=== PATIENT | female | born 1950 | race Caucasian/White ===

== ENCOUNTER 2016-12-12 09:44 | Day surgery (SDC) | payer MEDICARE ==
[~2016-12-12 09:44] MED LIST: LACTATED RINGERS 1,000 ML IV SCH; LIDOCAINE 1% 20 ML VIAL (10MG/ML) FOR IV START INTRADERMA PRN
[2016-12-12 10:59] VITALS: RESP 16; TEMP 97.5
[2016-12-12] MEDS ORDERED: PROPOFOL 10 MG/ML 20 ML VIAL IV ONE (11:22)
[2016-12-12] MEDS ORDERED: LIDOCAINE 1% INJ 10MG/ML (20 ML MDV) ONE (11:22)
[2016-12-12 12:12] VITALS: BP 131/78; PULSE 53
--- NOTE | 2016-12-12 13:04 | P.PCN ---
Date of Procedure: 12/12/16 Procedure(s) Performed: BRIEF HISTORY: Patient is a 66-year-old, pleasant, white female, scheduled for an upper endoscopy as a part of evaluation of epigastric pain for the last 2 months duration. Her symptoms are worse after eating and she has pain almost on a daily basis. She also complains of early satiety. She has been on omeprazole 20 mg daily with no help in her symptoms. She is hence scheduled for an upper endoscopy to evaluate further. PROCEDURE PERFORMED: Esophagogastroduodenoscopy with biopsy. PREOPERATIVE DIAGNOSIS: Postprandial epigastric pain of 2 months duration and early satiety. IV sedation per anesthesia. PROCEDURE: After informed consent was obtained, the patient was brought into the endoscopy unit. IV conscious sedation was administered by Anesthesia under continuous monitoring. Initially the Olympus GIF-140 video endoscope was inserted into the mouth. Esophagus intubated without any difficulty. It was gradually advanced into the stomach and duodenum and carefully examined. The bulb and the second part of the duodenum appeared normal. The scope at this time was withdrawn to the stomach, adequately insufflated with air, and upon careful examination, mucosa of the antrum, had gastritis and biopsies were done from this area. The body, cardia appeared normal. On retroflexion there was a paraesophageal hiatal hernia noted with large amount of retained food in the hiatal hernia sac. The scope was advanced into the hiatal hernia sac and the mucosa appeared normal. The scope was then withdrawn into the esophagus. The GE junction was located at 36 cm from the incisors. The esophagus appeared normal. There were no erosions or ulcerations seen and the patient tolerated the procedure well. IMPRESSION: 1. Paraesophageal hiatal hernia with large amount of retained solid food noted as mentioned above. 2. Mild antral gastritis. RECOMMENDATIONS: The findings of this examination were discussed with the patient as well as a family. She was advised to follow with the biopsy results. In the meantime I increased the Prilosec to 20 mg twice daily and advised for her to be on small frequent meals. She will be seen in office in 4 weeks. If she continues to remain symptomatic she may be a candidate for repair of the hiatal hernia.
--- NOTE | 2016-12-17 10:48 | CDI ---
Pt Name: January Ulrich CONFIDENTIAL MR#: [id number] Adm Date: 12/12/2016 9:44:00 AM Printed:12/17/2016 Physician Documentation Request Page 1 of 1 ICD-10-CM Ready Physicians Documentation Request Patient: January Ulrich EPI: [id number] Account: [id number] Payer: MEDICARE HMO Facility: [facility] Location: - Admit Date: 12/12/2016 9:44:00 AM Query Send By: Zaria Morse Phone #: Ext. Communication Date: 12/17/2016 10:43:00 AM Clarification Outpatient By submitting this query, we are merely seeking further clarification of documentation to accurately reflect all conditions that you are monitoring, evaluating, treating or that extend the hospitalization or utilize additional resources of care. Please utilize your independent clinical judgment when addressing the question(s) below. Dear Doctor Alejandra Gong, The patients Clinical Indicators include: see below Documentation Clarification OP In order to properly code and bill, we need clarification regarding the sedation used during this procedure because the current documentation shows a conflict. Your Procedure note states "IV conscious sedation", yet the Anesthesia Record indicates GA/Unconscious Sedation. Please issue an addendum to your operative report stating whether Conscious sedation was really used, or if it was GA/Unconscious sedation. Thank you. PLEASE DOCUMENT ANY ADDITIONAL DIAGNOSES AND/OR SPECIFICITY IN THE PROGRESS NOTES AND/OR DISCHARGE SUMMARY. Agreed & documented Unable to determine/unknown Disagree with the above request Need to discuss MTDD
--- NOTE | 2016-12-21 12:09 | PCN ---
ADDENDUM TO PROCEDURE NOTE: General anesthesia was utilized instead of IV conscious sedation.
== END 2016-12-12 12:50 | disposition home or self-care (01) ==
LOC: ORWHC2ENDO 09:44
PROVIDERS: ATTEND Internal Medicine Gastroenterology
DX: K29.50 Unspecified chronic gastritis without bleeding (principal); K44.9 Diaphragmatic hernia without obstruction or gangrene; I25.10 Atherosclerotic heart disease of native coronary artery without angina pectoris; Z95.5 Presence of coronary angioplasty implant and graft; I10 Essential (primary) hypertension; E78.5 Hyperlipidemia, unspecified; E07.9 Disorder of thyroid, unspecified; F32.9 Major depressive disorder, single episode, unspecified; K21.9 Gastro-esophageal reflux disease without esophagitis; Z79.82 Long term (current) use of aspirin; Z79.899 Other long term (current) drug therapy
CPT/HCPCS: 88305; 88342; 43239; J2001; J2704

== ENCOUNTER → 2017-04-23 | Outpatient (CLI) | payer MEDICARE ==
[2017-04-23 17:13] LABS: Blood Urea Nitrogen 20 mg/dL (7-17); Non-African American GFR(MDRD) >60 (>60 ml/min/1.73 sqM)
--- NOTE | 2017-04-24 06:59 | CT ---
EXAMINATION TYPE: CT chest w con DATE OF EXAM: 04/23/2017 COMPARISON: NONE HISTORY: Chest pain for 5-[address] DLP: 559.5 mGycm Automated exposure control for dose reduction was used. CONTRAST: CT scan of the chest is performed with IV Contrast, patient injected with 100 mL of Omnipaque 300. FINDINGS: Lungs are clear. There is no significant axillary, internal mammary, mediastinal or hilar adenopathy. There is no pleural or pericardial fluid. The heart is mildly enlarged. The aorta is normal in calibe r. There is a moderate-sized hiatal hernia. The gallbladder is been removed. Visualized portions of the upper abdomen are otherwise normal. No bony destructive lesion is seen. IMPRESSION: 1. No acute intrathoracic abnormality. 2. Hiatal hernia.
== END | disposition home or self-care (01) ==
LOC: RADCTMAIN 16:39
PROVIDERS: ATTEND Surgery
DX: R07.89 Other chest pain (principal)
CPT/HCPCS: 82565; 84520; 71260; 36415; Q9967

== ENCOUNTER 2017-06-14 06:30 | Observation (INO) | payer MEDICARE ==
[2017-06-07 16:18] VITALS: BMI 44.6
[~2017-06-14 06:30] MED LIST changes: -LACTATED RINGERS 1,000 ML IV SCH; -LIDOCAINE 1% 20 ML VIAL (10MG/ML) FOR IV START INTRADERMA PRN; +ceFAZolin 2 GM in SODIUM CHLORIDE 0.9% 100 ML IVPB ONE
[2017-06-14] MEDS ORDERED: LACTATED RINGERS 1,000 ML IV ONE ×2 (07:10→09:06)
[2017-06-14] MEDS ORDERED: LIDOCAINE 1% 20 ML VIAL (10MG/ML) FOR IV START INTRADERMA ONE (07:18)
[2017-06-14] MEDS ORDERED: MIDAZOLAM 2 MG/2 ML VIAL IV ONE (07:19)
[2017-06-14] MEDS ORDERED: DEXAMETHASONE SOD PHOSPHATE 4 MG/ML 1 ML VIAL IV ONE (07:19)
[2017-06-14] MEDS ORDERED: ONDANSETRON 4 MG/2 ML VIAL IVP ONE ×2 (07:19→10:36)
[2017-06-14] MEDS ORDERED: HEPARIN SODIUM,PORCINE 5,000 UNIT/ML 1 ML VIAL SQ ONE (07:45)
--- NOTE | 2017-06-14 07:49 | P.GSHP ---
History of Present Illness H&P Date: 06/14/17 Chief Complaint: Hiatal hernia Patient seen in the office with complaints of chest pain. Increased with eating. Better with liquids. Some nausea but no vomiting. Denies dysphagia. She does have some reflux symptoms although that is mild she states. CAT scan shows a large hiatal hernia. The esophagus appears to be of appropriate length. Pain is mostly in the right chest. Upper endoscopy was done in November of this year. At the time of hernia the patient was found to have some solid food within the stomach. No esophagitis was seen. Past Medical History Past Medical History: Coronary Artery Disease (CAD), GERD/Reflux, Hyperlipidemia , Hypertension, Musculoskeletal Disorder, Osteoarthritis (OA), Thyroid Disorder Additional Past Medical History / Comment(s): DDD, hx anemia. History of Any Multi-Drug Resistant Organisms: None Reported Past Surgical History: Back Surgery, Cholecystectomy, Heart Catheterization With Stent, Hysterectomy, Joint Replacement, Orthopedic Surgery Additional Past Surgical History / Comment(s): Bilateral total knees. Past Anesthesia/Blood Transfusion Reactions: No Reported Reaction Date of Last Stent Placement:: 2006 Past Psychological History: No Psychological Hx Reported Smoking Status: Former smoker Past Alcohol Use History: None Reported Additional Past Alcohol Use History / Comment(s): Quit in 2006. Past Drug Use History: None Reported - Past Family History Brother(s) Family Medical History: Cancer Mother Brother(s) Family Medical History: Cancer Father Family Medical History: Cancer Medications and Allergies Home Medications Medication Instructions Recorded Confirmed Type Aspirin 81 mg PO DAILY 05/03/15 06/07/17 History Atenolol [Tenormin] 25 mg PO QAM 05/03/15 06/07/17 History Citalopram Hydrobromide [CeleXA] 40 mg PO QAM 05/03/15 06/07/17 History Enalapril Maleate [Vasotec] 5 mg PO QAM 05/03/15 06/07/17 History HYDROcodone/APAP 10-325MG [[place] 1 each PO Q6H PRN 05/03/15 06/07/17 History 10] Isosorbide Mononitrate [Isosorbide 30 mg PO QAM 05/03/15 06/07/17 History Mononitrate ER] Levothyroxine Sodium [Synthroid] 125 mcg PO QAM 05/03/15 06/07/17 History Nitroglycerin Sl Tabs [Nitrostat] 0 mg SUBLINGUAL DIRECTED PRN 05/03/1506/14 History Omeprazole 40 mg PO BID 05/03/15 06/07/17 History Pramipexole [Mirapex] 1 mg PO HS 05/03/15 06/07/17 History Atorvastatin Calcium [Lipitor] 40 mg PO HS 06/07/17 06/07/17 History Ergocalciferol (Vitamin D2) 125 mg PO PAL 06/07/17 06/07/17 History [Vitamin D2] Gabapentin [Neurontin] 300 mg PO TID 06/07/17 06/07/17 History Glucosamine Sulfate 1,500 mg PO DAILY 06/07/17 06/14/17 History Multivitamins, Thera [Multivitamin 1 tab PO DAILY 06/07/17 06/07/17 History (formulary)] Tolterodine Tartrate [Detrol LA] 4 mg PO HS 06/07/17 06/07/17 History Allergies Allergy/AdvReac Type Severity Reaction Status Date / Time No Known Allergies Allergy Verified 06/14/17 06:57 Surgical - Exam Vital Signs Temp Pulse Resp BP Pulse Ox 97.7 F 67 16 143/72 92 L 06/14/17 06:57 06/14/17 06:57 06/14/17 06:57 06/14/17 06:57 06/14/17 06:57 Physical exam: General: Well-developed, well-nourished HEENT: Normocephalic, sclerae nonicteric Abdomen: Nontender, nondistended Extremities: No edema Neuro: Alert and oriented Assessment and Plan (1) Hiatal hernia Narrative/Plan: Large symptomatic hiatal hernia. The patient's chest pain is thought to be related to intermittent obstruction. Patient's reflux symptoms are fairly mild. We have discussed the options in detail with the patient. We'll plan laparoscopic repair today with possible [place] Bio-a mesh. The risks of bleeding , infection, perforation, splenic injury, recurrence, reflux, dysphagia, gastroparesis, bloating, conversion to an open procedure were discussed. She understands and wishes to proceed. Status: Acute
[2017-06-14] MEDS ORDERED: NEOSTIGMINE 1 MG/ML 10 ML VIAL ONE (07:54)
[2017-06-14] MEDS ORDERED: ROCURONIUM BROMIDE 10 MG/ML 10 ML VIAL IV ONE (07:54)
[2017-06-14] MEDS ORDERED: ePHEDrine SULFATE/0.9% NACL/PF 50 MG/5 ML SYRINGE IV ONE (07:54)
[2017-06-14] MEDS ORDERED: GLYCOPYRROLATE 0.2 MG/ML 2 ML VIAL ONE (07:54)
[2017-06-14] MEDS ORDERED: LIDOCAINE 1% INJ 10MG/ML (20 ML MDV) ONE (07:54)
[2017-06-14] MEDS ORDERED: PROPOFOL 10 MG/ML 20 ML VIAL IV ONE (07:54)
[2017-06-14] MEDS ORDERED: SUCCINYLCHOLINE CHLORIDE VIAL 200 MG/10 ML VIAL IV ONE (07:54)
[2017-06-14] MEDS ORDERED: fentaNYL (PF) 50 MCG/ML 2 ML AMP ONE (07:54)
[2017-06-14] MEDS ORDERED: BUPIVACAINE (PF) 0.25% 30 ML VIAL SQ ONE ×2 (08:27)
[2017-06-14] MEDS ORDERED: HYDROmorphone 1 MG/ML 1 ML SYRINGE IVP ONE ×4 (10:30→10:56)
[2017-06-14] MEDS ORDERED: ONDANSETRON 4 MG/2 ML VIAL IVP PRN (10:36)
--- NOTE | 2017-06-14 10:43 | P.OP ---
Date of Procedure: 06/14/17 Procedure(s) Performed: PROCEDURE(S) PERFORMED: PREOPERATIVE DIAGNOSIS: Hiatal hernia POSTOPERATIVE DIAGNOSIS: Same PROCEDURE: Laparoscopic repair hiatal hernia with mesh SURGEON: Juan EBL: Minimal ANESTHESIA: General COMPLICATIONS: None OPERATIVE PROCEDURE: Patient was placed in the operating table in the supine position. She was placed under general anesthesia at that time. The abdomen was prepped and draped in sterile fashion after the patient was placed in lithotomy. A 5 mm optical trocar was used to enter the abdominal cavity in the left upper quadrant. Insufflation took place to 15 mm mercury. An additional right subxiphoid 5 mm trocar was then placed under direct relation and then removed. 2 additional 5 mm trochars were placed in the right upper quadrant and left upper quadrant under direct relation and a 10 mm trocar in the left upper quadrant inferior to the initial 5 mm spot. The left lower liver was retracted anteriorly using the Ashley medium liver retractor. There were some adhesions from the prior open cholecystectomy there were divided using the LigaSure device. The diaphragm was inspected. The patient had a large hiatal hernia. The top one third or so of the stomach and perigastric fat was above the diaphragm. Circumferentially the phrenoesophageal ligament was incised identifying the actual defect. The proximal greater curvature of the stomach was mobilized by dividing the short gastric vasculature. The posterior short gastrics were likewise divided. Mobilization of the distal esophagus took place proximally 10 cm above the diaphragmatic hiatus. We had excellent mobility at this point in the GE junction was resting just beyond the hiatus. The 58-[place] bougie dilator was advanced into the stomach. This helped me identify how tight to make the hiatus. 3 separate 2-0 Ethibond sutures were used to reapproximate the renee posteriorly. These were tied down using the tie knot device. The dilator was then readvanced and the hiatus appeared appropriately tightened at that point. The [place] bio-a mesh was then used covering the crural closure. The mesh was 7 x 10 cm with the keyhole already precut. The mesh was secured posteriorly to the crural closure so that it would not impede upon the posterior wall of the esophagus. I also sutured the fascia to the crura on both the right and left side of the diaphragmatic hiatus. During the procedure 3 separate portions of perigastric fat made up the hernia sac was excised and removed. The insufflation was evacuated. The skin at all 5 incisions were closed using 4-0 Monocryl sutures. Steri-Strips and sterile dressings were then applied. DISPOSITION: Stable to recovery room
--- NOTE | 2017-06-14 12:33 | P.HPIM ---
History of Present Illness H&P Date: 06/14/17 Chief Complaint: Status post laparoscopic repair of hiatal hernia with mesh This is a 66-year-old female with a known past medical history of coronary artery disease with cardiac stent, hyperlipidemia, hypertension, hypothyroidism and past history of smoking. Patient has a known hiatal hernia and underwent a laparoscopic repair of hiatal hernia with mesh with Dr. Martinez today. She tolerated surgery well. She is currently complaining of some abdominal pain and just received a dose of IV Dilaudid. She denies any chest pain or shortness of breath. Denies any nausea or vomiting. Denies any bowel movement problems prior to surgery. Denies any burning with urination prior to surgery. Patient will had symptomatic hiatal hernia with complaints of chest pain that increased with eating. And a previous CAT scan that showed a large hiatal hernia. We have been consulted for medical management. On physical exam patient does have some wheezing but no history of COPD or emphysema. She does have a previous smoking history. Review of Systems Please refer to HPI otherwise unremarkable Past Medical History Past Medical History: Coronary Artery Disease (CAD), GERD/Reflux, Hyperlipidemia , Hypertension, Musculoskeletal Disorder, Osteoarthritis (OA), Thyroid Disorder Additional Past Medical History / Comment(s): DDD, hx anemia. History of Any Multi-Drug Resistant Organisms: None Reported Past Surgical History: Back Surgery, Cholecystectomy, Heart Catheterization With Stent, Hysterectomy, Joint Replacement, Orthopedic Surgery Additional Past Surgical History / Comment(s): Bilateral total knees. Past Anesthesia/Blood Transfusion Reactions: No Reported Reaction Date of Last Stent Placement:: 2006 Past Psychological History: No Psychological Hx Reported Smoking Status: Former smoker Past Alcohol Use History: None Reported Additional Past Alcohol Use History / Comment(s): Quit in 2006. Past Drug Use History: None Reported - Past Family History Brother(s) Family Medical History: Cancer Mother Brother(s) Family Medical History: Cancer Father Family Medical History: Cancer Medications and Allergies Home Medications Medication Instructions Recorded Confirmed Type Aspirin 81 mg PO DAILY 05/03/15 06/07/17 History Atenolol [Tenormin] 25 mg PO QAM 05/03/15 06/07/17 History Citalopram Hydrobromide [CeleXA] 40 mg PO QAM 05/03/15 06/07/17 History Enalapril Maleate [Vasotec] 5 mg PO QAM 05/03/15 06/07/17 History HYDROcodone/APAP 10-325MG [[place] 1 each PO Q6H PRN 05/03/15 06/07/17 History 10] Isosorbide Mononitrate [Isosorbide 30 mg PO QAM 05/03/15 06/07/17 History Mononitrate ER] Levothyroxine Sodium [Synthroid] 125 mcg PO QAM 05/03/15 06/07/17 History Nitroglycerin Sl Tabs [Nitrostat] 0 mg SUBLINGUAL DIRECTED PRN 05/03/1506/14 History Omeprazole 40 mg PO BID 05/03/15 06/07/17 History Pramipexole [Mirapex] 1 mg PO HS 05/03/15 06/07/17 History Atorvastatin Calcium [Lipitor] 40 mg PO HS 06/07/17 06/07/17 History Ergocalciferol (Vitamin D2) 125 mg PO PAL 06/07/17 06/07/17 History [Vitamin D2] Gabapentin [Neurontin] 300 mg PO TID 06/07/17 06/07/17 History Glucosamine Sulfate 1,500 mg PO DAILY 06/07/17 06/14/17 History Multivitamins, Thera [Multivitamin 1 tab PO DAILY 06/07/17 06/07/17 History (formulary)] Tolterodine Tartrate [Detrol LA] 4 mg PO HS 06/07/17 06/07/17 History Hydrocodone/Acetaminophen [[place] 1 - 2 each PO Q4HR PRN #30 tab 06/14/17 Rx 5-325] Allergies Allergy/AdvReac Type Severity Reaction Status Date / Time No Known Allergies Allergy Verified 06/14/17 06:57 Physical Exam Vitals: Vital Signs Temp Pulse Pulse Resp BP Pulse Ox 06/14/17 11:15 62 16 130/68 95 06/14/17 11:00 62 16 132/59 96 06/14/17 10:45 63 16 140/65 99 06/14/17 10:30 64 16 133/61 06/14/17 10:23 98.4 F 68 16 122/62 92 L 06/14/17 07:23 56 L 98 06/14/17 06:57 97.7 F 67 16 143/72 92 L Intake and Output 06/13/17 06/14/17 06/14/17 22:59 06:59 14:59 Intake Total 1800 Output Total 15 Balance 1785 Intake: IV 1800 Output: Estimated Blood Loss 15 Other: Weight 117.934 kg Patient Weight 06/15/17 06:59 Weight 117.934 kg Head normocephalic Neck supple Lungs fine expiratory wheeze noted anterior and posterior chest Heart regular rate and rhythm S1-S2, no rub or gallop Abdomen is soft no bowel sounds dressing clean and dry Extremities no edema Neuro alert and orientated to 3 Thrombosis Risk Factor Assmnt - Choose All That Apply Any of the Below Risk Factors Present?: Yes Each Factor Represents 1 point: Obesity (BMI >25), Swollen legs (current), Varicose veins Other Risk Factors: Yes Each Risk Factor Represents 2 Points: Laparoscopic surgery, Major surgery Other congenital or acquired thrombophilia - If yes, enter type in comment: No Thrombosis Risk Factor Assessment Total Risk Factor Score: 7 Thrombosis Risk Factor Assessment Level: High Risk Assessment and Plan Plan: 1. Large hiatal hernia status post laparoscopic repair of hiatal hernia with mesh. Postop day #0. Surgery is place her on a Jessy clear liquid diet. She is scheduled for an esophagram later today. Continue with current pain medication 2. Mild wheezing noted throughout chest: Patient does have a history of smoking , possibly some mild underlying COPD. Will treat patient with nebulizer treatments 4 times a day 3. Essential hypertension: Blood pressure stable. Resume home blood pressure medications 4. Hypothyroidism: Resume patient's Synthroid 5. History of overactive bladder we'll resume patient's oxybutynin GI prophylaxis Pepcid and DVT prophylaxis subcu heparin Thank you for this consultation. We will continue to follow along with you. Time with Patient: Greater than 30 (Greater than 50% of the total time spent in counseling and coordination of care.I performed an examination of the patient and discussed their management with the physician Monument Installer. I have reviewed the Physician Monument Installer's notes and agree with the documented findings and plan of care)
[2017-06-14] MEDS: HYDROmorphone 1 MG/ML 1 ML SYRINGE IVP PRN ×2 (14:14→18:52)
--- NOTE | 2017-06-14 14:19 | FL ---
EXAMINATION TYPE: FL esophagus cervic/pharynx DATE OF EXAM: 06/14/2017 HISTORY: Status post Jessy fundoplication. COMPARISON: NONE TECHNIQUE: A single contrast esophagram is performed utilizing thin barium. FINDINGS: The distal esophagus shows normal motility and emptying into the stomach. Delayed propulsion at the gastroesophageal junction is seen, mild in degree with contrast seen extending through the gastroesop hageal junction after a short period of time. No evidence of hiatal hernia or stricture noted. No sig nificant gastroesophageal reflux was seen during real time performance of this study. IMPRESSION: Mild delayed propulsion of the gastroesophageal junction, likely related to postoperativ e edema with no stricture or extravasation.
[2017-06-14] MEDS: D5-0.45% NACL WITH KCL 20MEQ/L 1,000 ML IV SCH (15:11)
[2017-06-14] MEDS: HEPARIN SODIUM,PORCINE 5,000 UNIT/ML 1 ML VIAL SQ SCH (15:12)
[2017-06-14] MEDS: GABAPENTIN 300 MG CAP PO SCH ×2 (15:13→22:12)
[2017-06-14] MEDS: IPRATROPIUM-ALBUTEROL 3 ML NEB INHALATION SCH ×2 (15:59→20:39)
[2017-06-14] MEDS ORDERED: HYDROcodone/APAP 5-325MG 1 EACH TAB PO PRN (16:08)
[2017-06-14] MEDS ORDERED: ATORVASTATIN 40 MG TAB PO SCH (21:00)
[2017-06-14] MEDS ORDERED: PRAMIPEXOLE 1 MG TAB PO SCH (21:00)
[2017-06-14] MEDS ORDERED: OXYBUTYNIN XL 5 MG TAB.ER.24 PO SCH (21:00)
[2017-06-14] MEDS ORDERED: FAMOTIDINE 20 MG/2 ML VIAL IV SCH (21:00)
[2017-06-15] MEDS: HEPARIN SODIUM,PORCINE 5,000 UNIT/ML 1 ML VIAL SQ SCH ×2 (00:24→07:58)
[2017-06-15] MEDS: D5-0.45% NACL WITH KCL 20MEQ/L 1,000 ML IV SCH (00:24)
[2017-06-15] MEDS: HYDROmorphone 1 MG/ML 1 ML SYRINGE IVP PRN ×2 (00:29→05:58)
[2017-06-15] MEDS ORDERED: LEVOTHYROXINE 125 MCG TAB PO SCH (06:30)
[2017-06-15 07:12] VITALS: BP 122/70
[2017-06-15 07:15] LABS: Basophils % (A) 0 %; CH 30.2; CHCM 32.2; Eosinophils % (A) 0 %; HCT 36.1 % (34.0-46.0); HDW 2.68; HGB 11.3 gm/dL (11.4-16.0); Luc # (Auto) 0.19; Luc % (Auto) 2; Lymphocytes # (A) 1.3 k/uL (1.0-4.8); Lymphocytes % (A) 15 %; MCH 29.5 pg (25.0-35.0); MCHC 31.4 g/dL (31.0-37.0); MCV 94.1 fL (80.0-100.0); Mean Platelet Volume 7.1; Monocytes # (A) 0.6 k/uL (0-1.0); Monocytes % (A) 6 %; Neutrophils # (A) 6.9 k/uL (1.3-7.7); Neutrophils % (A) 77 %; RBC 3.84 m/uL (3.80-5.40); RDW 14.4 % (11.5-15.5); WBC (Perox) 9.47
[2017-06-15] MEDS: IPRATROPIUM-ALBUTEROL 3 ML NEB INHALATION SCH ×2 (07:18→11:22)
[2017-06-15 07:21] VITALS: PULSE 63
[2017-06-15 07:31] LABS: Anion Gap 4 mmol/L; Blood Urea Nitrogen 20 mg/dL (7-17); Carbon Dioxide 28 mmol/L (22-30); Chloride 101 mmol/L (98-107); Glucose 109 mg/dL (74-99); Non-African American GFR(MDRD) >60 (>60 ml/min/1.73 sqM); Potassium 4.3 mmol/L (3.5-5.1); Sodium 133 mmol/L (137-145)
[2017-06-15] MEDS: GABAPENTIN 300 MG CAP PO SCH (07:58)
[2017-06-15] MEDS ORDERED: ISOSORBIDE MONONITRATE ER 30 MG TAB.ER.24H PO SCH (09:00)
[2017-06-15] MEDS ORDERED: ATENOLOL 25 MG TAB PO SCH (09:00)
[2017-06-15] MEDS ORDERED: LISINOPRIL 10 MG TAB PO SCH (09:00)
[2017-06-15] MEDS ORDERED: CITALOPRAM HYDROBROMIDE 20 MG TAB PO SCH (09:00)
[2017-06-15 11:25] VITALS: RESP 14
[2017-06-15] MEDS ORDERED: MULTIVITAMINS, THERA 1 EACH TAB PO SCH (12:00)
--- NOTE | 2017-06-15 12:13 | P.PN ---
Subjective patient is doing well today. She is looking forward to go home later on. Objective - Vital Signs Vital signs: Vital Signs Temp 97.6 F 06/15/17 07:11 Pulse 63 06/15/17 11:36 Resp 14 06/15/17 11:36 BP 122/70 06/15/17 07:11 Pulse Ox 95 06/15/17 07:18 Intake & Output 06/14/17 06/15/17 06/15/17 18:59 06:59 18:59 Intake Total 1800 600 Output Total 90 660 350 Balance 1710 -60 -350 Weight 117.934 kg Intake: IV 1800 Intake, IV Titration 600 Amount D5-0.45% NaCl with KCl 600 20Meq/l 1,000 ml @ 75 mls /hr IV .[id number] CHARLIE Rx#: [id number] Output: Urine 75 660 350 Estimated Blood Loss 15 Other: Voiding Method Toilet # Voids 2 - Exam General: The patient is awake and alert, in no distress Eye: there is normal conjunctiva bilaterally. Neck: The neck is supple, there is no JVD. Cardiovascular: Normal S1-S2, no S3-S4, no murmurs. Respiratory: Lungs clear to auscultation bilaterally Gastrointestinal: Abdomen is soft, nontender Musculoskeletal: There is no pedal edema. Neurological:. Speech is normal. Skin: Skin is warm and dry - Labs CBC & Chem 7: 06/15/17 06:44 06/15/17 06:44 Labs: Abnormal Lab Results - Last 24 Hours (Table) 06/15/17 06/15/17 Range/Units 06:44 06:44 Hgb 11.3 L (11.4-16.0) gm/dL Sodium 133 L (137-145) mmol/L BUN 20 H (7-17) mg/dL Glucose 109 H (74-99) mg/dL Assessment and Plan Plan: 1. Large hiatal hernia status post laparoscopic repair of hiatal hernia with mesh. Postop day #1. patient tolerated the surgery well. 2. Essential hypertension: Blood pressure stable. Resume home blood pressure medications 4. Hypothyroidism: Resume patient's Synthroid 5. History of overactive bladder we'll resume patient's oxybutynin medically cleared for discharge. Thank you for the consultation.
[2017-06-15 14:49] VITALS: TEMP 97.4
--- NOTE | 2017-06-15 15:59 | P.DS ---
Providers Date of admission: 06/15/17 03:44 Expected date of discharge: 06/15/17 Attending physician: Kevin Martinez Consults: 06/14/17 10:36 Consult Physician Routine Consulting Provider: Melba Gillis Consult Reason/Comments: Medical management Do you want consulting provider notified?: Yes Primary care physician: Melba Gillis - Discharge Diagnosis(es) (1) Hiatal hernia Status: Acute Hospital Course: The patient presented for repair of a hiatal hernia. She was monitored overnight. She was having minimal pain. Tolerating a liquid diet. No dysphasia. Normal upper GI. Pertinent Studies: Upper GI Procedures: Laparoscopic repair of hiatal hernia Patient Condition at Discharge: Good Plan - Discharge Summary New Discharge Prescriptions: New Hydrocodone/Acetaminophen [[place] 5-325] 1 - 2 each PO Q4HR PRN #30 tab PRN Reason: pain Levothyroxine Sodium [Synthroid] 125 mcg PO DAILY@0630 #30 tab Continue Omeprazole 40 mg PO BID Nitroglycerin Sl Tabs [Nitrostat] 0.4 mg SUBLINGUAL DIRECTED PRN PRN Reason: Chest Pain HYDROcodone/APAP 10-325MG [[place] 10-325] 1 tab PO Q6H PRN PRN Reason: Pain Enalapril Maleate [Vasotec] 5 mg PO QAM Pramipexole [Mirapex] 1 mg PO HS Citalopram Hydrobromide [CeleXA] 40 mg PO QAM Atenolol [Tenormin] 25 mg PO QAM Aspirin 81 mg PO DAILY Isosorbide Mononitrate [Isosorbide Mononitrate ER] 30 mg PO QAM Tolterodine Tartrate [Detrol LA] 4 mg PO HS Glucosamine Sulfate 1,500 mg PO DAILY Multivitamins, Thera [Multivitamin (formulary)] 1 tab PO DAILY Ergocalciferol (Vitamin D2) [Vitamin D2] 50,000 unit PO PAL Atorvastatin Calcium [Lipitor] 40 mg PO HS Gabapentin [Neurontin] 300 mg PO TID Levothyroxine Sodium [Synthroid] 125 mcg PO DAILY Discharge Medication List Aspirin 81 mg PO DAILY 05/03/15 [History] Atenolol [Tenormin] 25 mg PO QAM 05/03/15 [History] Citalopram Hydrobromide [CeleXA] 40 mg PO QAM 05/03/15 [History] Enalapril Maleate [Vasotec] 5 mg PO QAM 05/03/15 [History] HYDROcodone/APAP 10-325MG [[place] 10-325] 1 tab PO Q6H PRN 05/03/15 [History] Isosorbide Mononitrate [Isosorbide Mononitrate ER] 30 mg PO QAM 05/03/15 [ History] Nitroglycerin Sl Tabs [Nitrostat] 0.4 mg SUBLINGUAL DIRECTED PRN 05/03/15 [ History] Omeprazole 40 mg PO BID 05/03/15 [History] Pramipexole [Mirapex] 1 mg PO HS 05/03/15 [History] Atorvastatin Calcium [Lipitor] 40 mg PO HS 06/07/17 [History] Ergocalciferol (Vitamin D2) [Vitamin D2] 50,000 unit PO PAL 06/07/17 [History] Gabapentin [Neurontin] 300 mg PO TID 06/07/17 [History] Glucosamine Sulfate 1,500 mg PO DAILY 06/07/17 [History] Multivitamins, Thera [Multivitamin (formulary)] 1 tab PO DAILY 06/07/17 [History ] Tolterodine Tartrate [Detrol LA] 4 mg PO HS 06/07/17 [History] Hydrocodone/Acetaminophen [[place] 5-325] 1 - 2 each PO Q4HR PRN #30 tab 06/14/17 [Rx] Levothyroxine Sodium [Synthroid] 125 mcg PO DAILY 06/15/17 [History] Levothyroxine Sodium [Synthroid] 125 mcg PO DAILY@0630 #30 tab 06/15/17 [Rx] Follow up Appointment(s)/Referral(s): Kevin Martinez MD [Medical Doctor] - 2 Weeks (Office closed, please call to schedule follow up appointment) Melba Gillis MD [Primary Care Provider] - 1 Week (Office closed, please call and schedule a follow up) Patient Instructions/Handouts: Adult Laparoscopic Jessy Fundoplication (DC) Activity/Diet/Wound Care/Special Instructions: No baths. No pools, no hot tubs No heavy lifting until follow up with Dr Martinez Discharge Disposition: HOME SELF-CARE
[2017-06-16] MEDS ORDERED: ERGOCALCIFEROL 50,000 UNIT CAP PO SCH (09:00)
== END 2017-06-15 15:06 | disposition home or self-care (01) ==
LOC: OR 06:30 → EDSTATUS 07:45 → 3SUR 10:22 → OR 06-15 03:44
PROVIDERS: ADMIT Surgery; ATTEND Surgery
DX: K44.0 Diaphragmatic hernia with obstruction, without gangrene (principal); R06.2 Wheezing; N32.81 Overactive bladder; I10 Essential (primary) hypertension; E03.9 Hypothyroidism, unspecified; I25.10 Atherosclerotic heart disease of native coronary artery without angina pectoris; M19.90 Unspecified osteoarthritis, unspecified site; Z68.41 Body mass index [BMI] 40.0-44.9, adult; E66.9 Obesity, unspecified; Z95.5 Presence of coronary angioplasty implant and graft; Z87.891 Personal history of nicotine dependence; Z79.82 Long term (current) use of aspirin; Z79.899 Other long term (current) drug therapy; F32.9 Major depressive disorder, single episode, unspecified; K21.9 Gastro-esophageal reflux disease without esophagitis; E78.5 Hyperlipidemia, unspecified
CPT/HCPCS: 43282; 94640 ×4; 94760; 80048; 85025; 88302; 74210; G0378; C1781; J2250; J0330; J1644 ×2; J1100; J2710; Q9967; J0690; J2405; J2001; J3010; J1170 ×2; J2704

== ENCOUNTER 2017-09-18 08:15 | Day surgery (SDC) | payer MEDICARE ==
[2017-09-16 11:24] VITALS: BMI 40.5
[~2017-09-18 08:15] MED LIST changes: +LACTATED RINGERS 1,000 ML IV SCH; +LIDOCAINE 1% 20 ML VIAL (10MG/ML) FOR IV START INTRADERMA PRN; -ceFAZolin 2 GM in SODIUM CHLORIDE 0.9% 100 ML IVPB ONE
--- NOTE | 2017-09-18 08:19 | P.GSHP ---
History of Present Illness H&P Date: 09/18/17 Chief Complaint: Anemia Patient is known to our service. She underwent laparoscopic repair of a large hiatal hernia in May. She is here today for colonoscopy with a diagnosis of anemia. Last attempts at colonoscopy 2014 and at that time the patient had a poor prep. The scope was advanced up to around the region of the splenic flexure. No recent rectal bleeding. Past Medical History Past Medical History: Coronary Artery Disease (CAD), GERD/Reflux, Hyperlipidemia , Hypertension, Musculoskeletal Disorder, Osteoarthritis (OA), Thyroid Disorder Additional Past Medical History / Comment(s): DDD, hx anemia. JOSE LEG SWELLING, HX OF BLOOD IN URINE History of Any Multi-Drug Resistant Organisms: None Reported Past Surgical History: Back Surgery, Cholecystectomy, Heart Catheterization With Stent, Hysterectomy, Joint Replacement, Orthopedic Surgery Additional Past Surgical History / Comment(s): Bilateral total knees. ALLEN FUNDLAPLASTY, LEFT TOTAL SHOULDER. 2 STENTS IN HEART Past Anesthesia/Blood Transfusion Reactions: No Reported Reaction Date of Last Stent Placement:: 2006 Past Psychological History: Depression Smoking Status: Current every day smoker Past Alcohol Use History: Occasional Additional Past Alcohol Use History / Comment(s): Quit in 2006, SMOKED 1 TO 1 AND 1/2 PPD, STARTED A TEENAGER Past Drug Use History: None Reported - Past Family History Brother(s) Family Medical History: Cancer Mother Brother(s) Family Medical History: Cancer Father Family Medical History: Cancer Medications and Allergies Home Medications Medication Instructions Recorded Confirmed Type Aspirin 81 mg PO DAILY 05/03/15 09/16/17 History Atenolol [Tenormin] 25 mg PO QAM 05/03/15 09/16/17 History Citalopram Hydrobromide [CeleXA] 40 mg PO QAM 05/03/15 09/16/17 History Enalapril Maleate [Vasotec] 5 mg PO QAM 05/03/15 09/16/17 History HYDROcodone/APAP 10-325MG [[place] 1 tab PO Q6H PRN 05/03/15 09/16/17 History 10-325] Isosorbide Mononitrate [Isosorbide 30 mg PO QAM 05/03/15 09/16/17 History Mononitrate ER] Nitroglycerin Sl Tabs [Nitrostat] 0.4 mg SUBLINGUAL DIRECTED PRN 05/03/15 History Omeprazole 40 mg PO BID 05/03/15 09/16/17 History Pramipexole [Mirapex] 1 mg PO HS 05/03/15 09/16/17 History Atorvastatin Calcium [Lipitor] 40 mg PO HS 06/07/17 09/16/17 History Ergocalciferol (Vitamin D2) 50,000 unit PO PAL 06/07/17 09/16/17 History [Vitamin D2] Glucosamine Sulfate 1,500 mg PO DAILY 06/07/17 09/16/17 History Tolterodine Tartrate [Detrol LA] 4 mg PO HS 06/07/17 09/16/17 History Levothyroxine Sodium [Synthroid] 125 mcg PO DAILY@0630 #30 tab 06/15/17 Rx Furosemide [Lasix] 40 mg PO BID 09/16/17 09/16/17 History Allergies Allergy/AdvReac Type Severity Reaction Status Date / Time No Known Allergies Allergy Verified 09/16/17 11:17 Surgical - Exam Physical exam: General: Well-developed, well-nourished HEENT: Normocephalic, sclerae nonicteric Abdomen: Nontender, nondistended Extremities: No edema Neuro: Alert and oriented Assessment and Plan (1) Anemia Narrative/Plan: Will proceed with colonoscopy at this time. Risks of bleeding and perforation discussed. Status: Acute Code(s): D64.9 - ANEMIA, UNSPECIFIED SNOMED Code(s): 146303717
[2017-09-18 08:40] VITALS: RESP 16; TEMP 98.3
[2017-09-18] MEDS ORDERED: LIDOCAINE 1% INJ 10MG/ML (20 ML MDV) ONE (09:21)
[2017-09-18] MEDS ORDERED: PROPOFOL 10 MG/ML 20 ML VIAL IV ONE (09:21)
--- NOTE | 2017-09-18 09:51 | P.PCN ---
Date of Procedure: 09/18/17 Procedure(s) Performed: PREOPERATIVE DIAGNOSIS: Anemia POSTOPERATIVE DIAGNOSIS: Small ascending colon polyp, diverticulosis PROCEDURE: Colonoscopy with snare polypectomy ANESTHESIA: MAC SURGEON: Kevin Martinez M.D. SPECIMENS: Ascending colon polyp ENDOSCOPIC PROCEDURE: The patient was placed on the endoscopy table in the left decubitus position. The Olympus colonoscope was inserted into the anus and passed under direct visualization to the base of the cecum. The appendiceal orifice was visualized. From that point the scope was slowly withdrawn inspecting all surfaces carefully. There were no neoplastic inflammatory or polypoid lesions throughout the cecum. In the ascending colon a small polyp was removed using the snare with cautery technique. The remainder of the ascending transverse descending sigmoid and rectum appeared normal. There was mild diverticulosis scattered throughout the colon. Digital rectal examination was normal. The patient was taken to the recovery room in stable condition per anesthesia guidelines. RECOMMENDATIONS: Await biopsy results. Continue anemia workup.
[2017-09-18 10:42] VITALS: BP 120/62; PULSE 60
== END 2017-09-18 11:15 | disposition home or self-care (01) ==
LOC: ORWHC2ENDO 08:15
PROVIDERS: ATTEND Surgery
DX: D12.2 Benign neoplasm of ascending colon (principal); K57.30 Diverticulosis of large intestine without perforation or abscess without bleeding; D64.9 Anemia, unspecified; I25.10 Atherosclerotic heart disease of native coronary artery without angina pectoris; K21.9 Gastro-esophageal reflux disease without esophagitis; E78.5 Hyperlipidemia, unspecified; I10 Essential (primary) hypertension; M19.90 Unspecified osteoarthritis, unspecified site; E07.9 Disorder of thyroid, unspecified; F32.9 Major depressive disorder, single episode, unspecified; Z79.82 Long term (current) use of aspirin; Z79.899 Other long term (current) drug therapy; Z87.891 Personal history of nicotine dependence; Z95.5 Presence of coronary angioplasty implant and graft; Z90.710 Acquired absence of both cervix and uterus
CPT/HCPCS: 45385; 88305; J2001; J2704

== ENCOUNTER → 2017-10-08 | Outpatient (CLI) | payer MEDICARE ==
--- NOTE | 2017-10-08 18:18 | US ---
EXAMINATION TYPE: US venous doppler duplex LE DATE OF EXAM: 10/08/2017 5:53 PM COMPARISON: NONE CLINICAL HISTORY: Pain L lower limb M79.662/Pain R lower limb M79.661. SIDE PERFORMED: Bilateral TECHNIQUE: The lower extremity deep venous system is examined utilizing real time linear array sonog adolfo with graded compression, doppler sonography and color-flow sonography. VESSELS IMAGED: External Iliac Vein (EIV) Common Femoral Vein Deep Femoral Vein Greater Saphenous Vein * Femoral Vein Popliteal Vein Small Saphenous Vein * Proximal Calf Veins (* superficial vessels) FINDINGS: Grayscale, color doppler, spectral doppler imaging performed of the deep veins of the lowe r extremities. There is normal flow, compressibility, vascular waveforms. IMPRESSION: 1. RIGHT LOWER EXTREMITY: NEGATIVE FOR DVT 2. LEFT LOWER EXTREMITY: NEGATIVE FOR DVT
== END ==
LOC: RADXRMAIN 16:50
PROVIDERS: ATTEND Internal Medicine
DX: M79.661 Pain in right lower leg (principal); R22.41 Localized swelling, mass and lump, right lower limb
CPT/HCPCS: 93970

== ENCOUNTER → 2017-10-14 | Outpatient (CLI) | payer MEDICARE ==
--- NOTE | 2017-10-16 06:55 | MM ---
Reason for exam: screening (asymptomatic). Last mammogram was performed 1 year and 6 months ago. History: Patient is postmenopausal. Family history of breast cancer in paternal cousin at age 50 and breast cancer in paternal aunt at age 60. Physical Findings: A clinical breast exam by your physician is recommended on an annual basis and results should be correlated with mammographic findings. MG 3D Screening Mammo W/Cad Bilateral CC and MLO view(s) were taken. Prior study comparison: March 29, 2016, bilateral MG screening mammo w CAD. March 04, 2015, right breast MG diagnostic mammo RT w CAD. September 02, 2014, right breast MG work up mamm w CAD RT. There are scattered fibroglandular densities. No suspicious abnormality. No significant changes when compared with prior studies. ASSESSMENT: Negative, BI-RAD 1 RECOMMENDATION: Routine screening mammogram of both breasts in 1 year.
== END | disposition home or self-care (01) ==
LOC: RADMAMWWP 16:55
PROVIDERS: ATTEND Internal Medicine
DX: Z12.31 Encounter for screening mammogram for malignant neoplasm of breast (principal)
CPT/HCPCS: 77063; 77067

== ENCOUNTER → 2017-12-20 | Outpatient (CLI) | payer MEDICARE ==
[2017-12-20 10:23] LABS: HCT 35.5 % (34.0-46.0); HGB 11.3 gm/dL (11.4-16.0); Hypochromasia Slight; MCHC 31.8 g/dL (31.0-37.0); MCV 90.9 fL (80.0-100.0); Mean Platelet Volume 6.7; Platelet Count 261 k/uL (150-450); RDW 15.8 % (11.5-15.5); WBC 5.6 k/uL (3.8-10.6)
[2017-12-20 11:36] LABS: Anion Gap 12 mmol/L; Blood Urea Nitrogen 14 mg/dL (7-17); Calcium 9.5 mg/dL (8.4-10.2); Carbon Dioxide 30 mmol/L (22-30); Chloride 102 mmol/L (98-107); Cholesterol 126 mg/dL (<200); Glucose 99 mg/dL (74-99); HDL Cholesterol 55 mg/dL (40-60); LDL Cholesterol,Calculated 46 mg/dL (0-99); Sodium 144 mmol/L (137-145); Triglycerides 123 mg/dL (<150)
== END | disposition home or self-care (01) ==
LOC: LABWHC1 09:40
PROVIDERS: ATTEND Internal Medicine Clinical Cardiac Electrophysiology
DX: I25.10 Atherosclerotic heart disease of native coronary artery without angina pectoris (principal); I27.21 Secondary pulmonary arterial hypertension
CPT/HCPCS: 36415; 80048; 80061; 84443; 85027

== ENCOUNTER 2017-12-24 12:55 | Day surgery (SDC) | payer MEDICARE ==
[~2017-12-24 12:55] MED LIST changes: +ALPRAZolam 0.25 MG TAB PO PRN; +ASPIRIN 325 MG TAB PO ONE; -LACTATED RINGERS 1,000 ML IV SCH; -LIDOCAINE 1% 20 ML VIAL (10MG/ML) FOR IV START INTRADERMA PRN; +SODIUM CHLORIDE 0.9% 1,000 ML in EMPTY BAG 1 BAG IV ONE
[2017-12-24] MEDS ORDERED: MIDAZOLAM 2 MG/2 ML VIAL ONE (15:46)
[2017-12-24] MEDS: MIDAZOLAM 2 MG/2 ML VIAL IV ONE ×3 (15:50→17:13)
[2017-12-24] MEDS ORDERED: LIDOCAINE 2% INJ 20 MG/ML SQ ONE (16:02)
[2017-12-24] MEDS ORDERED: fentaNYL (PF) 50 MCG/ML 2 ML AMP ONE (16:02)
[2017-12-24] MEDS: fentaNYL (PF) 50 MCG/ML 2 ML AMP IV ONE ×2 (16:03→16:29)
[2017-12-24] MEDS ORDERED: MIDAZOLAM 2 MG/2 ML VIAL IV ONE (16:03)
[2017-12-24 16:46] LABS: O2 Sat Blood Gas 60.8 %
[2017-12-24 16:48] LABS: O2 Sat Blood Gas 66.2 %
[2017-12-24 16:50] LABS: O2 Sat Blood Gas 67.7 %
[2017-12-24 16:53] LABS: O2 Sat Blood Gas 94.3 %
[2017-12-24 16:55] LABS: O2 Sat Blood Gas 63.7 %
[2017-12-24 16:57] LABS: O2 Sat Blood Gas 74.8 %
[2017-12-24 17:16] LABS: O2 Sat Blood Gas 75.8 %
[2017-12-24 17:18] LABS: O2 Sat Blood Gas 74.5 %
[2017-12-24 17:19] LABS: O2 Sat Blood Gas 63.7 %
[2017-12-24 17:58] VITALS: RESP 16
[2017-12-24 18:58] VITALS: BMI 46.3
[2017-12-24 21:29] VITALS: BP 114/55; PULSE 73; TEMP 97.7
--- NOTE | 2017-12-26 16:24 | P.PCN ---
Preoperative Diagnosis: Right heart cath Indication, evaluation for right-sided pressures, possible pulmonary hypertension Patient has no valvular heart disease left-sided disease No history of pulmonary embolism Procedure Under local anesthesia and sedation and 8-Sami venous sheath was placed in the right femoral vein and via this a [place]-Gina catheter was placed in the right heart Pulmonary capillary wedge pressure mean 21 mmHg, oxygen saturation 94.3% PA pressures 63/27/42, oxygen saturation equals 63.7% RV pressures 65/6/15, oxygen saturation equals 67.7% RA Pressures 16/9/14 mm mercury, oxygen saturation equals 66.2% SVC oxygen saturation 63.7% IVC oxygen saturation 74.5, 74.8% Impression Moderate-Severe pulmonary hypertension with peak pressures 63 mmHg and mean pressures 42 mmHg Mild diastolic gradient between the end-diastolic and pulmonary capillary wedge pressures of about 7-8 mmHg Minimal step up in oxygenation in the IVC level of slightly over 10%
--- NOTE | 2017-12-26 16:25 | P.PCN ---
Preoperative Diagnosis: Patient underwent EP procedure under conscious sedation/moderate sedation, monitoring of the level of consciousness and physiologic parameters including but not limited to vital signs and oxygenation. Patient tolerated the procedure well without any acute complications. Start time: 1602 Stop time: 1620
== END 2017-12-24 22:00 | disposition home or self-care (01) ==
LOC: CATHEP 12:55 → 3OBS 16:26 → CATHEP 22:00
PROVIDERS: ATTEND Internal Medicine Clinical Cardiac Electrophysiology
DX: I27.21 Secondary pulmonary arterial hypertension (principal); I25.10 Atherosclerotic heart disease of native coronary artery without angina pectoris; I10 Essential (primary) hypertension; Z87.891 Personal history of nicotine dependence; Z95.5 Presence of coronary angioplasty implant and graft; Z82.49 Family history of ischemic heart disease and other diseases of the circulatory system; E78.5 Hyperlipidemia, unspecified; Z79.82 Long term (current) use of aspirin; Z79.899 Other long term (current) drug therapy
CPT/HCPCS: 93451; 85018; 82810; C1894; C1769 ×2; J2001; J2250; J3010

== ENCOUNTER → 2018-01-16 | Outpatient (CLI) | payer MEDICARE ==
[2018-01-16 17:23] LABS: Calcium 9.9 mg/dL (8.4-10.2); Magnesium 2.1 mg/dL (1.6-2.3)
== END | disposition home or self-care (01) ==
LOC: LABWHC1 16:25
PROVIDERS: ATTEND Nurse Practitioner Adult Health
DX: I10 Essential (primary) hypertension (principal)
CPT/HCPCS: 36415; 80048; 83735

== ENCOUNTER → 2018-01-27 | Outpatient (CLI) | payer MEDICARE ==
[2018-01-27 19:08] LABS: Rheumatoid Factor <4 IU/mL (0-15)
[2018-01-27 21:47] LABS: Scleroderma SC-70 Ab <0.2 AI
== END | disposition home or self-care (01) ==
LOC: LABWHC1 11:34
PROVIDERS: ATTEND Internal Medicine Critical Care Medicine
DX: I27.20 Pulmonary hypertension, unspecified (principal)
CPT/HCPCS: 36415; 85652; 86038; 86235; 86431

== ENCOUNTER 2018-02-02 19:14 | Inpatient (IN) | payer MEDICARE ==
[2018-02-02] MEDS ORDERED: IPRATROPIUM-ALBUTEROL 3 ML NEB INHALATION STA (19:27)
[2018-02-02] MEDS ORDERED: SODIUM CHLORIDE 0.9% 1,000 ML IV STA (19:27)
[2018-02-02 20:03] LABS: Basophils % (A) 0 %; Eosinophils # (A) 0.2 k/uL (0-0.7); Eosinophils % (A) 2 %; HCT 36.1 % (34.0-46.0); HGB 11.8 gm/dL (11.4-16.0); Lymphocytes # (A) 1.6 k/uL (1.0-4.8); Lymphocytes % (A) 17 %; MCH 29.5 pg (25.0-35.0); MCHC 32.5 g/dL (31.0-37.0); MCV 90.7 fL (80.0-100.0); Mean Platelet Volume 6.7; Monocytes # (A) 0.6 k/uL (0-1.0); Monocytes % (A) 7 %; Neutrophils # (A) 6.7 k/uL (1.3-7.7); Neutrophils % (A) 72 %; Platelet Count 247 k/uL (150-450); RBC 3.98 m/uL (3.80-5.40); RDW 14.7 % (11.5-15.5); WBC 9.2 k/uL (3.8-10.6)
--- NOTE | 2018-02-02 20:09 | XR ---
EXAMINATION TYPE: XR chest 2V DATE OF EXAM: 02/02/2018 COMPARISON: 12/07/2014 INDICATION: Difficulty breathing TECHNIQUE: Frontal and lateral views of the chest are obtained. FINDINGS: The heart size is normal. The pulmonary vasculature is somewhat prominent. No suspicious focal consolidations are evident. No significant peribronchial thickening is present.. IMPRESSION: 1. Correlate for mild volume overload.
[2018-02-02 20:17] LABS: Albumin 3.8 g/dL (3.5-5.0); Calcium 9.2 mg/dL (8.4-10.2); Magnesium 2.2 mg/dL (1.6-2.3); Total Bilirubin 0.3 mg/dL (0.2-1.3); Total Protein 6.4 g/dL (6.3-8.2)
--- NOTE | 2018-02-02 20:17 | ED ---
General Adult HPI - General Chief complaint: Shortness of Breath Stated complaint: Diff Breathing, Cough Time Seen by Provider: 02/02/18 19:27 Source: patient, RN notes reviewed, old records reviewed Mode of arrival: ambulatory Limitations: no limitations - History of Present Illness Initial comments: This is a 67-year-old female to the ER for evaluation. She presents today for evaluation regards to shortness of breath, significant shortness of breath especially with activity. No chest pain. Patient has recent history of surgical history including orthopedic shoulder surgery. Hernia repair. No recent travel history no sick contacts she does admit to increased cough and congestion. Increased swelling of her lower extremities - Related Data Home Medications Medication Instructions Recorded Confirmed Aspirin 81 mg PO DAILY 05/03/15 12/24/17 Atenolol [Tenormin] 25 mg PO QAM 05/03/15 12/24/17 Citalopram Hydrobromide [CeleXA] 40 mg PO QAM 05/03/15 12/24/17 Enalapril Maleate [Vasotec] 5 mg PO QAM 05/03/15 12/24/17 HYDROcodone/APAP 10-325MG [[place] 1 tab PO Q6H PRN 05/03/15 12/24/17 10-325] Isosorbide Mononitrate [Isosorbide 30 mg PO QAM 05/03/15 12/24/17 Mononitrate ER] Nitroglycerin Sl Tabs [Nitrostat] 0.4 mg SUBLINGUAL DIRECTED PRN 05/03/15 Omeprazole 40 mg PO BID 05/03/15 12/24/17 Pramipexole [Mirapex] 1 mg PO HS 05/03/15 12/24/17 Atorvastatin Calcium [Lipitor] 40 mg PO HS 06/07/17 12/24/17 Ergocalciferol (Vitamin D2) 50,000 unit PO PAL 06/07/17 12/24/17 [Vitamin D2] Glucosamine Sulfate 1,500 mg PO DAILY 06/07/17 12/24/17 Tolterodine Tartrate [Detrol LA] 4 mg PO HS 06/07/17 12/24/17 Furosemide [Lasix] 40 mg PO BID 09/16/17 12/24/17 Cefadroxil [Duricef] 500 mg PO Q12HR 12/19/17 12/19/17 Levothyroxine Sodium [Synthroid] 150 mcg PO DAILY@0630 12/19/17 12/24/17 Allergies Allergy/AdvReac Type Severity Reaction Status Date / Time No Known Allergies Allergy Verified 02/02/18 19:26 Review of Systems ROS Statement: Those systems with pertinent positive or pertinent negative responses have been documented in the HPI. ROS Other: All systems not noted in ROS Statement are negative. Past Medical History Past Medical History: Coronary Artery Disease (CAD), GERD/Reflux, Hyperlipidemia , Hypertension, Musculoskeletal Disorder, Osteoarthritis (OA), Thyroid Disorder Additional Past Medical History / Comment(s): see Dr Macedo's H&P,DDD, hx anemia. JOSE LEG SWELLING-lymphedema, HX OF BLOOD IN URINE History of Any Multi-Drug Resistant Organisms: None Reported Past Surgical History: Back Surgery, Cholecystectomy, Heart Catheterization With Stent, Hysterectomy, Joint Replacement, Orthopedic Surgery Additional Past Surgical History / Comment(s): Bilateral total knees. ALLEN FUNDLAPLASTY, LEFT TOTAL SHOULDER. 2 STENTS IN HEART Past Anesthesia/Blood Transfusion Reactions: No Reported Reaction Date of Last Stent Placement:: 2006 Past Psychological History: Depression Smoking Status: Former smoker Past Alcohol Use History: Occasional Past Drug Use History: None Reported - Past Family History Brother(s) Family Medical History: Cancer Mother Brother(s) Family Medical History: Cancer Father Family Medical History: Cancer General Exam Limitations: no limitations General appearance: alert, in no apparent distress, obese Head exam: Present: atraumatic, normocephalic, normal inspection Eye exam: Present: normal appearance, PERRL, EOMI. Absent: scleral icterus, conjunctival injection, periorbital swelling ENT exam: Present: normal exam, mucous membranes moist Neck exam: Present: normal inspection. Absent: tenderness, meningismus, lymphadenopathy Respiratory exam: Present: normal lung sounds bilaterally, wheezes. Absent: respiratory distress, rales, rhonchi, stridor Cardiovascular Exam: Present: regular rate, normal rhythm, normal heart sounds. Absent: systolic murmur, diastolic murmur, rubs, gallop, clicks GI/Abdominal exam: Present: soft, normal bowel sounds. Absent: distended, tenderness, guarding, rebound, rigid Extremities exam: Present: normal inspection, full ROM, normal capillary refill. Absent: tenderness, pedal edema, joint swelling, calf tenderness Back exam: Present: normal inspection Neurological exam: Present: alert, oriented X3, CN II-XII intact Psychiatric exam: Present: normal affect, normal mood Skin exam: Present: warm, dry, intact, normal color. Absent: rash Course Vital Signs 02/02/18 02/02/18 02/02/18 19:23 20:04 20:09 Temperature 98.6 F Pulse Rate 82 71 76 Respiratory 16 Rate Blood Pressure 100/53 O2 Sat by Pulse 100 Oximetry EKG Findings - EKG Comments: EKG Findings:: EKG shows normal sinus rhythm rate of 92, ID 154, QRS 84, QTC 398 Medical Decision Making - Lab Data Result diagrams: 02/02/18 19:45 02/02/18 19:45 Lab Results 02/02/18 02/02/18 02/02/18 Range/Units 19:45 19:45 19:45 WBC 9.2 (3.8-10.6) k/uL RBC 3.98 (3.80-5.40) m/uL Hgb 11.8 (11.4-16.0) gm/dL Hct 36.1 (34.0-46.0) % MCV 90.7 (80.0-100.0) fL MCH 29.5 (25.0-35.0) pg MCHC 32.5 (31.0-37.0) g/dL RDW 14.7 (11.5-15.5) % Plt Count 247 (150-450) k/uL Neutrophils % 72 % Lymphocytes % 17 % Monocytes % 7 % Eosinophils % 2 % Basophils % 0 % Neutrophils # 6.7 (1.3-7.7) k/uL Lymphocytes # 1.6 (1.0-4.8) k/uL Monocytes # 0.6 (0-1.0) k/uL Eosinophils # 0.2 (0-0.7) k/uL Basophils # 0.0 (0-0.2) k/uL PT 9.3 (9.0-12.0) sec INR 0.9 (<1.2) APTT 23.3 (22.0-30.0) sec Sodium 136 L (137-145) mmol/L Potassium 7.3 H* (3.5-5.1) mmol/L Chloride 106 (98-107) mmol/L Carbon Dioxide 17 L (22-30) mmol/L Anion Gap 13 mmol/L BUN 66 H (7-17) mg/dL Creatinine 2.40 H (0.52-1.04) mg/dL Est GFR (CKD-EPI)AfAm 24 (>60 ml/min/1.73 sqM) Est GFR (CKD-EPI)NonAf 20 (>60 ml/min/1.73 sqM) Glucose 84 (74-99) mg/dL Calcium 9.2 (8.4-10.2) mg/dL Magnesium 2.2 (1.6-2.3) mg/dL Total Bilirubin 0.3 (0.2-1.3) mg/dL AST 16 (14-36) U/L ALT 14 (9-52) U/L Alkaline Phosphatase 105 (38-126) U/L Total Protein 6.4 (6.3-8.2) g/dL Albumin 3.8 (3.5-5.0) g/dL Disposition Clinical Impression: Congestive heart failure, Acute pulmonary edema, ARF (acute renal failure) Disposition: ADMITTED IP TO THIS [facility] Condition: Serious Referrals: Melba Gillis MD [Primary Care Provider] - 1-2 days
[2018-02-02 20:18] LABS: INR 0.9 (<1.2); Partial Thromboplastin Time 23.3 sec (22.0-30.0); Prothrombin Time 9.3 sec (9.0-12.0)
[2018-02-02 20:24] LABS: Potassium 7.3 mmol/L (3.5-5.1)
[2018-02-02 20:32] LABS: Creatine Kinase 48 U/L (30-135)
[2018-02-02] MEDS ORDERED: CALCIUM CHLORIDE 100 MG/ML 10 ML SYRINGE IVP STA (20:33)
[2018-02-02] MEDS ORDERED: INSULIN REGULAR 100 UNIT/ML VIAL IV ONE (20:33)
[2018-02-02] MEDS ORDERED: SODIUM BICARB 8.4% 50 ML SYR (1 MEQ/ML) IV ONE (20:33)
[2018-02-02] MEDS ORDERED: DEXTROSE 50%-WATER 50 ML SYRINGE IVP STA (20:33)
[2018-02-02] MEDS ORDERED: SODIUM POLYSTYRENE SULFONATE 15 GM/60 ML BOTTLE PO STA (20:33)
[2018-02-02 20:44] LABS: Creatine Kinase MB 1.2 ng/mL (0.0-2.4); Troponin I <0.012 ng/mL (0.000-0.034)
[2018-02-02 23:47] VITALS: BMI 46.5
[2018-02-03] MEDS ORDERED: SODIUM POLYSTYRENE SULFONATE 15 GM/60 ML BOTTLE PO STA ×2 (00:42→17:06)
[2018-02-03] MEDS ORDERED: DEXTROSE 50%-WATER 50 ML SYRINGE IVP STA ×2 (00:43→02:54)
[2018-02-03] MEDS ORDERED: INSULIN REGULAR 100 UNIT/ML VIAL IV ONE ×2 (00:43→02:54)
[2018-02-03] MEDS ORDERED: SODIUM BICARB 8.4% 50 ML SYR (1 MEQ/ML) IV STA (00:44)
[2018-02-03] MEDS ORDERED: SODIUM CHLORIDE 0.9% 1,000 ML IV SCH (00:45)
[2018-02-03] MEDS ORDERED: ACETAMINOPHEN TAB 325 MG TAB PO PRN (00:55)
[2018-02-03] MEDS ORDERED: NALOXONE 0.4 MG/ML 1 ML VIAL IV PRN (00:55)
[2018-02-03] MEDS ORDERED: ONDANSETRON 4 MG/2 ML VIAL IVP PRN (00:55)
--- NOTE | 2018-02-03 01:13 | P.HPIM ---
History of Present Illness H&P Date: 02/03/18 Chief Complaint: Shortness of breath This is 67-year-old female with multiple medical problems including coronary artery disease hypertension who was admitted to the hospital for increased shortness of breath that has been going for these the last several months associated with swelling in the lower extremities that also has been going for around a year or so it has been getting worse patient has been on Lasix and came to the hospital for the increase or shortness of breath was found to have acute renal failure and hyperkalemia and was admitted to the hospital patient states also that she does have chronic cough and she did have a cardiac cath several months ago didn't show any significant lesions that needs stenting Denies any chest pain denies any vomiting no fever patient has been treated with by mouth antibiotics as outpatient for possible bronchitis Review of systems and systems has been reviewed all negative and positive findings as per HPI The family is concerned about this chronic shortness of breath Review of systems and systems has been reviewed all negative and positive findings as per HPI Patient also has been complaining of numbness and generalized weakness numbness mainly in the upper extremities and states that she doesn't sometimes doesn't feel her lower extremities Past Medical History: Coronary Artery Disease (CAD), GERD/Reflux, Hyperlipidemia , Hypertension, Musculoskeletal Disorder, Osteoarthritis (OA), Thyroid Disorder Additional Past Medical History / Comment(s): see Dr Macedo's H&P,DDD, hx anemia. JOSE LEG SWELLING-lymphedema, HX OF BLOOD IN URINE History of Any Multi-Drug Resistant Organisms: None Reported Past Surgical History: Back Surgery, Cholecystectomy, Heart Catheterization With Stent, Hysterectomy, Joint Replacement, Orthopedic Surgery Additional Past Surgical History / Comment(s): Bilateral total knees. ALLEN FUNDLAPLASTY, LEFT TOTAL SHOULDER. 2 STENTS IN HEART Past Anesthesia/Blood Transfusion Reactions: No Reported Reaction Date of Last Stent Placement:: 2006 Past Psychological History: Depression Smoking Status: Former smoker Past Alcohol Use History: Occasional Past Drug Use History: None Reported - Past Family History Brother(s) Family Medical History: Cancer Mother Brother(s) Family Medical History: Cancer Father Family Medical History: Cancer Constitutional: No acute distress, conversant, pleasant Eyes: Anicteric sclerae, moist conjunctiva, no lid-lag PERRLA ENMT: No obvious neck swelling Neck: Supple, FROM, no masses, or JVD No carotid bruits No thyromegaly Lungs: Clear to auscultation Cardiovascular: Heart regular in rate and rhythm, No murmurs, gallops, or rubs No peripheral edema Abdominal: Soft r, no guarding, rebound or rigidity Abdomen moving with respiration Skin: Normal temperature, tone, texture, turgor No induration No subcutaneous nodules No rash, lesions No ulcers Extremities: No digital cyanosis No clubbing Pedal pulses intact and symmetrical Radial pulses intact and symmetrical Normal gait and station No calf tenderness Psychiatric:Alert and oriented to person, place and time Appropriate affect Intact judgement Neuro: No obvious focal neuro deficits Most recent lab results Calcium 9.2 mg/dL (8.4-10.2) 02/02/18 19:45 Magnesium 2.2 mg/dL (1.6-2.3) 02/02/18 19:45 Laboratory Results - last 24 hr 02/02/18 02/02/18 02/02/18 19:45 19:45 19:45 WBC 9.2 RBC 3.98 Hgb 11.8 Hct 36.1 MCV 90.7 MCH 29.5 MCHC 32.5 RDW 14.7 Plt Count 247 Neutrophils % 72 Lymphocytes % 17 Monocytes % 7 Eosinophils % 2 Basophils % 0 Neutrophils # 6.7 Lymphocytes # 1.6 Monocytes # 0.6 Eosinophils # 0.2 Basophils # 0.0 PT INR APTT D-Dimer Sodium 136 L Potassium 7.3 H* Chloride 106 Carbon Dioxide 17 L Anion Gap 13 BUN 66 H Creatinine 2.40 H Est GFR (CKD-EPI)AfAm 24 Est GFR (CKD-EPI)NonAf 20 Glucose 84 Calcium 9.2 Magnesium 2.2 Total Bilirubin 0.3 AST 16 ALT 14 Alkaline Phosphatase 105 Total Creatine Kinase 48 CK-MB (CK-2) 1.2 CK-MB (CK-2) Rel Index 2.5 Troponin I <0.012 NT-Pro-B Natriuret Pep Total Protein 6.4 Albumin 3.8 02/02/18 02/02/18 02/02/18 19:45 19:45 19:45 WBC RBC Hgb Hct MCV MCH MCHC RDW Plt Count Neutrophils % Lymphocytes % Monocytes % Eosinophils % Basophils % Neutrophils # Lymphocytes # Monocytes # Eosinophils # Basophils # PT 9.3 INR 0.9 APTT 23.3 D-Dimer 0.70 H Sodium Potassium Chloride Carbon Dioxide Anion Gap BUN Creatinine Est GFR (CKD-EPI)AfAm Est GFR (CKD-EPI)NonAf Glucose Calcium Magnesium Total Bilirubin AST ALT Alkaline Phosphatase Total Creatine Kinase CK-MB (CK-2) CK-MB (CK-2) Rel Index Troponin I NT-Pro-B Natriuret Pep 150 Total Protein Albumin 02/02/18 21:54 WBC RBC Hgb Hct MCV MCH MCHC RDW Plt Count Neutrophils % Lymphocytes % Monocytes % Eosinophils % Basophils % Neutrophils # Lymphocytes # Monocytes # Eosinophils # Basophils # PT INR APTT D-Dimer Sodium Potassium 6.4 H* Chloride Carbon Dioxide Anion Gap BUN Creatinine Est GFR (CKD-EPI)AfAm Est GFR (CKD-EPI)NonAf Glucose Calcium Magnesium Total Bilirubin AST ALT Alkaline Phosphatase Total Creatine Kinase CK-MB (CK-2) CK-MB (CK-2) Rel Index Troponin I NT-Pro-B Natriuret Pep Total Protein Albumin Vital Signs - 24 hr 02/02/18 02/02/18 02/02/18 19:23 20:04 20:09 Temperature 98.6 F Pulse Rate 82 71 76 Pulse Rate [ Pulse Oximetery ] Respiratory 16 Rate Blood Pressure 100/53 Blood Pressure [Left Arm] O2 Sat by Pulse 100 Oximetry 02/02/18 02/02/18 02/02/18 20:45 20:56 21:58 Temperature 98.0 F Pulse Rate 69 79 80 Pulse Rate [ Pulse Oximetery ] Respiratory 24 24 24 Rate Blood Pressure 95/47 91/42 97/54 Blood Pressure [Left Arm] O2 Sat by Pulse 95 100 98 Oximetry 02/02/18 02/02/18 22:45 23:27 Temperature 97.3 F L 97.4 F L Pulse Rate 84 Pulse Rate [ 75 Pulse Oximetery ] Respiratory 22 18 Rate Blood Pressure 108/49 Blood Pressure 96/44 [Left Arm] O2 Sat by Pulse 97 98 Oximetry Severe hyperkalemia Likely due to dehydration and acute renal failure the patient has been on lisinopril and Lasix Patient received insulin and dextrose Kayexalate and bicarbonate And also calcium gluconate the potassium significantly improved still high around 6.4 so we will repeat the current treatment and we will repeat the potassium We will also repeat the EKG will continue patient on telemetry Chronic lower extremity edema suspected diastolic congestive heart failure currently will not hold Lasix due to the acute renal failure and will consult cardiology we'll check cardiac enzymes Chronic shortness of breath exact etiology not clear could be combination of chronic diastolic congestive heart failure and possible COPD pulmonology will be consulted will check also computed tomography scan of the lungs Hypertension DVT and GI prophylaxis we will use SCDs we will not start the patient on Lovenox or heparin until MRI of the brain is done Numbness in the upper extremities will check MRI of the brain Admit the patient to regular medical floor Past Medical History Past Medical History: Coronary Artery Disease (CAD), GERD/Reflux, Hyperlipidemia , Hypertension, Musculoskeletal Disorder, Osteoarthritis (OA), Thyroid Disorder Additional Past Medical History / Comment(s): see Dr Macedo's H&P,DDD, hx anemia. JOSE LEG SWELLING-lymphedema, HX OF BLOOD IN URINE History of Any Multi-Drug Resistant Organisms: None Reported Past Surgical History: Back Surgery, Cholecystectomy, Heart Catheterization With Stent, Hysterectomy, Joint Replacement, Orthopedic Surgery Additional Past Surgical History / Comment(s): Bilateral total knees. ALLEN FUNDLAPLASTY, LEFT TOTAL SHOULDER. 2 STENTS IN HEART Past Anesthesia/Blood Transfusion Reactions: No Reported Reaction Date of Last Stent Placement:: 2006 Past Psychological History: Depression Smoking Status: Former smoker Past Alcohol Use History: Occasional Additional Past Alcohol Use History / Comment(s): Quit in , SMOKED 1 TO 1 AND 1/2 PPD, STARTED A TEENAGER Past Drug Use History: None Reported - Past Family History Brother(s) Family Medical History: Cancer Mother Brother(s) Family Medical History: Cancer Father Family Medical History: Cancer Medications and Allergies Home Medications Medication Instructions Recorded Confirmed Type Aspirin 81 mg PO DAILY 05/03/15 02/02/18 History Atenolol [Tenormin] 25 mg PO QAM 05/03/15 02/02/18 History Citalopram Hydrobromide [CeleXA] 40 mg PO QAM 05/03/15 02/02/18 History Enalapril Maleate [Vasotec] 5 mg PO QAM 05/03/15 02/02/18 History HYDROcodone/APAP 10-325MG [[place] 1 tab PO Q6H PRN 05/03/15 02/02/18 History 10-325] Isosorbide Mononitrate [Isosorbide 30 mg PO QAM 05/03/15 02/02/18 History Mononitrate ER] Nitroglycerin Sl Tabs [Nitrostat] 0.4 mg SUBLINGUAL DIRECTED PRN 05/03/1503/17 History Omeprazole 40 mg PO BID 05/03/15 02/02/18 History Pramipexole [Mirapex] 1 mg PO HS 05/03/15 02/02/18 History Atorvastatin Calcium [Lipitor] 40 mg PO HS 06/07/17 02/02/18 History Ergocalciferol (Vitamin D2) 50,000 unit PO PAL 06/07/17 02/02/18 History [Vitamin D2] Glucosamine Sulfate 1,500 mg PO DAILY 06/07/17 02/02/18 History Tolterodine Tartrate [Detrol LA] 4 mg PO HS 06/07/17 02/02/18 History Furosemide [Lasix] 40 mg PO BID 09/16/17 02/02/18 History Cefadroxil [Duricef] 500 mg PO Q12HR 12/19/17 02/02/18 History Levothyroxine Sodium [Synthroid] 150 mcg PO DAILY@0630 12/19/17 02/02/18 History Allergies Allergy/AdvReac Type Severity Reaction Status Date / Time No Known Allergies Allergy Verified 02/02/18 19:26 Physical Exam Vitals: Vital Signs Temp Pulse Pulse Resp BP BP Pulse Ox 02/02/18 23:27 97.4 F L 75 18 96/44 98 02/02/18 22:45 97.3 F L 84 22 108/49 97 02/02/18 21:58 80 24 97/54 98 02/02/18 20:56 98.0 F 79 24 91/42 100 02/02/18 20:45 69 24 95/47 95 02/02/18 20:09 76 02/02/18 20:04 71 02/02/18 19:23 98.6 F 82 16 100/53 100 Intake and Output 02/02/18 02/02/18 02/03/18 14:59 22:59 06:59 Other: Weight 123.377 kg 123.1 kg Results CBC & Chem 7: 02/02/18 19:45 02/02/18 21:54 Labs: Abnormal Lab Results - Last 24 Hours (Table) 05/06/18 05/06/18 05/06/18 Range/Units 19:45 19:45 21:54 D-Dimer 0.70 H (<0.60) mg/L FEU Sodium 136 L (137-145) mmol/L Potassium 7.3 H* 6.4 H* (3.5-5.1) mmol/L Carbon Dioxide 17 L (22-30) mmol/L BUN 66 H (7-17) mg/dL Creatinine 2.40 H (0.52-1.04) mg/dL Thrombosis Risk Factor Assmnt - Choose All That Apply Any of the Below Risk Factors Present?: Yes Each Factor Represents 1 point: Obesity (BMI >25), Swollen legs (current) Other Risk Factors: Yes Each Risk Factor Represents 2 Points: Age 61-74 years Thrombosis Risk Factor Assessment Total Risk Factor Score: 4 Thrombosis Risk Factor Assessment Level: Moderate Risk
[2018-02-03 02:31] LABS: Creatine Kinase MB 1.6 ng/mL (0.0-2.4)
[2018-02-03] MEDS ORDERED: CALCIUM GLUCONATE 1,000 MG in SODIUM CHLORIDE 0.9% 100 ML IVPB ONE (02:54)
[2018-02-03] MEDS ORDERED: SODIUM BICARB 8.4% 50 ML SYR (1 MEQ/ML) IV ONE (02:55)
[2018-02-03] MEDS ORDERED: SODIUM CHLORIDE 0.9% 500 ML IV ONE (02:55)
[2018-02-03] MEDS ORDERED: FUROSEMIDE 10 MG/ML 4 ML VIAL IV STA (03:09)
[2018-02-03] MEDS ORDERED: ALBUTEROL NEBULIZED 2.5 MG/3 ML INHALATION STA (03:09)
[2018-02-03 03:20] LABS: Glucose,Whole Blood 91 mg/dL (75-99)
[2018-02-03 04:01] LABS: Glucose,Whole Blood 81 mg/dL (75-99)
[2018-02-03] MEDS: AZITHROMYCIN 500 MG in SODIUM CHLORIDE 0.9% 250 ML IVPB SCH ×2 (04:50→23:27)
[2018-02-03] MEDS: cefTRIAXone IN SWFI 1,000 MG/10 ML SYRINGE IVP SCH ×2 (04:50→22:29)
[2018-02-03] MEDS: LEVOTHYROXINE 75 MCG TAB PO SCH (06:28)
[2018-02-03] MEDS ORDERED: DEXTROSE 5% IN WATER 1,000 ML with SODIUM BICARB (1 MEQ/ML) 150 ML IV SCH (07:00)
[2018-02-03] MEDS: HYDROcodone/APAP 10-325MG 1 EACH TAB PO PRN ×3 (07:49→22:21)
[2018-02-03] MEDS: ASPIRIN 81 MG PO SCH (09:24)
[2018-02-03] MEDS: CITALOPRAM HYDROBROMIDE 20 MG TAB PO SCH (09:24)
--- NOTE | 2018-02-03 09:58 | ECHOF ---
Referral Reason:Heart Failure MEASUREMENTS -------- HEIGHT: 162.6 cm WEIGHT: 122.9 kg BP: 93/40 RVIDd: 4.2 cm (< 3.3) IVSd: 1.1 cm (0.6 - 1.1) LVIDd: 3.3 cm (3.9 - 5.3) LVPWd: 1.1 cm (0.6 - 1.1) IVSs: 1.5 cm LVIDs: 1.6 cm LVPWs: 1.7 cm Ao Diam: 3.1 cm (2.0 - 3.7) AV Cusp: 2.1 cm (1.5 - 2.6) LA Diam: 3.0 cm (2.7 - 3.8) MV EXCURSION: 11.063 mm (> 18.000) MV EF SLOPE: 37 mm/s (70 - 150) EPSS: 0.4 cm MV E Josias: 0.85 m/s MV DecT: 244 ms MV A Josias: 1.01 m/s MV E/A Ratio: 0.84 RAP: 5.00 mmHg RVSP: 32.27 mmHg FINDINGS -------- Sinus rhythm. This was a technically good study. The left ventricular size is normal. Left ventricular wall thickness is normal. Overall left vent ricular systolic function is normal with, an EF between 55 - 60 %. The right ventricle is severely enlarged. Normal LA size by volume 22+/-6 ml/m2. RA appears enlarged. The aortic valve is trileaflet, and appears structurally normal. No aortic stenosis or regurgitation. The mitral valve leaflets are mildly thickened. Mild mitral regurgitation is present. Mild tricuspid regurgitation present. The right ventricular systolic pressure, as measured by Doppl er, is 32.27mmHg. Pulmonic valve appears structurally normal. The pericardium is normal. CONCLUSIONS -------- 1. Sinus rhythm. 2. This was a technically good study. 3. The left ventricular size is normal. 4. Left ventricular wall thickness is normal. 5. Overall left ventricular systolic function is normal with, an EF between 55 - 60 %. 6. The right ventricle is severely enlarged. 7. Normal LA size by volume 22+/-6 ml/m2. 8. RA appears enlarged. 9. The aortic valve is trileaflet, and appears structurally normal. No aortic stenosis or regurgitati on. 10. The mitral valve leaflets are mildly thickened. 11. Mild mitral regurgitation is present. 12. Mild tricuspid regurgitation present. 13. The right ventricular systolic pressure, as measured by Doppler, is 32.27mmHg. 14. Pulmonic valve appears structurally normal. 15. The pericardium is normal. LOCK FITTER: Tenisha De Paz RDCS
[2018-02-03] MEDS ORDERED: IPRATROPIUM-ALBUTEROL 3 ML NEB INHALATION PRN (10:07)
--- NOTE | 2018-02-03 10:07 | P.CNPUL ---
<Sameera Heller M - Last Filed: 02/03/18 10:06> History of Present Illness Consult date: 02/03/18 Requesting physician: Carolina Montoya Reason for consult: dyspnea, cough, other Chief complaint: Acute renal failure, acute hyperkalemia History of present illness: Mrs. Ulrich is a 67-year-old white female patient, who presented to the emergency department on 02/02/2018 at 1914 for evaluation of increasing shortness of breath, increasing peripheral edema, persistent cough, and chest congestion. She denied any fever, did have some subjective chills, denied any chest pain, denies any nausea vomiting or diarrhea. Most recently patient's Lasix was increased to 3 times daily in view of increasing peripheral edema. Patient was seen in the pulmonary office by Dr. Jara for evaluation of mild to moderate pulmonary hypertension with a mean pulmonary artery artery arterial pressure of 42 mmHg. Patient had a right sided heart catheterization done earlier by Dr. Ferrell. Connective tissue disease workup was negative. And the possibility of a sleep breathing disorder/obstructive sleep apnea was strongly suspected as the cause of patient's secondary pulmonary hypertension. Patient has gained considerable amount of weight over the last 5 years and patient has typical features of obstructive sleep apnea. Patient was scheduled for an a home sleep study however has not had it done yet. Other past medical history includes hypertension, dyslipidemia, GERD, coronary arterial sclerosis, chronic bronchitis, varicose veins of bilateral lower extremity, morbid obesity , hypothyroidism, osteoarthritis and depression. Chest x-ray showed no suspicious focal consolidation, there was prominence of pulmonary vasculature, consistent with mild fluid overload. EKG showed normal sinus rhythm with no acute ST or T-wave abnormality. Lab work showed WBC of within normal limits at 9.2, hemoglobin of 11.8, d-dimer was mildly elevated to 0.70, serum potassium was critically high at 6.4, sodium is 136, BUN is 66, creatinine is 2.40. ProBNP was within normal limits at 150, troponin was negative 1. Patient was given 3 rounds of 50% dextrose, 10 units of regular insulin, Kayexalate, and calcium gluconate and this morning her potassium is down to 6.1. Patient's IV fluids include D5 and water with 3 A of bicarb infusing at 75 ML per hour. Nephrology is following. Patient is awake alert, in no acute distress, denies any shortness of breath at rest, denies any chest pain. Review of Systems All systems: negative Constitutional: Denies chills, Denies fever Eyes: denies blurred vision, denies pain Ears, nose, mouth and throat: Denies headache, Denies sore throat Cardiovascular: Reports decreased exercise tolerance, Reports dyspnea on exertion, Reports edema, Reports leg edema, Denies chest pain, Denies shortness of breath Respiratory: Reports congestion, Reports dyspnea, Denies cough Gastrointestinal: Denies abdominal pain, Denies diarrhea, Denies nausea, Denies vomiting Genitourinary: Denies dysuria, Denies hematuria Musculoskeletal: Denies myalgias Integumentary: Denies pruritus, Denies rash Neurological: Denies numbness, Denies weakness Psychiatric: Denies anxiety, Denies depression Endocrine: Denies fatigue, Denies weight change Past Medical History Past Medical History: Coronary Artery Disease (CAD), GERD/Reflux, Hyperlipidemia , Hypertension, Musculoskeletal Disorder, Osteoarthritis (OA), Thyroid Disorder Additional Past Medical History / Comment(s): see Dr Macedo's H&P,DDD, hx anemia. JOSE LEG SWELLING-lymphedema, HX OF BLOOD IN URINE History of Any Multi-Drug Resistant Organisms: None Reported Past Surgical History: Back Surgery, Cholecystectomy, Heart Catheterization With Stent, Hysterectomy, Joint Replacement, Orthopedic Surgery Additional Past Surgical History / Comment(s): Bilateral total knees. ALLEN FUNDLAPLASTY, LEFT TOTAL SHOULDER. 2 STENTS IN HEART Past Anesthesia/Blood Transfusion Reactions: No Reported Reaction Date of Last Stent Placement:: 2006 Past Psychological History: Depression Smoking Status: Former smoker Past Alcohol Use History: Occasional Additional Past Alcohol Use History / Comment(s): Quit in , SMOKED 1 TO 1 AND 1/2 PPD, STARTED A TEENAGER Past Drug Use History: None Reported - Past Family History Brother(s) Family Medical History: Cancer Mother Brother(s) Family Medical History: Cancer Father Family Medical History: Cancer Medications and Allergies Home Medications Medication Instructions Recorded Confirmed Type Aspirin 81 mg PO DAILY 05/03/15 02/03/18 History Atenolol [Tenormin] 25 mg PO QAM 05/03/15 02/03/18 History Citalopram Hydrobromide [CeleXA] 40 mg PO QAM 05/03/15 02/03/18 History Enalapril Maleate [Vasotec] 5 mg PO QAM 05/03/15 02/03/18 History HYDROcodone/APAP 10-325MG [[place] 1 tab PO Q6H PRN 05/03/15 02/03/18 History 10-325] Isosorbide Mononitrate [Isosorbide 30 mg PO QAM 05/03/15 02/03/18 History Mononitrate ER] Nitroglycerin Sl Tabs [Nitrostat] 0.4 mg SUBLINGUAL Q5M PRN 05/03/15 02/03/18 History Omeprazole 40 mg PO BID 05/03/15 02/03/18 History Pramipexole [Mirapex] 1 mg PO HS 05/03/15 02/03/18 History Atorvastatin Calcium [Lipitor] 40 mg PO HS 06/07/17 02/03/18 History Ergocalciferol (Vitamin D2) 50,000 unit PO PAL 06/07/17 02/03/18 History [Vitamin D2] Glucosamine Sulfate 1,500 mg PO DAILY 06/07/17 02/03/18 History Tolterodine Tartrate [Detrol LA] 4 mg PO HS 06/07/17 02/03/18 History Furosemide [Lasix] 40 mg PO BID 09/16/17 02/03/18 History Fluconazole 200 mg PO DAILY 02/03/18 02/03/18 History Levothyroxine Sodium [Synthroid] 150 mcg PO DAILY 02/03/18 02/03/18 History Allergies Allergy/AdvReac Type Severity Reaction Status Date / Time No Known Allergies Allergy Verified 02/03/18 08:29 Physical Exam Vitals: Vital Signs Temp Pulse Pulse Resp BP BP Pulse Ox 02/03/18 08:00 98.7 F 88 20 93/40 96 02/03/18 07:00 79 20 96/40 100 02/03/18 06:00 79 15 89/58 97 02/03/18 05:00 82 27 H 97/50 97 02/03/18 04:41 20 02/03/18 04:34 98.1 F 81 20 99/44 96 02/03/18 03:42 80 02/03/18 03:39 111/53 02/03/18 03:34 80 02/03/18 03:29 95/46 02/03/18 03:15 88/37 02/03/18 03:00 92/46 02/03/18 02:30 84/36 02/02/18 23:27 97.4 F L 75 18 96/44 98 02/02/18 22:45 97.3 F L 84 22 108/49 97 02/02/18 21:58 80 24 97/54 98 02/02/18 20:56 98.0 F 79 24 91/42 100 02/02/18 20:45 69 24 95/47 95 02/02/18 20:09 76 02/02/18 20:04 71 02/02/18 19:23 98.6 F 82 16 100/53 100 Intake and Output 02/02/18 02/03/18 02/03/18 22:59 06:59 14:59 Intake Total 475 270 Balance 475 270 Intake: IV 475 Azithromycin 500 mg In 250 Sodium Chloride 0.9% 250 ml @ 125 mls/hr IVPB HS CHARLIE Rx#:[id number] Sodium Chloride 0.9% 1, 225 000 ml @ 75 mls/hr IV . [id number] CHARLIE Rx#:[id number] Intake, IV Titration 150 Amount Dextrose 5% in Water 1, 150 000 ml @ 75 mls/hr IV . [id number] CHARLIE with Sodium Bicarb (1 Meq/ml) 150 ml Rx#:[id number] Oral 120 Other: # Voids 1 Weight 123.377 kg 123.1 kg - Constitutional General appearance: cooperative, morbidly obese - EENT Eyes: EOMI, PERRLA, dentition normal ENT: NA/AT, normal oropharynx Ears: bilateral: normal - Neck Neck: no lymphadenopathy, normal ROM Carotids: bilateral: upstroke normal Thyroid: bilateral: normal size - Respiratory Respiratory: bilateral: rhonchi (At bilateral bases) - Cardiovascular Rhythm: regular Heart sounds: normal: S1, S2 ankle Peripheral Edema: bilateral: 2+ leg Peripheral Edema: bilateral: 1+ foot Peripheral Edema: bilateral: 1+ dorsalis pedis Peripheral Pulses: bilateral: Normal - Gastrointestinal General gastrointestinal: no organomegaly, soft, no tenderness - Integumentary Integumentary: normal turgor - Neurologic Neurologic: CNII-XII intact - Musculoskeletal Musculoskeletal: gait normal, strength equal bilaterally - Psychiatric Psychiatric: A&O x's 3, appropriate affect, intact judgment & insight Results - Laboratory Findings CBC and BMP: 02/02/18 19:45 02/03/18 05:24 PT/INR, D-dimer PT 9.3 sec (9.0-12.0) 02/02/18 19:45 INR 0.9 (<1.2) 02/02/18 19:45 D-Dimer 0.70 mg/L FEU (<0.60) H 02/02/18 19:45 Abnormal lab findings: Abnormal Labs 02/02/18 02/02/18 02/02/18 19:45 19:45 21:54 D-Dimer 0.70 H Sodium 136 L Potassium 7.3 H* 6.4 H* Carbon Dioxide 17 L BUN 66 H Creatinine 2.40 H 02/03/18 02/03/18 02/03/18 00:55 03:16 05:24 D-Dimer Sodium Potassium 7.1 H* 6.6 H* 6.1 H Carbon Dioxide BUN Creatinine - Diagnostic Findings Chest x-ray: report reviewed, image reviewed Additional studies: Twelve-lead EKG reviewed Assessment and Plan Plan: Assessment: #1. Acute kidney injury due to dehydration #2. Acute hyperkalemia, due to acute kidney injury #3. Metabolic acidosis related to acute kidney injury #4. Shortness of breath likely due to secondary [id number] pulmonary hypertension, most likely related to obstructive sleep apnea/sleep breathing disorder, the patient is awaiting to undergo a home-based sleep study. The connective tissue workup was negative. Outpatient PFT showed FEV1 of 61% of predicted, and FVC of 63% of predicted, DLCO of 54%, consistent with moderate obstructive and restrictive lung [id number] #5. Nicotine dependence, currently in remission, patient quit in 2006, but carries [id number] smoking history #6. Coronary artery disease, with previous stenting #8. Morbid obesity, with a BMI of 46.6 kg/m #9. Hypertension, hyperlipidemia #10. GERD/reflux, status post Jessy fundoplication #11. Osteoarthritis #12. Hypothyroidism, on thyroid replacement therapy #13. Depression Plan: Continue current plan of treatment, awaiting nephrology evaluation, patient has received 3 rounds of D50, regular insulin, calcium gluconate, and Kayexalate, we 'll repeat serum potassium at 10 AM. Patient denies any dyspnea at rest, denies any chest pain. Did complain of some chest congestion when she first came in, not producing any sputum. Continue monitoring the EKG, vital signs, urine output. Patient will need to complete her sleep study after discharge. I performed a history & physical examination of the patient and discussed their management with my nurse practitioner, Sameera Heller. I reviewed the nurse practitioner's note and agree with the documented findings and plan of care. Lung sounds are positive for bibasilar rhonchi. The findings and the impression was discussed with the patient. I attest to the documentation by the nurse practitioner. Time with Patient: Greater than 30 <Tim Jara - Last Filed: 02/03/18 10:50> Physical Exam Vitals: Vital Signs Temp Pulse Pulse Resp BP BP Pulse Ox 02/03/18 10:00 85 26 H 95 02/03/18 09:00 86 32 H 93/40 94 L 02/03/18 08:00 98.7 F 88 20 93/40 96 02/03/18 07:00 79 20 96/40 100 02/03/18 06:00 79 15 89/58 97 02/03/18 05:00 82 27 H 97/50 97 02/03/18 04:41 20 02/03/18 04:34 98.1 F 81 20 99/44 96 02/03/18 03:42 80 02/03/18 03:39 111/53 02/03/18 03:34 80 02/03/18 03:29 95/46 02/03/18 03:15 88/37 02/03/18 03:00 92/46 02/03/18 02:30 84/36 02/02/18 23:27 97.4 F L 75 18 96/44 98 02/02/18 22:45 97.3 F L 84 22 108/49 97 02/02/18 21:58 80 24 97/54 98 02/02/18 20:56 98.0 F 79 24 91/42 100 02/02/18 20:45 69 24 95/47 95 02/02/18 20:09 76 02/02/18 20:04 71 02/02/18 19:23 98.6 F 82 16 100/53 100 Intake and Output 02/02/18 02/03/18 02/03/18 22:59 06:59 14:59 Intake Total 475 270 Balance 475 270 Intake: IV 475 Azithromycin 500 mg In 250 Sodium Chloride 0.9% 250 ml @ 125 mls/hr IVPB HS CHARLIE Rx#:[id number] Sodium Chloride 0.9% 1, 225 000 ml @ 75 mls/hr IV . [id number] CHARLIE Rx#:[id number] Intake, IV Titration 150 Amount Dextrose 5% in Water 1, 150 000 ml @ 75 mls/hr IV . [id number] CHARLIE with Sodium Bicarb (1 Meq/ml) 150 ml Rx#:[id number] Oral 120 Other: # Voids 1 Weight 123.377 kg 123.1 kg Results - Laboratory Findings CBC and BMP: 02/03/18 10:02 02/03/18 05:24 PT/INR, D-dimer PT 9.3 sec (9.0-12.0) 02/02/18 19:45 INR 0.9 (<1.2) 02/02/18 19:45 D-Dimer 0.70 mg/L FEU (<0.60) H 02/02/18 19:45 Abnormal lab findings: Abnormal Labs 02/02/18 02/02/18 02/02/18 19:45 19:45 21:54 RBC Hgb Hct D-Dimer 0.70 H Sodium 136 L Potassium 7.3 H* 6.4 H* Carbon Dioxide 17 L BUN 66 H Creatinine 2.40 H 02/03/18 02/03/18 02/03/18 00:55 03:16 05:24 RBC Hgb Hct D-Dimer Sodium Potassium 7.1 H* 6.6 H* 6.1 H Carbon Dioxide BUN Creatinine 02/03/18 10:02 RBC 3.45 L Hgb 10.1 L Hct 31.2 L D-Dimer Sodium Potassium Carbon Dioxide BUN Creatinine Assessment and Plan Plan: This is a joint evaluations was done along with a nurse practitioner. I did a consultation on this patient in my office approximately a week ago. I was investigating this patient for secondary causes of pulmonary hypertension. She comes into the hospital because of an acute kidney injury and intravascular depletion probably related to diuretics. She is on a combination of Aldactone, Lasix, and she came in with a high potassium level in addition to acute kidney injury. She is currently being resuscitated. At the same time she is having cough and which could be related to KELECHI inhibitor's. We will review the medication list. We'll suggest stopping the KELECHI inhibitor for now. CAT scan of the chest shows no evidence of any infection or pneumonia. Sleep study is scheduled to be done on an outpatient basis. We'll continue to follow. Echocardiogram shows only a mild degree of secondary pulmonary hypertension.
--- NOTE | 2018-02-03 10:07 | CT ---
EXAMINATION TYPE: CT brain wo con DATE OF EXAM: 02/03/2018 COMPARISON: 04/08/2012 HISTORY: Rule out a bleed. Headache. CT DLP: 981.10 mGycm Automated exposure control for dose reduction was used. TECHNIQUE: CT scan of the head is performed without contrast. FINDINGS: There is no acute intracranial hemorrhage or midline shift identified. No suspicious extr a axial fluid collection. There is diffuse ventricular and sulcal prominence consistent with diffuse age-related cerebral atrophy. There a few scattered areas of low attenuation in the periventricular white matter consistent with chronic small vessel ischemic change. The globes are intact. Moderate m ucosal thickening is seen within the paranasal sinuses including inspissated secretions within the sp henoid sinus. Mastoid air cells are well aerated. Atherosclerosis is seen of the intracranial vascula ture. IMPRESSION: 1. No evidence of intracranial hemorrhage. 2. Mild nonspecific white matter change, likely on the basis of chronic microangiopathy. Mildly progr essed from the exam of 2011. 3. Moderate paranasal sinus disease with inspissated secretions in the posterior nasopharynx and sphe noid.
--- NOTE | 2018-02-03 10:19 | CT ---
EXAMINATION TYPE: CT chest wo con DATE OF EXAM: 02/03/2018 COMPARISON: 04/23/2017 CT thorax HISTORY: Shortness of breath CT DLP: 701.10 mGycm. Automated Exposure Control for Dose Reduction was Utilized. TECHNIQUE: CT scan of the thorax is performed without IV contrast. FINDINGS: LUNGS: There are mild centrilobular emphysematous changes throughout the lungs. Calcified granulomas seen within the right upper lobe on series 4 image 26. Bibasilar subsegmental dependent atelectasis i s noted. The lungs are grossly clear, there is no concerning parenchymal mass or nodule identified. There is no pleural effusion or pneumothorax seen. The tracheobronchial tree is patent. MEDIASTINUM: Lack of IV contrast is noted to limit evaluation for mediastinal and especially hilar ad enopathy. There are no definitive greater than 1 cm hilar or mediastinal lymph nodes. There is enlarg ement of the main pulmonary arteries and measures 3.1 cm. Ascending thoracic aorta is within normal l imits of size measuring 3.5 cm. No cardiomegaly or pericardial effusion is seen. OTHER: There are postsurgical changes in the gallbladder fossa and at the gastroesophageal junction. There is partial visualization of a possible right-sided ventral hernia as seen on the prior of 2016 on the most caudal images. Mild multilevel degenerative changes of the thoracic spine are noted. IMPRESSION: 1. No focal consolidation, pleural effusion or pneumothorax. Mild centrilobular emphysema. 2. Enlargement of the main pulmonary artery suggestive of underlying pulmonary arterial hypertension.
[2018-02-03 10:21] LABS: Basophils % (A) 0 %; Eosinophils # (A) 0.1 k/uL (0-0.7); Eosinophils % (A) 2 %; HCT 31.2 % (34.0-46.0); HGB 10.1 gm/dL (11.4-16.0); Lymphocytes % (A) 18 %; MCH 29.3 pg (25.0-35.0); MCHC 32.4 g/dL (31.0-37.0); MCV 90.5 fL (80.0-100.0); Mean Platelet Volume 6.8; Monocytes # (A) 0.4 k/uL (0-1.0); Monocytes % (A) 8 %; Neutrophils # (A) 3.8 k/uL (1.3-7.7); Neutrophils % (A) 71 %; Platelet Count 201 k/uL (150-450); RBC 3.45 m/uL (3.80-5.40); RDW 14.7 % (11.5-15.5); WBC 5.4 k/uL (3.8-10.6)
[2018-02-03 10:45] LABS: Calcium 8.7 mg/dL (8.4-10.2); Total Bilirubin 0.2 mg/dL (0.2-1.3); Total Protein 5.3 g/dL (6.3-8.2)
[2018-02-03 10:51] LABS: Creatine Kinase MB 1.1 ng/mL (0.0-2.4)
[2018-02-03 11:27] LABS: Potassium 5.8 mmol/L (3.5-5.1)
[2018-02-03] MEDS: ATENOLOL 25 MG TAB PO SCH (11:27)
[2018-02-03] MEDS: ISOSORBIDE MONONITRATE ER 30 MG TAB.ER.24H PO SCH (11:27)
[2018-02-03] MEDS: methylPREDNISolone SOD SUCCI 40 MG/ML 1 ML VIAL IV SCH ×2 (11:28→18:27)
--- NOTE | 2018-02-03 12:32 | P.NPCON ---
History of Present Illness - Reason for Consult hyperkalemia - History of Present Illness Patient is a 67-year-old female with history of coronary artery disease pulmonary hypertension who was admitted to the hospital with complaints of increased weakness particularly in her lower extremities. Patient was also having significant cough over the last 1-2 months which progressively worsened over the last 2-3 days prior to admission. Patient denies any prior history of kidney diseases. She was started on antibiotic about 1-2 days prior to admission. Patient is not sure of the name. She denied use of any nonsteroidal anti-inflammatory agents. Patient was on KELECHI inhibitor's for hypertension at home which she had continue to take over the past few days. The patient was quite hypotensive on admission with systolic blood pressure in the 90s and 80s millimeters of mercury. Potassium was 7.3 on initial admission and it. It came down to 6.4 and went back up to 7.1. Patient has received IV cocktail for the hyperkalemia her potassium is now down to 5.8. Serum creatinine was 2.4 on admission and it is now down to 1.16. Patient is maintained on IV fluids at 75 mL an hour. CO2 was slightly low at 17 therefore I started on a bicarb drip about 4 hours ago. Urine output is GOOD. Review of Systems Positive for cough and sweats nausea vomiting diarrhea 1 no urinary symptoms no significant abdominal pain no fever Past Medical History Past Medical History: Coronary Artery Disease (CAD), GERD/Reflux, Hyperlipidemia , Hypertension, Musculoskeletal Disorder, Osteoarthritis (OA), Thyroid Disorder Additional Past Medical History / Comment(s): see Dr Macedo's H&P,DDD, hx anemia. JOSE LEG SWELLING-lymphedema, HX OF BLOOD IN URINE History of Any Multi-Drug Resistant Organisms: None Reported Past Surgical History: Back Surgery, Cholecystectomy, Heart Catheterization With Stent, Hysterectomy, Joint Replacement, Orthopedic Surgery Additional Past Surgical History / Comment(s): Bilateral total knees. ALLEN FUNDLAPLASTY, LEFT TOTAL SHOULDER. 2 STENTS IN HEART Past Anesthesia/Blood Transfusion Reactions: No Reported Reaction Date of Last Stent Placement:: 2006 Past Psychological History: Depression Smoking Status: Former smoker Past Alcohol Use History: Occasional Additional Past Alcohol Use History / Comment(s): Quit in , SMOKED 1 TO 1 AND 1/2 PPD, STARTED A TEENAGER Past Drug Use History: None Reported - Past Family History Brother(s) Family Medical History: Cancer Mother Brother(s) Family Medical History: Cancer Father Family Medical History: Cancer Medications and Allergies Home Medications Medication Instructions Recorded Confirmed Type Aspirin 81 mg PO DAILY 05/03/15 02/03/18 History Atenolol [Tenormin] 25 mg PO QAM 05/03/15 02/03/18 History Citalopram Hydrobromide [CeleXA] 40 mg PO QAM 05/03/15 02/03/18 History Enalapril Maleate [Vasotec] 5 mg PO QAM 05/03/15 02/03/18 History HYDROcodone/APAP 10-325MG [[place] 1 tab PO Q6H PRN 05/03/15 02/03/18 History 10-325] Isosorbide Mononitrate [Isosorbide 30 mg PO QAM 05/03/15 02/03/18 History Mononitrate ER] Nitroglycerin Sl Tabs [Nitrostat] 0.4 mg SUBLINGUAL Q5M PRN 05/03/15 02/03/18 History Omeprazole 40 mg PO BID 05/03/15 02/03/18 History Pramipexole [Mirapex] 1 mg PO HS 05/03/15 02/03/18 History Atorvastatin Calcium [Lipitor] 40 mg PO HS 06/07/17 02/03/18 History Ergocalciferol (Vitamin D2) 50,000 unit PO PAL 06/07/17 02/03/18 History [Vitamin D2] Glucosamine Sulfate 1,500 mg PO DAILY 06/07/17 02/03/18 History Tolterodine Tartrate [Detrol LA] 4 mg PO HS 06/07/17 02/03/18 History Furosemide [Lasix] 40 mg PO BID 09/16/17 02/03/18 History Fluconazole 200 mg PO DAILY 02/03/18 02/03/18 History Levothyroxine Sodium [Synthroid] 150 mcg PO DAILY 02/03/18 02/03/18 History Allergies Allergy/AdvReac Type Severity Reaction Status Date / Time No Known Allergies Allergy Verified 02/03/18 08:29 Physical Exam Vitals: Vital Signs Temp Pulse Pulse Resp BP BP Pulse Ox 02/03/18 12:00 98.1 F 75 19 86/42 93 L 02/03/18 11:00 83 24 86/42 95 02/03/18 10:00 85 26 H 95 02/03/18 09:00 86 32 H 93/40 94 L 02/03/18 08:00 98.7 F 88 20 93/40 96 02/03/18 07:00 79 20 96/40 100 02/03/18 06:00 79 15 89/58 97 02/03/18 05:00 82 27 H 97/50 97 02/03/18 04:41 20 02/03/18 04:34 98.1 F 81 20 99/44 96 02/03/18 03:42 80 02/03/18 03:39 111/53 02/03/18 03:34 80 02/03/18 03:29 95/46 02/03/18 03:15 88/37 02/03/18 03:00 92/46 02/03/18 02:30 84/36 02/02/18 23:27 97.4 F L 75 18 96/44 98 02/02/18 22:45 97.3 F L 84 22 108/49 97 02/02/18 21:58 80 24 97/54 98 02/02/18 20:56 98.0 F 79 24 91/42 100 02/02/18 20:45 69 24 95/47 95 02/02/18 20:09 76 02/02/18 20:04 71 02/02/18 19:23 98.6 F 82 16 100/53 100 Intake and Output 02/02/18 02/03/18 02/03/18 22:59 06:59 14:59 Intake Total 475 495 Balance 475 495 Intake: IV 475 Azithromycin 500 mg In 250 Sodium Chloride 0.9% 250 ml @ 125 mls/hr IVPB HS CHARLIE Rx#:[id number] Sodium Chloride 0.9% 1, 225 000 ml @ 75 mls/hr IV . [id number] CHARLIE Rx#:[id number] Intake, IV Titration 375 Amount Dextrose 5% in Water 1, 375 000 ml @ 75 mls/hr IV . [id number] CHARLIE with Sodium Bicarb (1 Meq/ml) 150 ml Rx#:[id number] Oral 120 Other: # Voids 1 1 # Bowel Movements 1 Weight 123.377 kg 123.1 kg On examination patient is comfortable awake alert oriented 3 she is not in any acute distress. Blood pressure is 86/42 Heart rate 75/m Examination of the heart S1 and S2 Exertion lungs bilateral breath sounds are heard decreased muscle bases Abdomen is soft obese Examination of lower extremities shows chronic skin changes edema 2+ bilaterally. [employer] exam is grossly intact patient is moving all 4 extremities no focal deficits are noted Results - Lab Results Most recent lab results Calcium 8.7 mg/dL (8.4-10.2) 02/03/18 10:02 Magnesium 2.2 mg/dL (1.6-2.3) 02/02/18 19:45 02/03/18 10:02 02/03/18 10:02 Assessment and Plan Plan: Assessment 1. Acute kidney injury secondary to hypotension and hypoperfusion, ischemic ATN currently nonoliguric and improving. Continue IV hydration. 2. Severe hyperkalemia associated with acute kidney injury and use of KELECHI inhibitor as prior to admission. Currently improved I will DC the bicarb drip in about 3-4 hours now that patient has good urine output and her renal function has improved she should be able to secrete a good potassium load in the urine. 3. Bronchitis, maintained on antibiotics 4. Pulmonary hypertension with resultant lower extremity edema maintained on high-dose loop diuretics as outpatient 5. Obesity next Plan Continue the bicarb drip for 3-4 hours and then switch to normal saline. Continue to avoid nephrotoxic agents. DC atenolol and hold off on the Imdur as well. Thank you for the consultation we'll continue to follow the patient with you during her hospitalization
[2018-02-03] MEDS: IPRATROPIUM-ALBUTEROL 3 ML NEB INHALATION SCH ×2 (13:49→21:02)
[2018-02-03] MEDS: SODIUM CHLORIDE 0.9% 1,000 ML IV SCH (14:26)
--- NOTE | 2018-02-03 16:56 | CONS ---
CONSULTATION Mrs. Ulrich is a 67-year-old female, who is seen for cardiac evaluation. Patient's medical records, as well as old charts were reviewed. This is a 67-year-old female, who came to the emergency room because of the complaint of increasing shortness of breath and peripheral edema as well as a persistent cough. 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 The patient had a right heart catheterization done which showed PA systolic pressure in the range of 60. A possibility of pulmonary hypertension secondary to sleep apnea was considered and patient was supposed to have a sleep study done. The patient also was evaluated by Dr. Jara in the office in the last couple of weeks. This patient also has a morbid obesity, hypothyroidism and depression. There is a past history of coronary artery disease with stent placement. PAST MEDICAL HISTORY: Includes a history of a stent placement, cholecystectomy, back surgery, hysterectomy and joint replacement. MEDICATIONS: The patient's home medications included Tenormin 25 mg daily, Celexa, Laurel, nitroglycerin, Mirapex, vitamin D2, Lasix 40 mg b.i.d. and Synthroid 150 mcg daily. PHYSICAL EXAMINATION: At present reveals a 67-year-old female, who is sitting in a chair. At present, she is not in any acute distress. The patient's blood pressure is 95/41 mmHg, heart rate is 76 per minute, oxygen saturation is 93%. HEENT examination is negative. Neck is supple. The jugular venous pressure is difficult to assess. Both the carotid pulses are felt. There is no bruit. HEART: First and second heart sounds are normal. Lungs examination reveals bilateral wheezing. Abdomen is soft. There is a 2+ pedal edema. The patient's CT scan is negative for pulmonary embolism. Chest x-ray is suggestive of possible mild fluid overload. However, patient's BNP level is only 150. The patient's BUN was 66 and creatinine was 2.4 and the potassium was 6.4. FINAL IMPRESSION: This patient is admitted with acute renal failure and hyperkalemia and patient also has a metabolic acidosis secondary to acute kidney injury. The patient has a history of shortness of breath, exact etiology undetermined, but there is no evidence of any significant left ventricular congestive heart failure at present, and the patient's proBNP level is only 150. The patient has a stable coronary artery disease with a history of prior stenting. I would recommend to continue the patient on the current medications. MMODL / IJN: [id number] /
[2018-02-03] MEDS: OXYBUTYNIN XL 5 MG TAB.ER.24 PO SCH (22:20)
[2018-02-03] MEDS: ATORVASTATIN 40 MG TAB PO SCH (22:20)
[2018-02-03] MEDS: PRAMIPEXOLE 0.5 MG TAB PO SCH (22:21)
[2018-02-04] MEDS: ZOLPIDEM 5 MG TAB PO PRN (00:30)
[2018-02-04] MEDS: methylPREDNISolone SOD SUCCI 40 MG/ML 1 ML VIAL IV SCH ×3 (00:30→16:30)
[2018-02-04] MEDS: PANTOPRAZOLE 40 MG/10 ML VIAL IVP SCH ×3 (00:37→20:34)
[2018-02-04] MEDS ORDERED: DEXTROSE 50%-WATER 50 ML SYRINGE IVP STA (00:47)
[2018-02-04] MEDS ORDERED: INSULIN REGULAR 100 UNIT/ML VIAL IV ONE (00:47)
[2018-02-04] MEDS ORDERED: DEXTROSE 10 % IN WATER 250 ML IV STA (01:48)
[2018-02-04 05:25] LABS: Basophils % (A) 0 %; Eosinophils % (A) 0 %; HCT 34.9 % (34.0-46.0); HGB 10.8 gm/dL (11.4-16.0); Lymphocytes # (A) 0.6 k/uL (1.0-4.8); Lymphocytes % (A) 9 %; MCH 28.4 pg (25.0-35.0); MCHC 30.9 g/dL (31.0-37.0); Monocytes # (A) 0.1 k/uL (0-1.0); Monocytes % (A) 2 %; Neutrophils # (A) 6.1 k/uL (1.3-7.7); Neutrophils % (A) 89 %; Platelet Count 222 k/uL (150-450); RBC 3.79 m/uL (3.80-5.40); RDW 14.8 % (11.5-15.5); WBC 6.9 k/uL (3.8-10.6)
[2018-02-04 05:51] LABS: ALT 16 U/L (9-52); AST 15 U/L (14-36); Albumin 3.4 g/dL (3.5-5.0); Alkaline Phosphatase 95 U/L (38-126); Anion Gap 14 mmol/L; Blood Urea Nitrogen 28 mg/dL (7-17); Carbon Dioxide 21 mmol/L (22-30); Chloride 105 mmol/L (98-107); Glucose 121 mg/dL (74-99); Phosphorus 3.2 mg/dL (2.5-4.5); Potassium 5.1 mmol/L (3.5-5.1); Sodium 140 mmol/L (137-145); Total Bilirubin 0.2 mg/dL (0.2-1.3); Total Protein 5.9 g/dL (6.3-8.2)
[2018-02-04] MEDS: SODIUM CHLORIDE 0.9% 1,000 ML IV SCH (06:39)
[2018-02-04] MEDS: LEVOTHYROXINE 75 MCG TAB PO SCH (06:39)
[2018-02-04] MEDS: HYDROcodone/APAP 10-325MG 1 EACH TAB PO PRN ×3 (07:17→20:33)
[2018-02-04] MEDS: IPRATROPIUM-ALBUTEROL 3 ML NEB INHALATION SCH ×3 (07:20→19:46)
[2018-02-04] MEDS: ASPIRIN 81 MG PO SCH (08:40)
[2018-02-04] MEDS: CITALOPRAM HYDROBROMIDE 20 MG TAB PO SCH (08:40)
[2018-02-04] MEDS: ISOSORBIDE MONONITRATE ER 30 MG TAB.ER.24H PO SCH (08:41)
[2018-02-04] MEDS: ATENOLOL 25 MG TAB PO SCH (08:41)
--- NOTE | 2018-02-04 10:01 | P.PN ---
<Sameera Heller M - Last Filed: 02/04/18 09:52> Subjective Progress Note Date: 02/04/18 Principal diagnosis: Acute kidney injury, metabolic acidosis, COPD exacerbation Mrs. Ulrich is a 67-year-old white female patient, who presented to the emergency department on 02/02/2018 at 1914 for evaluation of increasing shortness of breath, increasing peripheral edema, persistent cough, and chest congestion. She denied any fever, did have some subjective chills, denied any chest pain, denies any nausea vomiting or diarrhea. Most recently patient's Lasix was increased to 3 times daily in view of increasing peripheral edema. Patient was seen in the pulmonary office by Dr. Jara for evaluation of mild to moderate pulmonary hypertension with a mean pulmonary artery artery arterial pressure of 42 mmHg. Patient had a right sided heart catheterization done earlier by Dr. Ferrell. Connective tissue disease workup was negative. And the possibility of a sleep breathing disorder/obstructive sleep apnea was strongly suspected as the cause of patient's secondary pulmonary hypertension. Patient has gained considerable amount of weight over the last 5 years and patient has typical features of obstructive sleep apnea. Patient was scheduled for an a home sleep study however has not had it done yet. Other past medical history includes hypertension, dyslipidemia, GERD, coronary arterial sclerosis, chronic bronchitis, varicose veins of bilateral lower extremity, morbid obesity , hypothyroidism, osteoarthritis and depression. Chest x-ray showed no suspicious focal consolidation, there was prominence of pulmonary vasculature, consistent with mild fluid overload. EKG showed normal sinus rhythm with no acute ST or T-wave abnormality. Lab work showed WBC of within normal limits at 9.2, hemoglobin of 11.8, d-dimer was mildly elevated to 0.70, serum potassium was critically high at 6.4, sodium is 136, BUN is 66, creatinine is 2.40. ProBNP was within normal limits at 150, troponin was negative 1. Patient was given 3 rounds of 50% dextrose, 10 units of regular insulin, Kayexalate, and calcium gluconate and this morning her potassium is down to 6.1. Patient's IV fluids include D5 and water with 3 A of bicarb infusing at 75 ML per hour. Nephrology is following. Patient is awake alert, in no acute distress, denies any shortness of breath at rest, denies any chest pain. On 02/04/2018 patient seen in follow-up in the intensive care unit. She is resting comfortably in bed, denies any acute distress, denies any chest pain or shortness of breath. Lung sounds are positive for diffuse wheezing, she has a congested nonproductive cough. Afebrile, currently on room air with O2 sat at 95%. Hemodynamically stable. She is receiving IV hydration with 0.9 normal saline at the rate of 75 ML per hour. She is avoiding, and is nonoliguric. She is tolerating oral intake. Today's labs show potassium 5.1, CO2 of 21, BUN is 28, creatinine is 0.70, there has been improvement in her renal profile. Yesterday we started the patient on IV Solu-Medrol, she remains on nebulized bronchodilators, and empiric antibiotics in the form of azithromycin and Rocephin. Objective - Vital Signs Vital signs: Vital Signs Temp 97.8 F 02/04/18 08:00 Pulse 78 02/04/18 09:00 Resp 27 H 02/04/18 09:00 BP 90/47 02/04/18 09:00 Pulse Ox 95 02/04/18 09:00 Intake & Output 02/03/18 02/04/18 02/04/18 18:59 06:59 18:59 Intake Total 1425 3300 465 Output Total 550 1800 Balance 875 1500 465 Intake: IV 300 1400 75 Azithromycin 500 mg In 250 Sodium Chloride 0.9% 250 ml @ 125 mls/hr IVPB HS CHARLIE Rx#:[id number] Dextrose 10 % in Water 250 250 ml @ 999 mls/hr IV ONCE STA Rx#:[id number] Sodium Chloride 0.9% 1, 300 900 75 000 ml @ 75 mls/hr IV . [id number] CHARLIE Rx#:[id number] Intake, IV Titration 525 150 Amount Dextrose 5% in Water 1, 525 000 ml @ 75 mls/hr IV . [id number] CHARLIE with Sodium Bicarb (1 Meq/ml) 150 ml Rx#:[id number] Sodium Chloride 0.9% 1, 150 000 ml @ 75 mls/hr IV . [id number] CHARLIE Rx#:[id number] Oral 600 1900 240 Output: Urine 550 1800 Other: Voiding Method Toilet Toilet Toilet Bedside Commode # Voids 1 0 0 # Bowel Movements 1 1 0 - Exam - Constitutional General appearance: cooperative, morbidly obese - EENT Eyes: EOMI, PERRLA, dentition normal ENT: NA/AT, normal oropharynx Ears: bilateral: normal - Neck Neck: no lymphadenopathy, normal ROM Carotids: bilateral: upstroke normal Thyroid: bilateral: normal size - Respiratory Respiratory: bilateral: rhonchi and diffuse wheezing throughout the lung loomis , patient has a congested nonproductive cough - Cardiovascular Rhythm: regular Heart sounds: normal: S1, S2 ankle Peripheral Edema: bilateral: 2+ leg Peripheral Edema: bilateral: 1+ foot Peripheral Edema: bilateral: 1+ dorsalis pedis Peripheral Pulses: bilateral: Normal - Gastrointestinal General gastrointestinal: no organomegaly, soft, no tenderness - Integumentary Integumentary: normal turgor - Neurologic Neurologic: CNII-XII intact - Musculoskeletal Musculoskeletal: gait normal, strength equal bilaterally - Psychiatric Psychiatric: A&O x's 3, appropriate affect, intact judgment & insight - Labs CBC & Chem 7: 02/04/18 04:24 02/04/18 04:24 Labs: Abnormal Lab Results - Last 24 Hours (Table) 02/03/18 02/03/18 02/03/18 Range/Units 10:02 10:02 16:20 RBC 3.45 L (3.80-5.40) m/uL Hgb 10.1 L (11.4-16.0) gm/dL Hct 31.2 L (34.0-46.0) % MCHC (31.0-37.0) g/dL Lymphocytes # (1.0-4.8) k/uL Potassium 5.8 H 5.8 H (3.5-5.1) mmol/L Carbon Dioxide (22-30) mmol/L BUN 51 H (7-17) mg/dL Creatinine 1.16 H (0.52-1.04) mg/dL Glucose 127 H (74-99) mg/dL Total Protein 5.3 L (6.3-8.2) g/dL Albumin 3.0 L (3.5-5.0) g/dL 02/03/18 02/04/18 02/04/18 Range/Units 21:50 04:24 04:24 RBC 3.79 L (3.80-5.40) m/uL Hgb 10.8 L (11.4-16.0) gm/dL Hct (34.0-46.0) % MCHC 30.9 L (31.0-37.0) g/dL Lymphocytes # 0.6 L (1.0-4.8) k/uL Potassium 5.9 H (3.5-5.1) mmol/L Carbon Dioxide 21 L (22-30) mmol/L BUN 28 H (7-17) mg/dL Creatinine (0.52-1.04) mg/dL Glucose 121 H (74-99) mg/dL Total Protein 5.9 L (6.3-8.2) g/dL Albumin 3.4 L (3.5-5.0) g/dL Microbiology - Last 24 Hours (Table) 02/03/18 03:16 Blood Culture - Preliminary Blood No Growth after 24 hours Assessment and Plan Plan: Assessment: #1. Acute kidney injury due to dehydration, improving, patient is responding to IV hydration. #2. Acute hyperkalemia, due to RAPHAEL, resolved, and today's potassium potassium is 5.1 #3. Metabolic acidosis related to acute kidney injury #4. Mild COPD exacerbation #5. Nicotine dependence, currently in remission, patient quit in 2006, but carries [id number] smoking history #6. Coronary artery disease, with previous stenting #8. Morbid obesity, with a BMI of 46.6 kg/m #9. Hypertension, hyperlipidemia #10. GERD/reflux, status post Jessy fundoplication #11. Osteoarthritis #12. Hypothyroidism, on thyroid replacement therapy #13. Depression Plan: Continue current plan of care, continue IV steroids, empiric antibiotics, and nebulized bronchodilators. Patient's renal profile is improving, serum potassium has improved and is down to 5.1. Vital signs are stable, no acute events overnight. Patient is stable to transfer out of intensive care unit today. I performed a history & physical examination of the patient and discussed their management with my nurse practitioner, Sameera Heller. I reviewed the nurse practitioner's note and agree with the documented findings and plan of care. Lung sounds are positive for scattered wheezes, and rhonchi. The findings and the impression was discussed with the patient. I attest to the documentation by the nurse practitioner. Time with Patient: Less than 30 <Artinian,Vasken - Last Filed: 02/04/18 18:08> Objective - Vital Signs Vital signs: Vital Signs Temp 97.6 F 02/04/18 14:20 Pulse 76 02/04/18 14:20 Resp 18 02/04/18 14:20 BP 133/65 02/04/18 14:20 Pulse Ox 95 02/04/18 14:20 Intake & Output 02/03/18 02/04/18 02/04/18 18:59 06:59 18:59 Intake Total 1425 3300 880 Output Total 550 1800 350 Balance 875 1500 530 Weight 127 kg Intake: IV 300 1400 150 Azithromycin 500 mg In 250 Sodium Chloride 0.9% 250 ml @ 125 mls/hr IVPB HS CHARLIE Rx#:[id number] Dextrose 10 % in Water 250 250 ml @ 999 mls/hr IV ONCE STA Rx#:[id number] Sodium Chloride 0.9% 1, 300 900 150 000 ml @ 75 mls/hr IV . [id number] CHARLIE Rx#:[id number] Intake, IV Titration 525 150 Amount Dextrose 5% in Water 1, 525 000 ml @ 75 mls/hr IV . [id number] CHARLIE with Sodium Bicarb (1 Meq/ml) 150 ml Rx#:[id number] Sodium Chloride 0.9% 1, 150 000 ml @ 75 mls/hr IV . [id number] CHARLIE Rx#:[id number] Oral 600 1900 580 Output: Urine 550 1800 350 Other: Voiding Method Toilet Toilet Toilet Bedside Commode # Voids 1 0 0 # Bowel Movements 1 1 0 - Labs CBC & Chem 7: 02/04/18 04:24 02/04/18 04:24 Labs: Abnormal Lab Results - Last 24 Hours (Table) 02/03/18 02/04/18 02/04/18 Range/Units 21:50 04:24 04:24 RBC 3.79 L (3.80-5.40) m/uL Hgb 10.8 L (11.4-16.0) gm/dL MCHC 30.9 L (31.0-37.0) g/dL Lymphocytes # 0.6 L (1.0-4.8) k/uL Potassium 5.9 H (3.5-5.1) mmol/L Carbon Dioxide 21 L (22-30) mmol/L BUN 28 H (7-17) mg/dL Glucose 121 H (74-99) mg/dL Total Protein 5.9 L (6.3-8.2) g/dL Albumin 3.4 L (3.5-5.0) g/dL Microbiology - Last 24 Hours (Table) 02/03/18 03:16 Blood Culture - Preliminary Blood No Growth after 24 hours Assessment and Plan Plan: This patient is doing better compared to yesterday. The patient was hydrated adequately. The potassium level is improved and has dropped. Renal function is also improved. Cough has subsided. She came moved out of the intensive care unit. We'll cut down the IV fluids to KVO. We'll continue to follow.
--- NOTE | 2018-02-04 11:14 | P.PN ---
Subjective Progress Note Date: 02/04/18 Patient feeling much better today, does report some wheezes when recumbent. Does feel much stronger still complain of some shortness of air. Patient was apparently scheduled to have a overnight polysomnogram today. No acute events overnight afebrile Objective - Vital Signs Vital signs: Vital Signs Temp 97.8 F 02/04/18 08:00 Pulse 63 02/04/18 10:00 Resp 22 02/04/18 10:00 BP 93/51 02/04/18 10:00 Pulse Ox 96 02/04/18 10:00 Intake & Output 02/03/18 02/04/18 02/04/18 18:59 06:59 18:59 Intake Total 1425 3300 540 Output Total 550 1800 Balance 875 1500 540 Intake: IV 300 1400 150 Azithromycin 500 mg In 250 Sodium Chloride 0.9% 250 ml @ 125 mls/hr IVPB HS CHARLIE Rx#:[id number] Dextrose 10 % in Water 250 250 ml @ 999 mls/hr IV ONCE STA Rx#:[id number] Sodium Chloride 0.9% 1, 300 900 150 000 ml @ 75 mls/hr IV . [id number] CHARLIE Rx#:[id number] Intake, IV Titration 525 150 Amount Dextrose 5% in Water 1, 525 000 ml @ 75 mls/hr IV . [id number] CHARLIE with Sodium Bicarb (1 Meq/ml) 150 ml Rx#:[id number] Sodium Chloride 0.9% 1, 150 000 ml @ 75 mls/hr IV . [id number] CHARLIE Rx#:[id number] Oral 600 1900 240 Output: Urine 550 1800 Other: Voiding Method Toilet Toilet Toilet Bedside Commode # Voids 1 0 0 # Bowel Movements 1 1 0 - Exam Constitutional: No acute distress, conversant, pleasant Eyes: Anicteric sclerae, moist conjunctiva, no lid-lag, PERRLA ENMT: NC/AT,Oropharynx clear, no erythema, exudates Neck:Supple, FROM, no masses, or JVD, No carotid bruits; No thyromegaly Lungs: Clear to auscultation, Clear to percussion, Normal respiratory effort, no accessory muscle use Cardiovascular: Heart regular in rate and rhythm, No murmurs, gallops, or rubs no peripheral edema Abdominal: Soft Nontender, nom distended, no guarding, no rebound or rigidity, Normoactive bowel sounds No hepatomegaly, No splenomegaly, No palpable mass No abdominal wall hernia noted Skin: Normal temperature, tone, texture, turgor, No induration No subcutaneous nodules, No rash, lesions, No ulcers Extremities:No digital cyanosis No clubbing, Pedal pulses intact and symmetrical Radial pulses intact and symmetrical Normal gait and station, No calf tenderness Psychiatric: Alert and oriented to person, place and time, Appropriate affect Intact judgement Neuro: Muscles Strength 5/5 in all 4 extremities, Sensation to light touch grossly present throughout, Cranial nerves II-XII grossly intact. No focal sensory deficits - Labs CBC & Chem 7: 02/04/18 04:24 02/04/18 04:24 Labs: Abnormal Lab Results - Last 24 Hours (Table) 02/03/18 02/03/18 02/03/18 Range/Units 10:02 16:20 21:50 RBC (3.80-5.40) m/uL Hgb (11.4-16.0) gm/dL MCHC (31.0-37.0) g/dL Lymphocytes # (1.0-4.8) k/uL Potassium 5.8 H 5.8 H 5.9 H (3.5-5.1) mmol/L Carbon Dioxide (22-30) mmol/L BUN 51 H (7-17) mg/dL Creatinine 1.16 H (0.52-1.04) mg/dL Glucose 127 H (74-99) mg/dL Total Protein 5.3 L (6.3-8.2) g/dL Albumin 3.0 L (3.5-5.0) g/dL 02/04/18 02/04/18 Range/Units 04:24 04:24 RBC 3.79 L (3.80-5.40) m/uL Hgb 10.8 L (11.4-16.0) gm/dL MCHC 30.9 L (31.0-37.0) g/dL Lymphocytes # 0.6 L (1.0-4.8) k/uL Potassium (3.5-5.1) mmol/L Carbon Dioxide 21 L (22-30) mmol/L BUN 28 H (7-17) mg/dL Creatinine (0.52-1.04) mg/dL Glucose 121 H (74-99) mg/dL Total Protein 5.9 L (6.3-8.2) g/dL Albumin 3.4 L (3.5-5.0) g/dL Microbiology - Last 24 Hours (Table) 02/03/18 03:16 Blood Culture - Preliminary Blood No Growth after 24 hours Assessment and Plan (1) Acute kidney injury Narrative/Plan: * Acute kidney injury likely prerenal secondary to ischemic ATN overdiuresis with subsequent hyperkalemia and metabolic acidosis now resolved * We'll DC IV fluids * Appreciate neurology recommendations Current Visit: Yes Status: Acute Code(s): N17.9 - ACUTE KIDNEY FAILURE, UNSPECIFIED SNOMED Code(s): 70049201 (2) COPD with acute exacerbation Narrative/Plan: * Patient initiated on treatment with systemic steroids. Scheduled and when necessary breathing treatments, along with azithromycin and Rocephin * Appreciate pulmonary recommendations we'll continue to monitor Current Visit: Yes Status: Acute Code(s): J44.1 - CHRONIC OBSTRUCTIVE PULMONARY DISEASE W (ACUTE) EXACERBATION SNOMED Code(s): 526153970 (3) Pulmonary hypertension Narrative/Plan: * Suspect secondary to underlying obstructive sleep apnea patient was scheduled to have sleep study today * Appreciate pulmonary recommendations * on echocardiogram ejection fraction is 55-60% with severely enlarged right ventricle * We'll DC IV fluids Current Visit: Yes Status: Acute Code(s): I27.20 - PULMONARY HYPERTENSION, UNSPECIFIED SNOMED Code(s): 34674200 (4) Dyspnea Narrative/Plan: * Multifactorial secondary to COPD exacerbation superimposed on pulmonary hypertension * Continue with ongoing pulmonary recommendations Current Visit: Yes Status: Acute Code(s): R06.00 - DYSPNEA, UNSPECIFIED SNOMED Code(s): 574576193
[2018-02-04] MEDS ORDERED: guaiFENesin-Coden 100-10MG/5ML 10 ML CUP PO PRN (12:59)
--- NOTE | 2018-02-04 16:24 | PN ---
PROGRESS NOTE This patient was admitted with symptoms of shortness of breath. The patient was found to be in acute renal failure possibly secondary to excessive diuretic use. The patient has evidence of moderate degree of pulmonary hypertension. The patient's blood pressure now is 133/65 mmHg. Heart rate is 76 per minute. First and second heart sounds are normal. Lungs are fairly clear to auscultation and percussion. Patient has evidence of trace leg edema. The patient's electrolytes are normal. BUN is 28, and creatinine is 0.7. We will continue the patient on the current medications and we will resume the small dose of diuretics once she has recovered from her acute kidney injury. MMODL / IJN: [id number] /
--- NOTE | 2018-02-04 17:45 | PN ---
PROGRESS NOTE DATE OF SERVICE: 02/04/2018. HISTORY: The patient is seen for followup for hyperkalemia. Her potassium has improved. The patient did receive IV cocktail last night for a potassium of 5.9. This morning it was 5.1. The patient has had good urine output. Her creatinine is down to 0.7 from 2.4 mg/dL on initial admission. Currently, patient feels well and she will be transferred out of the ICU. PHYSICAL EXAMINATION: Blood pressure is about 91/40. Patient's has been running anywhere from 90 to 100 mmHg, heart rate 82 per minute. She is afebrile. Examination of the heart S1, S2. Examination of the lungs, breath sounds clear at bases. Abdomen is soft, obese, nontender. Exam lower extremity shows edema 1+ bilaterally with chronic skin changes. LABS: Sodium 140, potassium 5.1, chloride 105, BUN 28, serum creatinine 0.7, hemoglobin 10.8 g/dL. ASSESSMENT: 1. Acute kidney injury secondary to hypotension and hypoperfusion, currently significantly improved. We can discontinue the IV fluids. 2. Hyperkalemia associated with acute kidney injury and KELECHI inhibitors, now improved. 3. Bronchitis, maintained on antibiotics. 4. Pulmonary hypertension with incessant lower extremity edema, maintained on high dose of diuretics as outpatient. PLAN: Discontinue IV fluids and resume loop diuretics. The patient's blood pressure normally runs on the lower side. Repeat labs again tomorrow. MMODL / IJN: [id number] /
[2018-02-04] MEDS: PRAMIPEXOLE 0.5 MG TAB PO SCH (20:34)
[2018-02-04] MEDS: ATORVASTATIN 40 MG TAB PO SCH (20:34)
[2018-02-04] MEDS: OXYBUTYNIN XL 5 MG TAB.ER.24 PO SCH (20:34)
[2018-02-05] MEDS: methylPREDNISolone SOD SUCCI 40 MG/ML 1 ML VIAL IV SCH ×2 (00:26→08:04)
[2018-02-05] MEDS: ZOLPIDEM 5 MG TAB PO PRN (00:28)
[2018-02-05 00:40] VITALS: RESP 16
[2018-02-05] MEDS: LEVOTHYROXINE 75 MCG TAB PO SCH (06:18)
[2018-02-05 07:39] VITALS: BP 129/56; TEMP 98.1
[2018-02-05] MEDS: ASPIRIN 81 MG PO SCH (08:04)
[2018-02-05] MEDS: CITALOPRAM HYDROBROMIDE 20 MG TAB PO SCH (08:04)
[2018-02-05] MEDS: PANTOPRAZOLE 40 MG/10 ML VIAL IVP SCH (08:04)
[2018-02-05] MEDS: HYDROcodone/APAP 10-325MG 1 EACH TAB PO PRN (08:19)
[2018-02-05] MEDS: IPRATROPIUM-ALBUTEROL 3 ML NEB INHALATION SCH ×2 (08:59→13:18)
[2018-02-05] MEDS ORDERED: FUROSEMIDE 40 MG TAB PO SCH (09:00)
[2018-02-05 09:36] LABS: Basophils % (A) 0 %; Eosinophils % (A) 0 %; HCT 33.9 % (34.0-46.0); HGB 10.8 gm/dL (11.4-16.0); Lymphocytes # (A) 0.8 k/uL (1.0-4.8); Lymphocytes % (A) 7 %; MCHC 31.8 g/dL (31.0-37.0); MCV 91.1 fL (80.0-100.0); Mean Platelet Volume 6.5; Monocytes # (A) 0.2 k/uL (0-1.0); Monocytes % (A) 2 %; Neutrophils # (A) 9.3 k/uL (1.3-7.7); Neutrophils % (A) 90 %; Platelet Count 249 k/uL (150-450); RBC 3.72 m/uL (3.80-5.40); RDW 14.7 % (11.5-15.5); WBC 10.3 k/uL (3.8-10.6)
[2018-02-05 09:39] LABS: Albumin 3.5 g/dL (3.5-5.0); Magnesium 1.9 mg/dL (1.6-2.3); Phosphorus 3.6 mg/dL (2.5-4.5); Potassium 4.7 mmol/L (3.5-5.1); Total Bilirubin 0.2 mg/dL (0.2-1.3); Total Protein 5.8 g/dL (6.3-8.2)
--- NOTE | 2018-02-05 13:10 | PN ---
PROGRESS NOTE The patient is seen for followup for hyperkalemia. Her potassium this morning is down to 4.7. Patient feels well. She denies any significant complaints. PHYSICAL EXAMINATION: On examination, blood pressure is 129/56, heart rate 53 per minute. She is afebrile. EXAMINATION OF THE HEART: S1 and S2. EXAMINATION OF THE LUNGS: Bilateral breath sounds are heard. Abdomen is soft, obese. Examination of lower extremities shows edema 2+ bilaterally with chronic skin changes. LABS: Labs show sodium 141, potassium 4.7, BUN 35, serum creatinine 0.94. Hemoglobin 10.8 g/dL. ASSESSMENT: 1. Hyperkalemia associated with acute kidney injury and KELECHI inhibitors, currently resolved. 2. Acute kidney injury secondary to hypotension hypoperfusion, now resolved. IV fluids have been discontinued. The patient has been restarted on her loop diuretics. 3. Pulmonary hypertension with resultant lower extremity edema, maintained on high dose diuretics as outpatient. The Lasix was restarted yesterday. 4. Bronchitis, maintained on antibiotics. PLAN: Continue with the oral loop diuretics. The patient will need monitoring of her labs, renal function and electrolytes as outpatient. We can increase the loop diuretics as outpatient. MMODL / IJN: [id number] /
[2018-02-05 13:30] VITALS: PULSE 88
--- NOTE | 2018-02-05 13:52 | P.PN ---
Subjective Progress Note Date: 02/05/18 Principal diagnosis: Acute kidney injury, metabolic acidosis, COPD exacerbation Mrs. Ulrich is a 67-year-old white female patient, who presented to the emergency department on 02/02/2018 at 1914 for evaluation of increasing shortness of breath, increasing peripheral edema, persistent cough, and chest congestion. She denied any fever, did have some subjective chills, denied any chest pain, denies any nausea vomiting or diarrhea. Most recently patient's Lasix was increased to 3 times daily in view of increasing peripheral edema. Patient was seen in the pulmonary office by Dr. Jara for evaluation of mild to moderate pulmonary hypertension with a mean pulmonary artery artery arterial pressure of 42 mmHg. Patient had a right sided heart catheterization done earlier by Dr. Ferrell. Connective tissue disease workup was negative. And the possibility of a sleep breathing disorder/obstructive sleep apnea was strongly suspected as the cause of patient's secondary pulmonary hypertension. Patient has gained considerable amount of weight over the last 5 years and patient has typical features of obstructive sleep apnea. Patient was scheduled for an a home sleep study however has not had it done yet. Other past medical history includes hypertension, dyslipidemia, GERD, coronary arterial sclerosis, chronic bronchitis, varicose veins of bilateral lower extremity, morbid obesity , hypothyroidism, osteoarthritis and depression. Chest x-ray showed no suspicious focal consolidation, there was prominence of pulmonary vasculature, consistent with mild fluid overload. EKG showed normal sinus rhythm with no acute ST or T-wave abnormality. Lab work showed WBC of within normal limits at 9.2, hemoglobin of 11.8, d-dimer was mildly elevated to 0.70, serum potassium was critically high at 6.4, sodium is 136, BUN is 66, creatinine is 2.40. ProBNP was within normal limits at 150, troponin was negative 1. Patient was given 3 rounds of 50% dextrose, 10 units of regular insulin, Kayexalate, and calcium gluconate and this morning her potassium is down to 6.1. Patient's IV fluids include D5 and water with 3 A of bicarb infusing at 75 ML per hour. Nephrology is following. Patient is awake alert, in no acute distress, denies any shortness of breath at rest, denies any chest pain. On 02/04/2018 patient seen in follow-up in the intensive care unit. She is resting comfortably in bed, denies any acute distress, denies any chest pain or shortness of breath. Lung sounds are positive for diffuse wheezing, she has a congested nonproductive cough. Afebrile, currently on room air with O2 sat at 95%. Hemodynamically stable. She is receiving IV hydration with 0.9 normal saline at the rate of 75 ML per hour. She is avoiding, and is nonoliguric. She is tolerating oral intake. Today's labs show potassium 5.1, CO2 of 21, BUN is 28, creatinine is 0.70, there has been improvement in her renal profile. Yesterday we started the patient on IV Solu-Medrol, she remains on nebulized bronchodilators, and empiric antibiotics in the form of azithromycin and Rocephin. On 02/05/2018 patient is seen in follow-up on medical surgical floor. Denies any acute distress, lung sounds are positive for some scattered wheezes, but good air movement noted bilaterally, patient is in no acute distress, denies any fever, chills, worsening dyspnea or chest congestion. She is on room air, with a pulse ox of 96%, respirations are even and nonlabored, she is sitting up in the chair, tolerating activity well, increasing bilateral lower extremity edema was noted, and the patient was restarted on Lasix. Today's lab work shows WBC of 10.3, hemoglobin of 10.8, electrolyte of within normal limits, BUN is 35, creatinine 0.94. Patient is receiving nebulized treatments, IV steroids , yesterday we discontinued empiric antibiotics, patient does not have any evidence of an infectious process. From pulmonary standpoint patient could be discharged home today on a prednisone taper, and she will be seen in follow-up in the office by Dr. Jara within a week. Objective - Vital Signs Vital signs: Vital Signs Temp 98.1 F 02/05/18 07:27 Pulse 88 02/05/18 13:29 Resp 16 02/05/18 07:27 BP 129/56 02/05/18 07:27 Pulse Ox 96 02/05/18 08:59 Intake & Output 02/04/18 02/05/18 02/05/18 18:59 06:59 18:59 Intake Total 880 590 Output Total 350 Balance 530 590 Weight 127 kg Intake: IV 150 Sodium Chloride 0.9% 1, 150 000 ml @ 75 mls/hr IV . [id number] CHARLIE Rx#:[id number] Intake, IV Titration 150 Amount Sodium Chloride 0.9% 1, 150 000 ml @ 75 mls/hr IV . [id number] CHARLIE Rx#:[id number] Oral 580 590 Output: Urine 350 Other: Voiding Method Toilet Toilet Toilet # Voids 0 2 # Bowel Movements 0 - Exam - Constitutional General appearance: cooperative, morbidly obese - EENT Eyes: EOMI, PERRLA, dentition normal ENT: NA/AT, normal oropharynx Ears: bilateral: normal - Neck Neck: no lymphadenopathy, normal ROM Carotids: bilateral: upstroke normal Thyroid: bilateral: normal size - Respiratory Respiratory: bilateral: Patient has scattered wheezing, sounds less bronchospastic and wheezy on today's exam, good air movement noted bilaterally - Cardiovascular Rhythm: regular Heart sounds: normal: S1, S2 ankle Peripheral Edema: bilateral: 2+ leg Peripheral Edema: bilateral: 1+ foot Peripheral Edema: bilateral: 1+ dorsalis pedis Peripheral Pulses: bilateral: Normal - Gastrointestinal General gastrointestinal: no organomegaly, soft, no tenderness - Integumentary Integumentary: normal turgor - Neurologic Neurologic: CNII-XII intact - Musculoskeletal Musculoskeletal: gait normal, strength equal bilaterally - Psychiatric Psychiatric: A&O x's 3, appropriate affect, intact judgment & insight - Labs CBC & Chem 7: 02/05/18 08:47 02/05/18 08:47 Labs: Abnormal Lab Results - Last 24 Hours (Table) 02/05/18 02/05/18 Range/Units 08:47 08:47 RBC 3.72 L (3.80-5.40) m/uL Hgb 10.8 L (11.4-16.0) gm/dL Hct 33.9 L (34.0-46.0) % Neutrophils # 9.3 H (1.3-7.7) k/uL Lymphocytes # 0.8 L (1.0-4.8) k/uL BUN 35 H (7-17) mg/dL Glucose 226 H (74-99) mg/dL Total Protein 5.8 L (6.3-8.2) g/dL Microbiology - Last 24 Hours (Table) 02/03/18 03:16 Blood Culture - Preliminary Blood No Growth after 48 hours Assessment and Plan Plan: Assessment: #1. Acute kidney injury due to dehydration, improving, patient responded well to IV hydration. #2. Acute hyperkalemia, due to RAPHAEL, resolved, and today's potassium potassium is 4.7 #3. Metabolic acidosis related to acute kidney injury, resolved #4. Mild COPD exacerbation #5. Nicotine dependence, currently in remission, patient quit in 2006, but carries [id number] smoking history #6. Coronary artery disease, with previous stenting #8. Morbid obesity, with a BMI of 46.6 kg/m #9. Suspected obstructive sleep apnea #10. Mild pulmonary hypertension, most likely related to suspected obstructive sleep apnea/sleep breathing disorder, patient is awaiting to undergo a home- based sleep study #11. Hypertension, hyperlipidemia #12. GERD/reflux, status post Jessy fundoplication #13. Osteoarthritis #14. Hypothyroidism, on thyroid replacement therapy #15. Depression Plan: Patient continues to improve, renal profile is improving, electrolytes are within normal limits, metabolic acidosis has resolved. Patient was restarted on her home dose Lasix. Patient is stable for discharge home today on prednisone taper over 9 days, no need for antibiotics, no need for nebulized bronchodilators. Patient will need to complete her home-based sleep study, and she will be seen in follow-up by Dr. Jara in the office in 7-10 days I performed a history & physical examination of the patient and discussed their management with my nurse practitioner, Sameera Heller. I reviewed the nurse practitioner's note and agree with the documented findings and plan of care. Lung sounds are positive for a few scattered wheezes. The findings and the impression was discussed with the patient. I attest to the documentation by the nurse practitioner. Time with Patient: Less than 30
[2018-02-05] MEDS ORDERED: PANTOPRAZOLE 40 MG TABLET PO SCH (17:30)
--- NOTE | 2018-02-07 12:45 | P.DS ---
Providers Date of admission: 02/02/18 20:29 Expected date of discharge: 02/06/18 Attending physician: Carolina Montoya MD Consults: 02/02/18 20:28 Consult Physician Routine Consulting Provider: Zora Ling Consult Reason/Comments: chf Do you want consulting provider notified?: Yes Consult Physician Routine Consulting Provider: Joana Cross Consult Reason/Comments: arf Do you want consulting provider notified?: Yes 02/03/18 00:36 Consult Physician Routine Consulting Provider: Sam Cuellar Consult Reason/Comments: sob Do you want consulting provider notified?: Yes, Notify in am Primary care physician: Melba Gillis - Discharge Diagnosis(es) (1) Acute kidney injury Status: Acute (2) COPD with acute exacerbation Status: Acute (3) Pulmonary hypertension Status: Acute (4) Dyspnea Status: Acute (5) Congestive heart failure Status: Acute (6) Hyperkalemia Status: Acute Hospital Course: The patient is a 67-year-old female that was admitted for acute kidney injury with hyperkalemia and metabolic acidosis secondary to ischemic ATN due to overdiuresis with Lasix compounded by ongoing KELECHI inhibitor use with fosinopril for blood pressure. On presentation her potassium was 6.4 with a serum bicarb of 17, she was started on bicarb drip, given a few rounds of insulin, Kayexalate, albuterol after being loaded with calcium gluconate for cardioprotection and continued on IV fluids. The patient was seen by pulmonology Dr. Jara and nephrology Dr. Cross. Her ongoing dyspnea was attributed to ongoing moderate pulmonary hypertension as noted on her echocardiogram, her CT of her chest showed no evidence of infection or pneumonia. He was thought the patient had likely obstructive sleep apnea with plans for overnight polysomnogram to be done in the outpatient setting along with mild COPD and she was started on systemic steroids scheduled and when necessary breathing treatments for mild COPD exacerbation. With treatment the patient's hyperkalemia, acute kidney injury and metabolic acidosis all resolved. She was subsequently discharged home in stable condition on a tapering dose of steroids with a follow-up appointment scheduled with Dr. Jara 03/06/[address] Gillis in 1-2 days. This discharge process took approximately 35 minutes Constitutional: No acute distress, conversant, pleasant Eyes: Anicteric sclerae, moist conjunctiva, no lid-lag, PERRLA ENMT: NC/AT,Oropharynx clear, no erythema, exudates Neck:Supple, FROM, no masses, or JVD, No carotid bruits; No thyromegaly Lungs: Mild expiratory wheezes with much improved aeration, definitely less bronchospastic Normal respiratory effort, no accessory muscle use Cardiovascular: Heart regular in rate and rhythm, No murmurs, gallops, or rubs no + 2 pitting peripheral edema Abdominal: Soft Nontender, nom distended, no guarding, no rebound or rigidity, Normoactive bowel sounds No hepatomegaly, No splenomegaly, No palpable mass No abdominal wall hernia noted Skin: Normal temperature, tone, texture, turgor, No induration No subcutaneous nodules, No rash, lesions, No ulcers Extremities:No digital cyanosis No clubbing, Pedal pulses intact and symmetrical Radial pulses intact and symmetrical Normal gait and station, No calf tenderness Psychiatric: Alert and oriented to person, place and time, Appropriate affect Intact judgement Neuro: Muscles Strength 5/5 in all 4 extremities, Sensation to light touch grossly present throughout, Cranial nerves II-XII grossly intact. No focal sensory deficits Patient Condition at Discharge: Serious Plan - Discharge Summary Discharge Rx Participant: Yes New Discharge Prescriptions: New predniSONE 10 mg PO DAILY 9 Days #18 tab Acetaminophen Tab [Tylenol] 650 mg PO Q6HR PRN tab PRN Reason: Mild Pain Or Fever > 100.5 Zolpidem [Ambien] 5 mg PO HS PRN tab PRN Reason: Insomnia Continue Omeprazole 40 mg PO BID Nitroglycerin Sl Tabs [Nitrostat] 0.4 mg SUBLINGUAL Q5M PRN PRN Reason: Chest Pain HYDROcodone/APAP 10-325MG [[place] 10-325] 1 tab PO Q6H PRN PRN Reason: Pain Enalapril Maleate [Vasotec] 5 mg PO QAM Pramipexole [Mirapex] 1 mg PO HS Citalopram Hydrobromide [CeleXA] 40 mg PO QAM Atenolol [Tenormin] 25 mg PO QAM Aspirin 81 mg PO DAILY Isosorbide Mononitrate [Isosorbide Mononitrate ER] 30 mg PO QAM Tolterodine Tartrate [Detrol LA] 4 mg PO HS Glucosamine Sulfate 1,500 mg PO DAILY Ergocalciferol (Vitamin D2) [Vitamin D2] 50,000 unit PO PAL Atorvastatin Calcium [Lipitor] 40 mg PO HS Furosemide [Lasix] 40 mg PO BID Fluconazole 200 mg PO DAILY Levothyroxine Sodium [Synthroid] 150 mcg PO DAILY Discharge Medication List Aspirin 81 mg PO DAILY 05/03/15 [History] Atenolol [Tenormin] 25 mg PO QAM 05/03/15 [History] Citalopram Hydrobromide [CeleXA] 40 mg PO QAM 05/03/15 [History] Enalapril Maleate [Vasotec] 5 mg PO QAM 05/03/15 [History] HYDROcodone/APAP 10-325MG [[place] 10-325] 1 tab PO Q6H PRN 05/03/15 [History] Isosorbide Mononitrate [Isosorbide Mononitrate ER] 30 mg PO QAM 05/03/15 [ History] Nitroglycerin Sl Tabs [Nitrostat] 0.4 mg SUBLINGUAL Q5M PRN 05/03/15 [History] Omeprazole 40 mg PO BID 05/03/15 [History] Pramipexole [Mirapex] 1 mg PO HS 05/03/15 [History] Atorvastatin Calcium [Lipitor] 40 mg PO HS 06/07/17 [History] Ergocalciferol (Vitamin D2) [Vitamin D2] 50,000 unit PO PAL 06/07/17 [History] Glucosamine Sulfate 1,500 mg PO DAILY 06/07/17 [History] Tolterodine Tartrate [Detrol LA] 4 mg PO HS 06/07/17 [History] Furosemide [Lasix] 40 mg PO BID 09/16/17 [History] Fluconazole 200 mg PO DAILY 02/03/18 [History] Levothyroxine Sodium [Synthroid] 150 mcg PO DAILY 02/03/18 [History] Acetaminophen Tab [Tylenol] 650 mg PO Q6HR PRN tab 02/05/18 [Rx] Zolpidem [Ambien] 5 mg PO HS PRN tab 02/05/18 [Rx] predniSONE 10 mg PO DAILY 9 Days #18 tab 02/05/18 [Rx] Follow up Appointment(s)/Referral(s): Melba Gillis MD [Primary Care Provider] - 1-2 days (office said will talk to patient later for a appt) Tim Jara MD [STAFF PHYSICIAN] - 03/06/18 9:30 am Patient Instructions/Handouts: Prednisone (By mouth), Heart Failure (DC), Acute Kidney Injury (DC), COPD (Chronic Obstructive Pulmonary Disease) (DC), Hyperkalemia (DC), Dyspnea (GEN), Edema (DC) Discharge Disposition: HOME SELF-CARE
== END 2018-02-05 15:32 | disposition home or self-care (01) | DRG 683 ==
LOC: EC 19:14 → 6SEL 20:29 → 6ICU 02-03 04:32 → 5MS5E 02-04 14:32
PROVIDERS: ADMIT Internal Medicine; ATTEND Internal Medicine
DX: N17.0 Acute kidney failure with tubular necrosis (principal); J44.1 Chronic obstructive pulmonary disease with (acute) exacerbation; E87.2 Acidosis; I50.32 Chronic diastolic (congestive) heart failure; Z68.42 Body mass index [BMI] 45.0-49.9, adult; I95.9 Hypotension, unspecified; I27.29 Other secondary pulmonary hypertension; I11.0 Hypertensive heart disease with heart failure; E87.5 Hyperkalemia; E66.01 Morbid (severe) obesity due to excess calories; I25.10 Atherosclerotic heart disease of native coronary artery without angina pectoris; F17.201 Nicotine dependence, unspecified, in remission; M19.90 Unspecified osteoarthritis, unspecified site; K21.9 Gastro-esophageal reflux disease without esophagitis; G47.33 Obstructive sleep apnea (adult) (pediatric); F32.9 Major depressive disorder, single episode, unspecified; E86.0 Dehydration; E78.5 Hyperlipidemia, unspecified; E03.9 Hypothyroidism, unspecified; I83.93 Asymptomatic varicose veins of bilateral lower extremities; R05 Cough; I89.0 Lymphedema, not elsewhere classified; T50.2X1A Poisoning by carbonic-anhydrase inhibitors, benzothiadiazides and other diuretics, accidental (unintentional), initial encounter; Z95.5 Presence of coronary angioplasty implant and graft; Z90.710 Acquired absence of both cervix and uterus; Z79.82 Long term (current) use of aspirin; Z79.899 Other long term (current) drug therapy; Z90.49 Acquired absence of other specified parts of digestive tract; Z96.653 Presence of artificial knee joint, bilateral; Y92.009 Unspecified place in unspecified non-institutional (private) residence as the place of occurrence of the external cause
CPT/HCPCS: 36415; 70450; 71046; 71250; 80053; 82550; 82553; 83735; 83880; 84100; 84132; 84484; 85025; 85379; 85610; 85730; 87040; 93005; 93306; 94640; 94760; 96361; 96374; 96375; 99285

== ENCOUNTER → 2018-03-07 | Outpatient (CLI) | payer MEDICARE ==
[2018-03-07 15:59] LABS: Anisocytosis Slight; HCT 34.7 % (34.0-46.0); HGB 11.4 gm/dL (11.4-16.0); Hypochromasia Slight; MCHC 32.7 g/dL (31.0-37.0); MCV 91.9 fL (80.0-100.0); Mean Platelet Volume 6.6; Platelet Count 257 k/uL (150-450); RBC 3.78 m/uL (3.80-5.40); RDW 17.1 % (11.5-15.5); WBC 5.1 k/uL (3.8-10.6)
[2018-03-07 16:39] LABS: T4, Free (Free Thyroxine) 1.91 ng/dL (0.78-2.19)
[2018-03-08 01:36] LABS: Iron Saturation 10.44 (12.00-45.00)
== END | disposition home or self-care (01) ==
LOC: LABWHC1 15:26
PROVIDERS: ATTEND Psychiatry & Neurology Neurology
DX: D50.9 Iron deficiency anemia, unspecified (principal); G25.81 Restless legs syndrome; M79.606 Pain in leg, unspecified
CPT/HCPCS: 36415; 82607; 82728; 83540; 83550; 84439; 84443; 85027

== ENCOUNTER → 2018-05-08 | Outpatient (CLI) | payer MEDICARE | END | disposition home or self-care (01) | LOC: LABWHC1 12:05 | PROVIDERS: ATTEND Psychiatry & Neurology Neurology | DX: E53.8 Deficiency of other specified B group vitamins (principal) | CPT/HCPCS: 36415; 82607; 82747 ==

== ENCOUNTER → 2018-10-15 | Outpatient (CLI) | payer MEDICARE ==
--- NOTE | 2018-10-15 10:27 | FL ---
EXAMINATION TYPE: FL UGI air wo esophagus wo KUB DATE OF EXAM: 10/15/2018 COMPARISON: NONE HISTORY: Vomiting gastroesophageal reflux TECHNIQUE: A double contrast UGI study is performed. FINDINGS: Composing Room Machinist Apprentice fluoroscopic image of the abdomen shows no suspicious abnormality to Esophagram: Double air contrast technique is utilized. The esophagus dilates to normal caliber has no rmal contour to the gastroesophageal junction. Gastroesophageal junction opens to normal caliber. No significant stenosis is evident. No significant hesitancy passing through the reported prior Greg f undoplication is evident. Reflux into the midesophagus evident during the examination. There may be s ome persistence of the cricopharyngeus muscle during the exam. There is incomplete stripping of the e sophageal bolus the horizontal drinking position. Tertiary contractions were evident during the exam. Upper GI: Double air contrast technique is utilized. The fundus body and antrum of the stomach visual ized is normal. No intraluminal or extramural defect is evident. Barium readily empties into the norm al duodenal cap and sweep. Proximal jejunum appears unremarkable. Fluoroscopy time: 1 minute 33 seconds. Images: 28 IMPRESSIONS: 1. Presbyesophagus. 2. Gastroesophageal reflux. 3. No stenosis at reported prior Greg fundoplication. 4. Normal upper GI.
== END | disposition home or self-care (01) ==
LOC: RADFLWHC 08:34
PROVIDERS: ATTEND Surgery
DX: K21.9 Gastro-esophageal reflux disease without esophagitis (principal); K22.8 Other specified diseases of esophagus
CPT/HCPCS: 74246

== ENCOUNTER → 2018-10-27 | Outpatient (CLI) | payer MEDICARE ==
--- NOTE | 2018-10-29 08:10 | MM ---
Reason for exam: screening (asymptomatic). Last mammogram was performed 1 year ago. History: Patient is postmenopausal. Family history of breast cancer in paternal cousin at age 50 and breast cancer in paternal aunt at age 60. Physical Findings: A clinical breast exam by your physician is recommended on an annual basis and results should be correlated with mammographic findings. MG 3D Screening Mammo W/Cad Bilateral CC and MLO view(s) were taken. Prior study comparison: October 14, 2017, bilateral MG 3d screening mammo w/cad. March 29, 2016, bilateral MG screening mammo w CAD. There are scattered fibroglandular densities. There is no discrete abnormality. No significant changes when compared with prior studies. ASSESSMENT: Negative, BI-RAD 1 RECOMMENDATION: Routine screening mammogram of both breasts in 1 year.
== END | disposition home or self-care (01) ==
LOC: RADMAMWWP 13:49
PROVIDERS: ATTEND Family Medicine
DX: Z12.31 Encounter for screening mammogram for malignant neoplasm of breast (principal)
CPT/HCPCS: 77063; 77067

== ENCOUNTER → 2019-02-06 | Outpatient (CLI) | payer MEDICARE ==
[2019-02-06 10:18] LABS: Basophils # (A) 0.1 k/uL (0-0.2); Basophils % (A) 1 %; Eosinophils # (A) 0.2 k/uL (0-0.7); Eosinophils % (A) 3 %; HGB 14.3 gm/dL (11.4-16.0); Lymphocytes # (A) 1.8 k/uL (1.0-4.8); Lymphocytes % (A) 29 %; MCH 30.3 pg (25.0-35.0); MCHC 32.5 g/dL (31.0-37.0); MCV 93.3 fL (80.0-100.0); Mean Platelet Volume 6.9; Monocytes # (A) 0.4 k/uL (0-1.0); Monocytes % (A) 7 %; Neutrophils # (A) 3.3 k/uL (1.3-7.7); Neutrophils % (A) 56 %; Platelet Count 256 k/uL (150-450); RBC 4.71 m/uL (3.80-5.40); RDW 14.3 % (11.5-15.5)
[2019-02-06 16:47] LABS: Vitamin D 25 Hydroxy 53.9 ng/mL (30.0-100.0)
[2019-02-06 16:51] LABS: T4, Free (Free Thyroxine) 1.3 ng/dL (0.80-1.80)
[2019-02-06 16:56] LABS: Albumin 4.3 g/dL (3.80-4.90); Albumin/Globulin Ratio 2.26 (1.60-3.17); Anion Gap 6.5 mmol/L (4.00-12.00); Calcium 9.5 mg/dL (8.7-10.3); Carbon Dioxide 30.5 mmol/L (21.6-31.8); Globulin 1.9 g/dL (1.6-3.3); Potassium 3.8 mmol/L (3.5-5.5); Total Bilirubin 0.7 mg/dL (0.3-1.2); Total Protein 6.2 g/dL (6.2-8.2)
== END | disposition home or self-care (01) ==
LOC: LABWHC1 09:38
PROVIDERS: ATTEND Family Medicine
DX: I10 Essential (primary) hypertension (principal); E78.5 Hyperlipidemia, unspecified; E55.9 Vitamin D deficiency, unspecified; E03.9 Hypothyroidism, unspecified; E53.8 Deficiency of other specified B group vitamins
CPT/HCPCS: 36415; 80053; 80061; 82306; 82607; 84439; 84443; 85025

== ENCOUNTER → 2019-10-30 | Outpatient (CLI) | payer MEDICARE ==
--- NOTE | 2019-10-30 11:45 | FL ---
EXAMINATION TYPE: FL UGI air DATE OF EXAM: 10/30/2019 COMPARISON: Upper GI dated 10/15/2018 HISTORY: Nausea, globus sensation after solids, and history of hiatal hernia repair 2-3 years ago per patient. TECHNIQUE: A single contrast UGI study is performed. 1 minute and 24 seconds of fluoroscopy time was utilized with 45 fluoroscopic images saved. FINDINGS: Pediatrician/Medical Doctor image of the abdomen shows no gross abnormality. The esophagus shows abnormal motility most compatible with presbyesophagus and normal emptying into t he stomach. No stricture is seen. There is a small recurrent hiatal hernia. The stomach shows a filling defect of the greater curvature of the stomach involving the gastric body that appears to incompletely fill-in throughout the examination. No evidence of any mass or ulcer d isease. Mild degree gastroesophageal reflux was seen during real time performance of this study. The duodenal bulb, sweep, and proximal small bowel loops are unremarkable. IMPRESSION: 1. Filling defect of the gastric body at the greater curvature that could relate to focal gastritis, neoplasm, or ulcer. Endoscopy is recommended. 2. Small recurrent hiatal hernia. 3. Tertiary contractions throughout the examination most commonly on the basis of presbyesophagus. 4. Mild degree gastroesophageal reflux as seen on the prior.
== END | disposition home or self-care (01) ==
LOC: RADUSWWP 10:07
PROVIDERS: ATTEND Surgery
DX: K25.9 Gastric ulcer, unspecified as acute or chronic, without hemorrhage or perforation (principal); K44.9 Diaphragmatic hernia without obstruction or gangrene; K21.9 Gastro-esophageal reflux disease without esophagitis; K22.8 Other specified diseases of esophagus
CPT/HCPCS: 74246

== ENCOUNTER → 2020-09-14 | Outpatient (CLI) | payer MEDICARE ==
--- NOTE | 2020-09-15 07:28 | CTL ---
EXAMINATION TYPE: CT Low Dose Lung DATE OF EXAM ORDERED: 09/14/2020 HISTORY: Long-term tobacco use. Lung cancer screening CT DLP: 88.[address] CTDI: 3.10 mGy Automated exposure control for dose reduction was used. SCREENING VISIT: Initial study COMPARISON: Chest CT February 03, 2018 TECHNIQUE: Low dose computed tomography scan was performed through the chest at 1 mm thick sections a nd reconstructed images in the coronal plane at [address] DIAGNOSTIC QUALITY: Limited, but interpretable Related to body habitus. FINDINGS: LUNG NODULES: None. LUNGS: COPD: Severity: Moderate Fibrosis: Severity: Mild left basilar redemonstrated. Lymph nodes: No greater than 1 cm. Other findings: Main pulmonary artery measures 3.[address] findings consistent with underl eun pulmonary artery hypertension. BILATERAL PLEURAL SPACE: Effusion: None Calcification: None Thickening: Mild thickening anterior left lung base Pneumothorax: None HEART: Heart Size: Normal Coronary calcification: Mild. Coronary stent in the mid RCA noted. Pericardial effusion: Trace OTHER FINDINGS: Upper abdomen: Artifact degradation. Bony thorax: Metallic hardware from left shoulder arthroplasty causes streak artifact. Supraclavicular region: None. Other: Cholecystectomy clips noted on localizer. IMPRESSION: No suspicious nodules. CT LUNG RAD AND CT CHEST RECOMMENDATION: Lung-Rad 1 Negative: Continue annual screening with LDCT in 12 months. S Modifier (other clinically significant findings): None
== END | disposition home or self-care (01) ==
LOC: RADCTMAIN 15:15
PROVIDERS: ATTEND Family Medicine
DX: Z12.2 Encounter for screening for malignant neoplasm of respiratory organs (principal); Z87.891 Personal history of nicotine dependence

== ENCOUNTER → 2020-11-25 | Outpatient (CLI) | payer MEDICARE ==
[2020-11-25 15:25] LABS: Appearance,Urine Cloudy (Clear); Bacteria,Urine Rare /hpf; Bilirubin,Urine Negative (Negative); Blood,Urine Negative (Negative); Color,Urine Yellow; Glucose,Urine (UA) Negative (Negative); Ketones,Urine Negative (Negative); Leukocyte Esterase,Urine Large (Negative); Mucus,Urine Rare /hpf; Nitrite,Urine Negative (Negative); Protein,Urine Trace (Negative); RBC,Urine 6 /hpf (0-5); Specific Gravity,Urine 1.019 (1.001-1.035); Squamous Epithelial Cell,Urine 21 /hpf (0-4); WBC,Urine 13 /hpf (0-5)
[2020-11-25 23:21] LABS: Basophils # (A) 0.03 X 10*3/uL (0.00-0.10); Basophils % (A) 0.5 %; Eosinophils # (A) 0.11 X 10*3/uL (0.04-0.35); Eosinophils % (A) 1.8 %; HCT 43.5 % (37.2-46.3); HGB 13.8 g/dL (12.0-15.0); Lymphocytes # (A) 1.58 X 10*3/uL (0.90-5.00); Lymphocytes % (A) 25.7 %; MCH 29.9 pg (27.0-32.0); MCHC 31.7 g/dL (32.0-37.0); MCV 94.4 fL (80.0-97.0); Mean Platelet Volume 10.1 fL (9.5-12.2); Monocytes # (A) 0.61 X 10*3/uL (0.20-1.00); Monocytes % (A) 9.9 %; Neutrophils # (A) 3.77 X 10*3/uL (1.80-7.70); Neutrophils % (A) 61.4 %; Platelet Count 250 X 10*3/uL (140-440); RBC 4.61 X 10*6/uL (4.10-5.20); RDW 13.2 % (11.5-14.5); WBC 6.14 X 10*3/uL (4.50-10.00)
[2020-11-26 02:38] LABS: African American GFR (CKD) 102.5 (60.0-200.0); Albumin/Globulin Ratio 1.9 (1.60-3.17); Anion Gap 7.8 mmol/L (4.00-12.00); BUN/Creat Ratio 15.71 Ratio (12.00-20.00); Calcium 9.1 mg/dL (8.7-10.3); Carbon Dioxide 31.2 mmol/L (21.6-31.8); Chol/HDL Ratio 3.16; Globulin 2.1 g/dL (1.6-3.3); LDL Cholesterol,Calculated 76.8 mg/dL (0.0-131.0); Non-African American GFR(CKD) 88.4 (60.0-200.0); Potassium 3.6 mmol/L (3.5-5.5); Total Bilirubin 0.4 mg/dL (0.2-1.2); Total Protein 6.1 g/dL (6.2-8.2); VLDL Calculation 31.2 mg/dL (5.00-40.00)
== END | disposition home or self-care (01) ==
LOC: LABWHC1 12:34
PROVIDERS: ATTEND Family Medicine
DX: Z00.00 Encounter for general adult medical examination without abnormal findings (principal); K59.00 Constipation, unspecified; K92.1 Melena; K31.84 Gastroparesis; E03.9 Hypothyroidism, unspecified; E78.5 Hyperlipidemia, unspecified
CPT/HCPCS: 36415; 80053; 80061; 81001; 84439; 84443; 85025

== ENCOUNTER 2020-12-20 09:54 | Day surgery (SDC) | payer MEDICARE ==
[2020-10-27 12:01] VITALS: BMI 41.1
[~2020-12-20 09:54] MED LIST changes: -ALPRAZolam 0.25 MG TAB PO PRN; -ASPIRIN 325 MG TAB PO ONE; +LACTATED RINGERS 1,000 ML IV SCH; -SODIUM CHLORIDE 0.9% 1,000 ML in EMPTY BAG 1 BAG IV ONE
[2020-12-20 10:22] VITALS: TEMP 97.6
[2020-12-20] MEDS ORDERED: PROPOFOL 10 MG/ML 20 ML VIAL IV ONE (10:39)
--- NOTE | 2020-12-20 10:47 | P.GSHP ---
History of Present Illness H&P Date: 12/20/20 Chief Complaint: Rectal bleeding Patient here today for colonoscopy. Patient had complaints of recent rectal bleeding. Last colonoscopy August 2017. Had a small ascending colon adenoma at that time. Intermittent constipation. Past Medical History Past Medical History: Coronary Artery Disease (CAD), GERD/Reflux, GI Bleed, Hyperlipidemia, Hypertension, Myocardial Infarction ([place]), Osteoarthritis (OA), Skin Disorder, Sleep Apnea/CPAP/BIPAP, Thyroid Disorder Additional Past Medical History / Comment(s): DDD, hx anemia. JOSE LEG SWELLING- lymphedema, closed wound on lower left leg. SOB with activity, has cpap Last Myocardial Infarction Date:: 2006 History of Any Multi-Drug Resistant Organisms: None Reported Past Surgical History: Back Surgery, Cholecystectomy, Heart Catheterization With Stent, Hysterectomy, Joint Replacement Additional Past Surgical History / Comment(s): Bilateral knee replacement, ALLEN FUNDLAPLASTY, LEFT shoulder replacement. 2 STENTS IN HEART Past Anesthesia/Blood Transfusion Reactions: Family History of Problems w/ Anesthesia Additional Past Anesthesia/Blood Transfusion Reaction / Comment(s): daughter had hard time waking up after anesthesia- amd had a seizure during anesthesie Date of Last Stent Placement:: 2006 Smoking Status: Former smoker - Past Family History Brother(s) Family Medical History: Cancer Mother Family Medical History: Cancer Mother Brother(s) Family Medical History: Cancer Father Family Medical History: Cancer Medications and Allergies Home Medications Medication Instructions Recorded Confirmed Type Aspirin 81 mg PO DAILY 05/03/15 12/20/20 History Citalopram Hydrobromide [CeleXA] 40 mg PO QAM 05/03/15 12/15/20 History HYDROcodone/APAP 10-325MG [[place] 1 tab PO Q6H PRN 05/03/15 12/15/20 History 10-325] Isosorbide Mononitrate [Isosorbide 30 mg PO QAM 05/03/15 12/15/20 History Mononitrate ER] Nitroglycerin Sl Tabs [Nitrostat] 0.4 mg SUBLINGUAL Q5M PRN 05/03/15 12/15/20 History Omeprazole 40 mg PO BID 05/03/15 12/15/20 History atenoloL [Tenormin] 25 mg PO QAM 05/03/15 12/15/20 History Atorvastatin Calcium [Lipitor] 40 mg PO HS 06/07/17 12/15/20 History Tolterodine Tartrate [Detrol LA] 4 mg PO HS 06/07/17 12/15/20 History Furosemide [Lasix] 40 mg PO BID 09/16/17 12/15/20 History Zolpidem [Ambien] 5 mg PO HS PRN tab 02/05/18 10/27/20 Rx Spironolactone [Aldactone] 25 mg PO QAM 03/31/18 12/15/20 History Umeclidinium Brm/Vilanterol Tr 1 puff INHALATION DAILY 10/27/20 10/27/20 History [Anoro Ellipta 62.5-25 Mcg INH] Levothyroxine Sodium [Synthroid] 125 mcg PO DAILY 12/15/20 12/15/20 History Allergies Allergy/AdvReac Type Severity Reaction Status Date / Time No Known Allergies Allergy Verified 12/15/20 14:57 Surgical - Exam Vital Signs Temp Pulse Resp BP Pulse Ox 97.6 F 74 17 185/78 98 12/20/20 10:20 12/20/20 10:20 12/20/20 10:20 12/20/20 10:20 12/20/20 10:20 Physical exam: General: Well-developed, well-nourished HEENT: Normocephalic, sclerae nonicteric Abdomen: Nontender, nondistended Extremities: No edema Neuro: Alert and oriented Assessment and Plan (1) Rectal bleeding Narrative/Plan: Will proceed with colonoscopy Current Visit: No Status: Acute Code(s): K62.5 - HEMORRHAGE OF ANUS AND RECTUM SNOMED Code(s): 25827060
--- NOTE | 2020-12-20 11:09 | P.PCN ---
Date of Procedure: 12/20/20 Procedure(s) Performed: PREOPERATIVE DIAGNOSIS: Rectal bleeding POSTOPERATIVE DIAGNOSIS: Diverticulosis, internal and external hemorrhoids PROCEDURE: Colonoscopy ANESTHESIA: MAC SURGEON: Kevin Martinez M.D. SPECIMENS: None ENDOSCOPIC PROCEDURE: The patient was placed on the endoscopy table in the left decubitus position. The Olympus colonoscope was inserted into the anus and passed under direct visualization to the base of the cecum. The appendiceal orifice was visualized. From that point the scope was slowly withdrawn inspecting all surfaces carefully. There were no neoplastic inflammatory or polypoid lesions throughout the cecum, ascending, transverse, descending, sigmoid and rectum. There was mild left-sided diverticulosis noted. Digital rectal examination revealed internal and external hemorrhoids which are the likely source of recent bleeding. The patient was taken to the recovery room in stable condition per anesthesia guidelines. RECOMMENDATIONS: No active bleeding during today's exam. Patient with prominent hemorrhoids and likely represent source of bleeding. Continue stool softeners. Follow colonoscopy 5 years.
[2020-12-20 11:29] VITALS: BP 128/84; PULSE 64
[2020-12-20 11:43] VITALS: RESP 18
== END 2020-12-20 11:47 | disposition home or self-care (01) ==
LOC: ORWHC2ENDO 09:54
PROVIDERS: ATTEND Surgery
DX: K57.30 Diverticulosis of large intestine without perforation or abscess without bleeding (principal); K64.8 Other hemorrhoids; K64.4 Residual hemorrhoidal skin tags; K21.9 Gastro-esophageal reflux disease without esophagitis; K62.5 Hemorrhage of anus and rectum; K59.00 Constipation, unspecified; Z86.010 Personal history of colon polyps; I25.10 Atherosclerotic heart disease of native coronary artery without angina pectoris; I10 Essential (primary) hypertension; E78.5 Hyperlipidemia, unspecified; I89.0 Lymphedema, not elsewhere classified; I25.2 Old myocardial infarction; M19.90 Unspecified osteoarthritis, unspecified site; E66.01 Morbid (severe) obesity due to excess calories; Z68.41 Body mass index [BMI] 40.0-44.9, adult; F17.200 Nicotine dependence, unspecified, uncomplicated; S80.922D Unspecified superficial injury of left lower leg, subsequent encounter; G47.30 Sleep apnea, unspecified; Z99.89 Dependence on other enabling machines and devices; E07.9 Disorder of thyroid, unspecified; Z90.49 Acquired absence of other specified parts of digestive tract; Z95.5 Presence of coronary angioplasty implant and graft; Z90.710 Acquired absence of both cervix and uterus; Z97.2 Presence of dental prosthetic device (complete) (partial); Z96.653 Presence of artificial knee joint, bilateral; Z96.612 Presence of left artificial shoulder joint; Z80.9 Family history of malignant neoplasm, unspecified; Z79.82 Long term (current) use of aspirin; Z79.890 Hormone replacement therapy; Z79.891 Long term (current) use of opiate analgesic; Z79.899 Other long term (current) drug therapy
CPT/HCPCS: 45378; J2704

== ENCOUNTER → 2021-03-01 | Outpatient (CLI) | payer MEDICARE ==
--- NOTE | 2021-03-01 16:23 | CT ---
EXAMINATION TYPE: CT brain wo con DATE OF EXAM: 03/01/2021 COMPARISON: 02/03/2018 HISTORY: ams CT DLP: 999.8 mGycm Automated exposure control for dose reduction was used. FINDINGS: Hyperostosis noted. Mild generalized degenerative change. Faint low attenuation in the white matter i s nonspecific but similar in appearance to the prior exam and most suggestive of remote ischemic whit e matter change. No midline shift or mass effect. Changes of chronic sinusitis noted. Orbits are symmetric. Craniocerv ical junction maintained. There is a partially empty sella turcica. IMPRESSION: DEGENERATIVE AND NONSPECIFIC WHITE MATTER CHANGES MOST TYPICAL REMOTE WHITE MATTER ISCHEMIA.
== END | disposition home or self-care (01) ==
LOC: RADCTMAIN 15:41
PROVIDERS: ATTEND Psychiatry & Neurology Neurology
DX: I67.82 Cerebral ischemia (principal); Z86.73 Personal history of transient ischemic attack (TIA), and cerebral infarction without residual deficits
CPT/HCPCS: 70450

== ENCOUNTER 2022-01-21 11:39 | Observation (INO) | payer MEDICARE ==
[2022-01-21 13:09] LABS: Basophils # (A) 0.1 k/uL (0-0.2); Basophils % (A) 1 %; Eosinophils # (A) 0.2 k/uL (0-0.7); Eosinophils % (A) 1 %; HGB 13.8 gm/dL (11.4-16.0); Lymphocytes # (A) 1.7 k/uL (1.0-4.8); Lymphocytes % (A) 14 %; MCH 30.4 pg (25.0-35.0); MCHC 33.5 g/dL (31.0-37.0); MCV 90.7 fL (80.0-100.0); Mean Platelet Volume 7.2; Monocytes # (A) 0.9 k/uL (0-1.0); Monocytes % (A) 7 %; Neutrophils # (A) 9.3 k/uL (1.3-7.7); Neutrophils % (A) 75 %; Platelet Count 271 k/uL (150-450); RBC 4.52 m/uL (3.80-5.40); RDW 13.6 % (11.5-15.5); WBC 12.4 k/uL (3.8-10.6)
[2022-01-21 13:15] LABS: ALT 11 U/L (4-34); AST 20 U/L (14-36); African American GFR (CKD) >90 (>60 ml/min/1.73 sqM); Albumin 3.9 g/dL (3.5-5.0); Alkaline Phosphatase 135 U/L (38-126); Anion Gap 6 mmol/L; Blood Urea Nitrogen 9 mg/dL (7-17); Calcium 8.8 mg/dL (8.4-10.2); Carbon Dioxide 28 mmol/L (22-30); Chloride 100 mmol/L (98-107); Glucose 123 mg/dL (74-99); Magnesium 1.6 mg/dL (1.6-2.3); Non-African American GFR(CKD) >90 (>60 ml/min/1.73 sqM); Potassium 3.4 mmol/L (3.5-5.1); Sodium 134 mmol/L (137-145); Total Bilirubin 1.1 mg/dL (0.2-1.3); Total Protein 7.1 g/dL (6.3-8.2)
[2022-01-21 13:20] LABS: INR 0.9 (<1.2); Partial Thromboplastin Time 24.9 sec (22.0-30.0); Prothrombin Time 9.9 sec (9.0-12.0)
--- NOTE | 2022-01-21 13:20 | ED ---
SOB HPI - General Chief Complaint: Shortness of Breath Stated Complaint: JOSE,Cough Time Seen by Provider: 01/21/22 12:45 Source: patient, family, RN notes reviewed Mode of arrival: wheelchair Limitations: no limitations - History of Present Illness Initial Comments: 71-year-old female history of multiple medical problems including COPD who states she's had longer-lasting difficulty with coughing worse keeping her up at night. She presents today because of persistent coughing increased shortness of breath as well as exertional dyspnea which seems be getting progressively worse especially over last several days. She's had a cough she states about 2 months. She has exertional dyspnea she also had a bit of a headache. No chest pain she was found on arrival here to have a temperature 101.7. She denies coughing up any phlegm. He denies any known exposure to COVID-19 she has had 2 shots are COVID-19. MD Complaint: shortness of breath, cough - Related Data Home Medications Medication Instructions Recorded Confirmed Aspirin 81 mg PO DAILY 05/03/15 12/20/20 Citalopram Hydrobromide [CeleXA] 40 mg PO QAM 05/03/15 12/15/20 HYDROcodone/APAP 10-325MG [[place] 1 tab PO Q6H PRN 05/03/15 12/15/20 10-325] Isosorbide Mononitrate [Isosorbide 30 mg PO QAM 05/03/15 12/15/20 Mononitrate ER] Nitroglycerin Sl Tabs [Nitrostat] 0.4 mg SUBLINGUAL Q5M PRN 05/03/15 12/15/20 Omeprazole 40 mg PO BID 05/03/15 12/15/20 atenoloL [Tenormin] 25 mg PO QAM 05/03/15 12/15/20 Atorvastatin Calcium [Lipitor] 40 mg PO HS 06/07/17 12/15/20 Tolterodine Tartrate [Detrol LA] 4 mg PO HS 06/07/17 12/15/20 Furosemide [Lasix] 40 mg PO BID 09/16/17 12/15/20 Spironolactone [Aldactone] 25 mg PO QAM 03/31/18 12/15/20 Umeclidinium Brm/Vilanterol Tr 1 puff INHALATION DAILY 10/27/20 10/27/20 [Anoro Ellipta 62.5-25 Mcg INH] Levothyroxine Sodium [Synthroid] 125 mcg PO DAILY 12/15/20 12/15/20 Previous Rx's Medication Instructions Recorded Zolpidem [Ambien] 5 mg PO HS PRN tab 02/05/18 Allergies Allergy/AdvReac Type Severity Reaction Status Date / Time No Known Allergies Allergy Verified 01/21/22 12:02 Review of Systems ROS Statement: Those systems with pertinent positive or pertinent negative responses have been documented in the HPI. ROS Other: All systems not noted in ROS Statement are negative. Past Medical History Past Medical History: Coronary Artery Disease (CAD), GERD/Reflux, GI Bleed, Hyperlipidemia, Hypertension, Myocardial Infarction ([place]), Osteoarthritis (OA), Skin Disorder, Sleep Apnea/CPAP/BIPAP, Thyroid Disorder Additional Past Medical History / Comment(s): DDD, hx anemia. JOSE LEG SWELLING- lymphedema, wound on lower left leg. SOB with activity, has cpap Last Myocardial Infarction Date:: 2006 History of Any Multi-Drug Resistant Organisms: None Reported Past Surgical History: Back Surgery, Cholecystectomy, Heart Catheterization With Stent, Hysterectomy, Joint Replacement Additional Past Surgical History / Comment(s): Bilateral knee replacement ALLEN FUNDLAPLASTY, LEFT shoulder replacement. 2 STENTS IN HEART Past Anesthesia/Blood Transfusion Reactions: No Reported Reaction Additional Past Anesthesia/Blood Transfusion Reaction / Comment(s): daughter had hard time waking up after anesthesia Date of Last Stent Placement:: 2006 Past Psychological History: No Psychological Hx Reported Smoking Status: Former smoker - Past Family History Brother(s) Family Medical History: Cancer Mother Family Medical History: Cancer Mother Brother(s) Family Medical History: Cancer Father Family Medical History: Cancer General Exam - General Exam Comments Initial Comments: This is a well-developed well-nourished awake alert oriented 3 female Limitations: no limitations General appearance: alert, anxious Head exam: Present: atraumatic, normocephalic, normal inspection Eye exam: Present: normal appearance, PERRL, EOMI. Absent: scleral icterus, conjunctival injection, periorbital swelling ENT exam: Present: normal exam, mucous membranes moist Neck exam: Present: normal inspection, full ROM, other (No stridor JVD or bruits). Absent: tenderness, meningismus, lymphadenopathy Respiratory exam: Present: decreased breath sounds. Absent: respiratory distress, wheezes, rales, rhonchi, stridor Cardiovascular Exam: Present: regular rate, normal rhythm, normal heart sounds. Absent: systolic murmur, diastolic murmur, rubs, gallop, clicks GI/Abdominal exam: Present: soft, normal bowel sounds. Absent: distended, tenderness, guarding, rebound, rigid Extremities exam: Present: normal inspection, full ROM, normal capillary refill. Absent: tenderness, pedal edema, joint swelling, calf tenderness Back exam: Present: normal inspection Neurological exam: Present: alert, oriented X3, CN II-XII intact Psychiatric exam: Present: normal affect, normal mood Skin exam: Present: warm, dry, intact, normal color. Absent: rash Course Vital Signs 01/21/22 01/21/22 01/21/22 11:58 12:19 15:03 Temperature 101.7 F H 100.8 F H Pulse Rate 95 Respiratory 20 20 Rate Blood Pressure 119/62 O2 Sat by Pulse 94 L Oximetry Medical Decision Making - Medical Decision Making I did discuss Pf[employer] the patient family who were present. Patient has been experiencing progressively more and worse exertional dyspnea recently. She does have a history of cardiac stents also has a history of COPD she was found have a fever today with some mildly elevated white blood cell count. Initial viral screen including COVID-19 was negative. The circumstances patient will be admitted for evaluation by cardiology concern for exertional dyspnea and being secondary to cardiac pathology versus COPD. Patient has maintained good oxygen saturations. I did discuss the case with Dr. Vail - Lab Data Result diagrams: 01/21/22 12:51 01/21/22 12:51 Lab Results 01/21/22 01/21/22 01/21/22 Range/Units 12:32 12:51 12:51 WBC 12.4 H (3.8-10.6) k/uL RBC 4.52 (3.80-5.40) m/uL Hgb 13.8 (11.4-16.0) gm/dL Hct 41.0 (34.0-46.0) % MCV 90.7 (80.0-100.0) fL MCH 30.4 (25.0-35.0) pg MCHC 33.5 (31.0-37.0) g/dL RDW 13.6 (11.5-15.5) % Plt Count 271 (150-450) k/uL MPV 7.2 Neutrophils % 75 % Lymphocytes % 14 % Monocytes % 7 % Eosinophils % 1 % Basophils % 1 % Neutrophils # 9.3 H (1.3-7.7) k/uL Lymphocytes # 1.7 (1.0-4.8) k/uL Monocytes # 0.9 (0-1.0) k/uL Eosinophils # 0.2 (0-0.7) k/uL Basophils # 0.1 (0-0.2) k/uL PT 9.9 (9.0-12.0) sec INR 0.9 (<1.2) APTT 24.9 (22.0-30.0) sec D-Dimer 0.31 (<0.60) mg/L FEU Sodium (137-145) mmol/L Potassium (3.5-5.1) mmol/L Chloride (98-107) mmol/L Carbon Dioxide (22-30) mmol/L Anion Gap mmol/L BUN (7-17) mg/dL Creatinine (0.52-1.04) mg/dL Est GFR (CKD-EPI)AfAm (>60 ml/min/1.73 sqM) Est GFR (CKD-EPI)NonAf (>60 ml/min/1.73 sqM) Glucose (74-99) mg/dL Plasma Lactic Acid Sharath (0.7-2.0) mmol/L Calcium (8.4-10.2) mg/dL Magnesium (1.6-2.3) mg/dL Total Bilirubin (0.2-1.3) mg/dL AST (14-36) U/L ALT (4-34) U/L Alkaline Phosphatase (38-126) U/L Troponin I (0.000-0.034) ng/mL NT-Pro-B Natriuret Pep pg/mL Total Protein (6.3-8.2) g/dL Albumin (3.5-5.0) g/dL Influenza Type A (PCR) Not Detected (Not Detectd) Influenza Type B (PCR) Not Detected (Not Detectd) RSV (PCR) Not Detected (Not Detectd) SARS-CoV-2 (PCR) Not Detected (Not Detectd) 0401/21/22 01/21/22 Range/Units 12:51 12:51 12:51 WBC (3.8-10.6) k/uL RBC (3.80-5.40) m/uL Hgb (11.4-16.0) gm/dL Hct (34.0-46.0) % MCV (80.0-100.0) fL MCH (25.0-35.0) pg MCHC (31.0-37.0) g/dL RDW (11.5-15.5) % Plt Count (150-450) k/uL MPV Neutrophils % % Lymphocytes % % Monocytes % % Eosinophils % % Basophils % % Neutrophils # (1.3-7.7) k/uL Lymphocytes # (1.0-4.8) k/uL Monocytes # (0-1.0) k/uL Eosinophils # (0-0.7) k/uL Basophils # (0-0.2) k/uL PT (9.0-12.0) sec INR (<1.2) APTT (22.0-30.0) sec D-Dimer (<0.60) mg/L FEU Sodium 134 L (137-145) mmol/L Potassium 3.4 L (3.5-5.1) mmol/L Chloride 100 (98-107) mmol/L Carbon Dioxide 28 (22-30) mmol/L Anion Gap 6 mmol/L BUN 9 (7-17) mg/dL Creatinine 0.55 (0.52-1.04) mg/dL Est GFR (CKD-EPI)AfAm >90 (>60 ml/min/1.73 sqM) Est GFR (CKD-EPI)NonAf >90 (>60 ml/min/1.73 sqM) Glucose 123 H (74-99) mg/dL Plasma Lactic Acid Sharath 1.4 (0.7-2.0) mmol/L Calcium 8.8 (8.4-10.2) mg/dL Magnesium 1.6 (1.6-2.3) mg/dL Total Bilirubin 1.1 (0.2-1.3) mg/dL AST 20 (14-36) U/L ALT 11 (4-34) U/L Alkaline Phosphatase 135 H (38-126) U/L Troponin I <0.012 (0.000-0.034) ng/mL NT-Pro-B Natriuret Pep pg/mL Total Protein 7.1 (6.3-8.2) g/dL Albumin 3.9 (3.5-5.0) g/dL Influenza Type A (PCR) (Not Detectd) Influenza Type B (PCR) (Not Detectd) RSV (PCR) (Not Detectd) SARS-CoV-2 (PCR) (Not Detectd) 01/21/22 Range/Units 12:51 WBC (3.8-10.6) k/uL RBC (3.80-5.40) m/uL Hgb (11.4-16.0) gm/dL Hct (34.0-46.0) % MCV (80.0-100.0) fL MCH (25.0-35.0) pg MCHC (31.0-37.0) g/dL RDW (11.5-15.5) % Plt Count (150-450) k/uL MPV Neutrophils % % Lymphocytes % % Monocytes % % Eosinophils % % Basophils % % Neutrophils # (1.3-7.7) k/uL Lymphocytes # (1.0-4.8) k/uL Monocytes # (0-1.0) k/uL Eosinophils # (0-0.7) k/uL Basophils # (0-0.2) k/uL PT (9.0-12.0) sec INR (<1.2) APTT (22.0-30.0) sec D-Dimer (<0.60) mg/L FEU Sodium (137-145) mmol/L Potassium (3.5-5.1) mmol/L Chloride (98-107) mmol/L Carbon Dioxide (22-30) mmol/L Anion Gap mmol/L BUN (7-17) mg/dL Creatinine (0.52-1.04) mg/dL Est GFR (CKD-EPI)AfAm (>60 ml/min/1.73 sqM) Est GFR (CKD-EPI)NonAf (>60 ml/min/1.73 sqM) Glucose (74-99) mg/dL Plasma Lactic Acid [place]ath (0.7-2.0) mmol/L Calcium (8.4-10.2) mg/dL Magnesium (1.6-2.3) mg/dL Total Bilirubin (0.2-1.3) mg/dL AST (14-36) U/L ALT (4-34) U/L Alkaline Phosphatase (38-126) U/L Troponin I (0.000-0.034) ng/mL NT-Pro-B Natriuret Pep 81 pg/mL Total Protein (6.3-8.2) g/dL Albumin (3.5-5.0) g/dL Influenza Type A (PCR) (Not Detectd) Influenza Type B (PCR) (Not Detectd) RSV (PCR) (Not Detectd) SARS-CoV-2 (PCR) (Not Detectd) - EKG Data -: EKG Interpreted by Me EKG Comments: Sinus rhythm 77. Interval 162 QRS 88 QT since QTC 397/[address] T-wave configuration artifact present - Radiology Data Radiology results: report reviewed (Imaging reviewed no acute findings), image reviewed Disposition Clinical Impression: Exertional dyspnea, COPD (chronic obstructive pulmonary disease), Febrile illness, acute, Leukocytosis Disposition: ADMITTED IP TO THIS HOSP Condition: Fair Referrals: Jose Blank [Primary Care Provider] - 1-2 days
--- NOTE | 2022-01-21 14:24 | XR ---
EXAMINATION TYPE: XR chest 2V DATE OF EXAM: 01/21/2022 1:59 PM COMPARISON: Chest radiographs from 02/02/2018 TECHNIQUE: XR chest 2V Frontal and lateral views of the chest. CLINICAL INDICATION:Female, 71 years old with history of difficulty breathing; FINDINGS: Lungs/Pleura: There is no evidence of pleural effusion, focal consolidation, or pneumothorax. Pulmonary vascularity: Unremarkable. Heart/mediastinum: Cardiomediastinal silhouette is enlarged and stable. Musculoskeletal: No acute osseous pathology. Left shoulder arthroplasty intact. IMPRESSION: No acute cardiopulmonary disease/process.
[2022-01-21] MEDS ORDERED: HYDROmorphone 1 MG/ML 1 ML SYRINGE IVP STA (14:45)
[2022-01-21] MEDS ORDERED: ONDANSETRON 4 MG/2 ML VIAL IVP STA (14:46)
[2022-01-21] MEDS ORDERED: IPRATROPIUM-ALBUTEROL 3 ML NEB INHALATION PRN (15:44)
[2022-01-21] MEDS ORDERED: methylPREDNISolone SOD SUCCI 125 MG/2 ML VIAL IV STA (15:44)
[2022-01-21] MEDS ORDERED: NITROGLYCERIN SL TABS 0.4 MG TAB SUBLINGUAL PRN (15:45)
[2022-01-21] MEDS ORDERED: ACETAMINOPHEN TAB 325 MG TAB PO PRN (16:28)
[2022-01-21] MEDS ORDERED: bisacodyL 5 MG TABLET.DR PO PRN (16:28)
[2022-01-21] MEDS ORDERED: NALOXONE 0.4 MG/ML 1 ML VIAL IV PRN (16:28)
[2022-01-21] MEDS ORDERED: OXYBUTYNIN CHLORIDE 5 MG TAB PO PRN (16:43)
--- NOTE | 2022-01-21 16:53 | P.HPIM ---
History of Present Illness H&P Date: 01/21/22 Chief Complaint: Shortness of breath 71-year-old female history of multiple medical problems including COPD who states he has been having shortness of breath and cough for the past 2 months and get worse the past week. The cough is dry without sputum production. Chest x-ray in emergency room was negative for pneumonia. Patient stated that his shortness of breath is worse with exertion. Patient denies nausea vomiting diarrhea or constipation. Patient denies any chest pain. The patient denies any recent sick contacts. She has chronic lower extremity edema patient left lower extremities. Patient denies any recent exposure to Covid 19 or influenza Review of Systems All 14 review of systems evaluated and all negative except for above. Past Medical History Past Medical History: Coronary Artery Disease (CAD), GERD/Reflux, GI Bleed, Hyperlipidemia, Hypertension, Myocardial Infarction ([place]), Osteoarthritis (OA), Skin Disorder, Sleep Apnea/CPAP/BIPAP, Thyroid Disorder Additional Past Medical History / Comment(s): DDD, hx anemia. JOSE LEG SWELLING- lymphedema, wound on lower left leg. SOB with activity, has cpap Last Myocardial Infarction Date:: 2006 History of Any Multi-Drug Resistant Organisms: None Reported Past Surgical History: Back Surgery, Cholecystectomy, Heart Catheterization With Stent, Hysterectomy, Joint Replacement Additional Past Surgical History / Comment(s): Bilateral knee replacement ALLEN FUNDLAPLASTY, LEFT shoulder replacement. 2 STENTS IN HEART Past Anesthesia/Blood Transfusion Reactions: No Reported Reaction Additional Past Anesthesia/Blood Transfusion Reaction / Comment(s): daughter had hard time waking up after anesthesia Date of Last Stent Placement:: 2006 Past Psychological History: No Psychological Hx Reported Smoking Status: Former smoker - Past Family History Brother(s) Family Medical History: Cancer Mother Family Medical History: Cancer Mother Brother(s) Family Medical History: Cancer Father Family Medical History: Cancer Medications and Allergies Home Medications Medication Instructions Recorded Confirmed Type HYDROcodone/APAP 10-325MG [[place] 1 tab PO QID 05/03/15 01/21/22 History 10-325] Omeprazole 40 mg PO BID 05/03/15 01/21/22 History Atorvastatin Calcium [Lipitor] 40 mg PO HS 06/07/17 01/21/22 History Furosemide [Lasix] 40 mg PO BID 09/16/17 01/21/22 History Umeclidinium Brm/Vilanterol Tr 1 puff INHALATION RT-DAILY 10/27/20 01/21/22 History [Anoro Ellipta 62.5-25 Mcg INH] Levothyroxine Sodium [Synthroid] 125 mcg PO DAILY 12/15/20 01/21/22 History ARIPiprazole [Abilify] 5 mg PO DAILY 01/21/22 01/21/22 History DULoxetine HCL [Cymbalta] 90 mg PO DAILY 01/21/22 01/21/22 History Losartan Potassium 50 mg PO DAILY 01/21/22 01/21/22 History Multivitamins, Thera [Multivitamin 1 tab PO DAILY 01/21/22 01/21/22 History (formulary)] Oxybutynin Chloride 5 mg PO TID PRN 01/21/22 01/21/22 History rOPINIRole HCL [Requip] 0.25 mg PO HS 01/21/22 01/21/22 History Allergies Allergy/AdvReac Type Severity Reaction Status Date / Time No Known Allergies Allergy Verified 01/21/22 16:33 Physical Exam Vitals: Vital Signs Temp Pulse Resp BP Pulse Ox 01/21/22 16:31 100.6 F H 78 18 141/75 96 01/21/22 15:03 100.8 F H 01/21/22 12:19 20 01/21/22 11:58 101.7 F H 95 20 119/62 94 L Intake and Output 01/21/22 01/21/22 01/21/22 06:59 14:59 22:59 Other: Weight 107.048 kg General: non toxic, no distress, appears at stated age. Obese Derm: warm, dry Head: atraumatic, normocephalic, symmetric Eyes: EOMI, no lid lag, anicteric sclera Mouth: no lip lesion, mucus membranes moist Cardiovascular: S1S2 reg, no murmur, positive posterior tibial pulse bilateral, Lungs: Diminished air entry bilaterally with bilateral wheezing Abdominal: soft, nontender to palpation, no guarding, no appreciable organome [place] Ext: no gross muscle atrophy, no edema, no contractures Neuro: CN II-XI grossly intact, no focal neuro deficits Psych: Alert, oriented, appropriate affect Results CBC & Chem 7: 01/21/22 12:51 01/21/22 12:51 Labs: Abnormal Lab Results - Last 24 Hours (Table) 01/21/22 01/21/22 Range/Units 12:51 12:51 WBC 12.4 H (3.8-10.6) k/uL Neutrophils # 9.3 H (1.3-7.7) k/uL Sodium 134 L (137-145) mmol/L Potassium 3.4 L (3.5-5.1) mmol/L Glucose 123 H (74-99) mg/dL Alkaline Phosphatase 135 H (38-126) U/L Assessment and Plan Assessment: Assessment and plan: #Acute bronchitis with COPD exacerbation -IV Solu-Medrol -Bronchodilator treatment -Consult pulmonology #Fever -Check computed tomography scan of the chest without contrast since chest x-ray was unremarkable -Negative over 19 and influenza -Blood culture 2 ordered in the emergency room #Coronary disease status post stents 2 in 2006 -Patient denies any chest pain -EKG shows sinus rhythm with nonspecific ST segment or T-wave changes -Cardiology consulted by ER #Obesity BMI is 40 -Check A1c and TSH #Obstructive sleep apnea on CPAP #Hypothyroidism -Resume home medications #Hypertension -Resume home medications #Full code #DVT prophylaxis with Lovenox
--- NOTE | 2022-01-21 17:16 | CT ---
EXAMINATION TYPE: CT chest wo con DATE OF EXAM: 01/21/2022 COMPARISON: 02/03/2018 HISTORY: Dyspnea. CT DLP: 481.7 mGycm Automated exposure control for dose reduction was used. Images obtained from the thoracic inlet to the diaphragm with no contrast. There is minimal subsegmental atelectasis at the lung bases. No pleural effusion. No evidence of a pu lmonary mass. Heart size is fairly normal. No mediastinal adenopathy. Thoracic aorta shows mild ather omatous changes. The SMA aorta measures 3.4 cm. No aneurysm. There are no hilar masses. The thoracic spine appears intact. No compression fracture. There is intact sternum. The upper abdomi nal soft tissues are intact. There are clips from cholecystectomy. IMPRESSION: Mild subsegmental atelectasis at the lung bases without change. No suspicious pulmonary mass.
[2022-01-21] MEDS: methylPREDNISolone SOD SUCCI 125 MG/2 ML VIAL IV SCH ×2 (18:35→23:38)
[2022-01-21] MEDS: FUROSEMIDE 40 MG TAB PO SCH (18:35)
[2022-01-21] MEDS: AZITHROMYCIN 500 MG in SODIUM CHLORIDE 0.9% 250 ML IVPB SCH (19:08)
[2022-01-21 20:07] LABS: Glucose,Whole Blood 185 mg/dL (75-99)
[2022-01-21] MEDS ORDERED: ZOLPIDEM 5 MG TAB PO PRN (21:00)
[2022-01-21] MEDS: IPRATROPIUM-ALBUTEROL 3 ML NEB INHALATION SCH (21:35)
[2022-01-21] MEDS: ATORVASTATIN 40 MG TAB PO SCH (22:14)
[2022-01-21] MEDS: INSULIN ASPART (NovoLOG) 100 UNIT/ML VIAL SQ SCH (22:14)
[2022-01-21] MEDS: PANTOPRAZOLE 40 MG TABLET PO SCH (22:14)
[2022-01-21] MEDS: OXYBUTYNIN 10 MG TAB.ER.24 PO SCH (22:15)
[2022-01-21] MEDS: HYDROcodone/APAP 10-325MG 1 EACH TAB PO PRN (23:41)
[2022-01-22] MEDS ORDERED: ENOXAPARIN 40 MG/0.4 ML SYRINGE SQ ONE (06:00)
[2022-01-22] MEDS ORDERED: ASPIRIN 81 MG ONE (06:00)
[2022-01-22] MEDS ORDERED: CITALOPRAM HYDROBROMIDE 20 MG TAB ONE (06:00)
[2022-01-22] MEDS ORDERED: methylPREDNISolone SOD SUCCI 125 MG/2 ML VIAL ONE (06:00)
[2022-01-22] MEDS ORDERED: atenoloL 25 MG TAB ONE (06:00)
[2022-01-22] MEDS ORDERED: FUROSEMIDE 40 MG TAB ONE (06:00)
[2022-01-22] MEDS ORDERED: DULoxetine HCL 30 MG CAPSULE.DR PO ONE (06:00)
[2022-01-22] MEDS ORDERED: MULTIVITAMINS, THERA 1 EACH TAB ONE (06:00)
[2022-01-22] MEDS ORDERED: LEVOTHYROXINE 125 MCG TAB ONE (06:00)
[2022-01-22] MEDS ORDERED: LOSARTAN 50 MG TAB ONE (06:00)
[2022-01-22] MEDS ORDERED: SPIRONOLACTONE 25 MG TAB ONE (06:00)
[2022-01-22] MEDS ORDERED: ISOSORBIDE MONONITRATE ER 30 MG TAB.ER.24H PO ONE (06:00)
[2022-01-22] MEDS ORDERED: ARIPiprazole 5 MG TAB ONE (06:00)
[2022-01-22] MEDS ORDERED: PANTOPRAZOLE 40 MG TABLET PO ONE (06:00)
[2022-01-22] MEDS: IPRATROPIUM-ALBUTEROL 3 ML NEB INHALATION SCH ×4 (08:37→19:54)
[2022-01-22] MEDS: FORMOTEROL FUMARATE 20 MCG/2 ML NEBU INHALATION SCH ×2 (08:37→19:54)
[2022-01-22 10:52] LABS: Glucose,Whole Blood 166 mg/dL (75-99)
[2022-01-22 11:06] LABS: Glucose,Whole Blood 296 mg/dL (75-99)
[2022-01-22 12:42] VITALS: BMI 40.5
[2022-01-22 12:54] LABS: ALT 10 U/L (4-34); AST 21 U/L (14-36); African American GFR (CKD) >90 (>60 ml/min/1.73 sqM); Albumin 3.6 g/dL (3.5-5.0); Albumin/Globulin Ratio 1.1; Alkaline Phosphatase 124 U/L (38-126); Anion Gap 7 mmol/L; Blood Urea Nitrogen 15 mg/dL (7-17); Calcium 8.9 mg/dL (8.4-10.2); Carbon Dioxide 29 mmol/L (22-30); Chloride 104 mmol/L (98-107); Globulin 3.2 g/dL; Glucose 180 mg/dL (74-99); Magnesium 2.1 mg/dL (1.6-2.3); Non-African American GFR(CKD) >90 (>60 ml/min/1.73 sqM); Potassium 4.4 mmol/L (3.5-5.1); Sodium 140 mmol/L (137-145); Total Bilirubin 0.6 mg/dL (0.2-1.3); Total Protein 6.8 g/dL (6.3-8.2)
[2022-01-22 12:55] LABS: Basophils % (A) 0 %; Eosinophils % (A) 0 %; HCT 42.2 % (34.0-46.0); HGB 13.7 gm/dL (11.4-16.0); Lymphocytes % (A) 11 %; MCHC 32.4 g/dL (31.0-37.0); MCV 95.6 fL (80.0-100.0); Mean Platelet Volume 8.6; Monocytes # (A) 0.2 k/uL (0-1.0); Monocytes % (A) 2 %; Neutrophils # (A) 7.6 k/uL (1.3-7.7); Neutrophils % (A) 86 %; Platelet Count 276 k/uL (150-450); RBC 4.42 m/uL (3.80-5.40); RDW 14.2 % (11.5-15.5); WBC 8.8 k/uL (3.8-10.6)
--- NOTE | 2022-01-22 13:00 | P.CRDCN ---
History of Present Illness History of present illness: HISTORY OF PRESENTING ILLNESS This is a pleasant 71-year-old female past medical history significant for coronary artery disease status post PCI to the RCA in 07/2005, pulmonary hypertension, lymphedema, hypertension, obesity, COPD, obstructive sleep apnea with use of CPAP, former nicotine dependence. She followed in the office with Dr. Macedo last seen in 2019. We have been asked to see in consultation for exertional dyspnea. Patient presented to the emergency department for worsening shortness of breath and cough. For about 2 months, patient has been having shortness of breath and cough at rest and with activity. She Her shortness of breath is not only exertional, she also has it at rest. Does increase with exertional, however. Her cough is non-productive. She has no chest pain, lightheadedness, dizziness, or palpitations. She felt her symptoms progressively getting worse over the past couple days and presented to the emergency room for further evaluation. DIAGNOSTICS * EKG reveals sinus rhythm, heart rate 77, normal axis, non-specific ST-T wave abnormalities. Artifact noted. * Chest xray no acute cardiopulmonary process * CT chest revealed no congestive heart failure, mild subsegmental atelectasis at the lung bases. No suspicious pulmonary mass. * Laboratory reviewed, troponin negative 3, WBC 12.4, hemoglobin 13.8, platelets 271, d-dimer negative, sodium 134, potassium 3.4, BUN 9, serum 0.5, BNP 81, Influenza negative, RSV negative, Covid negative, Mag 1.6 * Most recent echo 01/2018 revealed an EF of 5560 percent, mild mitral regurgitation, mild tricuspid regurgitation * Right heart cath in 2018 revealed moderate to severe pulmonary hypertension w ith a peak pressure 63 mmHg/mean pressure 42 mmHg,mild diastolic gradient between the end diastolic and PCWP of 7-8mmHg. Minimal step up in oxygenation in the IVC level of slightly over 10# * Lexiscan stress test in the office in 2016 was negative * Current home cardiac medications include losartan 50 mg daily, atenolol 25mg daily, atorvastatin 40 mg nightly, Lasix 40 mg twice a day, spironolactone 25mg daily REVIEW OF SYSTEMS At the time of my exam: CONSTITUTIONAL: Denies fever or chills. CARDIOVASCULAR: Denies chest pain, +shortness of breath, Denies orthopnea, PND or palpitations. RESPIRATORY: Denies cough. GASTROINTESTINAL: Denies abdominal pain, diarrhea, constipation, nausea or vomiting. MUSCULOSKELETAL: Denies myalgias. NEUROLOGIC: Denies numbness, tingling, headacbe or weakness. ENDOCRINE: Denies fatigue, weight change, polydipsia or polyurina. GENITOURINARY: Denies burning, hematuria or urgency with micturation. HEMATOLOGIC: Denies history of anemia or bleeding. PHYSICAL EXAMINATION HR Blood pressure 129/70 HR 83, afebrile 95% on 2L nasal cannula CONSTITUTIONAL: No apparent distress. HEENT: Head is normocephalic. Pupils are equal, round. Sclerae anicteric. Mucous membranes of the mouth are moist. No JVD. No carotid bruit. CHEST EXAMINATION: Lungs are clear to auscultation. No chest wall tenderness is noted on palpation or with deep breathing. HEART EXAMINATION: Regular rate and rhythm. S1, S2 heard. No murmurs, gallops or rub. ABDOMEN: Soft, nontender. Positive bowel sounds. EXTREMITIES: 2+ peripheral pulses, mild bilateral non-pitting lower extremity edema and no calf tenderness. NEUROLOGIC EXAMINATION: Patient is awake, alert and oriented x3. ASSESSMENT Shortness of breath and cough, unclear etiology at this time, patient does not appear to be in acute heart failure Coronary artery disease status post PCI to the RCA in 07/2005 Pulmonary hypertension Lymphedema Hypertension Obesity COPD Obstructive sleep apnea Former nicotine dependence PLAN Obtain 2D echocardiogram and doppler study to assess cardiac structure and function. From a cardiology perspective, if echocardiogram with normal LV systolic function and no acute findings, no further inpatient cardiac workup. Recommend follow up with Dr. Macedo in 1 week, recommend stress testing as an outpatient. Continue home cardiac medications Thank you kindly for this consultation Nurse practitioner note has been reviewed by physician. Signing provider agrees with the documented findings, assessment, and plan of care. Past Medical History Past Medical History: Coronary Artery Disease (CAD), COPD, GERD/Reflux, GI Bleed, Hyperlipidemia, Hypertension, Myocardial Infarction ([place]), Osteoarthritis (OA), Skin Disorder, Sleep Apnea/CPAP/BIPAP, Thyroid Disorder Additional Past Medical History / Comment(s): DDD, hx anemia. JOSE LEG SWELLING- lymphedema, previous wound on lower left leg. Has cpap Last Myocardial Infarction Date:: 2006 History of Any Multi-Drug Resistant Organisms: None Reported Past Surgical History: Back Surgery, Cholecystectomy, Heart Catheterization With Stent, Hysterectomy, Joint Replacement, Tonsillectomy Additional Past Surgical History / Comment(s): Bilateral knee replacement ALLEN FUNDLAPLASTY, LEFT shoulder replacement. 2 STENTS IN HEART Past Anesthesia/Blood Transfusion Reactions: No Reported Reaction Additional Past Anesthesia/Blood Transfusion Reaction / Comment(s): daughter had hard time waking up after anesthesia Date of Last Stent Placement:: 2006 Past Psychological History: No Psychological Hx Reported Smoking Status: Former smoker Past Alcohol Use History: Occasional Additional Past Alcohol Use History / Comment(s): Quit in 2006, SMOKED 1 TO 1 AND 1/2 PPD, STARTED A TEENAGER Past Drug Use History: None Reported - Past Family History Brother(s) Family Medical History: Cancer Mother Family Medical History: Cancer Mother Brother(s) Family Medical History: Cancer Father Family Medical History: Cancer Medications and Allergies Home Medications Medication Instructions Recorded Confirmed Type HYDROcodone/APAP 10-325MG [[place] 1 tab PO QID 05/03/15 01/21/22 History 10-325] Omeprazole 40 mg PO BID 05/03/15 01/21/22 History Atorvastatin Calcium [Lipitor] 40 mg PO HS 06/07/17 01/21/22 History Furosemide [Lasix] 40 mg PO BID 09/16/17 01/21/22 History Umeclidinium Brm/Vilanterol Tr 1 puff INHALATION RT-DAILY 10/27/20 01/21/22 History [Anoro Ellipta 62.5-25 Mcg INH] Levothyroxine Sodium [Synthroid] 125 mcg PO DAILY 12/15/20 01/21/22 History ARIPiprazole [Abilify] 5 mg PO DAILY 01/21/22 01/21/22 History DULoxetine HCL [Cymbalta] 90 mg PO DAILY 01/21/22 01/21/22 History Losartan Potassium 50 mg PO DAILY 01/21/22 01/21/22 History Multivitamins, Thera [Multivitamin 1 tab PO DAILY 01/21/22 01/21/22 History (formulary)] Oxybutynin Chloride 5 mg PO TID PRN 01/21/22 01/21/22 History rOPINIRole HCL [Requip] 0.25 mg PO HS 01/21/22 01/21/22 History Allergies Allergy/AdvReac Type Severity Reaction Status Date / Time No Known Allergies Allergy Verified 01/21/22 16:33 Physical Exam Vitals: Vital Signs Temp Pulse Pulse Resp BP BP Pulse Ox 01/22/22 01:26 98.4 F 85 17 97/56 95 01/21/22 21:48 82 01/21/22 21:35 84 01/21/22 20:43 98.8 F 83 16 129/70 93 L 01/21/22 17:10 99.1 F 81 19 126/70 95 01/21/22 16:31 100.6 F H 78 18 141/75 96 01/21/22 15:03 100.8 F H Intake and Output 01/21/22 01/22/22 01/22/22 22:59 06:59 14:59 Intake Total 180 Balance 180 Intake: Oral 180 Other: Voiding Method Toilet # Voids 0 # Bowel Movements 0 Weight 107.048 kg 107.048 kg Results 01/21/22 12:51 01/21/22 12:51 Cardiac Enzymes 01/21/22 01/21/22 01/21/22 Range/Units 12:51 12:51 16:41 AST 20 (14-36) U/L Troponin I <0.012 <0.012 (0.000-0.034) ng/mL 01/21/22 Range/Units 19:41 AST (14-36) U/L Troponin I <0.012 (0.000-0.034) ng/mL Coagulation 01/21/22 Range/Units 12:51 PT 9.9 (9.0-12.0) sec APTT 24.9 (22.0-30.0) sec CBC 01/21/22 Range/Units 12:51 WBC 12.4 H (3.8-10.6) k/uL RBC 4.52 (3.80-5.40) m/uL Hgb 13.8 (11.4-16.0) gm/dL Hct 41.0 (34.0-46.0) % Plt Count 271 (150-450) k/uL Comprehensive Metabolic Panel 01/21/22 Range/Units 12:51 Sodium 134 L (137-145) mmol/L Potassium 3.4 L (3.5-5.1) mmol/L Chloride 100 (98-107) mmol/L Carbon Dioxide 28 (22-30) mmol/L BUN 9 (7-17) mg/dL Creatinine 0.55 (0.52-1.04) mg/dL Glucose 123 H (74-99) mg/dL Calcium 8.8 (8.4-10.2) mg/dL AST 20 (14-36) U/L ALT 11 (4-34) U/L Alkaline Phosphatase 135 H (38-126) U/L Total Protein 7.1 (6.3-8.2) g/dL Albumin 3.9 (3.5-5.0) g/dL Current Medications Generic Name Dose Route Start Last Admin Trade Name Freq PRN Reason Stop Dose Admin Acetaminophen 650 mg 01/21/22 16:28 Acetaminophen Tab 325 Mg Tab PO Q6HR PRN Mild Pain or Fever > 100.5 Hydrocodone Bitart/Acetaminophen 1 each 01/21/22 15:45 01/21/22 23:41 Hydrocodone/Apap 10-325mg 1 Each Tab PO 1 each Q6H PRN Administration Pain Albuterol/Ipratropium 3 ml 01/21/22 15:44 Ipratropium-Albuterol 3 Ml Neb INHALATION RT-Q4H PRN Shortness Of Breath Or Wheezing Albuterol/Ipratropium 3 ml 01/21/22 20:00 01/21/22 21:35 Ipratropium-Albuterol 3 Ml Neb INHALATION 3 ml RT-QID CHARLIE Administration Aripiprazole 5 mg 01/22/22 09:00 Aripiprazole 5 Mg Tab PO DAILY CHARLIE Aspirin 81 mg 01/22/22 09:00 Aspirin 81 Mg PO DAILY [facility] Atenolol 25 mg 01/22/22 09:00 Atenolol 25 Mg Tab PO QAM CHARLIE Atorvastatin Calcium 40 mg 01/21/22 21:00 01/21/22 22:14 Atorvastatin 40 Mg Tab PO 40 mg HS CHARLIE Administration Bisacodyl 5 mg 01/21/22 16:28 Bisacodyl 5 Mg Tablet. PO DAILY PRN Constipation Citalopram Hydrobromide 40 mg 01/22/22 09:00 Citalopram Hydrobromide 20 Mg Tab PO QAM [facility] Duloxetine HCl 90 mg 01/22/22 09:00 Duloxetine Hcl 30 Mg Capsule. PO DAILY [facility] Enoxaparin Sodium 40 mg 01/22/22 09:00 Enoxaparin 40 Mg/0.4 Ml Syringe SQ DAILY [facility] Formoterol Fumarate 20 mcg 01/22/22 08:00 Formoterol Fumarate 20 Mcg/2 Ml Nebu INHALATION RT-BID [facility] Furosemide 40 mg 01/21/22 18:30 01/21/22 18:35 Furosemide 40 Mg Tab PO 40 mg BID-W/MEALS [facility] Administration Ceftriaxone Sodium 2 gm/ 50 mls @ 100 mls/hr 01/21/22 18:00 01/21/22 18:27 Sodium Chloride IVPB 100 mls/hr Q24HR [facility] Administration Protocol Azithromycin 500 mg/ Sodium 250 mls @ 250 mls/hr 01/21/22 18:00 01/21/22 19:08 Chloride IVPB 01/23/22 09:59 250 mls/hr DAILY [facility] Administration Protocol Insulin Aspart 0 unit 01/21/22 21:00 01/21/22 22:14 Insulin Aspart (Novolog) 100 Unit/Ml Vial SQ 3 unit ACHS [facility] Administration Protocol Isosorbide Mononitrate 30 mg 01/22/22 09:00 Isosorbide Mononitrate Er 30 Mg Tab.Er.24h PO QAM [facility] Levothyroxine Sodium 125 mcg 01/22/22 06:30 Levothyroxine 125 Mcg Tab PO DAILY@0630 [facility] Losartan Potassium 50 mg 01/22/22 09:00 Losartan 50 Mg Tab PO DAILY [facility] Methylprednisolone Sodium Succinate 60 mg 01/21/22 19:30 01/21/22 23:38 Methylprednisolone Sod Succi 125 Mg/2 Ml Vial IV 60 mg Q6HR [facility] Administration Multivitamins 1 each 01/22/22 09:00 Multivitamins, Thera 1 Each Tab PO DAILY [facility] Naloxone HCl 0.2 mg 01/21/22 16:28 Naloxone 0.4 Mg/Ml 1 Ml Vial IV Q2M PRN Opioid Reversal Nitroglycerin 0.4 mg 01/21/22 15:45 Nitroglycerin Sl Tabs 0.4 Mg Tab SUBLINGUAL Q5M PRN Chest Pain Oxybutynin Chloride 10 mg 01/21/22 21:00 01/21/22 22:15 Oxybutynin 10 Mg Tab.Er.24 PO 10 mg HS [facility] Administration Oxybutynin Chloride 5 mg 01/21/22 16:43 Oxybutynin Chloride 5 Mg Tab PO TID PRN OVERACTIVE BLADDER Pantoprazole Sodium 40 mg 01/21/22 21:00 01/21/22 22:14 Pantoprazole 40 Mg Tablet PO 40 mg BID CHARLIE Administration Ropinirole HCl 0.25 mg 01/21/22 21:00 01/21/22 22:14 Ropinirole Hcl 0.25 Mg Tab PO 0.25 mg HS CHARLIE Administration Spironolactone 25 mg 01/22/22 09:00 Spironolactone 25 Mg Tab PO QAM CHARLIE Zolpidem Tartrate 5 mg 01/21/22 21:00 Zolpidem 5 Mg Tab PO HS PRN Insomnia Intake and Output 01/21/22 01/22/22 01/22/22 22:59 06:59 14:59 Intake Total 180 Balance 180 Intake: Oral 180 Other: Voiding Method Toilet # Voids 0 # Bowel Movements 0 Weight 107.048 kg 107.048 kg Patient Weight 01/23/22 06:59 Weight 107.048 kg 01/21/22 12:51 01/21/22 12:51
--- NOTE | 2022-01-22 13:02 | P.CNPUL ---
History of Present Illness Consult date: 01/22/22 Requesting physician: Lianne Vail Reason for consult: dyspnea Chief complaint: Shortness of breath History of present illness: This is a 71-year-old white female patient with past medical history of COPD, secondary pulmonary hypertension, CHF with preserved LV function and EF of 55-60%, hypertension, hyperlipidemia, CAD with stent placement, osteoarthritis, former smoker, depression. Patient has a Hx of obstructive sleep apnea with an AHI of 13.4, mild nocturnal oxygen desaturation. And her pulmonary hypertension was mild to moderate in severity with a PA pressure of 42 mmHg. Patient came into the emergency department on 01/21/2022 for difficulty breathing, and coughing which was worse keeping her up at night. Patient was also complaining of exertional dyspnea that was getting progressively worse over the past several days. She reports having the persistent cough for about 2 months, reports a mild headache. No compressive chest pain. However patient was febrile on a dmission with a temp of 101.7F. Patient had no known exposure to COVID-19 and she was vaccinated against COVID-19 with 2 shots. Her baseline FEV1 is 61% of predicted and FVC of 63% predicted, assisted with moderate obstruction and restriction. Chest x-ray showed no acute cardiopulmonary disease. Patient tested negative for influenza A and B, RSV and COVID-19. Lab work showed white blood cell, 12.4, hemoglobin is 13.8, INR is 0.9, d-dimer was negative at 0.31, sodium is 134, potassium is 3.4, the rest reflux less than renal profile were unremarkable. Plasma lactic acid is 1.4, troponin is negative 3 at less than 0.012, proBNP was 812, LFTs were within normal limits, lactic acid was within normal limits. Currently patient is on 2 L of oxygen with a pulse ox of 95%. She was started on empiric antibiotics in the form of azithromycin and Rocephin, she is on DuoNeb nebulized bronchodilators and IV steroids. Review of Systems All systems: negative Constitutional: Denies chills, Denies fever Eyes: denies blurred vision, denies pain Ears, nose, mouth and throat: Denies headache, Denies sore throat Cardiovascular: Denies chest pain, Denies shortness of breath Respiratory: Reports cough, Reports dyspnea, Reports sleep apnea Gastrointestinal: Denies abdominal pain, Denies diarrhea, Denies nausea, Denies vomiting Genitourinary: Denies dysuria, Denies hematuria Musculoskeletal: Denies myalgias Integumentary: Denies pruritus, Denies rash Neurological: Denies numbness, Denies weakness Psychiatric: Denies anxiety, Denies depression Endocrine: Denies fatigue, Denies weight change Past Medical History Past Medical History: Coronary Artery Disease (CAD), COPD, GERD/Reflux, GI Bleed, Hyperlipidemia, Hypertension, Myocardial Infarction ([place]), Osteoarthritis (OA), Skin Disorder, Sleep Apnea/CPAP/BIPAP, Thyroid Disorder Additional Past Medical History / Comment(s): DDD, hx anemia. JOSE LEG SWELLING- lymphedema, previous wound on lower left leg. Has cpap Last Myocardial Infarction Date:: 2006 History of Any Multi-Drug Resistant Organisms: None Reported Past Surgical History: Back Surgery, Cholecystectomy, Heart Catheterization With Stent, Hysterectomy, Joint Replacement, Tonsillectomy Additional Past Surgical History / Comment(s): Bilateral knee replacement ALLEN FUNDLAPLASTY, LEFT shoulder replacement. 2 STENTS IN HEART Past Anesthesia/Blood Transfusion Reactions: No Reported Reaction Additional Past Anesthesia/Blood Transfusion Reaction / Comment(s): daughter had hard time waking up after anesthesia Date of Last Stent Placement:: 2006 Past Psychological History: No Psychological Hx Reported Smoking Status: Former smoker Past Alcohol Use History: Occasional Additional Past Alcohol Use History / Comment(s): Quit in 2006, SMOKED 1 TO 1 AND 1/2 PPD, STARTED A TEENAGER Past Drug Use History: None Reported - Past Family History Brother(s) Family Medical History: Cancer Mother Family Medical History: Cancer Mother Brother(s) Family Medical History: Cancer Father Family Medical History: Cancer Medications and Allergies Home Medications Medication Instructions Recorded Confirmed Type HYDROcodone/APAP 10-325MG [[place] 1 tab PO QID 05/03/15 01/21/22 History 10-325] Omeprazole 40 mg PO BID 05/03/15 01/21/22 History Atorvastatin Calcium [Lipitor] 40 mg PO HS 06/07/17 01/21/22 History Furosemide [Lasix] 40 mg PO BID 09/16/17 01/21/22 History Umeclidinium Brm/Vilanterol Tr 1 puff INHALATION RT-DAILY 10/27/20 01/21/22 History [Anoro Ellipta 62.5-25 Mcg INH] Levothyroxine Sodium [Synthroid] 125 mcg PO DAILY 12/15/20 01/21/22 History ARIPiprazole [Abilify] 5 mg PO DAILY 01/21/22 01/21/22 History DULoxetine HCL [Cymbalta] 90 mg PO DAILY 01/21/22 01/21/22 History Losartan Potassium 50 mg PO DAILY 01/21/22 01/21/22 History Multivitamins, Thera [Multivitamin 1 tab PO DAILY 01/21/22 01/21/22 History (formulary)] Oxybutynin Chloride 5 mg PO TID PRN 01/21/22 01/21/22 History rOPINIRole HCL [Requip] 0.25 mg PO HS 01/21/22 01/21/22 History Allergies Allergy/AdvReac Type Severity Reaction Status Date / Time No Known Allergies Allergy Verified 01/21/22 16:33 Physical Exam Vitals: Vital Signs Temp Pulse Pulse Resp BP BP Pulse Ox 01/22/22 01:26 98.4 F 85 17 97/56 95 01/21/22 21:48 82 01/21/22 21:35 84 01/21/22 20:43 98.8 F 83 16 129/70 93 L 01/21/22 17:10 99.1 F 81 19 126/70 95 01/21/22 16:31 100.6 F H 78 18 141/75 96 01/21/22 15:03 100.8 F H Intake and Output 01/21/22 01/22/22 01/22/22 22:59 06:59 14:59 Intake Total 180 Balance 180 Intake: Oral 180 Other: Voiding Method Toilet # Voids 0 # Bowel Movements 0 Weight 107.048 kg GENERAL EXAM: Alert, very pleasant, 71-year-old white female on 2 L of oxygen pulse ox 95% omfortable in no apparent distress. HEAD: Normocephalic/atraumatic. EYES: Normal reaction of pupils, equal size. Conjunctiva pink, sclera white. NOSE: Clear with pink turbinates. THROAT: No erythema or exudates. NECK: No masses, no JVD, no thyroid enlargement, no adenopathy. CHEST: No chest wall deformity. Symmetrical expansion. LUNGS: Equal air entry with diminished breath sounds CVS: Regular rate and rhythm, normal S1 and S2, no gallops, no murmurs, no rubs ABDOMEN: Soft, nontender. No hepatosplenomegaly, normal bowel sounds, no guarding or rigidity. EXTREMITIES: No clubbing, no edema, no cyanosis, 2+ pulses and upper and lower extremities. MUSCULOSKELETAL: Muscle strength and tone normal. SPINE: No scoliosis or deformity SKIN: No rashes CENTRAL NERVOUS SYSTEM: Alert and oriented -3. No focal deficits, tone is normal in all 4 extremities. PSYCHIATRIC: Alert and oriented -3. Appropriate affect. Intact judgment and insight. Results - Laboratory Findings CBC and BMP: 01/22/22 04:26 01/22/22 04:26 PT/INR, D-dimer PT 9.9 sec (9.0-12.0) 01/21/22 12:51 INR 0.9 (<1.2) 01/21/22 12:51 D-Dimer 0.31 mg/L FEU (<0.60) 01/21/22 12:51 Abnormal lab findings: Abnormal Labs 01/21/22 01/21/22 01/21/22 12:51 12:51 20:05 WBC 12.4 H Neutrophils # 9.3 H Sodium 134 L Potassium 3.4 L Glucose 123 H POC Glucose (mg/dL) 185 H Alkaline Phosphatase 135 H 01/22/22 01/22/22 07:04 11:04 WBC Neutrophils # Sodium Potassium Glucose POC Glucose (mg/dL) 166 H 296 H Alkaline Phosphatase - Diagnostic Findings Chest x-ray: report reviewed, image reviewed CT scan - chest: report reviewed, image reviewed Assessment and Plan Plan: Assessment: Acute hypoxic respiratory failure related to acute exacerbation of COPD Fever, rule out possibility of underlying infection, chest x-ray showed no acute cardiopulmonary disease, CT of the chest without contrast showed mild subsegmental atelectasis Steroid-induced hyperglycemia Stage II COPD, not oxygen dependent, with baseline FEV1 of 61% of predicted as of 2018 Morbid obesity with BMI 40.5 kg prescribed meter Mild sleep apnea Secondary pulmonary hypertension, [id number] History of CHF with preserved EF Coronary artery disease with previous stenting Former smoker Depression Plan: Continue IV steroids Continue nebulized bronchodilators Chest x-ray and CT chest and lab work has been reviewed Vital signs have been stable overnight, patient is afebrile Blood cultures and procalcitonin level are pending, urinalysis is pending We'll continue to follow her clinical course and make further recommendations I have seen and examined the patient, performed the documentation and the assessment and plan as written. Number of minutes spent on the visit: [15] I have personally seen and examined the patient and reviewed the documentation. I performed a joint evaluation with the nurse practitioner in this evaluation was done more than 30 minutes. I fully agree with the documentation above and the plan of care. The patient is currently being treated for an acute COPD exacerbation. CT chest of the chest was noted. No evidence of any pulmonary embolism. There is some segmental atelectatic changes. Clinically the patient is already feeling better the rest of the comorbidities are stable. Blood cultures were sent. Awaiting pro-calcitonin level. Time with Patient: Greater than 30
--- NOTE | 2022-01-22 13:21 | P.PN ---
Subjective Progress Note Date: 01/22/22 H&P Date: 01/21/22 Chief Complaint: Shortness of breath 71-year-old female history of multiple medical problems including COPD who states he has been having shortness of breath and cough for the past 2 months and get worse the past week. The cough is dry without sputum production. Chest x-ray in emergency room was negative for pneumonia. Patient stated that his shortness of breath is worse with exertion. Patient denies nausea vomiting diarrhea or constipation. Patient denies any chest pain. The patient denies any recent sick contacts. She has chronic lower extremity edema patient left lower extremities. Patient denies any recent exposure to Covid 19 or influenza Interval history: 01/22 patient was seen and examined at bedside. Patient reports improvement in her symptom overnight with IV steroids and antibiotics. Patient denies any chest pain. No acute reported changes overnight Physical examination: General: non toxic, no distress, appears at stated age. Obese Derm: warm, dry Head: atraumatic, normocephalic, symmetric Eyes: EOMI, no lid lag, anicteric sclera Mouth: no lip lesion, mucus membranes moist Cardiovascular: S1S2 reg, no murmur, positive posterior tibial pulse bilateral, Lungs: Diminished air entry bilaterally with bilateral wheezing Abdominal: soft, nontender to palpation, no guarding, no appreciable organomegaly Ext: no gross muscle atrophy, no edema, no contractures Neuro: CN II-XI grossly intact, no focal neuro deficits Psych: Alert, oriented, appropriate affect. Assessment and plan: #Acute bronchitis with COPD exacerbation #Acute hypoxic respiratory failure secondary to COPD exacerbation -No evidence of acute CHF -May improving with IV Solu-Medrol -Resume antibiotics -Bronchodilator treatment -Consult pulmonology #Fever -Computed tomography scan of the chest was negative for pneumonia -Negative over 19 and influenza -Blood culture 2 ordered in the emergency room #Coronary disease status post stents 2 in 2006 -Patient denies any chest pain -EKG shows sinus rhythm with nonspecific ST segment or T-wave changes -Cardiology consulted by ER #History of pulmonary hypertension #Obesity BMI is 40 -A1c 5.6, TSH #Obstructive sleep apnea on CPAP #Reformed smoker #Hypothyroidism -Resume home medications #Hypertension -Resume home medications #Full code #DVT prophylaxis with Lovenox Objective - Vital Signs Vital signs: Vital Signs Temp 98.4 F 01/22/22 01:26 Pulse 80 04/25/22 08:47 Resp 17 01/22/22 01:26 BP 97/56 01/22/22 01:26 Pulse Ox 95 01/22/22 01:26 Intake & Output 01/21/22 01/22/22 01/22/22 18:59 06:59 18:59 Intake Total 180 Balance 180 Weight 107.048 kg 107.048 kg Intake: Oral 180 Other: Voiding Method Toilet # Voids 0 # Bowel Movements 0 - Labs CBC & Chem 7: 01/22/22 04:26 01/22/22 04:26 Labs: Abnormal Lab Results - Last 24 Hours (Table) 01/21/22 01/22/22 01/22/22 Range/Units 20:05 04:26 07:04 Glucose 180 H (74-99) mg/dL POC Glucose (mg/dL) 185 H 166 H (75-99) mg/dL 01/22/22 Range/Units 11:04 Glucose (74-99) mg/dL POC Glucose (mg/dL) 296 H (75-99) mg/dL
[2022-01-22] MEDS: LEVOTHYROXINE 125 MCG TAB PO SCH (14:26)
[2022-01-22] MEDS: FUROSEMIDE 40 MG TAB PO SCH ×2 (14:26→17:23)
[2022-01-22] MEDS: methylPREDNISolone SOD SUCCI 125 MG/2 ML VIAL IV SCH ×4 (14:26→22:56)
[2022-01-22] MEDS: INSULIN ASPART (NovoLOG) 100 UNIT/ML VIAL SQ SCH ×4 (14:27→21:44)
[2022-01-22] MEDS: ARIPiprazole 5 MG TAB PO SCH (14:27)
[2022-01-22] MEDS: atenoloL 25 MG TAB PO SCH (14:27)
[2022-01-22] MEDS: AZITHROMYCIN 500 MG in SODIUM CHLORIDE 0.9% 250 ML IVPB SCH (14:27)
[2022-01-22] MEDS: ASPIRIN 81 MG PO SCH (14:27)
[2022-01-22] MEDS: ENOXAPARIN 40 MG/0.4 ML SYRINGE SQ SCH (14:28)
[2022-01-22] MEDS: DULoxetine HCL 30 MG CAPSULE.DR PO SCH (14:28)
[2022-01-22] MEDS: SPIRONOLACTONE 25 MG TAB PO SCH (14:28)
[2022-01-22] MEDS: PANTOPRAZOLE 40 MG TABLET PO SCH ×2 (14:28→21:44)
[2022-01-22] MEDS: CITALOPRAM HYDROBROMIDE 20 MG TAB PO SCH (14:28)
[2022-01-22] MEDS: MULTIVITAMINS, THERA 1 EACH TAB PO SCH (14:28)
[2022-01-22] MEDS: ISOSORBIDE MONONITRATE ER 30 MG TAB.ER.24H PO SCH (14:28)
[2022-01-22] MEDS: LOSARTAN 50 MG TAB PO SCH (14:28)
[2022-01-22] MEDS: HYDROcodone/APAP 10-325MG 1 EACH TAB PO PRN ×2 (14:59→21:43)
[2022-01-22 16:33] LABS: Glucose,Whole Blood 169 mg/dL (75-99)
[2022-01-22 21:38] LABS: Glucose,Whole Blood 157 mg/dL (75-99)
[2022-01-22] MEDS: OXYBUTYNIN 10 MG TAB.ER.24 PO SCH (21:44)
[2022-01-22] MEDS: ATORVASTATIN 40 MG TAB PO SCH (21:44)
[2022-01-23] MEDS: methylPREDNISolone SOD SUCCI 125 MG/2 ML VIAL IV SCH ×3 (05:40→18:27)
[2022-01-23] MEDS: LEVOTHYROXINE 125 MCG TAB PO SCH (05:40)
[2022-01-23 07:06] LABS: Glucose,Whole Blood 161 mg/dL (75-99)
--- NOTE | 2022-01-23 07:53 | CA ---
Transthoracic Echo Report Name: January Ulrich Age: 71 Gender: F : 1950 Exam Date: 01/22/2022 13:45 Exam Location: [facility] Ht (in): 64 Wt (lb): 236 Ordering Physician: Sam Au MD Attending/Referring Phys: [employer] Supervisor Sujata Gibson RDCS Procedure CPT: Indications: Heart failure Cardiac Hx: Technical Quality: Technically difficult study Contrast 1: Lumason Total Dose (mL): 40 Contrast 2: Total Dose (mL): MEASUREMENTS (Male / Female) Normal Values 2D ECHO LV Diastolic Diameter PLAX 4.3 cm 4.2 - 5.9 / 3.9 - 5.3 cm LV Systolic Diameter PLAX 1.6 cm IVS Diastolic Thickness 1.0 cm 0.6 - 1.0 / 0.6 - 0.9 cm LVPW Diastolic Thickness 1.2 cm 0.6 - 1.0 / 0.6 - 0.9 cm LV Relative Wall Thickness 0.5 RV Internal Dim ED PLAX 4.1 cm LA Volume 86.4 cm 18 - 58 / 22 - 52 cm M-MODE Aortic Root Diameter MM 3.2 cm LA Systolic Diameter MM 5.3 cm LA Ao Ratio MM 1.6 AV Cusp Separation MM 1.9 cm DOPPLER AV Peak Velocity 142.1 cm/s AV Peak Gradient 8.1 mmHg LVOT Peak Velocity 125.5 cm/s LVOT Peak Gradient 6.3 mmHg MV Area PHT 3.0 cm Mitral E Point Velocity 92.2 cm/s Mitral A Point Velocity 110.5 cm/s Mitral E to A Ratio 0.8 MV Deceleration Time 249.1 ms TR Peak Velocity 295.9 cm/s TR Peak Gradient 35.0 mmHg Right Ventricular Systolic Press 38.9 mmHg FINDINGS Left Ventricle Mildly increased septal wall thickness. Mildly increased posterior wall thickness. Left ventricular ejection fraction is estimated at 55-60 %. Normal left ventricular diastolic filling pattern. Normal left ventricular systolic function with no obvious regional wall motion abnormalities. Right Ventricle Moderate right ventricular dilatation. Mild pulmonary hypertension. Right ventricular systolic pressure estimated at 39 mm hg. Right Atrium Normal right atrial size. Left Atrium Severely increased left atrial volume. Mildly increased left atrial area. Mitral Valve Mild mitral regurgitation. Aortic Valve No aortic stenosis. No aortic regurgitation. Tricuspid Valve Mild tricuspid regurgitation. Pulmonic Valve Trace pulmonic regurgitation. Pericardium No pericardial effusion. Fat pad noted. Aorta Aortic root and proximal ascending aorta not well visualized. CONCLUSIONS Normal LV size and systolic function. There is mild concentric LVH. Right ventricle is enlarged there is some dysfunction. Moderate pulmonary hypertension and an enlarged left atrium no pericardial effusion Previewed by: Dr. Rex Frazier MD (Electronically Signed) Final Date: 23 January 2022 07:52
[2022-01-23] MEDS: atenoloL 25 MG TAB PO SCH (08:02)
[2022-01-23] MEDS: LOSARTAN 50 MG TAB PO SCH (08:02)
[2022-01-23] MEDS: ISOSORBIDE MONONITRATE ER 30 MG TAB.ER.24H PO SCH (08:02)
[2022-01-23] MEDS: ENOXAPARIN 40 MG/0.4 ML SYRINGE SQ SCH (08:03)
[2022-01-23] MEDS: INSULIN ASPART (NovoLOG) 100 UNIT/ML VIAL SQ SCH ×4 (08:03→20:31)
[2022-01-23] MEDS: CITALOPRAM HYDROBROMIDE 20 MG TAB PO SCH (08:04)
[2022-01-23] MEDS: PANTOPRAZOLE 40 MG TABLET PO SCH ×2 (08:04→20:31)
[2022-01-23] MEDS: ASPIRIN 81 MG PO SCH (08:04)
[2022-01-23] MEDS: HYDROcodone/APAP 10-325MG 1 EACH TAB PO PRN ×2 (08:04→17:30)
[2022-01-23] MEDS: SPIRONOLACTONE 25 MG TAB PO SCH (08:05)
[2022-01-23] MEDS: MULTIVITAMINS, THERA 1 EACH TAB PO SCH (08:05)
[2022-01-23] MEDS: DULoxetine HCL 30 MG CAPSULE.DR PO SCH (08:06)
[2022-01-23] MEDS: ARIPiprazole 5 MG TAB PO SCH (08:06)
[2022-01-23] MEDS: FUROSEMIDE 40 MG TAB PO SCH ×2 (08:16→17:30)
[2022-01-23] MEDS: IPRATROPIUM-ALBUTEROL 3 ML NEB INHALATION SCH ×4 (09:05→20:29)
[2022-01-23] MEDS: FORMOTEROL FUMARATE 20 MCG/2 ML NEBU INHALATION SCH ×2 (09:05→20:29)
[2022-01-23 09:09] LABS: Basophils # (A) 0.02 X 10*3/uL (0.00-0.10); Basophils % (A) 0.1 %; Eosinophils # (A) 0 X 10*3/uL (0.04-0.35); Eosinophils % (A) 0 %; HCT 36.9 % (37.2-46.3); HGB 11.8 g/dL (12.0-15.0); Immature Grans, Automated 0.9 %; Lymphocytes # (A) 1.24 X 10*3/uL (0.90-5.00); Lymphocytes % (A) 7.1 %; MCH 29.6 pg (27.0-32.0); MCV 92.7 fL (80.0-97.0); Mean Platelet Volume 10.2 fL (9.5-12.2); Monocytes # (A) 0.67 X 10*3/uL (0.20-1.00); Monocytes % (A) 3.8 %; NRBC Per 100 WBC 0 /100 WBCS (0.0-0.0); Neutrophils # (A) 15.42 X 10*3/uL (1.80-7.70); Neutrophils % (A) 88.1 %; Platelet Count 262 X 10*3/uL (140-440); RBC 3.98 X 10*6/uL (4.10-5.20); RDW 13.8 % (11.5-14.5)
--- NOTE | 2022-01-23 09:23 | P.PN ---
Subjective This is a pleasant 71-year-old female past medical history significant for coronary artery disease status post PCI to the RCA in 07/2005, pulmonary h ypertension, lymphedema, hypertension, obesity, COPD, obstructive sleep apnea with use of CPAP, former nicotine dependence. She followed in the office with Dr. Macedo last seen in 2019. We have been asked to see in consultation for exertional dyspnea. Patient presented to the emergency department for worsening shortness of breath and cough. For about 2 months, patient has been having shortness of breath and cough at rest and with activity. She Her shortness of breath is not only exertional, she also has it at rest. Does increase with exertional, however. Her cough is non-productive. She has no chest pain, lightheadedness, dizziness, or palpitations. She felt her symptoms progressively getting worse over the past couple days and presented to the emergency room for further evaluation. DIAGNOSTICS * EKG reveals sinus rhythm, heart rate 77, normal axis, non-specific ST-T wave abnormalities. Artifact noted. * Chest xray no acute cardiopulmonary process * CT chest revealed no congestive heart failure, mild subsegmental atelectasis at the lung bases. No suspicious pulmonary mass. * Laboratory reviewed, troponin negative 3, BNP 81 01/23/2022 Patient seen and examined at bedside, distress. Shortness of breath is slightly improved. Continues to have some shortness of breath. Shee is on room air. Echocardiogram revealed ejection fraction 5560%, moderate left ventricular dilatation, mild pulmonary hypertension with an RVSP of 39 mmHg, mild concentric LVH, there is some RV dysfunction, enlarged left atrium She's currently maintained on aspirin 80 mg daily, atenolol 25 mg daily, atorvastatin 40 mg nightly, Lasix 40 mg twice a day, Imdur 30 mg nightly, losartan 25 mg daily, spironolactone 25 mg daily Labs pending PHYSICAL EXAMINATION Vitals reviewed. CONSTITUTIONAL: No apparent distress. HEENT: Neck Supple No JVD CHEST EXAMINATION: Lungs are diminished bases to auscultation. No chest wall tenderness is noted on palpation or with deep breathing. HEART EXAMINATION: Regular rate and rhythm. S1, S2 heard. No murmurs, gallops or rub. ABDOMEN: Soft, nontender. Positive bowel sounds. EXTREMITIES: 2+ peripheral pulses, mild bilateral non-pitting lower extremity edema and no calf tenderness. NEUROLOGIC EXAMINATION: Patient is awake, alert and oriented x3. ASSESSMENT Shortness of breath and cough, unclear etiology at this time, patient does not appear to be in acute heart failure Coronary artery disease status post PCI to the RCA in 07/2005 Pulmonary hypertension Lymphedema Hypertension Obesity COPD Obstructive sleep apnea Former nicotine dependence PLAN From a cardiology perspective, no further inpatient workup or changes at this ti me. Obstructive sleep apnea may be contributing to patient's symptoms. Patient does not appear to be in acute heart failure on exam Recommend follow up with Dr. Macedo in 1 week, recommend stress testing as an outpatient. Continue home cardiac medications Discharge per primary. Please reach out with any further questions or concerns. Thank you kindly for this consultation Nurse practitioner note has been reviewed by physician. Signing provider agrees with the documented findings, assessment, and plan of care. Objective - Vital Signs Vital signs: Vital Signs Temp 97.8 F 01/23/22 08:00 Pulse 60 01/23/22 09:16 Resp 16 01/23/22 08:00 BP 94/49 01/23/22 08:00 Pulse Ox 92 L 01/23/22 08:00 Intake & Output 01/22/22 01/23/22 01/23/22 18:59 06:59 18:59 Intake Total 1080 280 Balance 1080 280 Weight 107.048 kg Intake: Oral 1080 280 Other: Voiding Method Toilet # Voids 3 # Bowel Movements 0 - Labs CBC & Chem 7: 01/23/22 05:28 01/22/22 04:26 Labs: Abnormal Lab Results - Last 24 Hours (Table) 01/22/22 01/22/22 01/22/22 Range/Units 04: 07:04 11:04 WBC (4.50-10.00) X 10*3/uL RBC (4.10-5.20) X 10*6/uL Hgb (12.0-15.0) g/dL Hct (37.2-46.3) % Immature Gran # (0.00-0.04) X 10*3/uL Neutrophils # (1.80-7.70) X 10*3/uL Eosinophils # (0.04-0.35) X 10*3/uL Glucose 180 H (74-99) mg/dL POC Glucose (mg/dL) 166 H 296 H (75-99) mg/dL 01/22/22 01/22/22 01/23/22 Range/Units 16:32 21:35 05:28 WBC 17.50 H (4.50-10.00) X 10*3/uL RBC 3.98 L (4.10-5.20) X 10*6/uL Hgb 11.8 L (12.0-15.0) g/dL Hct 36.9 L (37.2-46.3) % Immature Gran # 0.15 H (0.00-0.04) X 10*3/uL Neutrophils # 15.42 H (1.80-7.70) X 10*3/uL Eosinophils # 0 L (0.04-0.35) X 10*3/uL Glucose (74-99) mg/dL POC Glucose (mg/dL) 169 H 157 H (75-99) mg/dL 01/23/22 Range/Units 07:01 WBC (4.50-10.00) X 10*3/uL RBC (4.10-5.20) X 10*6/uL Hgb (12.0-15.0) g/dL Hct (37.2-46.3) % Immature Gran # (0.00-0.04) X 10*3/uL Neutrophils # (1.80-7.70) X 10*3/uL Eosinophils # (0.04-0.35) X 10*3/uL Glucose (74-99) mg/dL POC Glucose (mg/dL) 161 H (75-99) mg/dL Microbiology - Last 24 Hours (Table) 01/21/22 12:51 Blood Culture - Preliminary Blood No Growth after 24 hours 01/21/22 12:51 Blood Culture - Preliminary Blood No Growth after 24 hours
[2022-01-23 09:26] LABS: ALT 9 U/L (8-44); AST 10 U/L (13-35); African American GFR (CKD) 108.6 (60.0-200.0); Albumin 3.6 g/dL (3.8-4.9); Albumin/Globulin Ratio 1.58 (1.60-3.17); Alkaline Phosphatase 112 U/L (41-126); BUN/Creat Ratio 35.89 Ratio (12.00-20.00); Blood Urea Nitrogen 20.6 mg/dL (9.0-27.0); Calcium 9.3 mg/dL (8.7-10.3); Carbon Dioxide 26.2 mmol/L (20.0-27.5); Chloride 103 mmol/L (96-109); Globulin 2.3 g/dL (1.6-3.3); Glucose 162 mg/dL (70-110); Magnesium 2.1 mg/dL (1.5-2.4); Non-African American GFR(CKD) 93.7 (60.0-200.0); Sodium 142 mmol/L (135-145); Total Bilirubin <0.15 mg/dL (0.30-1.20); Total Protein 5.8 g/dL (6.2-8.2)
[2022-01-23] MEDS: LOSARTAN 25 MG TAB PO SCH (09:52)
[2022-01-23 10:38] LABS: Appearance,Urine Clear (Clear); Bilirubin,Urine Negative (Negative); Blood,Urine Negative (Negative); Color,Urine Yellow; Glucose,Urine (UA) Negative (Negative); Ketones,Urine Negative (Negative); Leukocyte Esterase,Urine Negative (Negative); Nitrite,Urine Negative (Negative); Protein,Urine Negative (Negative); Specific Gravity,Urine 1.025 (1.001-1.035); Urobilinogen,Urine <2.0 mg/dL (<2.0)
[2022-01-23 11:26] LABS: Glucose,Whole Blood 122 mg/dL (75-99)
[2022-01-23] MEDS: AZITHROMYCIN 500 MG in SODIUM CHLORIDE 0.9% 250 ML IVPB SCH (13:33)
--- NOTE | 2022-01-23 13:48 | P.PN ---
Subjective Progress Note Date: 01/23/22 Principal diagnosis: Shortness of breath This is a 71-year-old white female patient with past medical history of COPD, secondary pulmonary hypertension, CHF with preserved LV function and EF of 55- 60%, hypertension, hyperlipidemia, CAD with stent placement, osteoarthritis, for jeny smoker, depression. Patient has a Hx of obstructive sleep apnea with an AHI of 13.4, mild nocturnal oxygen desaturation. And her pulmonary hypertension was mild to moderate in severity with a PA pressure of 42 mmHg. Patient came into the emergency department on 01/21/2022 for difficulty breathing, and coughing which was worse keeping her up at night. Patient was also complaining of exertional dyspnea that was getting progressively worse over the past several days. She reports having the persistent cough for about 2 months, reports a mild headache. No compressive chest pain. However patient was febrile on admission with a temp of 101.7F. Patient had no known exposure to COVID-19 and she was vaccinated against COVID-19 with 2 shots. Her baseline FEV1 is 61% of predicted and FVC of 63% predicted, assisted with moderate obstruction and restriction. Chest x-ray showed no acute cardiopulmonary disease. Patient tested negative for influenza A and B, RSV and COVID-19. Lab work showed white blood cell, 12.4, hemoglobin is 13.8, INR is 0.9, d-dimer was negative at 0.31, sodium is 134, potassium is 3.4, the rest reflux less than renal profile were unremarkable. Plasma lactic acid is 1.4, troponin is negative 3 at less than 0.012, proBNP was 812, LFTs were within normal limits, lactic acid was within normal limits. Currently patient is on 2 L of oxygen with a pulse ox of 95%. She was started on empiric antibiotics in the form of azithromycin and Rocephin, she is on DuoNeb nebulized bronchodilators and IV steroids. On 01/23/2022 patient seen in follow-up. Patient is awake and alert, in no distress, room air pulse ox is 92%, she states her breathing is improving, she's had no acute events overnight, no fever or chills, vital signs have been stable. States she is breathing much easier. She remains on nebulized bronchodilators, she is on IV Solu-Medrol 60 mg every 6 hours. She is on empiric antibiotics. Echocardiogram has been completed showing normal LV size and systolic function, mild concentric LVH, enlargement of the right ventricle, moderate pulmonary hypertension. She denies any chest discomfort. She is being followed by cardiology services. Objective - Vital Signs Vital signs: Vital Signs Temp 97.6 F 01/23/22 13:35 Pulse 70 01/23/22 13:35 Resp 16 01/23/22 13:35 BP 121/67 01/23/22 13:35 Pulse Ox 96 01/23/22 13:35 Intake & Output 01/22/22 01/23/22 01/23/22 18:59 06:59 18:59 Intake Total 1080 280 Balance 1080 280 Weight 107.048 kg Intake: Oral 1080 280 Other: Voiding Method Toilet # Voids 3 # Bowel Movements 0 - Exam GENERAL EXAM: Alert, very pleasant, 71-year-old white female on room air comfortable in no apparent distress. HEAD: Normocephalic/atraumatic. EYES: Normal reaction of pupils, equal size. Conjunctiva pink, sclera white. NOSE: Clear with pink turbinates. THROAT: No erythema or exudates. NECK: No masses, no JVD, no thyroid enlargement, no adenopathy. CHEST: No chest wall deformity. Symmetrical expansion. LUNGS: Equal air entry with diminished breath sounds CVS: Regular rate and rhythm, normal S1 and S2, no gallops, no murmurs, no rubs ABDOMEN: Soft, nontender. No hepatosplenomegaly, normal bowel sounds, no guarding or rigidity. EXTREMITIES: No clubbing, no edema, no cyanosis, 2+ pulses and upper and lower extremities. MUSCULOSKELETAL: Muscle strength and tone normal. SPINE: No scoliosis or deformity SKIN: No rashes CENTRAL NERVOUS SYSTEM: Alert and oriented -3. No focal deficits, tone is normal in all 4 extremities. PSYCHIATRIC: Alert and oriented -3. Appropriate affect. Intact judgment and insight. - Labs CBC & Chem 7: 01/23/22 05:28 01/23/22 05:28 Labs: Abnormal Lab Results - Last 24 Hours (Table) 01/22/22 01/22/22 01/23/22 Range/Units 16:32 21:35 05:28 WBC 17.50 H (4.50-10.00) X 10*3/uL RBC 3.98 L (4.10-5.20) X 10*6/uL Hgb 11.8 L (12.0-15.0) g/dL Hct 36.9 L (37.2-46.3) % Immature Gran # 0.15 H (0.00-0.04) X 10*3/uL Neutrophils # 15.42 H (1.80-7.70) X 10*3/uL Eosinophils # 0 L (0.04-0.35) X 10*3/uL BUN/Creatinine Ratio (12.00-20.00) Ratio Glucose (70-110) mg/dL POC Glucose (mg/dL) 169 H 157 H (75-99) mg/dL Total Bilirubin (0.30-1.20) mg/dL AST (13-35) U/L Total Protein (6.2-8.2) g/dL Albumin (3.8-4.9) g/dL Albumin/Globulin Ratio (1.60-3.17) g/dL 01/23/22 01/23/22 01/23/22 Range/Units 05:28 07:01 11:21 WBC (4.50-10.00) X 10*3/uL RBC (4.10-5.20) X 10*6/uL Hgb (12.0-15.0) g/dL Hct (37.2-46.3) % Immature Gran # (0.00-0.04) X 10*3/uL Neutrophils # (1.80-7.70) X 10*3/uL Eosinophils # (0.04-0.35) X 10*3/uL BUN/Creatinine Ratio 35.89 H (12.00-20.00) Ratio Glucose 162 H (70-110) mg/dL POC Glucose (mg/dL) 161 H 122 H (75-99) mg/dL Total Bilirubin <0.15 L (0.30-1.20) mg/dL AST 10 L (13-35) U/L Total Protein 5.8 L (6.2-8.2) g/dL Albumin 3.6 L (3.8-4.9) g/dL Albumin/Globulin Ratio 1.58 L (1.60-3.17) g/dL Microbiology - Last 24 Hours (Table) 01/21/22 12:51 Blood Culture - Preliminary Blood No Growth after 24 hours 01/21/22 12:51 Blood Culture - Preliminary Blood No Growth after 24 hours Assessment and Plan Plan: Assessment: Acute hypoxic respiratory failure related to acute exacerbation of COPD Fever, rule out possibility of underlying infection, chest x-ray showed no acute cardiopulmonary disease, CT of the chest without contrast showed mild subsegmental atelectasis Steroid-induced hyperglycemia Stage II COPD, not oxygen dependent, with baseline FEV1 of 61% of predicted as of 2018 Morbid obesity with BMI 40.5 kg prescribed meter Mild sleep apnea Secondary pulmonary hypertension, [id number] History of CHF with preserved EF Coronary artery disease with previous stenting Former smoker Depression Plan: Continue current medical treatment Continue IV steroids and breathing treatments Stable vitals overnight, breathing is improving Cardiology recommendations have been noted and patient was cleared for discharge from pulmonary standpoint From pulmonary perspective patient needs to continue with inpatient treatment for COPD for 1 more day I have seen and examined the patient, performed the documentation and the assessment and plan as written. Number of minutes spent on the visit: [15] I have personally seen and examined the patient and reviewed the documentation. I performed a joint evaluation with the nurse practitioner in this evaluation was done more than 20 minutes. I fully agree with the documentation above and the plan of care. The patient is clinically improving. The patient is less bronchospastic and wheezy compared to yesterday. We decided to proceed with the same treatment for now and give the patient another 24-48 hours here in the hospital to improve recovery. We'll continue to follow. Time with Patient: Less than 30
--- NOTE | 2022-01-23 14:55 | P.PN ---
Subjective Progress Note Date: 01/23/22 Principal diagnosis: COPD exacerbation 71-year-old female history of multiple medical problems including COPD who states he has been having shortness of breath and cough for the past 2 months and get worse the past week. The cough is dry without sputum production. Chest x-ray in emergency room was negative for pneumonia. Patient stated that his shortness of breath is worse with exertion. Patient denies nausea vomiting diarrhea or constipation. Patient denies any chest pain. The patient denies any recent sick contacts. She has chronic lower extremity edema patient left lower extremities. Patient denies any recent exposure to Covid 19 or influenza 01/23 patient was seen and examined at bedside. Patient reports that she's feeling better with her breathing. She does still have some coughing and some mild wheezing. She is not on any oxygen therapy. She is awaiting pulmonary evaluation today. Patient denies any complaints of chest pain Objective - Vital Signs Vital signs: Vital Signs Temp 97.6 F 01/23/22 13:35 Pulse 70 01/23/22 13:35 Resp 16 01/23/22 13:35 BP 121/67 01/23/22 13:35 Pulse Ox 96 01/23/22 13:35 Intake & Output 01/22/22 01/23/22 01/23/22 18:59 06:59 18:59 Intake Total 1080 280 Balance 1080 280 Weight 107.048 kg Intake: Oral 1080 280 Other: Voiding Method Toilet # Voids 3 # Bowel Movements 0 - Exam General: non toxic, no distress, appears at stated age. Obese Derm: warm, dry Head: atraumatic, normocephalic, symmetric Eyes: EOMI, no lid lag, anicteric sclera Mouth: no lip lesion, mucus membranes moist Cardiovascular: S1S2 reg, no murmur, positive posterior tibial pulse bilateral, Lungs: Diminished air entry bilaterally with bilateral wheezing Abdominal: soft, nontender to palpation, no guarding, no appreciable organomegaly Ext: no gross muscle atrophy, no edema, no contractures Neuro: CN II-XI grossly intact, no focal neuro deficits Psych: Alert, oriented, appropriate affect. - Labs CBC & Chem 7: 01/23/22 05:28 01/23/22 05:28 Labs: Abnormal Lab Results - Last 24 Hours (Table) 01/22/22 01/22/22 01/23/22 Range/Units 16:32 21:35 05:28 WBC 17.50 H (4.50-10.00) X 10*3/uL RBC 3.98 L (4.10-5.20) X 10*6/uL Hgb 11.8 L (12.0-15.0) g/dL Hct 36.9 L (37.2-46.3) % Immature Gran # 0.15 H (0.00-0.04) X 10*3/uL Neutrophils # 15.42 H (1.80-7.70) X 10*3/uL Eosinophils # 0 L (0.04-0.35) X 10*3/uL BUN/Creatinine Ratio (12.00-20.00) Ratio Glucose (70-110) mg/dL POC Glucose (mg/dL) 169 H 157 H (75-99) mg/dL Total Bilirubin (0.30-1.20) mg/dL AST (13-35) U/L Total Protein (6.2-8.2) g/dL Albumin (3.8-4.9) g/dL Albumin/Globulin Ratio (1.60-3.17) g/dL 01/23/22 01/23/22 01/23/22 Range/Units 05:28 07:01 11:21 WBC (4.50-10.00) X 10*3/uL RBC (4.10-5.20) X 10*6/uL Hgb (12.0-15.0) g/dL Hct (37.2-46.3) % Immature Gran # (0.00-0.04) X 10*3/uL Neutrophils # (1.80-7.70) X 10*3/uL Eosinophils # (0.04-0.35) X 10*3/uL BUN/Creatinine Ratio 35.89 H (12.00-20.00) Ratio Glucose 162 H (70-110) mg/dL POC Glucose (mg/dL) 161 H 122 H (75-99) mg/dL Total Bilirubin <0.15 L (0.30-1.20) mg/dL AST 10 L (13-35) U/L Total Protein 5.8 L (6.2-8.2) g/dL Albumin 3.6 L (3.8-4.9) g/dL Albumin/Globulin Ratio 1.58 L (1.60-3.17) g/dL Microbiology - Last 24 Hours (Table) 01/21/22 12:51 Blood Culture - Preliminary Blood No Growth after 24 hours 01/21/22 12:51 Blood Culture - Preliminary Blood No Growth after 24 hours Assessment and Plan (1) COPD (chronic obstructive pulmonary disease) Current Visit: Yes Status: Acute Code(s): J44.9 - CHRONIC OBSTRUCTIVE PULMONARY DISEASE, UNSPECIFIED SNOMED Code(s): 09666589 Plan: Assessment and plan: #Acute bronchitis with COPD exacerbation #Acute hypoxic respiratory failure secondary to COPD exacerbation -Symptoms improving. She remains on IV Solu-Medrol. Pulmonary team consulted for further evaluation -Radiology imaging does not show evidence of pneumonia -Currently on empiric treatment. Continue with ceftriaxone -Bronchodilator treatmenT #Fever -Computed tomography scan of the chest was negative for pneumonia -Negative COVID-19 and influenza -Blood culture 2 ordered in the emergency room -Patient now has been afebrile for over 24 hours #Coronary disease status post stents 2 in 2006 -Patient denies any chest pain -EKG shows sinus rhythm with nonspecific ST segment or T-wave changes -Cardiology consulted. Echocardiogram does not show evidence of ischemic changes. Cardiology team has now signed off on clear patient for discharge -Cardiology team recommending outpatient follow-up and outpatient stress test imaging #History of pulmonary hypertension -Likely precipitated from [place] #Obesity BMI is 40 -A1c 5.6, TSH #Obstructive sleep apnea on CPAP #Reformed smoker #Hypothyroidism -Resume home medications #Hypertension -Resume home medications #Full code #DVT prophylaxis with Lovenox Anticipated discharge in the next 24 hours
[2022-01-23 16:27] LABS: Glucose,Whole Blood 134 mg/dL (75-99)
[2022-01-23 20:19] LABS: Glucose,Whole Blood 138 mg/dL (75-99)
[2022-01-23] MEDS: ATORVASTATIN 40 MG TAB PO SCH (20:31)
[2022-01-23] MEDS: OXYBUTYNIN 10 MG TAB.ER.24 PO SCH (20:31)
[2022-01-24] MEDS: methylPREDNISolone SOD SUCCI 125 MG/2 ML VIAL IV SCH ×5 (01:41→23:22)
[2022-01-24] MEDS: LEVOTHYROXINE 125 MCG TAB PO SCH (05:44)
[2022-01-24] MEDS: HYDROcodone/APAP 10-325MG 1 EACH TAB PO PRN ×3 (05:46→23:21)
[2022-01-24 07:05] LABS: Glucose,Whole Blood 156 mg/dL (75-99)
[2022-01-24] MEDS: CITALOPRAM HYDROBROMIDE 20 MG TAB PO SCH (08:19)
[2022-01-24] MEDS: ASPIRIN 81 MG PO SCH (08:19)
[2022-01-24] MEDS: PANTOPRAZOLE 40 MG TABLET PO SCH ×2 (08:19→21:25)
[2022-01-24] MEDS: ISOSORBIDE MONONITRATE ER 30 MG TAB.ER.24H PO SCH (08:19)
[2022-01-24] MEDS: FUROSEMIDE 40 MG TAB PO SCH ×2 (08:19→17:08)
[2022-01-24] MEDS: SPIRONOLACTONE 25 MG TAB PO SCH (08:19)
[2022-01-24] MEDS: atenoloL 25 MG TAB PO SCH (08:19)
[2022-01-24] MEDS: LOSARTAN 25 MG TAB PO SCH (08:19)
[2022-01-24] MEDS: ARIPiprazole 5 MG TAB PO SCH (08:19)
[2022-01-24] MEDS: DULoxetine HCL 30 MG CAPSULE.DR PO SCH (08:19)
[2022-01-24] MEDS: INSULIN ASPART (NovoLOG) 100 UNIT/ML VIAL SQ SCH ×4 (08:20→21:24)
[2022-01-24] MEDS: ENOXAPARIN 40 MG/0.4 ML SYRINGE SQ SCH (08:20)
[2022-01-24] MEDS: MULTIVITAMINS, THERA 1 EACH TAB PO SCH (08:20)
[2022-01-24] MEDS: FORMOTEROL FUMARATE 20 MCG/2 ML NEBU INHALATION SCH ×2 (08:52→21:04)
[2022-01-24] MEDS: IPRATROPIUM-ALBUTEROL 3 ML NEB INHALATION SCH ×4 (08:52→21:04)
[2022-01-24 10:53] LABS: Basophils # (A) 0.03 X 10*3/uL (0.00-0.10); Basophils % (A) 0.3 %; Eosinophils # (A) 0 X 10*3/uL (0.04-0.35); Eosinophils % (A) 0 %; HCT 38.8 % (37.2-46.3); HGB 12.2 g/dL (12.0-15.0); Immature Grans, Automated 1.8 %; Lymphocytes # (A) 0.93 X 10*3/uL (0.90-5.00); Lymphocytes % (A) 8.2 %; MCH 29.5 pg (27.0-32.0); MCHC 31.4 g/dL (32.0-37.0); MCV 93.9 fL (80.0-97.0); Mean Platelet Volume 10.4 fL (9.5-12.2); Monocytes % (A) 2.6 %; NRBC Per 100 WBC 0 /100 WBCS (0.0-0.0); Neutrophils # (A) 9.89 X 10*3/uL (1.80-7.70); Neutrophils % (A) 87.1 %; Platelet Count 277 X 10*3/uL (140-440); RBC 4.13 X 10*6/uL (4.10-5.20); RDW 13.8 % (11.5-14.5); WBC 11.36 X 10*3/uL (4.50-10.00)
[2022-01-24 11:03] LABS: Magnesium 2.2 mg/dL (1.5-2.4)
[2022-01-24 11:15] LABS: African American GFR (CKD) 101.7 (60.0-200.0); Albumin 3.8 g/dL (3.8-4.9); Albumin/Globulin Ratio 1.58 (1.60-3.17); Anion Gap 11.5 mmol/L (10.00-18.00); BUN/Creat Ratio 34.86 Ratio (12.00-20.00); Blood Urea Nitrogen 24.4 mg/dL (9.0-27.0); Calcium 9.4 mg/dL (8.7-10.3); Carbon Dioxide 25.5 mmol/L (20.0-27.5); Globulin 2.4 g/dL (1.6-3.3); Non-African American GFR(CKD) 87.8 (60.0-200.0); Potassium 4.3 mmol/L (3.5-5.5); Total Bilirubin 0.2 mg/dL (0.30-1.20); Total Protein 6.2 g/dL (6.2-8.2)
[2022-01-24 11:33] LABS: Glucose,Whole Blood 180 mg/dL (75-99)
--- NOTE | 2022-01-24 14:34 | P.PN ---
Subjective Progress Note Date: 01/24/22 Principal diagnosis: Shortness of breath This is a 71-year-old white female patient with past medical history of COPD, secondary pulmonary hypertension, CHF with preserved LV function and EF of 55- 60%, hypertension, hyperlipidemia, CAD with stent placement, osteoarthritis, for jeny smoker, depression. Patient has a Hx of obstructive sleep apnea with an AHI of 13.4, mild nocturnal oxygen desaturation. And her pulmonary hypertension was mild to moderate in severity with a PA pressure of 42 mmHg. Patient came into the emergency department on 01/21/2022 for difficulty breathing, and coughing which was worse keeping her up at night. Patient was also complaining of exertional dyspnea that was getting progressively worse over the past several days. She reports having the persistent cough for about 2 months, reports a mild headache. No compressive chest pain. However patient was febrile on admission with a temp of 101.7F. Patient had no known exposure to COVID-19 and she was vaccinated against COVID-19 with 2 shots. Her baseline FEV1 is 61% of predicted and FVC of 63% predicted, assisted with moderate obstruction and restriction. Chest x-ray showed no acute cardiopulmonary disease. Patient tested negative for influenza A and B, RSV and COVID-19. Lab work showed white blood cell, 12.4, hemoglobin is 13.8, INR is 0.9, d-dimer was negative at 0.31, sodium is 134, potassium is 3.4, the rest reflux less than renal profile were unremarkable. Plasma lactic acid is 1.4, troponin is negative 3 at less than 0.012, proBNP was 812, LFTs were within normal limits, lactic acid was within normal limits. Currently patient is on 2 L of oxygen with a pulse ox of 95%. She was started on empiric antibiotics in the form of azithromycin and Rocephin, she is on DuoNeb nebulized bronchodilators and IV steroids. On 01/23/2022 patient seen in follow-up. Patient is awake and alert, in no distress, room air pulse ox is 92%, she states her breathing is improving, she's had no acute events overnight, no fever or chills, vital signs have been stable. States she is breathing much easier. She remains on nebulized bronchodilators, she is on IV Solu-Medrol 60 mg every 6 hours. She is on empiric antibiotics. Echocardiogram has been completed showing normal LV size and systolic function, mild concentric LVH, enlargement of the right ventricle, moderate pulmonary hypertension. She denies any chest discomfort. She is being followed by cardiology services. On 01/24/2022 patient seen in follow-up on selective care unit. She is awake and alert, in no acute distress, she feels like there is some improvement since admission overall, however no major difference no major improvement compared to yesterday, still has expiratory wheezing, coughing, home oxygen assessment was completed, room air pulse ox was 96% however patient did desaturate to less than 85% on room air with ambulation, and became quite short of breath and bronchospastic. Patient remains on IV steroids, Pulmicort, Perforomist, DuoNeb, IV Solu-Medrol 60 mg every 6 hours. She is on home dose diuretics with Lasix 40 mg twice daily, and Aldactone. She remains on Rocephin however her pro- calcitonin level was negative, urinalysis showed no evidence of infection, patient has been afebrile. Objective - Vital Signs Vital signs: Vital Signs Temp 97.7 F 01/24/22 08:00 Pulse 63 01/24/22 12:17 Resp 16 01/24/22 08:00 BP 117/65 01/24/22 08:00 Pulse Ox 94 L 01/24/22 08:55 Intake & Output 01/23/22 01/24/22 01/24/22 18:59 06:59 18:59 Other: Voiding Method Toilet Toilet Toilet # Voids 3 1 - Exam GENERAL EXAM: Alert, very pleasant, 71-year-old white female frequent cough HEAD: Normocephalic/atraumatic. EYES: Normal reaction of pupils, equal size. Conjunctiva pink, sclera white. NOSE: Clear with pink turbinates. THROAT: No erythema or exudates. NECK: No masses, no JVD, no thyroid enlargement, no adenopathy. CHEST: No chest wall deformity. Symmetrical expansion. LUNGS: Equal air entry with diminished breath sounds, expiratory wheezing, CVS: Regular rate and rhythm, normal S1 and S2, no gallops, no murmurs, no rubs ABDOMEN: Soft, nontender. No hepatosplenomegaly, normal bowel sounds, no guarding or rigidity. EXTREMITIES: No clubbing, no edema, no cyanosis, 2+ pulses and upper and lower extremities. MUSCULOSKELETAL: Muscle strength and tone normal. SPINE: No scoliosis or deformity SKIN: No rashes CENTRAL NERVOUS SYSTEM: Alert and oriented -3. No focal deficits, tone is normal in all 4 extremities. PSYCHIATRIC: Alert and oriented -3. Appropriate affect. Intact judgment and insight. - Labs CBC & Chem 7: 01/24/22 04:56 01/24/22 04:56 Labs: Abnormal Lab Results - Last 24 Hours (Table) 01/23/22 01/23/22 01/24/22 Range/Units 16:26 20:15 04:56 WBC 11.36 H (4.50-10.00) X 10*3/uL MCHC 31.4 L (32.0-37.0) g/dL Immature Gran # 0.21 H (0.00-0.04) X 10*3/uL Neutrophils # 9.89 H (1.80-7.70) X 10*3/uL Eosinophils # 0 L (0.04-0.35) X 10*3/uL BUN/Creatinine Ratio (12.00-20.00) Ratio Glucose (70-110) mg/dL POC Glucose (mg/dL) 134 H 138 H (75-99) mg/dL Total Bilirubin (0.30-1.20) mg/dL Albumin/Globulin Ratio (1.60-3.17) g/dL 01/24/22 01/24/22 01/24/22 Range/Units 04:56 07:03 11:32 WBC (4.50-10.00) X 10*3/uL MCHC (32.0-37.0) g/dL Immature Gran # (0.00-0.04) X 10*3/uL Neutrophils # (1.80-7.70) X 10*3/uL Eosinophils # (0.04-0.35) X 10*3/uL BUN/Creatinine Ratio 34.86 H (12.00-20.00) Ratio Glucose 161 H (70-110) mg/dL POC Glucose (mg/dL) 156 H 180 H (75-99) mg/dL Total Bilirubin 0.20 L (0.30-1.20) mg/dL Albumin/Globulin Ratio 1.58 L (1.60-3.17) g/dL Microbiology - Last 24 Hours (Table) 01/21/22 12:51 Blood Culture - Preliminary Blood No Growth after 48 hours 01/21/22 12:51 Blood Culture - Preliminary Blood No Growth after 48 hours Assessment and Plan Plan: Assessment: Acute hypoxic respiratory failure related to acute exacerbation of COPD Fever, rule out possibility of underlying infection, chest x-ray showed no acute cardiopulmonary disease, CT of the chest without contrast showed mild subsegment al atelectasis Steroid-induced hyperglycemia Stage II COPD, not oxygen dependent, with baseline FEV1 of 61% of predicted as of 2018 Morbid obesity with BMI 40.5 kg prescribed meter Mild sleep apnea Secondary pulmonary hypertension, [id number] History of CHF with preserved EF Coronary artery disease with previous stenting Former smoker Depression Plan: Continue current medical treatment Patient continues to require oxygen Still bronchospastic, and having coughing bouts With continue with IV steroids, nebulized bronchodilators No fever or chills We will reevaluate again tomorrow I have seen and examined the patient, performed the documentation and the assessment and plan as written. Number of minutes spent on the visit: [10] I have personally seen and examined the patient and reviewed the documentation. I performed a joint evaluation with the nurse practitioner in this evaluation was done more than 20 minutes. I fully agree with the documentation above and the plan of care. The patient is reporting limited improvement since yesterday. We'll continue same treatment with bronchodilators and steroids. No need for any further adjustments. Her cough is still active and the patient seems to be still bronchospastic. She will benefit insulin 24 hours of inpatient treatment. Time with Patient: Less than 30
--- NOTE | 2022-01-24 16:19 | P.PN ---
Subjective Progress Note Date: 01/24/22 Principal diagnosis: COPD exacerbation 71-year-old female history of multiple medical problems including COPD who states he has been having shortness of breath and cough for the past 2 months and get worse the past week. The cough is dry without sputum production. Chest x-ray in emergency room was negative for pneumonia. Patient stated that his shortness of breath is worse with exertion. Patient denies nausea vomiting diarrhea or constipation. Patient denies any chest pain. The patient denies any recent sick contacts. She has chronic lower extremity edema patient left lower extremities. Patient denies any recent exposure to Covid 19 or influenza 01/24 patient was seen and examined at bedside. Patient continues to report some shortness of breath. She is still having some mild wheezing. Overall she has significantly improved. Pulmonary care team is following Objective - Vital Signs Vital signs: Vital Signs Temp 97.9 F 01/24/22 14:58 Pulse 62 01/24/22 16:14 Resp 18 01/24/22 14:58 BP 110/67 01/24/22 14:58 Pulse Ox 96 01/24/22 14:58 Intake & Output 01/23/22 01/24/22 01/24/22 18:59 06:59 18:59 Other: Voiding Method Toilet Toilet Toilet # Voids 3 1 - Labs CBC & Chem 7: 01/24/22 04:56 01/24/22 04:56 Labs: Abnormal Lab Results - Last 24 Hours (Table) 01/23/22 01/23/22 01/24/22 Range/Units 16:26 20:15 04:56 WBC 11.36 H (4.50-10.00) X 10*3/uL MCHC 31.4 L (32.0-37.0) g/dL Immature Gran # 0.21 H (0.00-0.04) X 10*3/uL Neutrophils # 9.89 H (1.80-7.70) X 10*3/uL Eosinophils # 0 L (0.04-0.35) X 10*3/uL BUN/Creatinine Ratio (12.00-20.00) Ratio Glucose (70-110) mg/dL POC Glucose (mg/dL) 134 H 138 H (75-99) mg/dL Total Bilirubin (0.30-1.20) mg/dL Albumin/Globulin Ratio (1.60-3.17) g/dL 01/24/22 01/24/22 01/24/22 Range/Units 04:56 07:03 11:32 WBC (4.50-10.00) X 10*3/uL MCHC (32.0-37.0) g/dL Immature Gran # (0.00-0.04) X 10*3/uL Neutrophils # (1.80-7.70) X 10*3/uL Eosinophils # (0.04-0.35) X 10*3/uL BUN/Creatinine Ratio 34.86 H (12.00-20.00) Ratio Glucose 161 H (70-110) mg/dL POC Glucose (mg/dL) 156 H 180 H (75-99) mg/dL Total Bilirubin 0.20 L (0.30-1.20) mg/dL Albumin/Globulin Ratio 1.58 L (1.60-3.17) g/dL Microbiology - Last 24 Hours (Table) 01/21/22 12:51 Blood Culture - Preliminary Blood No Growth after 72 hours 01/21/22 12:51 Blood Culture - Preliminary Blood No Growth after 72 hours Assessment and Plan (1) COPD (chronic obstructive pulmonary disease) Current Visit: Yes Status: Acute Code(s): J44.9 - CHRONIC OBSTRUCTIVE PULMONARY DISEASE, UNSPECIFIED SNOMED Code(s): 69534428 Plan: Assessment and plan: #Acute bronchitis with COPD exacerbation #Acute hypoxic respiratory failure secondary to COPD exacerbation -Symptoms improving. She remains on IV Solu-Medrol. Pulmonary team is following. Recommending holding patient for one more day on current treatment. -Patient currently on 2 L oxygen support to maintain O2 saturation greater than 90% -Radiology imaging does not show evidence of pneumonia -Currently on empiric treatment. Continue with ceftriaxone -Bronchodilator treatmenT #Fever -Computed tomography scan of the chest was negative for pneumonia -Negative COVID-19 and influenza -Blood culture 2 ordered in the emergency room -Patient now remains afebrile #Coronary disease status post stents 2 in 2006 -Patient denies any chest pain -EKG shows sinus rhythm with nonspecific ST segment or T-wave changes -Cardiology consulted. Echocardiogram does not show evidence of ischemic changes. Cardiology team has now signed off on clear patient for discharge -Cardiology team recommending outpatient follow-up and outpatient stress test imaging #History of pulmonary hypertension -Likely precipitated from [facility] #Obesity BMI is 40 -A1c 5.6, TSH #Obstructive sleep apnea on CPAP #Reformed smoker #Hypothyroidism -Resume home medications #Hypertension -Resume home medications #Full code #DVT prophylaxis with Lovenox Anticipated discharge within the next 24 hours when pulmonary critical care team clears.
[2022-01-24 16:34] LABS: Glucose,Whole Blood 125 mg/dL (75-99)
[2022-01-24 20:59] LABS: Glucose,Whole Blood 197 mg/dL (75-99)
[2022-01-24] MEDS: OXYBUTYNIN 10 MG TAB.ER.24 PO SCH (21:25)
[2022-01-24] MEDS: ATORVASTATIN 40 MG TAB PO SCH (21:25)
[2022-01-25] MEDS: methylPREDNISolone SOD SUCCI 125 MG/2 ML VIAL IV SCH ×3 (05:22→18:05)
[2022-01-25] MEDS: HYDROcodone/APAP 10-325MG 1 EACH TAB PO PRN ×3 (05:22→20:45)
[2022-01-25 06:58] LABS: Glucose,Whole Blood 158 mg/dL (75-99)
[2022-01-25 08:02] VITALS: RESP 18
[2022-01-25] MEDS: IPRATROPIUM-ALBUTEROL 3 ML NEB INHALATION SCH ×4 (08:25→20:54)
[2022-01-25] MEDS: FORMOTEROL FUMARATE 20 MCG/2 ML NEBU INHALATION SCH ×2 (08:28→20:54)
[2022-01-25] MEDS: ENOXAPARIN 40 MG/0.4 ML SYRINGE SQ SCH (08:42)
[2022-01-25] MEDS: DULoxetine HCL 30 MG CAPSULE.DR PO SCH (08:42)
[2022-01-25] MEDS: FUROSEMIDE 40 MG TAB PO SCH ×2 (08:42→18:05)
[2022-01-25] MEDS: INSULIN ASPART (NovoLOG) 100 UNIT/ML VIAL SQ SCH ×4 (08:42→20:43)
[2022-01-25] MEDS: MULTIVITAMINS, THERA 1 EACH TAB PO SCH (08:42)
[2022-01-25] MEDS: LOSARTAN 25 MG TAB PO SCH (08:42)
[2022-01-25] MEDS: LEVOTHYROXINE 125 MCG TAB PO SCH ×2 (08:43→08:50)
[2022-01-25] MEDS: SPIRONOLACTONE 25 MG TAB PO SCH (08:43)
[2022-01-25] MEDS: ISOSORBIDE MONONITRATE ER 30 MG TAB.ER.24H PO SCH (08:43)
[2022-01-25] MEDS: atenoloL 25 MG TAB PO SCH (08:43)
[2022-01-25] MEDS: ASPIRIN 81 MG PO SCH (08:43)
[2022-01-25] MEDS: CITALOPRAM HYDROBROMIDE 20 MG TAB PO SCH (08:43)
[2022-01-25] MEDS: ARIPiprazole 5 MG TAB PO SCH (08:43)
[2022-01-25] MEDS: PANTOPRAZOLE 40 MG TABLET PO SCH ×2 (08:43→20:43)
[2022-01-25 11:30] LABS: Glucose,Whole Blood 158 mg/dL (75-99)
--- NOTE | 2022-01-25 15:42 | P.PN ---
Subjective Progress Note Date: 01/25/22 Principal diagnosis: Shortness of breath Patient is still feeling short of breath today. She is feeling better but not 100%. He had walking evaluation today by her nurse and her O2 sats dropped to 82% on room air. No fevers, chills, no pain. Objective - Vital Signs Vital signs: Vital Signs Temp 97.9 F 01/25/22 14:00 Pulse 62 01/25/22 14:00 Resp 18 01/25/22 14:00 BP 111/65 01/25/22 14:00 Pulse Ox 95 01/25/22 14:00 Intake & Output 01/24/22 01/25/22 01/25/22 18:59 06:59 18:59 Intake Total 50 Balance 50 Intake: Intake, IV Titration 50 Amount cefTRIAXone 2 gm In 50 Sodium Chloride 0.9% 50 ml @ 100 mls/hr IVPB Q24HR [facility] Rx#:[id number] Other: Voiding Method Toilet Toilet Toilet # Voids 3 - Exam Constitutional: No acute distress, conversant, pleasant Eyes:Anicteric sclerae, moist conjunctiva, no lid-lag, PERRLA, ENMT: Oropharynx clear, no erythema, exudates Neck: Supple, FROM, no masses, or JVD, No carotid bruits, No thyromegaly Lungs: Bilateral rhonchi, scattered wheezing, Clear to percussion, Normal respiratory effort, no accessory muscle use Cardiovascular: Heart regular in rate and rhythm, No murmurs, gallops, or rubs, No peripheral edema Abdominal: Soft, Nontender, no guarding, rebound or rigidity, Normoactive bowel sounds, No hepatomegaly, No splenomegaly, No palpable mass Skin: Normal temperature, tone, texture, turgor, no induration, No subcutaneous nodules, No rash, lesions, No ulcers Extremities: No digital cyanosis, No clubbing, Pedal pulses intact and symmetrical, Radial pulses intact and symmetrical, No calf tenderness Psychiatric: Alert and oriented to person, place and time, appropriate affect, intact judgement Neuro: Muscles Strength 5/5 in all 4 extremities, Sensation to light touch grossly present throughout, Cranial nerves II-XII grossly intact, no focal sensory deficits - Labs CBC & Chem 7: 01/24/22 04:56 01/24/22 04:56 Labs: Abnormal Lab Results - Last 24 Hours (Table) 01/24/22 01/24/22 01/25/22 Range/Units 16:33 20:39 06:57 POC Glucose (mg/dL) 125 H 197 H 158 H (75-99) mg/dL 01/25/22 Range/Units 11:29 POC Glucose (mg/dL) 158 H (75-99) mg/dL Microbiology - Last 24 Hours (Table) 01/21/22 12:51 Blood Culture - Preliminary Blood No Growth after 96 hours 01/21/22 12:51 Blood Culture - Preliminary Blood No Growth after 96 hours Assessment and Plan Plan: #Acute bronchitis with COPD exacerbation #Acute hypoxic respiratory failure secondary to COPD exacerbation -Symptoms improving. -Pulmonary team is following. -Patient currently on 2 L oxygen support to maintain O2 saturation greater than 90% -Radiology imaging does not show evidence of pneumonia -Currently on empiric treatment. Continue with ceftriaxone -Bronchodilator treatment and steroids #Fever -Computed tomography scan of the chest was negative for pneumonia -Negative COVID-19 and influenza -Blood culture 2 ordered in the emergency room -Patient now remains afebrile #Coronary disease status post stents 2 in 2006 -Patient denies any chest pain -EKG shows sinus rhythm with nonspecific ST segment or T-wave changes -Cardiology consulted. Echocardiogram does not show evidence of ischemic changes. Cardiology team has now signed off on clear patient for discharge -Cardiology team recommending outpatient follow-up and outpatient stress test imaging #History of pulmonary hypertension -Likely precipitated from [facility] #Obesity BMI is 40 -A1c 5.6, TSH #Obstructive sleep apnea on CPAP #Reformed smoker #Hypothyroidism -Resume home medications #Hypertension -Resume home medications #Full code #DVT prophylaxis with Lovenox
[2022-01-25 16:57] LABS: Glucose,Whole Blood 154 mg/dL (75-99)
--- NOTE | 2022-01-25 16:57 | P.PN ---
Subjective Progress Note Date: 01/25/22 This is a 71-year-old white female patient with past medical history of COPD, secondary pulmonary hypertension, CHF with preserved LV function and EF of 55- 60%, hypertension, hyperlipidemia, CAD with stent placement, osteoarthritis, former smoker, depression. Patient has a Hx of obstructive sleep apnea with an AHI of 13.4, mild nocturnal oxygen desaturation. And her pulmonary hypertension was mild to moderate in severity with a PA pressure of 42 mmHg. Patient came into the emergency department on 01/21/2022 for difficulty breathing, and coughing which was worse keeping her up at night. Patient was also complaining of exertional dyspnea that was getting progressively worse over the past several days. She reports having the persistent cough for about 2 months, reports a mild headache. No compressive chest pain. However patient was febrile on admission with a temp of 101.7F. Patient had no known exposure to COVID-19 and she was vaccinated against COVID-19 with 2 shots. Her baseline FEV1 is 61% of predicted and FVC of 63% predicted, assisted with moderate obstruction and restriction. Chest x-ray showed no acute cardiopulmonary disease. Patient tested negative for influenza A and B, RSV and COVID-19. Lab work showed white blood cell, 12.4, hemoglobin is 13.8, INR is 0.9, d-dimer was negative at 0.31, sodium is 134, potassium is 3.4, the rest reflux less than renal profile were unremarkable. Plasma lactic acid is 1.4, troponin is negative 3 at less than 0.012, proBNP was 812, LFTs were within normal limits, lactic acid was within normal limits. Currently patient is on 2 L of oxygen with a pulse ox of 95%. She was started on empiric antibiotics in the form of azithromycin and Rocephin, she is on DuoNeb nebulized bronchodilators and IV steroids. On 01/23/2022 patient seen in follow-up. Patient is awake and alert, in no distress, room air pulse ox is 92%, she states her breathing is improving, she's had no acute events overnight, no fever or chills, vital signs have been stable. States she is breathing much easier. She remains on nebulized bronchodilators, she is on IV Solu-Medrol 60 mg every 6 hours. She is on empiric antibiotics. Echocardiogram has been completed showing normal LV size and systolic function, mild concentric LVH, enlargement of the right ventricle, moderate pulmonary hypertension. She denies any chest discomfort. She is being followed by cardiology services. On 01/24/2022 patient seen in follow-up on selective care unit. She is awake and alert, in no acute distress, she feels like there is some improvement since admission overall, however no major difference no major improvement compared to yesterday, still has expiratory wheezing, coughing, home oxygen assessment was completed, room air pulse ox was 96% however patient did desaturate to less than 85% on room air with ambulation, and became quite short of breath and bro nchospastic. Patient remains on IV steroids, Pulmicort, Perforomist, DuoNeb, IV Solu-Medrol 60 mg every 6 hours. She is on home dose diuretics with Lasix 40 mg twice daily, and Aldactone. She remains on Rocephin however her pro-calcitonin level was negative, urinalysis showed no evidence of infection, patient has been afebrile. 01/25/2022, the patient is no specific complaints. Condition is probably slightly better although the patient subjectively does not feel it. She is less bronchospastic and examination. She is on DuoNeb and O2 was around the clock, she is on IV Solu-Medrol, she is on Lovenox for prophylaxis. She remains on IV Rocephin. No new onset problems. No new blood work from today. Blood sugars have nonelevated at this point in time. Objective - Vital Signs Vital signs: Vital Signs Temp 97.9 F 01/25/22 14:00 Pulse 70 01/25/22 16:31 Resp 18 01/25/22 14:00 BP 111/65 01/25/22 14:00 Pulse Ox 95 01/25/22 14:00 Intake & Output 01/24/22 01/25/22 01/25/22 18:59 06:59 18:59 Intake Total 50 Balance 50 Intake: Intake, IV Titration 50 Amount cefTRIAXone 2 gm In 50 Sodium Chloride 0.9% 50 ml @ 100 mls/hr IVPB Q24HR [facility] Rx#:[id number] Other: Voiding Method Toilet Toilet Toilet # Voids 3 - Exam GENERAL EXAM: Alert, very pleasant, 71-year-old white female frequent cough HEAD: Normocephalic/atraumatic. EYES: Normal reaction of pupils, equal size. Conjunctiva pink, sclera white. NOSE: Clear with pink turbinates. THROAT: No erythema or exudates. NECK: No masses, no JVD, no thyroid enlargement, no adenopathy. CHEST: No chest wall deformity. Symmetrical expansion. LUNGS: Equal air entry with diminished breath sounds, expiratory wheezing, CVS: Regular rate and rhythm, normal S1 and S2, no gallops, no murmurs, no rubs ABDOMEN: Soft, nontender. No hepatosplenomegaly, normal bowel sounds, no guarding or rigidity. EXTREMITIES: No clubbing, no edema, no cyanosis, 2+ pulses and upper and lower extremities. MUSCULOSKELETAL: Muscle strength and tone normal. SPINE: No scoliosis or deformity SKIN: No rashes CENTRAL NERVOUS SYSTEM: Alert and oriented -3. No focal deficits, tone is normal in all 4 extremities. PSYCHIATRIC: Alert and oriented -3. Appropriate affect. Intact judgment and insight. - Labs CBC & Chem 7: 01/24/22 04:56 01/24/22 04:56 Labs: Abnormal Lab Results - Last 24 Hours (Table) 01/24/22 01/25/22 01/25/22 Range/Units 20:39 06:57 11:29 POC Glucose (mg/dL) 197 H 158 H 158 H (75-99) mg/dL Microbiology - Last 24 Hours (Table) 01/21/22 12:51 Blood Culture - Preliminary Blood No Growth after 96 hours 01/21/22 12:51 Blood Culture - Preliminary Blood No Growth after 96 hours Assessment and Plan Plan: Assessment: Acute hypoxic respiratory failure related to acute exacerbation of COPD Fever, rule out possibility of underlying infection, chest x-ray showed no acute cardiopulmonary disease, CT of the chest without contrast showed mild subsegmental atelectasis Steroid-induced hyperglycemia Stage II COPD, not oxygen dependent, with baseline FEV1 of 61% of predicted as of 2018 Morbid obesity with BMI 40.5 kg prescribed meter Mild sleep apnea Secondary pulmonary hypertension, [id number] History of CHF with preserved EF Coronary artery disease with previous stenting Former smoker Depression Plan: Continue current medical treatment Continue DuoNeb nebulized she minutes Start the patient on a prednisone burst taper as of tomorrow, for today we'll keep her on IV Solu-Medrol. Breasts of the medication was reviewed. No other adjustments from the pulmonary standpoint Arrange home nebulizer
[2022-01-25 20:18] LABS: Glucose,Whole Blood 202 mg/dL (75-99)
[2022-01-25] MEDS: ATORVASTATIN 40 MG TAB PO SCH (20:43)
[2022-01-26] MEDS: methylPREDNISolone SOD SUCCI 125 MG/2 ML VIAL IV SCH ×2 (00:06→05:28)
[2022-01-26] MEDS: HYDROcodone/APAP 10-325MG 1 EACH TAB PO PRN ×2 (02:33→09:23)
[2022-01-26] MEDS: LEVOTHYROXINE 125 MCG TAB PO SCH (05:28)
[2022-01-26 06:56] LABS: Glucose,Whole Blood 154 mg/dL (75-99)
[2022-01-26] MEDS: FORMOTEROL FUMARATE 20 MCG/2 ML NEBU INHALATION SCH (08:49)
[2022-01-26] MEDS: IPRATROPIUM-ALBUTEROL 3 ML NEB INHALATION SCH ×3 (08:49→16:21)
[2022-01-26] MEDS: ISOSORBIDE MONONITRATE ER 30 MG TAB.ER.24H PO SCH (09:20)
[2022-01-26] MEDS: atenoloL 25 MG TAB PO SCH (09:20)
[2022-01-26] MEDS: CITALOPRAM HYDROBROMIDE 20 MG TAB PO SCH (09:20)
[2022-01-26] MEDS: ASPIRIN 81 MG PO SCH (09:20)
[2022-01-26] MEDS: ENOXAPARIN 40 MG/0.4 ML SYRINGE SQ SCH (09:20)
[2022-01-26] MEDS: MULTIVITAMINS, THERA 1 EACH TAB PO SCH (09:20)
[2022-01-26] MEDS: DULoxetine HCL 30 MG CAPSULE.DR PO SCH (09:20)
[2022-01-26] MEDS: ARIPiprazole 5 MG TAB PO SCH (09:20)
[2022-01-26] MEDS: PANTOPRAZOLE 40 MG TABLET PO SCH (09:20)
[2022-01-26] MEDS: LOSARTAN 25 MG TAB PO SCH (09:20)
[2022-01-26] MEDS: SPIRONOLACTONE 25 MG TAB PO SCH (09:20)
[2022-01-26] MEDS: INSULIN ASPART (NovoLOG) 100 UNIT/ML VIAL SQ SCH ×2 (09:21→12:39)
[2022-01-26] MEDS: FUROSEMIDE 40 MG TAB PO SCH (09:23)
[2022-01-26 11:09] LABS: Glucose,Whole Blood 148 mg/dL (75-99)
--- NOTE | 2022-01-26 13:18 | P.PN ---
Subjective Progress Note Date: 01/26/22 Principal diagnosis: Shortness of breath This is a 71-year-old white female patient with past medical history of COPD, secondary pulmonary hypertension, CHF with preserved LV function and EF of 55- 60%, hypertension, hyperlipidemia, CAD with stent placement, osteoarthritis, for jeny smoker, depression. Patient has a Hx of obstructive sleep apnea with an AHI of 13.4, mild nocturnal oxygen desaturation. And her pulmonary hypertension was mild to moderate in severity with a PA pressure of 42 mmHg. Patient came into the emergency department on 01/21/2022 for difficulty breathing, and coughing which was worse keeping her up at night. Patient was also complaining of exertional dyspnea that was getting progressively worse over the past several days. She reports having the persistent cough for about 2 months, reports a mild headache. No compressive chest pain. However patient was febrile on admission with a temp of 101.7F. Patient had no known exposure to COVID-19 and she was vaccinated against COVID-19 with 2 shots. Her baseline FEV1 is 61% of predicted and FVC of 63% predicted, assisted with moderate obstruction and restriction. Chest x-ray showed no acute cardiopulmonary disease. Patient tested negative for influenza A and B, RSV and COVID-19. Lab work showed white blood cell, 12.4, hemoglobin is 13.8, INR is 0.9, d-dimer was negative at 0.31, sodium is 134, potassium is 3.4, the rest reflux less than renal profile were unremarkable. Plasma lactic acid is 1.4, troponin is negative 3 at less than 0.012, proBNP was 812, LFTs were within normal limits, lactic acid was within normal limits. Currently patient is on 2 L of oxygen with a pulse ox of 95%. She was started on empiric antibiotics in the form of azithromycin and Rocephin, she is on DuoNeb nebulized bronchodilators and IV steroids. On 01/23/2022 patient seen in follow-up. Patient is awake and alert, in no distress, room air pulse ox is 92%, she states her breathing is improving, she's had no acute events overnight, no fever or chills, vital signs have been stable. States she is breathing much easier. She remains on nebulized bronchodilators, she is on IV Solu-Medrol 60 mg every 6 hours. She is on empiric antibiotics. Echocardiogram has been completed showing normal LV size and systolic function, mild concentric LVH, enlargement of the right ventricle, moderate pulmonary hypertension. She denies any chest discomfort. She is being followed by cardiology services. On 01/24/2022 patient seen in follow-up on selective care unit. She is awake and alert, in no acute distress, she feels like there is some improvement since admission overall, however no major difference no major improvement compared to yesterday, still has expiratory wheezing, coughing, home oxygen assessment was completed, room air pulse ox was 96% however patient did desaturate to less than 85% on room air with ambulation, and became quite short of breath and bronchospastic. Patient remains on IV steroids, Pulmicort, Perforomist, DuoNeb, IV Solu-Medrol 60 mg every 6 hours. She is on home dose diuretics with Lasix 40 mg twice daily, and Aldactone. She remains on Rocephin however her pro- calcitonin level was negative, urinalysis showed no evidence of infection, patient has been afebrile. On 01/26/2022 patient seen in follow-up on medical surgical floor. Patient is improving, vital signs have been stable, she is on 2 L of oxygen pulse ox is 96%, no fever or chills. Still has a mildly persistent cough, no phlegm production, no chest discomfort. She remains on steroids, nebulized bronchodilators. She has been able to tolerate ambulation. No new labs. Procan SR level was negative, no fever or chills, she remains on empiric Rocephin for tracheobronchitis. Objective - Vital Signs Vital signs: Vital Signs Temp 97.6 F 01/26/22 08:00 Pulse 52 L 01/26/22 12:37 Resp 18 01/26/22 08:00 BP 133/73 01/26/22 08:00 Pulse Ox 96 01/26/22 09:03 Intake & Output 01/25/22 01/26/22 01/26/22 18:59 06:59 18:59 Intake Total 700 400 Balance 700 400 Intake: Intake, IV Titration 50 100 Amount cefTRIAXone 2 gm In 50 100 Sodium Chloride 0.9% 50 ml @ 100 mls/hr IVPB Q24HR CHARLIE Rx#:[id number] Oral 650 300 Other: Voiding Method Toilet Toilet # Voids 3 4 - Exam GENERAL EXAM: Alert, very pleasant, 71-year-old white female frequent cough HEAD: Normocephalic/atraumatic. EYES: Normal reaction of pupils, equal size. Conjunctiva pink, sclera white. NOSE: Clear with pink turbinates. THROAT: No erythema or exudates. NECK: No masses, no JVD, no thyroid enlargement, no adenopathy. CHEST: No chest wall deformity. Symmetrical expansion. LUNGS: Equal air entry with diminished breath sounds, expiratory wheezing, CVS: Regular rate and rhythm, normal S1 and S2, no gallops, no murmurs, no rubs ABDOMEN: Soft, nontender. No hepatosplenomegaly, normal bowel sounds, no guarding or rigidity. EXTREMITIES: No clubbing, no edema, no cyanosis, 2+ pulses and upper and lower extremities. MUSCULOSKELETAL: Muscle strength and tone normal. SPINE: No scoliosis or deformity SKIN: No rashes CENTRAL NERVOUS SYSTEM: Alert and oriented -3. No focal deficits, tone is normal in all 4 extremities. PSYCHIATRIC: Alert and oriented -3. Appropriate affect. Intact judgment and insight. - Labs CBC & Chem 7: 01/24/22 04:56 01/24/22 04:56 Labs: Abnormal Lab Results - Last 24 Hours (Table) 01/25/22 01/25/22 01/26/22 Range/Units 16:55 20:15 06:54 POC Glucose (mg/dL) 154 H 202 H 154 H (75-99) mg/dL 01/26/22 Range/Units 11:07 POC Glucose (mg/dL) 148 H (75-99) mg/dL Microbiology - Last 24 Hours (Table) 01/21/22 12:51 Blood Culture - Preliminary Blood No Growth after 96 hours 01/21/22 12:51 Blood Culture - Preliminary Blood No Growth after 96 hours Assessment and Plan Plan: Assessment: Acute hypoxic respiratory failure related to acute exacerbation of COPD Fever, rule out possibility of underlying infection, chest x-ray showed no acute cardiopulmonary disease, CT of the chest without contrast showed mild sub segmental atelectasis Steroid-induced hyperglycemia Stage II COPD, not oxygen dependent, with baseline FEV1 of 61% of predicted as of 2018 Morbid obesity with BMI 40.5 kg prescribed meter Mild sleep apnea Secondary pulmonary hypertension, [id number] History of CHF with preserved EF Coronary artery disease with previous stenting Former smoker Depression Plan: Patient is improving Patient can be switched over to oral prednisone Continue nebulized bronchodilators She's been tolerating ambulation She has oxygen set up for home use No acute events overnight Consider discharge home today, she can resume her Anoro Ellipta, she can finish prednisone taper, antibiotics could be discontinued at discharge Outpatient follow-up with Dr. Jara in the office in 7-10 days I have seen and examined the patient, performed the documentation and the assessment and plan as written. Number of minutes spent on the visit: [10] I have personally seen and examined the patient and reviewed the documentation. I performed a joint evaluation with the nurse practitioner in this evaluation was done more than 12 minutes. I fully agree with the documentation above and the plan of care. Arrange home O2. Arrange nebulizer. This is a patient home on a prednisone burst taper followed up with me in the office. Time with Patient: Less than 30
--- NOTE | 2022-01-26 14:06 | P.DS ---
Providers Date of admission: 01/21/22 15:05 Expected date of discharge: 01/26/22 Attending physician: Lianne Vail MD Consults: 01/21/22 15:44 Consult Physician Routine Consulting Provider: Flex Macedo Consult Reason/Comments: Exertional dyspnea history of stents Do you want consulting provider notified?: Yes 01/21/22 16:30 Consult Physician Routine Consulting Provider: Tim Jara Consult Reason/Comments: copd exacerbation Do you want consulting provider notified?: Yes Primary care physician: [facility] Course: 71-year-old white female patient with past medical history of COPD, secondary pulmonary hypertension, CHF with preserved LV function and EF of 55-60%, hypertension, hyperlipidemia, CAD with stent placement, osteoarthritis, former smoker, depression, obstructive sleep apnea, pulmonary hypertension who came into the emergency department on 01/21/2022 for difficulty breathing, and coughing which was worse keeping her up at night. Patient was also complaining of exertional dyspnea that was getting progressively worse over the past several days. She reports having the persistent cough for about 2 months, reports a mild headache. No chest pain. However patient was febrile on admission with a temp of 101.7F. Work up with chest x-ray showed no acute cardiopulmonary disease. Patient tested negative for influenza A and B, RSV and COVID-19. Lab work showed white blood cell, 12.4, hemoglobin is 13.8, INR is 0.9, d-dimer was negative at 0.31, sodium is 134, potassium is 3.4, plasma lactic acid is 1.4, troponin is negative 3 at less than 0.012, proBNP was 812, LFTs were within normal limits, lactic acid was within normal limits. She was admitted, was started on empiric antibiotics in the form of azithromycin and Rocephin, as well as DuoNeb nebulized bronchodilators and IV steroids. Due to cardiac hx she was seen by cardiology, had an echo which showed old known pulm hypertenson. No CHF was diagnosed by cardio. Pulm evaluated her and she was diagnosed with acute hypoxic respiratory failure related to acute exacerbation of COPD. Upon discharge she had walking evaluation and her O2 dropped to 83% on RA. She will be given O2 upon discharge. She is currently feeling better. Will be sent home in a stable condition. Time for discharge 35 min Patient Condition at Discharge: Fair Plan - Discharge Summary Discharge Rx Participant: No New Discharge Prescriptions: New methylPREDNISolone Dose Pack [Medrol Dose Pack] 4 mg PO DIRECTED #1 packet Continue Omeprazole 40 mg PO BID HYDROcodone/APAP 10-325MG [[place] 10-325] 1 tab PO QID Atorvastatin Calcium [Lipitor] 40 mg PO HS Furosemide [Lasix] 40 mg PO BID Umeclidinium Brm/Vilanterol Tr [Anoro Ellipta 62.5-25 Mcg INH] 1 puff INHALATION RT-DAILY Levothyroxine Sodium [Synthroid] 125 mcg PO DAILY ARIPiprazole [Abilify] 5 mg PO DAILY Oxybutynin Chloride 5 mg PO TID PRN PRN Reason: OVERACTIVE BLADDER DULoxetine HCL [Cymbalta] 90 mg PO DAILY Multivitamins, Thera [Multivitamin (formulary)] 1 tab PO DAILY Losartan Potassium 50 mg PO DAILY rOPINIRole HCL [Requip] 0.25 mg PO HS Discharge Medication List HYDROcodone/APAP 10-325MG [[place] 10-325] 1 tab PO QID 05/03/15 [History] Omeprazole 40 mg PO BID 05/03/15 [History] Atorvastatin Calcium [Lipitor] 40 mg PO HS 06/07/17 [History] Furosemide [Lasix] 40 mg PO BID 09/16/17 [History] Umeclidinium Brm/Vilanterol Tr [Anoro Ellipta 62.5-25 Mcg INH] 1 puff INHALATION RT-DAILY 10/27/20 [History] Levothyroxine Sodium [Synthroid] 125 mcg PO DAILY 12/15/20 [History] ARIPiprazole [Abilify] 5 mg PO DAILY 01/21/22 [History] DULoxetine HCL [Cymbalta] 90 mg PO DAILY 01/21/22 [History] Losartan Potassium 50 mg PO DAILY 01/21/22 [History] Multivitamins, Thera [Multivitamin (formulary)] 1 tab PO DAILY 01/21/22 [History] Oxybutynin Chloride 5 mg PO TID PRN 01/21/22 [History] rOPINIRole HCL [Requip] 0.25 mg PO HS 01/21/22 [History] methylPREDNISolone Dose Pack [Medrol Dose Pack] 4 mg PO DIRECTED #1 packet 01/26/22 [Rx] Follow up Appointment(s)/Referral(s): Flex Macedo MD [STAFF PHYSICIAN] - 01/29/22 9:30 am (Need stress test as an OP) [facility],Equipment [NON-STAFF] - (call [facility] when you get home and they will deliver O2 concentrator) Tim Jara MD [STAFF PHYSICIAN] - 02/20/22 3:30 pm Jose Blank [Primary Care Provider] - 1-2 days (Office closed Fridays. Pleas e call Saturday for your appointment.) Activity/Diet/Wound Care/Special Instructions: Patient requires oxygen to manage copd
[2022-01-26 15:14] VITALS: BP 118/54; PULSE 57; TEMP 97.8
[2022-01-27] MEDS ORDERED: predniSONE 20 MG TAB PO SCH (09:00)
== END 2022-01-26 17:02 | disposition home or self-care (01) ==
LOC: EC 11:39 → INTOOBSV 15:05 → 4SSUR 15:05 → UNDODISIN 01-26 17:02
PROVIDERS: ADMIT Hospitalist; ATTEND Hospitalist
DX: J44.1 Chronic obstructive pulmonary disease with (acute) exacerbation (principal); J96.01 Acute respiratory failure with hypoxia; J44.0 Chronic obstructive pulmonary disease with (acute) lower respiratory infection; J20.9 Acute bronchitis, unspecified; I11.0 Hypertensive heart disease with heart failure; I50.9 Heart failure, unspecified; I27.29 Other secondary pulmonary hypertension; I25.10 Atherosclerotic heart disease of native coronary artery without angina pectoris; I08.1 Rheumatic disorders of both mitral and tricuspid valves; I25.2 Old myocardial infarction; R73.9 Hyperglycemia, unspecified; T38.0X5A Adverse effect of glucocorticoids and synthetic analogues, initial encounter; G47.33 Obstructive sleep apnea (adult) (pediatric); K21.9 Gastro-esophageal reflux disease without esophagitis; E78.5 Hyperlipidemia, unspecified; E03.9 Hypothyroidism, unspecified; I89.0 Lymphedema, not elsewhere classified; E66.01 Morbid (severe) obesity due to excess calories; Z68.41 Body mass index [BMI] 40.0-44.9, adult; J98.11 Atelectasis; M19.90 Unspecified osteoarthritis, unspecified site; F32.A Depression, unspecified; Z79.82 Long term (current) use of aspirin; Z79.890 Hormone replacement therapy; Z79.899 Other long term (current) drug therapy; Z87.891 Personal history of nicotine dependence; Z95.5 Presence of coronary angioplasty implant and graft; Z90.710 Acquired absence of both cervix and uterus; Z96.612 Presence of left artificial shoulder joint; Z90.49 Acquired absence of other specified parts of digestive tract; Z96.653 Presence of artificial knee joint, bilateral; Z98.890 Other specified postprocedural states; Z87.2 Personal history of diseases of the skin and subcutaneous tissue; Z87.19 Personal history of other diseases of the digestive system; Z80.9 Family history of malignant neoplasm, unspecified
CPT/HCPCS: 96376 ×6; 96365; 96366 ×5; 96367; 96372 ×4; 96375; 99285; 36415; 94640 ×11; 94760 ×4; 93005; 85379; 83880; 80053 ×4; 84443; 83605; 83735 ×4; 84484; 85025 ×4; 85610; 85730; 81003; 87040; 83036; 84145; 87636; 71046; 71250; G0378 ×6; C8929; J2930 ×6; J0456 ×3; J0696 ×6; J1650 ×5; Q9950; 93306; 96374

== ENCOUNTER → 2022-07-11 | Outpatient (CLI) | payer MEDICARE | END | disposition home or self-care (01) | LOC: PNWHC3 12:35 | PROVIDERS: ATTEND Specialist | DX: Z53.9 Procedure and treatment not carried out, unspecified reason (principal) ==

== ENCOUNTER → 2022-08-09 | Outpatient (CLI) | payer MEDICARE ==
--- NOTE | 2022-08-10 07:42 | MM ---
Reason for Exam: Screening (asymptomatic). Last mammogram was performed 3 year(s) and 10 month(s) ago. Patient History: Menarche at age 12. First Full-Term at age 22. Left ovary removed at age 33. Right ovary removed at age 33. Hysterectomy at age 33. Postmenopausal. Paternal cousin had breast cancer, age 50. Paternal aunt had breast cancer, age 60. Risk Values: Kelley 5 year model risk: 1.7%. NCI Lifetime model risk: 5.0%. Prior Study Comparison: 03/29/2016 Bilateral Screening Mammogram, [facility]. 10/14/2017 Bilateral Screening Mammogram, [facility]. 10/27/2018 Bilateral Screening Mammogram, [facility]. Tissue Density: The breast tissue is heterogeneously dense. This may lower the sensitivity of mammography. Findings: Analyzed By CAD. There is no suspicious group of microcalcifications or new suspicious mass in either breast. Overall Assessment: Benign, BI-RAD 2 Management: Screening Mammogram of both breasts in 1 year. A clinical breast exam by your physician is recommended on an annual basis and results should be correlated with mammographic findings. Electronically signed and approved by: Sg Lara M.D. Radiologis
== END | disposition home or self-care (01) ==
LOC: RADMAMWWP 14:34
PROVIDERS: ATTEND Family Medicine
DX: Z12.31 Encounter for screening mammogram for malignant neoplasm of breast (principal); Z78.0 Asymptomatic menopausal state; Z80.3 Family history of malignant neoplasm of breast
CPT/HCPCS: 77063; 77067

== ENCOUNTER 2022-09-22 21:01 | Inpatient (IN) | payer MEDICARE ==
[2022-09-22] MEDS ORDERED: ALBUTEROL NEBULIZED 2.5 MG/3 ML INHALATION STA (21:19)
[2022-09-22] MEDS ORDERED: IPRATROPIUM 0.5 MG/2.5 ML NEBU INHALATION STA (21:19)
[2022-09-22] MEDS ORDERED: DEXAMETHASONE SOD PHOSPHATE 10 MG/ML 1 ML VIAL IVP STA (21:20)
[2022-09-22] MEDS ORDERED: FUROSEMIDE 10 MG/ML 4 ML VIAL IV STA (21:20)
--- NOTE | 2022-09-22 21:39 | ED ---
General Adult HPI - General Chief complaint: Shortness of Breath Stated complaint: JOSE Time Seen by Provider: 09/22/22 21:07 Source: patient Mode of arrival: wheelchair - History of Present Illness Initial comments: This is a 72-year-old female with a past medical history including COPD, CHF, hypertension and coronary artery disease status post stenting presented to the emergency department for shortness of breath. The patient stated that this shortness of breath has been present and worsening over the last 1 week, worse over the last 2 days. The patient stated that throughout the day today she could not breathe she came to the emergency department for evaluation. The p atient stated that she has been taking her medications as prescribed however stated that her breathing treatments at home were not helping her symptoms. The patient stated that she has been taking her Lasix without any relief. The patient did also state that she had increasing swelling in her bilateral lower extremities. The patient was speaking in shortened sentences secondary to shortness of breath and as the patient did arrive to the emergency department, the patient had auction saturation of 86% on room air when she was placed on a monitor. The patient denied any acute pain however and denied any fevers or chills. The patient also denied any nausea and vomiting. - Related Data Home Medications Medication Instructions Recorded Confirmed HYDROcodone/APAP 10-325MG [[place] 1 tab PO QID 05/03/15 09/23/22 10-325] Omeprazole 40 mg PO BID 05/03/15 09/23/22 Atorvastatin Calcium [Lipitor] 40 mg PO HS 06/07/17 09/23/22 Furosemide [Lasix] 40 mg PO BID 09/16/17 09/23/22 Levothyroxine Sodium [Synthroid] 125 mcg PO DAILY 12/15/20 09/23/22 ARIPiprazole [Abilify] 5 mg PO DAILY 01/21/22 09/23/22 DULoxetine HCL [Cymbalta] 90 mg PO DAILY 01/21/22 09/23/22 Losartan Potassium 50 mg PO DAILY 01/21/22 09/23/22 Multivitamins, Thera [Multivitamin 1 tab PO DAILY 01/21/22 09/23/22 (formulary)] Ascorbic Acid [Vitamin C] 1,000 mg PO DAILY 09/23/22 09/23/22 Cyanocobalamin (Vitamin B-12) 1,000 mcg PO DAILY 09/23/22 09/23/22 [Vitamin B-12] Ipratropium-Albuterol Nebulize 3 ml INHALATION RT-Q8H PRN 09/23/22 09/23/22 [Duoneb 0.5 mg-3 mg/3 ml Soln] Tolterodine Tartrate [Tolterodine 4 mg PO DAILY 09/23/22 09/23/22 Tartrate ER] Zinc Gluconate [Zinc] 50 mg PO DAILY 09/23/22 09/23/22 rOPINIRole HCL [Requip] 0.5 mg PO HS 09/23/22 09/23/22 Allergies Allergy/AdvReac Type Severity Reaction Status Date / Time No Known Allergies Allergy Verified 09/22/22 21:08 Review of Systems ROS Statement: Those systems with pertinent positive or pertinent negative responses have been documented in the HPI. ROS Other: All systems not noted in ROS Statement are negative. Past Medical History Past Medical History: Coronary Artery Disease (CAD), COPD, GERD/Reflux, GI Bleed, Hyperlipidemia, Hypertension, Myocardial Infarction (PR), Osteoarthritis (OA), Skin Disorder, Sleep Apnea/CPAP/BIPAP, Thyroid Disorder Additional Past Medical History / Comment(s): DDD, hx anemia. JOSE LEG SWELLING- lymphedema, previous wound on lower left leg. Has cpap Last Myocardial Infarction Date:: 2006 History of Any Multi-Drug Resistant Organisms: None Reported Past Surgical History: Back Surgery, Cholecystectomy, Heart Catheterization With Stent, Hysterectomy, Joint Replacement, Tonsillectomy Additional Past Surgical History / Comment(s): Bilateral knee replacement ALLEN FUNDLAPLASTY, LEFT shoulder replacement. 2 STENTS IN HEART Past Anesthesia/Blood Transfusion Reactions: No Reported Reaction Additional Past Anesthesia/Blood Transfusion Reaction / Comment(s): daughter had hard time waking up after anesthesia Date of Last Stent Placement:: 2006 Past Psychological History: No Psychological Hx Reported Smoking Status: Former smoker Past Alcohol Use History: Occasional Past Drug Use History: None Reported - Past Family History Brother(s) Family Medical History: Cancer Mother Family Medical History: Cancer Mother Brother(s) Family Medical History: Cancer Father Family Medical History: Cancer General Exam Limitations: no limitations General appearance: alert, in no apparent distress, obese Head exam: Present: atraumatic, normocephalic Eye exam: Present: normal appearance, PERRL Pupils: Present: normal accommodation ENT exam: Present: normal exam, normal oropharynx, mucous membranes moist Neck exam: Present: normal inspection, full ROM Respiratory exam: Present: normal lung sounds bilaterally, respiratory distress, wheezes, rhonchi Cardiovascular Exam: Present: regular rate, normal rhythm, normal heart sounds GI/Abdominal exam: Present: soft, normal bowel sounds Extremities exam: Present: normal inspection, full ROM, pedal edema Back exam: Present: normal inspection, full ROM Neurological exam: Present: alert, oriented X3, CN II-XII intact Psychiatric exam: Present: normal affect, normal mood Skin exam: Present: warm, dry Course Vital Signs 09/22/22 09/22/22 09/22/22 21:06 21:28 21:38 Temperature 100.6 F H Pulse Rate 90 92 80 Respiratory 32 H 36 H 26 H Rate Blood Pressure 135/78 159/86 O2 Sat by Pulse 95 86 L Oximetry 09/22/22 09/22/22 09/22/22 21:44 21:52 22:24 Temperature Pulse Rate 86 89 90 Respiratory 26 H Rate Blood Pressure 164/86 O2 Sat by Pulse 98 Oximetry 09/22/22 09/22/22 09/23/22 22:37 23:00 00:24 Temperature Pulse Rate 90 98 92 Respiratory 26 H 26 H 26 H Rate Blood Pressure 180/68 135/63 102/61 O2 Sat by Pulse 98 95 95 Oximetry 09/23/22 09/23/22 09/23/22 01:25 05:46 07:29 Temperature 97.9 F Pulse Rate 88 84 77 Respiratory 26 H 18 16 Rate Blood Pressure 118/63 112/68 133/70 O2 Sat by Pulse 96 97 96 Oximetry EKG Findings - EKG Comments: EKG Findings:: In EKG was obtained and was interpreted by myself. EKG showed a rate of 89,. We'll 135, QR christian 103 and QTC of 436. This EKG showed a normal sinus rhythm with no ST segment elevations or depressions noted. Medical Decision Making - Medical Decision Making Was pt. sent in by a medical professional or institution? @ -No Did you speak to anyone other than the patient for history? @ -Patient's Did you review nursing and triage notes? @ -Nursing triage notes were obtained and reviewed Were old charts reviewed? @ -No Differential Diagnosis? @ -Acute coronary syndrome, COPD exacerbation, CHF exacerbation, pneumothorax EKG interpreted by me (3pts min.)? @ -As above X-rays interpreted by me (1pt min.)? @ -Chest x-ray was obtained and was interpreted by myself showing increased fluid in the lungs with possible infiltrate in the right lung field. CT interpreted by me (1pt min.)? @ -[none] U/S interpreted by me (1pt. min.)? @ -[none] What testing was considered but not performed? (CT, X-rays, U/S, labs)? Why? @CT of the chest was considered however there was no need as there were no reasons for the patient's presentation with chest x-ray What meds were considered but not given? Why? @ -[none] Did you discuss the management of the patient with other professionals? @ -Yes, the admitting physician, Dr. Cardona Did you reconcile home meds? @ -[none] Was smoking cessation discussed for >3mins.? @ -[none] Was critical care preformed (if so, how long)? @ -[none] Were there social determinants of health that impacted care today? How? (Homelessness, low income, unemployed, alcoholism, drug addiction, transportation, low edu. Level, literacy, decrease access to med. care, residential, rehab)? @ -None Was there de-escalation of care discussed even if they declined? (Discuss DNR or withdrawal of care, Hospice)? @ -No What co-morbidities impacted this encounter? (DM, HTN, Smoking, COPD, CAD, Canc er, CVA, Hep., AIDS, mental health diagnosis, sleep apnea, morbid obesity)? @ -Hypertension, COPD, CHF Was patient admitted / discharged? @ -The patient was seen and evaluated emergency department. Physical exam, the patient was resting in bed however having shortness of breath with shortened sentences. Vital signs did show a mild fever however the remainder of the vital signs within normal limits. Laboratory workup was obtained and did show a slightly elevated white blood cell count. Swabs were also obtained at this time. Chest x-ray was obtained. The patient was treated with a breathing treatment, Decadron, Lasix. The patient did have a pulse ox of 86% on presentation and did require oxygen supplementation. Due to these findings, the patient's primary care physician was being covered by Dr. Cardona any did accept the patient for admission at 2220. Per his recommendation, email marketing specialist was a consult. The patient received azithromycin and Rocephin IV. The patient also had replacements for magnesium and potassium. The patient remained stable and was admitted in stable condition. Undiagnosed new problem with uncertain prognosis? @ -[none] Drug Therapy requiring intensive monitoring for toxicity (Heparin, Nitro, Insulin, Cardizem)? @ -[none] Were any procedures done? @ -[none] Diagnosis/symptom? @ -CHF exacerbation, possible COPD exacerbation Acute, or Chronic, or Acute on Chronic? @ -Acute Uncomplicated (without systemic symptoms) or Complicated (systemic symptoms)? @ -Compensated Side effects of treatment? @ -[none] Exacerbation, Progression, or Severe Exacerbation] @ -Severe exacerbation Poses a threat to life or bodily function? @ -[no] Diagnosis/symptom? @ -Hypomagnesemia Acute, or Chronic, or Acute on Chronic? @ -Acute Uncomplicated (without systemic symptoms) or Complicated (systemic symptoms)? @ -Uncomplicated Side effects of treatment? @ -[none] Exacerbation, Progression, or Severe Exacerbation] @ -[no] Poses a threat to life or bodily function? @ -[no] Diagnosis/symptom? @ -Hypokalemia Acute, or Chronic, or Acute on Chronic? @ -Acute Uncomplicated (without systemic symptoms) or Complicated (systemic symptoms)? @ -Uncomplicated Side effects of treatment? @ -[none] Exacerbation, Progression, or Severe Exacerbation] @ -[no] Poses a threat to life or bodily function? @ -[no] Diagnosis/symptom? @ -Possible community acquired pneumonia Acute, or Chronic, or Acute on Chronic? @ -Acute Uncomplicated (without systemic symptoms) or Complicated (systemic symptoms)? @ -Uncomplicated Side effects of treatment? @ -[none] Exacerbation, Progression, or Severe Exacerbation] @ -[no] Poses a threat to life or bodily function? @ -[no] - Lab Data Result diagrams: 09/22/22 21:09/22/22 21: Lab Results 09/22/22 09/22/22 09/22/22 Range/Units 21:27 21: 21: WBC 13.4 H (3.8-10.6) k/uL RBC 4.25 (3.80-5.40) m/uL Hgb 12.6 (11.4-16.0) gm/dL Hct 37.4 (34.0-46.0) % MCV 88.1 (80.0-100.0) fL MCH 29.6 (25.0-35.0) pg MCHC 33.6 (31.0-37.0) g/dL RDW 14.2 (11.5-15.5) % Plt Count 292 (150-450) k/uL MPV 7.7 Neutrophils % 78 % Lymphocytes % 12 % Monocytes % 7 % Eosinophils % 0 % Basophils % 0 % Neutrophils # 10.4 H (1.3-7.7) k/uL Lymphocytes # 1.7 (1.0-4.8) k/uL Monocytes # 1.0 (0-1.0) k/uL Eosinophils # 0.1 (0-0.7) k/uL Basophils # 0.0 (0-0.2) k/uL Sodium 134 L (137-145) mmol/L Potassium 2.8 L (3.5-5.1) mmol/L Chloride 95 L (98-107) mmol/L Carbon Dioxide 29 (22-30) mmol/L Anion Gap 10 mmol/L BUN 6 L (7-17) mg/dL Creatinine 0.59 (0.52-1.04) mg/dL Est GFR (CKD-EPI)AfAm >90 (>60 ml/min/1.73 sqM) Est GFR (CKD-EPI)NonAf >90 (>60 ml/min/1.73 sqM) Glucose 121 H (74-99) mg/dL Calcium 8.9 (8.4-10.2) mg/dL Magnesium 1.5 L (1.6-2.3) mg/dL Total Bilirubin 1.1 (0.2-1.3) mg/dL AST 21 (14-36) U/L ALT 14 (4-34) U/L Alkaline Phosphatase 197 H (38-126) U/L Troponin I <0.012 (0.000-0.034) ng/mL NT-Pro-B Natriuret Pep pg/mL Total Protein 6.8 (6.3-8.2) g/dL Albumin 3.9 (3.5-5.0) g/dL Influenza Type A (PCR) (Not Detectd) Influenza Type B (PCR) (Not Detectd) RSV (PCR) (Not Detectd) SARS-CoV-2 (PCR) (Not Detectd) 09/22/22 09/22/22 Range/Units 21:27 21:44 WBC (3.8-10.6) k/uL RBC (3.80-5.40) m/uL Hgb (11.4-16.0) gm/dL Hct (34.0-46.0) % MCV (80.0-100.0) fL MCH (25.0-35.0) pg MCHC (31.0-37.0) g/dL RDW (11.5-15.5) % Plt Count (150-450) k/uL MPV Neutrophils % % Lymphocytes % % Monocytes % % Eosinophils % % Basophils % % Neutrophils # (1.3-7.7) k/uL Lymphocytes # (1.0-4.8) k/uL Monocytes # (0-1.0) k/uL Eosinophils # (0-0.7) k/uL Basophils # (0-0.2) k/uL Sodium (137-145) mmol/L Potassium (3.5-5.1) mmol/L Chloride (98-107) mmol/L Carbon Dioxide (22-30) mmol/L Anion Gap mmol/L BUN (7-17) mg/dL Creatinine (0.52-1.04) mg/dL Est GFR (CKD-EPI)AfAm (>60 ml/min/1.73 sqM) Est GFR (CKD-EPI)NonAf (>60 ml/min/1.73 sqM) Glucose (74-99) mg/dL Calcium (8.4-10.2) mg/dL Magnesium (1.6-2.3) mg/dL Total Bilirubin (0.2-1.3) mg/dL AST (14-36) U/L ALT (4-34) U/L Alkaline Phosphatase (38-126) U/L Troponin I (0.000-0.034) ng/mL NT-Pro-B Natriuret Pep 115 pg/mL Total Protein (6.3-8.2) g/dL Albumin (3.5-5.0) g/dL Influenza Type A (PCR) Not Detected (Not Detectd) Influenza Type B (PCR) Not Detected (Not Detectd) RSV (PCR) Not Detected (Not Detectd) SARS-CoV-2 (PCR) Not Detected (Not Detectd) Critical Care Time Critical Care Time: Yes Total Critical Care Time: 35 Disposition Clinical Impression: Acute exacerbation of chronic obstructive pulmonary disease, Congestive heart failure, Hypokalemia, Hypomagnesemia, CAP (community acquired pneumonia) Disposition: ADMITTED IP TO THIS [facility] Condition: Stable Is patient prescribed a controlled substance at d/c from ED?: No Time of Disposition: 22:20 Decision to Admit Reason: Admit from EC Decision Date: 09/22/22 Decision Time: 22:20
[2022-09-22 21:58] LABS: Basophils % (A) 0 %; Eosinophils # (A) 0.1 k/uL (0-0.7); Eosinophils % (A) 0 %; HCT 37.4 % (34.0-46.0); HGB 12.6 gm/dL (11.4-16.0); Lymphocytes # (A) 1.7 k/uL (1.0-4.8); Lymphocytes % (A) 12 %; MCH 29.6 pg (25.0-35.0); MCHC 33.6 g/dL (31.0-37.0); MCV 88.1 fL (80.0-100.0); Mean Platelet Volume 7.7; Monocytes % (A) 7 %; Neutrophils # (A) 10.4 k/uL (1.3-7.7); Neutrophils % (A) 78 %; Platelet Count 292 k/uL (150-450); RBC 4.25 m/uL (3.80-5.40); RDW 14.2 % (11.5-15.5); WBC 13.4 k/uL (3.8-10.6)
[2022-09-22 22:18] LABS: ALT 14 U/L (4-34); AST 21 U/L (14-36); African American GFR (CKD) >90 (>60 ml/min/1.73 sqM); Albumin 3.9 g/dL (3.5-5.0); Alkaline Phosphatase 197 U/L (38-126); Anion Gap 10 mmol/L; Blood Urea Nitrogen 6 mg/dL (7-17); Calcium 8.9 mg/dL (8.4-10.2); Carbon Dioxide 29 mmol/L (22-30); Chloride 95 mmol/L (98-107); Glucose 121 mg/dL (74-99); Magnesium 1.5 mg/dL (1.6-2.3); Non-African American GFR(CKD) >90 (>60 ml/min/1.73 sqM); Potassium 2.8 mmol/L (3.5-5.1); Sodium 134 mmol/L (137-145); Total Bilirubin 1.1 mg/dL (0.2-1.3); Total Protein 6.8 g/dL (6.3-8.2)
[2022-09-22] MEDS ORDERED: AZITHROMYCIN 500 MG in SODIUM CHLORIDE 0.9% 250 ML IVPB STA (22:20)
[2022-09-22] MEDS ORDERED: NALOXONE 0.4 MG/ML 1 ML VIAL IV PRN (22:21)
[2022-09-22] MEDS: MAGNESIUM SULFATE-D5W PMX 1 GM in DEXTROSE/WATER 1 100ML.BAG IVPB SCH (22:58)
[2022-09-22] MEDS: POTASSIUM CHLORIDE 10 MEQ in WATER FOR INJECTION 1 100ML.BAG IVPB SCH (23:03)
[2022-09-22 23:09] LABS: Appearance,Urine Clear (Clear); Bilirubin,Urine Negative (Negative); Blood,Urine Negative (Negative); Color,Urine Light Yellow; Glucose,Urine (UA) Negative (Negative); Ketones,Urine Negative (Negative); Leukocyte Esterase,Urine Negative (Negative); Nitrite,Urine Negative (Negative); Protein,Urine Negative (Negative); Specific Gravity,Urine 1.005 (1.001-1.035); Urobilinogen,Urine <2.0 mg/dL (<2.0)
--- NOTE | 2022-09-22 23:21 | XR ---
EXAMINATION TYPE: XR chest 2V DATE OF EXAM: 09/22/2022 COMPARISON: 01/21/2022 HISTORY: Short of breath TECHNIQUE: FINDINGS: There is no heart failure nor confluent pneumonic infiltrate. Costophrenic angles are clear . There is left shoulder prosthesis. There are chest leads. No pleural effusion. IMPRESSION: No active cardiopulmonary disease. No change.
[2022-09-23] MEDS: MAGNESIUM SULFATE-D5W PMX 1 GM in DEXTROSE/WATER 1 100ML.BAG IVPB SCH (00:20)
[2022-09-23] MEDS: POTASSIUM CHLORIDE 10 MEQ in WATER FOR INJECTION 1 100ML.BAG IVPB SCH ×3 (00:20→02:36)
[2022-09-23] MEDS: SYMBICORT 160-4.5 MCG INHALER INHALATION SCH ×2 (07:52→19:45)
[2022-09-23] MEDS: IPRATROPIUM-ALBUTEROL 3 ML NEB INHALATION SCH ×5 (07:52→19:45)
[2022-09-23] MEDS: guaiFENesin 600 MG TABLET.ER PO SCH ×2 (08:49→21:40)
[2022-09-23] MEDS: DOXYCYCLINE 100 MG CAP PO SCH ×2 (08:49→21:41)
[2022-09-23] MEDS: methylPREDNISolone SOD SUCCI 125 MG/2 ML VIAL IV SCH ×4 (08:50→23:30)
[2022-09-23] MEDS ORDERED: OXYBUTYNIN CHLORIDE 5 MG TAB PO PRN (08:58)
[2022-09-23] MEDS: LOSARTAN 50 MG TAB PO SCH (09:46)
[2022-09-23] MEDS: MULTIVITAMINS, THERA 1 EACH TAB PO SCH (09:46)
[2022-09-23] MEDS: DULoxetine HCL 30 MG CAPSULE.DR PO SCH (09:46)
[2022-09-23] MEDS: HYDROcodone/APAP 10-325MG 1 EACH TAB PO SCH ×4 (09:46→21:40)
[2022-09-23] MEDS: LEVOTHYROXINE 125 MCG TAB PO SCH (09:47)
[2022-09-23] MEDS: FUROSEMIDE 40 MG TAB PO SCH ×2 (09:47→15:57)
[2022-09-23] MEDS: ARIPiprazole 5 MG TAB PO SCH (09:47)
[2022-09-23] MEDS ORDERED: POTASSIUM CHLORIDE ER 20 MEQ TAB.ER PO STA (11:04)
[2022-09-23] MEDS ORDERED: MAGNESIUM SULFATE-D5W PMX 1 GM in DEXTROSE/WATER 1 100ML.BAG IVPB ONE (11:05)
--- NOTE | 2022-09-23 13:47 | P.CNPUL ---
History of Present Illness Consult date: 09/23/22 Reason for consult: COPD Chief complaint: Shortness of breath, cough, wheezing History of present illness: This is a 72-year-old female seen in the ER, patient is known to have history of COPD, hypertension, pulmonary hypertension, congestive heart failure with preserved LV function, dyslipidemia, coronary artery disease and previous stent placement, degenerative joint disease, former smoker, history of mild obstruct jennyfer sleep apnea syndrome, patient came into the ER yesterday, complaining of one-week history of cough wheezing shortness of breath, cough is productive but she was not able to clear any phlegm. Patient has been seen by Dr. Jara in the past for her COPD, she quit smoking back in 2007, she had history of underlying coronary artery disease and previous stents 2 were placed. Patient is not O2 dependent and not prednisone dependent, she carries a [id number] smoking history. Chest x-ray showed no evidence of infiltrate or pneumonia. Patient tested negative for acute influenza A and B and RSV she also tested negative for COVID-19 infection. CBC showed a slight leukocytosis with WBC cou nt of 13.4, otherwise her labs were unremarkable, she had a low potassium of 2.8 Review of Systems Constitutional: Denies chills, Denies fever Eyes: denies blurred vision, denies pain Ears, nose, mouth and throat: Denies headache, Denies sore throat Cardiovascular: Denies chest pain, Denies shortness of breath Respiratory: Cough wheezing shortness of breath as noted in HPI. Gastrointestinal: Denies abdominal pain, Denies diarrhea, Denies nausea, Denies vomiting Genitourinary: Denies dysuria, Denies hematuria Musculoskeletal: Denies myalgias Integumentary: Denies pruritus, Denies rash Neurological: Denies numbness, Denies weakness Psychiatric: Denies anxiety, Denies depression Endocrine: Denies fatigue, Denies weight change Past Medical History Past Medical History: Coronary Artery Disease (CAD), COPD, GERD/Reflux, GI Bleed, Hyperlipidemia, Hypertension, Myocardial Infarction ([place]), Osteoarthritis (OA), Skin Disorder, Sleep Apnea/CPAP/BIPAP, Thyroid Disorder Additional Past Medical History / Comment(s): DDD, hx anemia. JOSE LEG SWELLING- lymphedema, previous wound on lower left leg. Has cpap Last Myocardial Infarction Date:: 2006 History of Any Multi-Drug Resistant Organisms: None Reported Past Surgical History: Back Surgery, Cholecystectomy, Heart Catheterization With Stent, Hysterectomy, Joint Replacement, Tonsillectomy Additional Past Surgical History / Comment(s): Bilateral knee replacement NIS MOSHER FUNDLAPLASTY, LEFT shoulder replacement. 2 STENTS IN HEART Past Anesthesia/Blood Transfusion Reactions: No Reported Reaction Additional Past Anesthesia/Blood Transfusion Reaction / Comment(s): daughter had hard time waking up after anesthesia Date of Last Stent Placement:: 2006 Past Psychological History: No Psychological Hx Reported Smoking Status: Former smoker Past Alcohol Use History: Occasional Additional Past Alcohol Use History / Comment(s): Quit in 2006, SMOKED 1 TO 1 AND 1/2 PPD, STARTED A TEENAGER Past Drug Use History: None Reported - Past Family History Brother(s) Family Medical History: Cancer Mother Family Medical History: Cancer Mother Brother(s) Family Medical History: Cancer Father Family Medical History: Cancer Medications and Allergies Home Medications Medication Instructions Recorded Confirmed Type HYDROcodone/APAP 10-325MG [[place] 1 tab PO QID 05/03/15 09/23/22 History 10-325] Omeprazole 40 mg PO BID 05/03/15 09/23/22 History Atorvastatin Calcium [Lipitor] 40 mg PO HS 06/07/17 09/23/22 History Furosemide [Lasix] 40 mg PO BID 09/16/17 09/23/22 History Levothyroxine Sodium [Synthroid] 125 mcg PO DAILY 12/15/20 09/23/22 History ARIPiprazole [Abilify] 5 mg PO DAILY 01/21/22 09/23/22 History DULoxetine HCL [Cymbalta] 90 mg PO DAILY 01/21/22 09/23/22 History Losartan Potassium 50 mg PO DAILY 01/21/22 09/23/22 History Multivitamins, Thera [Multivitamin 1 tab PO DAILY 01/21/22 09/23/22 History (formulary)] Ascorbic Acid [Vitamin C] 1,000 mg PO DAILY 09/23/22 09/23/22 History Cyanocobalamin (Vitamin B-12) 1,000 mcg PO DAILY 09/23/22 09/23/22 History [Vitamin B-12] Ipratropium-Albuterol Nebulize 3 ml INHALATION RT-Q8H PRN 09/23/22 09/23/22 History [Duoneb 0.5 mg-3 mg/3 ml Soln] Tolterodine Tartrate [Tolterodine 4 mg PO DAILY 09/23/22 09/23/22 History Tartrate ER] Zinc Gluconate [Zinc] 50 mg PO DAILY 09/23/22 09/23/22 History rOPINIRole HCL [Requip] 0.5 mg PO HS 09/23/22 09/23/22 History Allergies Allergy/AdvReac Type Severity Reaction Status Date / Time No Known Allergies Allergy Verified 09/22/22 21:08 Physical Exam Vitals: Vital Signs Temp Pulse Pulse Resp BP BP Pulse Ox 09/23/22 11:54 97.9 F 89 18 147/79 92 L 09/23/22 11:45 86 09/23/22 11:34 84 09/23/22 08:07 98.5 F 84 18 116/75 96 09/23/22 08:00 17 09/23/22 07:29 77 16 133/70 96 09/23/22 05:46 97.9 F 84 18 112/68 97 09/23/22 01:25 88 26 H 118/63 96 09/23/22 00:24 92 26 H 102/61 95 09/22/22 23:00 98 26 H 135/63 95 09/22/22 22:37 90 26 H 180/68 98 09/22/22 22:24 90 09/22/22 21:52 89 09/22/22 21:44 86 26 H 164/86 98 09/22/22 21:38 80 26 H 09/22/22 21:28 92 36 H 159/86 86 L 09/22/22 21:06 100.6 F H 90 32 H 135/78 95 Intake and Output 09/22/22 09/23/22 09/23/22 22:59 06:59 14:59 Other: # Voids 2 Weight 102.965 kg 102.965 kg Physical Exam: Revealed 72-year-old female in no distress. Head: Atraumatic normocephalic HEENT:[Neck is supple.] [No neck masses.] [No thyromegaly.] [No JVD.] Chest: [Symmetrical chest expansion, diffuse rhonchi and wheezes noted bilaterally.] Cardiac Exam: [Normal S1 and S2, no S3 gallop, no murmur.] Abdomen: [Soft, nontender, no megaly, no rebound, no guarding, normal bowel sounds.] Extremities: [No clubbing, no edema, no cyanosis.] Neurological Exam: [No focal neurologic deficit.] Alert oriented 3. Psychiatric: Normal mood, affect and normal mental status examination. Skin: No rashes. Results - Laboratory Findings CBC and BMP: 09/22/22 21:27 09/22/22 21:27 Abnormal lab findings: Abnormal Labs 09/22/22 09/22/22 21:27 21:27 WBC 13.4 H Neutrophils # 10.4 H Sodium 134 L Potassium 2.8 L Chloride 95 L BUN 6 L Glucose 121 H Magnesium 1.5 L Alkaline Phosphatase 197 H - Diagnostic Findings Chest x-ray: image reviewed (Chest x-ray showed no evidence of active disease.) Assessment and Plan Assessment: Impression: Acute exacerbation of COPD Acute tracheobronchitis no clear-cut evidence of pneumonia History of stage II COPD, FEV1 of 61% in 2018 History of obstructive sleep apnea syndrome, mild Secondary pulmonary hypertension mild to moderate History of congestive heart failure with preserved ejection fraction History of coronary artery disease and previous stent placement Former smoker, [id number] smoking history History of depression. Recommendation: Continue bronchodilators Doxycycline empirically for tracheobronchitis Resume home meds Continue methylprednisolone Continue Symbicort Transition to prednisone possibly in the next 24 hours We will continue to follow Time with Patient: Greater than 30
[2022-09-23] MEDS: HEPARIN SODIUM,PORCINE/PF 5,000 UNIT/0.5 ML SYRINGE SQ SCH ×2 (15:57→23:30)
[2022-09-23] MEDS: PANTOPRAZOLE 40 MG TABLET PO SCH (18:03)
--- NOTE | 2022-09-23 20:39 | P.HPIM ---
History of Present Illness H&P Date: 09/23/22 Chief Complaint: Cough and difficulty in breathing Ms. Ulrich is a 72-year-old female with a past medical history of COPD, CHF, CAD status post stenting, hypertension, obstructive sleep apnea, thyroid disorder coming in with a chief complaint of cough for 1 week and difficulty in breathing for the past couple of days. Patient states that she been dealing with cough that is productive in nature for the past 1 week. She states that her granddaughter has tested positive for flu. Patient has been having cough but does not productive as she has difficulty in bringing up the phlegm for the past 1 week. She denies having any chest pain or palpitations. No fever chills or rigors. She is not on oxygen at home. She has significant past medical history of 40 pack years of smoking and quit in 2007. At the time of admission patient had a fever of 100.6, heart rate 90, respiratory 32, blood pressure 135/78 saturating at 94% on room air. On reviewing her labs white count of 13.4 hemoglobin 12.6 platelets 292. Sodium 134 potassium 2.8 chloride 95 bicarb 29 BUN 6 creatinine 0.59 magnesium 1.5 alkaline phosphatase 197. Urine analysis negative for UTI. Serology for influenza AB, RSV, COVID-19 negative. She also had a chest x-ray in the ED that was negative for any acute cardiopulmonary disease and an EKG showing normal sinus rhythm. In the ER patient was given Lasix Decadron and oxygen along with ceftriaxone and azithromycin and admitted for further management. Review of Systems REVIEW OF SYSTEMS: PSYCH: No anxiety or depression NEURO:No c/o weakness of the extremities or No speech abnormalities. VASCULAR:Chronic Lympdema bilateral Lower extremities HEMATOLOGIC: No history of easy bleeding and bruising . No recent infections . 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 GI: No abdominal pain, Nausea or vomiting. No constipation or diarrhea. Past Medical History Past Medical History: Coronary Artery Disease (CAD), COPD, GERD/Reflux, GI Bleed, Hyperlipidemia, Hypertension, Myocardial Infarction (UT), Osteoarthritis (OA), Skin Disorder, Sleep Apnea/CPAP/BIPAP, Thyroid Disorder Additional Past Medical History / Comment(s): DDD, hx anemia. JOSE LEG SWELLING- lymphedema, previous wound on lower left leg. Has cpap Last Myocardial Infarction Date:: 2006 History of Any Multi-Drug Resistant Organisms: None Reported Past Surgical History: Back Surgery, Cholecystectomy, Heart Catheterization With Stent, Hysterectomy, Joint Replacement, Tonsillectomy Additional Past Surgical History / Comment(s): Bilateral knee replacement ALLEN FUNDLAPLASTY, LEFT shoulder replacement. 2 STENTS IN HEART Past Anesthesia/Blood Transfusion Reactions: No Reported Reaction Additional Past Anesthesia/Blood Transfusion Reaction / Comment(s): daughter had hard time waking up after anesthesia Date of Last Stent Placement:: 2006 Past Psychological History: No Psychological Hx Reported Smoking Status: Former smoker Past Alcohol Use History: Occasional Additional Past Alcohol Use History / Comment(s): Quit in 2006, SMOKED 1 TO 1 AND 1/2 PPD, STARTED A TEENAGER Past Drug Use History: None Reported - Past Family History Brother(s) Family Medical History: Cancer Mother Family Medical History: Cancer Mother Brother(s) Family Medical History: Cancer Father Family Medical History: Cancer Medications and Allergies Home Medications Medication Instructions Recorded Confirmed Type HYDROcodone/APAP 10-325MG [[facility] 1 tab PO QID 05/03/15 09/23/22 History 10-325] Omeprazole 40 mg PO BID 05/03/15 09/23/22 History Atorvastatin Calcium [Lipitor] 40 mg PO HS 06/07/17 09/23/22 History Furosemide [Lasix] 40 mg PO BID 09/16/17 09/23/22 History Levothyroxine Sodium [Synthroid] 125 mcg PO DAILY 12/15/20 09/23/22 History ARIPiprazole [Abilify] 5 mg PO DAILY 01/21/22 09/23/22 History DULoxetine HCL [Cymbalta] 90 mg PO DAILY 01/21/22 09/23/22 History Losartan Potassium 50 mg PO DAILY 01/21/22 09/23/22 History Multivitamins, Thera [Multivitamin 1 tab PO DAILY 01/21/22 09/23/22 History (formulary)] Ascorbic Acid [Vitamin C] 1,000 mg PO DAILY 09/23/22 09/23/22 History Cyanocobalamin (Vitamin B-12) 1,000 mcg PO DAILY 09/23/22 09/23/22 History [Vitamin B-12] Ipratropium-Albuterol Nebulize 3 ml INHALATION RT-Q8H PRN 09/23/22 09/23/22 History [Duoneb 0.5 mg-3 mg/3 ml Soln] Tolterodine Tartrate [Tolterodine 4 mg PO DAILY 09/23/22 09/23/22 History Tartrate ER] Zinc Gluconate [Zinc] 50 mg PO DAILY 09/23/22 09/23/22 History rOPINIRole HCL [Requip] 0.5 mg PO HS 09/23/22 09/23/22 History Allergies Allergy/AdvReac Type Severity Reaction Status Date / Time No Known Allergies Allergy Verified 09/22/22 21:08 Physical Exam Vitals: Vital Signs Temp Pulse Pulse Resp BP BP Pulse Ox 09/23/22 08:07 98.5 F 84 18 116/75 96 09/23/22 08:00 17 09/23/22 07:29 77 16 133/70 96 09/23/22 05:46 97.9 F 84 18 112/68 97 09/23/22 01:25 88 26 H 118/63 96 09/23/22 00:24 92 26 H 102/61 95 09/22/22 23:00 98 26 H 135/63 95 09/22/22 22:37 90 26 H 180/68 98 09/22/22 22:24 90 09/22/22 21:52 89 09/22/22 21:44 86 26 H 164/86 98 09/22/22 21:38 80 26 H 09/22/22 21:28 92 36 H 159/86 86 L 09/22/22 21:06 100.6 F H 90 32 H 135/78 95 Intake and Output 09/22/22 09/23/22 09/23/22 22:59 06:59 14:59 Other: Weight 102.965 kg 102.965 kg PHYSICAL EXAM GEN. APPEARANCE: alert, in no apparent distress HEAD EXAM: atraumatic, normocephalic, normal inspection EYE EXAM: normal appearance, PERRL, EOMI. ENT EXAM: normal exam, mucous membranes moist NECK EXAM: normal inspection. RESPIRATORY EXAM: Bilateral coarse breath sounds with wheezing CARDIOVASCULAR EXAM: regular rate, normal rhythm, normal heart sounds. GI/ABDOMINAL EXAM: soft, normal bowel sounds. NOn tender EXTREMITIES EXAM: Chronic Lymphedema bilateral lower extremities NEUROLOGICAL EXAM: alert, oriented X3 PSYCHIATRIC EXAM: normal affect, normal mood Results CBC & Chem 7: 09/22/22 21:27 09/22/22 21:27 Labs: Abnormal Lab Results - Last 24 Hours (Table) 09/22/22 09/22/22 Range/Units 21:27 21:27 WBC 13.4 H (3.8-10.6) k/uL Neutrophils # 10.4 H (1.3-7.7) k/uL Sodium 134 L (137-145) mmol/L Potassium 2.8 L (3.5-5.1) mmol/L Chloride 95 L (98-107) mmol/L BUN 6 L (7-17) mg/dL Glucose 121 H (74-99) mg/dL Magnesium 1.5 L (1.6-2.3) mg/dL Alkaline Phosphatase 197 H (38-126) U/L Thrombosis Risk Factor Assmnt - Choose All That Apply Any of the Below Risk Factors Present?: Yes Each Factor Represents 1 point: Abnormal pulmonary function (COPD) Other Risk Factors: Yes Each Risk Factor Represents 2 Points: Age 61-74 years Thrombosis Risk Factor Assessment Total Risk Factor Score: 3 Thrombosis Risk Factor Assessment Level: Moderate Risk Assessment and Plan Assessment: ASSESSMENT Acute COPD exacerbation Stage II COPD Acute tracheobronchitis Hypokalemia Hypomagnesemia Obstructive sleep apnea Congestive heart failure not in acute exacerbation History of coronary artery disease status post stenting Pulmonary hypertension obesity with BMI of 39 GERD Chronic bilateral lower extremity lymphedema Multiple joint osteoarthritis Former smoker PLAN: Patient will be continued on prednisone breathing treatments for acute COPD exacerbation. In view of her tracheobronchitis she has been started on doxycycline. We will replace potassium and magnesium repeat a.m. labs. Protonix 40 GI prophylaxis and heparin for DVT prophylaxis. Patient has been restarted on all her home medications. Further recommendations to follow depending on the progress of the patient.
[2022-09-23] MEDS: ATORVASTATIN 40 MG TAB PO SCH (21:40)
[2022-09-24] MEDS: IPRATROPIUM-ALBUTEROL 3 ML NEB INHALATION SCH ×8 (04:36→19:18)
[2022-09-24] MEDS: LEVOTHYROXINE 125 MCG TAB PO SCH (06:08)
[2022-09-24] MEDS: methylPREDNISolone SOD SUCCI 125 MG/2 ML VIAL IV SCH ×4 (06:08→23:24)
[2022-09-24] MEDS: FUROSEMIDE 40 MG TAB PO SCH ×2 (08:05→16:48)
[2022-09-24] MEDS: DULoxetine HCL 30 MG CAPSULE.DR PO SCH (08:05)
[2022-09-24] MEDS: CYANOCOBALAMIN 500 MCG TAB PO SCH (08:05)
[2022-09-24] MEDS: MULTIVITAMINS, THERA 1 EACH TAB PO SCH (08:05)
[2022-09-24] MEDS: PANTOPRAZOLE 40 MG TABLET PO SCH ×2 (08:05→16:48)
[2022-09-24] MEDS: LOSARTAN 50 MG TAB PO SCH (08:05)
[2022-09-24] MEDS: DOXYCYCLINE 100 MG CAP PO SCH ×2 (08:05→23:31)
[2022-09-24] MEDS: guaiFENesin 600 MG TABLET.ER PO SCH ×2 (08:05→23:31)
[2022-09-24] MEDS: OXYBUTYNIN 10 MG TAB.ER.24 PO SCH (08:05)
[2022-09-24] MEDS: ASCORBIC ACID 500 MG TAB PO SCH (08:06)
[2022-09-24] MEDS: ARIPiprazole 5 MG TAB PO SCH (08:06)
[2022-09-24] MEDS: HYDROcodone/APAP 10-325MG 1 EACH TAB PO SCH ×4 (08:06→23:29)
[2022-09-24] MEDS: HEPARIN SODIUM,PORCINE/PF 5,000 UNIT/0.5 ML SYRINGE SQ SCH ×3 (08:06→23:23)
[2022-09-24] MEDS: SYMBICORT 160-4.5 MCG INHALER INHALATION SCH ×2 (08:38→19:18)
[2022-09-24 09:15] LABS: Basophils # (A) 0.03 X 10*3/uL (0.00-0.10); Basophils % (A) 0.2 %; Eosinophils # (A) 0 X 10*3/uL (0.04-0.35); Eosinophils % (A) 0 %; HCT 36.8 % (37.2-46.3); HGB 11.4 g/dL (12.0-15.0); Immature Grans, Automated 0.8 %; Lymphocytes # (A) 1.32 X 10*3/uL (0.90-5.00); Lymphocytes % (A) 7.4 %; MCH 28.4 pg (27.0-32.0); MCV 91.8 fL (80.0-97.0); Monocytes # (A) 0.78 X 10*3/uL (0.20-1.00); Monocytes % (A) 4.4 %; NRBC Per 100 WBC 0 /100 WBCS (0.0-0.0); Neutrophils # (A) 15.59 X 10*3/uL (1.80-7.70); Neutrophils % (A) 87.2 %; Platelet Count 340 X 10*3/uL (140-440); RBC 4.01 X 10*6/uL (4.10-5.20); RDW 14.3 % (11.5-14.5); WBC 17.87 X 10*3/uL (4.50-10.00)
[2022-09-24 09:29] LABS: Anion Gap 13.1 mmol/L (10.00-18.00); BUN/Creat Ratio 22.86 Ratio (12.00-20.00); Calcium 9.6 mg/dL (8.7-10.3); Carbon Dioxide 23.9 mmol/L (20.0-27.5); Non-African American GFR(CKD) 87.2 (60.0-200.0)
[2022-09-24] MEDS ORDERED: DEXTROSE 50% SYRINGE 50 ML IVP PRN ×2 (10:59)
[2022-09-24 13:19] LABS: Glucose,Whole Blood 189 mg/dL (70-110)
[2022-09-24] MEDS: INSULIN ASPART (NovoLOG) 100 UNIT/ML VIAL SQ SCH ×3 (13:44→23:21)
--- NOTE | 2022-09-24 13:47 | P.PN ---
Subjective Progress Note Date: 09/24/22 This is a 72-year-old female seen in the ER, patient is known to have history of COPD, hypertension, pulmonary hypertension, congestive heart failure with preserved LV function, dyslipidemia, coronary artery disease and previous stent placement, degenerative joint disease, former smoker, history of mild o bstructive sleep apnea syndrome, patient came into the ER yesterday, complaining of one-week history of cough wheezing shortness of breath, cough is productive but she was not able to clear any phlegm. Patient has been seen by Dr. Jara in the past for her COPD, she quit smoking back in 2007, she had history of underlying coronary artery disease and previous stents 2 were placed. Patient is not O2 dependent and not prednisone dependent, she carries a [id number] smoking history. Chest x-ray showed no evidence of infiltrate or pneumonia. Patient tested negative for acute influenza A and B and RSV she also tested negative for COVID-19 infection. CBC showed a slight leukocytosis with WBC count of 13.4, otherwise her labs were unremarkable, she had a low potassium of 2.8 The patient is seen today 09/24/2022 in follow-up on the regular medical floor. She is currently sitting up in bed. Awake and alert in no acute maintaining good O2 saturations in the 90s on room air. She's afebrile. Hemodynamically stable. Blood culture reveals no growth to date. White count 17.8. Hemoglobin 11.4. Sodium 138. Potassium 4.0. BUN 16. Creatinine 0.7. Glucose 167. She is continued on DuoNeb inhalations, Symbicort, Mucinex, IV Solu-Medrol. Empiric antibiotics in the form of Vibramycin. Oral diuretics. Heparin for DVT prophylaxis. Objective - Vital Signs Vital signs: Vital Signs Temp 97.6 F 09/24/22 07:48 Pulse 86 09/24/22 12:31 Resp 16 09/24/22 07:48 BP 113/67 09/24/22 07:48 Pulse Ox 90 L 09/24/22 07:48 FiO2 Intake & Output 09/23/22 09/24/22 09/24/22 18:59 06:59 18:59 Intake Total 590 Balance 590 Weight 102.965 kg Intake: Oral 590 Other: Voiding Method Toilet # Voids 2 2 1 - Exam GENERAL EXAM: Alert, pleasant 72-year-old female, on room air, comfortable in no apparent distress. HEAD: Normocephalic. EYES: Normal reaction of pupils, equal size. NOSE: Clear with pink turbinates. THROAT: No erythema or exudates. NECK: No masses, no JVD. CHEST: No chest wall deformity. LUNGS: Equal air entry with bilateral end expiratory wheeze. CVS: S1 and S2 normal with no audible murmur, regular rhythm. ABDOMEN: No hepatosplenomegaly, normal bowel sounds, no guarding or rigidity. SPINE: No scoliosis or deformity SKIN: No rashes CENTRAL NERVOUS SYSTEM: No focal deficits, tone is normal in all 4 extremities. EXTREMITIES: There is no peripheral edema. No clubbing, no cyanosis. Peripheral pulses are intact. - Labs CBC & Chem 7: 09/24/22 04:48 09/24/22 04:48 Labs: Abnormal Lab Results - Last 24 Hours (Table) 09/24/22 09/24/22 09/24/22 Range/Units 04:48 04:48 12:51 WBC 17.87 H (4.50-10.00) X 10*3/uL RBC 4.01 L (4.10-5.20) X 10*6/uL Hgb 11.4 L (12.0-15.0) g/dL Hct 36.8 L (37.2-46.3) % MCHC 31.0 L (32.0-37.0) g/dL Immature Gran # 0.15 H (0.00-0.04) X 10*3/uL Neutrophils # 15.59 H (1.80-7.70) X 10*3/uL Eosinophils # 0 L (0.04-0.35) X 10*3/uL BUN/Creatinine Ratio 22.86 H (12.00-20.00) Ratio Glucose 167 H (70-110) mg/dL POC Glucose (mg/dL) 189 H (70-110) mg/dL Microbiology - Last 24 Hours (Table) 09/22/22 21:20 Blood Culture - Preliminary Blood No Growth after 24 hours Assessment and Plan Assessment: Acute exacerbation of COPD Acute tracheobronchitis no clear-cut evidence of pneumonia History of stage II COPD, FEV1 of 61% in 2018 History of obstructive sleep apnea syndrome, mild Secondary pulmonary hypertension mild to moderate History of congestive heart failure with preserved ejection fraction History of coronary artery disease and previous stent placement Former smoker, [id number] smoking history History of depression Plan: The patient was seen and evaluated Medications and labs reviewed Improved but not quite back to baseline We'll continue the current treatment plan Possible discharge in the a.m. We'll continue to follow I have personally seen and examined the patient, performed the documentation and the assessment and plan as written. Number of minutes spent on the visit: 10.
[2022-09-24] MEDS ORDERED: polyethylene glycoL 3350 17 GM POWD.PACK PO PRN (16:57)
[2022-09-24 17:21] LABS: Glucose,Whole Blood 200 mg/dL (70-110)
[2022-09-24] MEDS: DOCUSATE 100 MG CAP PO SCH (18:05)
[2022-09-24 20:56] LABS: Glucose,Whole Blood 195 mg/dL (70-110)
[2022-09-24] MEDS: ATORVASTATIN 40 MG TAB PO SCH (23:30)
--- NOTE | 2022-09-25 00:36 | P.PN ---
Subjective Progress Note Date: 09/24/22 Principal diagnosis: ACute COPD Exacerbation Ms. Ulrich is a 72-year-old female with a past medical history of COPD, CHF, CAD status post stenting, hypertension, obstructive sleep apnea, thyroid disorder coming in with a chief complaint of cough for 1 week and difficulty in breathing for the past couple of days. She is currently being treated for acute COPD exacerbation due to tracheobronchitis with IV antibiotics. Today the patient is sitting comfortably on the bed appears to be in no acute distress. She states that her difficulty in breathing is improving. She still continues to have mild cough that is nonproductive in nature. Patient denies having any chest pain or palpitations. She denies having abdominal pain nausea vomiting or diarrhea. She denies having any fevers chills or rigors overnight. Patient's vital signs reveal a temperature of 98.1 heart rate 83 respiratory 16 blood pressure 118/77 saturating at 96% on room air patient's labs are reviewed white count of 17.8 hemoglobin 11.4 platelets 340. Electrolytes within normal limits. Objective - Vital Signs Vital signs: Vital Signs Temp 98.1 F 09/24/22 19:12 Pulse 85 09/24/22 19:31 Resp 16 09/24/22 19:12 BP 96/61 09/24/22 19:12 Pulse Ox 93 L 09/24/22 19:12 FiO2 Intake & Output 09/24/22 09/24/22 09/25/22 06:59 18:59 06:59 Intake Total 590 Balance 590 Intake: Oral 590 Other: Voiding Method Toilet # Voids 2 3 - Exam PHYSICAL EXAM GEN. APPEARANCE: alert, in no apparent distress RESPIRATORY EXAM: Bilateral coarse breath sounds with wheezing CARDIOVASCULAR EXAM: regular rate, normal rhythm, normal heart sounds. GI/ABDOMINAL EXAM: soft, normal bowel sounds. NOn tender EXTREMITIES EXAM: Chronic Lymphedema bilateral lower extremities NEUROLOGICAL EXAM: alert, oriented X3 PSYCHIATRIC EXAM: normal affect, normal mood - Labs CBC & Chem 7: 09/24/22 04:48 09/24/22 04:48 Labs: Abnormal Lab Results - Last 24 Hours (Table) 09/24/22 09/24/22 09/24/22 Range/Units 04:48 04:48 12:51 WBC 17.87 H (4.50-10.00) X 10*3/uL RBC 4.01 L (4.10-5.20) X 10*6/uL Hgb 11.4 L (12.0-15.0) g/dL Hct 36.8 L (37.2-46.3) % MCHC 31.0 L (32.0-37.0) g/dL Immature Gran # 0.15 H (0.00-0.04) X 10*3/uL Neutrophils # 15.59 H (1.80-7.70) X 10*3/uL Eosinophils # 0 L (0.04-0.35) X 10*3/uL BUN/Creatinine Ratio 22.86 H (12.00-20.00) Ratio Glucose 167 H (70-110) mg/dL POC Glucose (mg/dL) 189 H (70-110) mg/dL 09/24/22 09/24/22 Range/Units 17:20 20:55 WBC (4.50-10.00) X 10*3/uL RBC (4.10-5.20) X 10*6/uL Hgb (12.0-15.0) g/dL Hct (37.2-46.3) % MCHC (32.0-37.0) g/dL Immature Gran # (0.00-0.04) X 10*3/uL Neutrophils # (1.80-7.70) X 10*3/uL Eosinophils # (0.04-0.35) X 10*3/uL BUN/Creatinine Ratio (12.00-20.00) Ratio Glucose (70-110) mg/dL POC Glucose (mg/dL) 200 H 195 H (70-110) mg/dL Microbiology - Last 24 Hours (Table) 09/22/22 21:20 Blood Culture - Preliminary Blood No Growth after 24 hours Assessment and Plan Assessment: ASSESSMENT Acute COPD exacerbation Stage II COPD Acute tracheobronchitis Hypokalemia Hypomagnesemia Obstructive sleep apnea Congestive heart failure not in acute exacerbation History of coronary artery disease status post stenting Pulmonary hypertension obesity with BMI of 39 GERD Chronic bilateral lower extremity lymphedema Multiple joint osteoarthritis Former smoker PLAN: Clinically improving -continue with Solu-Medrol, duo nebs and doxycycline Leukocytosis could be secondary to steroid therapy GI DVT prophylaxis Continue with the rest of the current medication regimen Anticipate discharge in the next 24 hrs
[2022-09-25] MEDS: IPRATROPIUM-ALBUTEROL 3 ML NEB INHALATION SCH ×7 (01:42→21:37)
[2022-09-25] MEDS: LEVOTHYROXINE 125 MCG TAB PO SCH (06:29)
[2022-09-25] MEDS: methylPREDNISolone SOD SUCCI 125 MG/2 ML VIAL IV SCH ×4 (06:29→23:21)
[2022-09-25 07:23] LABS: Glucose,Whole Blood 141 mg/dL (70-110)
[2022-09-25] MEDS: INSULIN ASPART (NovoLOG) 100 UNIT/ML VIAL SQ SCH ×4 (08:01→22:18)
[2022-09-25] MEDS: SYMBICORT 160-4.5 MCG INHALER INHALATION SCH ×2 (09:52→21:37)
[2022-09-25] MEDS: DULoxetine HCL 30 MG CAPSULE.DR PO SCH (10:49)
[2022-09-25] MEDS: CYANOCOBALAMIN 500 MCG TAB PO SCH (10:49)
[2022-09-25] MEDS: MULTIVITAMINS, THERA 1 EACH TAB PO SCH (10:50)
[2022-09-25] MEDS: HYDROcodone/APAP 10-325MG 1 EACH TAB PO SCH ×4 (10:50→22:14)
[2022-09-25] MEDS: DOCUSATE 100 MG CAP PO SCH ×2 (10:50→22:14)
[2022-09-25] MEDS: HEPARIN SODIUM,PORCINE/PF 5,000 UNIT/0.5 ML SYRINGE SQ SCH ×3 (10:51→23:21)
[2022-09-25] MEDS: LOSARTAN 50 MG TAB PO SCH (10:51)
[2022-09-25] MEDS: guaiFENesin 600 MG TABLET.ER PO SCH ×2 (10:51→22:14)
[2022-09-25] MEDS: FUROSEMIDE 40 MG TAB PO SCH ×2 (10:51→15:41)
[2022-09-25] MEDS: PANTOPRAZOLE 40 MG TABLET PO SCH ×2 (10:51→18:23)
[2022-09-25] MEDS: ASCORBIC ACID 500 MG TAB PO SCH (10:51)
[2022-09-25] MEDS: ARIPiprazole 5 MG TAB PO SCH (10:52)
[2022-09-25] MEDS: OXYBUTYNIN 10 MG TAB.ER.24 PO SCH (10:52)
[2022-09-25] MEDS: DOXYCYCLINE 100 MG CAP PO SCH ×2 (10:53→22:14)
--- NOTE | 2022-09-25 11:22 | P.PN ---
Subjective Progress Note Date: 09/25/22 This is a 72-year-old female seen in the ER, patient is known to have history of COPD, hypertension, pulmonary hypertension, congestive heart failure with preserved LV function, dyslipidemia, coronary artery disease and previous stent placement, degenerative joint disease, former smoker, history of mild o bstructive sleep apnea syndrome, patient came into the ER yesterday, complaining of one-week history of cough wheezing shortness of breath, cough is productive but she was not able to clear any phlegm. Patient has been seen by Dr. Jara in the past for her COPD, she quit smoking back in 2007, she had history of underlying coronary artery disease and previous stents 2 were placed. Patient is not O2 dependent and not prednisone dependent, she carries a [id number] smoking history. Chest x-ray showed no evidence of infiltrate or pneumonia. Patient tested negative for acute influenza A and B and RSV she also tested negative for COVID-19 infection. CBC showed a slight leukocytosis with WBC count of 13.4, otherwise her labs were unremarkable, she had a low potassium of 2.8 The patient is seen today 09/24/2022 in follow-up on the regular medical floor. She is currently sitting up in bed. Awake and alert in no acute maintaining good O2 saturations in the 90s on room air. She's afebrile. Hemodynamically stable. Blood culture reveals no growth to date. White count 17.8. Hemoglobin 11.4. Sodium 138. Potassium 4.0. BUN 16. Creatinine 0.7. Glucose 167. She is continued on DuoNeb inhalations, Symbicort, Mucinex, IV Solu-Medrol. Empiric antibiotics in the form of Vibramycin. Oral diuretics. Heparin for DVT prophylaxis. The patient is seen today 09/25/2022 in follow-up on the regular medical floor. She is awake and alert in no acute distress. Maintaining good O2 saturations in the 90s on room air. Feeling back to her baseline. No worsening shortness of breath, cough or congestion. No IV fluids. Anxious to go home. She is continued on DuoNeb inhalations, Symbicort, IV Solu-Medrol. Empiric antibiotic the form of Vibramycin. Heparin for DVT prophylaxis. Objective - Vital Signs Vital signs: Vital Signs Temp 98.0 F 09/25/22 07:19 Pulse 84 09/25/22 10:03 Resp 18 09/25/22 07:19 BP 113/66 09/25/22 07:19 Pulse Ox 90 L 09/25/22 07:19 FiO2 Intake & Output 09/24/22 09/25/22 09/25/22 18:59 06:59 18:59 Intake Total 240 Balance 240 Intake: Oral 240 Other: Voiding Method Toilet Toilet # Voids 3 - Exam GENERAL EXAM: Alert, oriented 3, 72-year-old female, on room air, comfortable in no apparent distress. HEAD: Normocephalic. EYES: Normal reaction of pupils, equal size. NOSE: Clear with pink turbinates. THROAT: No erythema or exudates. NECK: No masses, no JVD. CHEST: No chest wall deformity. LUNGS: Equal air entry with faint bilateral end expiratory wheeze. CVS: S1 and S2 normal with no audible murmur, regular rhythm. ABDOMEN: No hepatosplenomegaly, normal bowel sounds, no guarding or rigidity. SPINE: No scoliosis or deformity SKIN: No rashes CENTRAL NERVOUS SYSTEM: No focal deficits, tone is normal in all 4 extremities. EXTREMITIES: There is no peripheral edema. No clubbing, no cyanosis. Peripheral pulses are intact. - Labs CBC & Chem 7: 09/24/22 04:48 09/24/22 04:48 Labs: Abnormal Lab Results - Last 24 Hours (Table) 09/24/22 09/24/22 09/24/22 Range/Units 12:51 17:20 20:55 POC Glucose (mg/dL) 189 H 200 H 195 H (70-110) mg/dL 09/25/22 Range/Units 07:22 POC Glucose (mg/dL) 141 H (70-110) mg/dL Microbiology - Last 24 Hours (Table) 09/22/22 21:20 Blood Culture - Preliminary Blood No Growth after 48 hours Assessment and Plan Assessment: Acute exacerbation of COPD Acute tracheobronchitis no clear-cut evidence of pneumonia History of stage II COPD, FEV1 of 61% in 2018 History of obstructive sleep apnea syndrome, mild Secondary pulmonary hypertension mild to moderate History of congestive heart failure with preserved ejection fraction History of coronary artery disease and previous stent placement Former smoker, [id number] smoking history History of depression Plan: The patient was seen and evaluated Medications reviewed Stable and on room air Cleared for discharge from the pulmonary standpoint Continue her home pulmonary medications Complete a prednisone taper Follow up with Dr. Jara in 1 week I have personally seen and examined the patient, performed the documentation and the assessment and plan as written. Number of minutes spent on the visit: 10.
[2022-09-25 11:24] LABS: Glucose,Whole Blood 188 mg/dL (70-110)
[2022-09-25 17:26] LABS: Glucose,Whole Blood 148 mg/dL (70-110)
[2022-09-25 21:07] LABS: Glucose,Whole Blood 185 mg/dL (70-110)
[2022-09-25] MEDS: ATORVASTATIN 40 MG TAB PO SCH (22:14)
--- NOTE | 2022-09-26 03:25 | P.PN ---
Subjective Progress Note Date: 09/25/22 ACute COPD Exacerbation Ms. Ulrich is a 72-year-old female with a past medical history of COPD, CHF, CAD status post stenting, hypertension, obstructive sleep apnea, thyroid disorder coming in with a chief complaint of cough for 1 week and difficulty in breathing for the past couple of days. She is currently being treated for acute COPD exacerbation due to tracheobronchitis with IV antibiotics. Today the patient is sitting comfortably on the bed appears to be in no acute distress. She states that her difficulty in breathing is improving. She still continues to have mild cough that is nonproductive in nature. Patient denies having any chest pain or palpitations. She denies having abdominal pain nausea vomiting or diarrhea. She denies having any fevers chills or rigors overnight. Patient's vital signs reveal a temperature of 98.1 heart rate 83 respiratory 16 blood pressure 118/77 saturating at 96% on room air patient's labs are reviewed white count of 17.8 hemoglobin 11.4 platelets 340. Electrolytes within normal limits. 09/25/2022 She is seen and evaluated in follow-up for COPD exacerbation with pulmonary following. Patient is maintained on IV steroids along with DuoNeb treatments and initiated on doxycycline twice daily. Patient reports to feeling somewhat improved although not back to baseline. Patient is on room air denies worsening shortness of breath. Patient continues with persistent dry hacking cough that is nonproductive. Patient will need follow-up in the outpatient setting with pulmonary. Encouraged to increase activity as tolerated and will continue current medication regimen. Recommend monitoring blood sugars and treat accordingly as patient is on high dose IV steroids. Review of systems: Constitutional: No reports of fatigue, fever, or chills Cardiovascular: No reports of chest pain or palpitations Respiratory: No reports of worsening shortness of breath, reports continued dry cough GI: No reports of nausea, vomiting, or diarrhea : No reports of dysuria or retention Neurovascular: No reports of weakness or numbness All medications have been reviewed Physical exam: GEN. APPEARANCE: alert, in no apparent distress RESPIRATORY EXAM: Bilateral coarse breath sounds with wheezing, bronchospastic on exam CARDIOVASCULAR EXAM: regular rate, normal rhythm, normal heart sounds. GI/ABDOMINAL EXAM: soft, normal bowel sounds. NOn tender EXTREMITIES EXAM: Chronic Lymphedema bilateral lower extremities NEUROLOGICAL EXAM: alert, oriented X3 PSYCHIATRIC EXAM: normal affect, normal mood Assessment: Acute COPD exacerbation Stage II COPD Acute tracheobronchitis Hypokalemia, improved Hypomagnesemia, improved Obstructive sleep apnea Congestive heart failure not in acute exacerbation History of coronary artery disease status post stenting Pulmonary hypertension obesity with BMI of 39 GERD Chronic bilateral lower extremity lymphedema Multiple joint osteoarthritis Former smoker PLAN: Patient is Clinically improving, not quite back at baseline. Recommend to continue with Solu-Medrol, duo nebs and doxycycline. Pulmonary following Leukocytosis could be secondary to steroid therapy, patient is afebrile and maintained on doxycycline Recommend to continue with GI DVT prophylaxis Continue with the rest of the current medication regimen Anticipate discharge in the next 24 hrs The impression and plan of care has been dictated by Norma Gonzales Nurse Pract itioner as directed. Dr. Dulce MD I have performed a history and examination and MDM of this patient, discussed the same with the dictator, and agree with the dictator's assessment and plan as written ,documented as a scribe. Based on total visit time, I have performed more than 50% of the visit. Objective - Vital Signs Vital signs: Vital Signs Temp 97.9 F 09/25/22 14:19 Pulse 77 09/25/22 14:19 Resp 19 09/25/22 14:19 BP 105/61 09/25/22 14:19 Pulse Ox 93 L 09/25/22 14:19 FiO2 Intake & Output 09/24/22 09/25/22 09/25/22 18:59 06:59 18:59 Intake Total 240 Balance 240 Intake: Oral 240 Other: Voiding Method Toilet Toilet # Voids 3 - Labs CBC & Chem 7: 09/24/22 04:48 09/24/22 04:48 Labs: Abnormal Lab Results - Last 24 Hours (Table) 09/24/22 09/24/22 09/25/22 Range/Units 17:20 20:55 07:22 POC Glucose (mg/dL) 200 H 195 H 141 H (70-110) mg/dL 09/25/22 Range/Units 11:22 POC Glucose (mg/dL) 188 H (70-110) mg/dL Microbiology - Last 24 Hours (Table) 09/22/22 21:20 Blood Culture - Preliminary Blood No Growth after 48 hours
[2022-09-26] MEDS: IPRATROPIUM-ALBUTEROL 3 ML NEB INHALATION SCH ×2 (03:35→07:50)
[2022-09-26] MEDS ORDERED: IPRATROPIUM-ALBUTEROL 3 ML NEB INHALATION PRN (03:36)
[2022-09-26] MEDS: methylPREDNISolone SOD SUCCI 125 MG/2 ML VIAL IV SCH (06:03)
[2022-09-26] MEDS: LEVOTHYROXINE 125 MCG TAB PO SCH (06:03)
[2022-09-26 07:12] LABS: Glucose,Whole Blood 154 mg/dL (70-110)
[2022-09-26 07:37] VITALS: BP 120/69; RESP 18; TEMP 97.6
[2022-09-26] MEDS: SYMBICORT 160-4.5 MCG INHALER INHALATION SCH (07:50)
[2022-09-26 08:08] VITALS: PULSE 78
[2022-09-26] MEDS: HEPARIN SODIUM,PORCINE/PF 5,000 UNIT/0.5 ML SYRINGE SQ SCH (08:12)
[2022-09-26] MEDS: INSULIN ASPART (NovoLOG) 100 UNIT/ML VIAL SQ SCH (08:12)
[2022-09-26] MEDS: MULTIVITAMINS, THERA 1 EACH TAB PO SCH (08:13)
[2022-09-26] MEDS: ASCORBIC ACID 500 MG TAB PO SCH (08:13)
[2022-09-26] MEDS: CYANOCOBALAMIN 500 MCG TAB PO SCH (08:13)
[2022-09-26] MEDS: LOSARTAN 50 MG TAB PO SCH (08:13)
[2022-09-26] MEDS: DULoxetine HCL 30 MG CAPSULE.DR PO SCH (08:13)
[2022-09-26] MEDS: FUROSEMIDE 40 MG TAB PO SCH (08:14)
[2022-09-26] MEDS: guaiFENesin 600 MG TABLET.ER PO SCH (08:14)
[2022-09-26] MEDS: ARIPiprazole 5 MG TAB PO SCH (08:14)
[2022-09-26] MEDS: DOCUSATE 100 MG CAP PO SCH (08:14)
[2022-09-26] MEDS: OXYBUTYNIN 10 MG TAB.ER.24 PO SCH (08:14)
[2022-09-26] MEDS: HYDROcodone/APAP 10-325MG 1 EACH TAB PO SCH (08:14)
[2022-09-26] MEDS: DOXYCYCLINE 100 MG CAP PO SCH (08:14)
[2022-09-26] MEDS: PANTOPRAZOLE 40 MG TABLET PO SCH (08:14)
--- NOTE | 2022-09-26 14:47 | P.PN ---
Subjective Progress Note Date: 09/26/22 Principal diagnosis: Acute COPD exacerbation This is a 72-year-old female seen in the ER, patient is known to have history of COPD, hypertension, pulmonary hypertension, congestive heart failure with preserved LV function, dyslipidemia, coronary artery disease and previous stent placement, degenerative joint disease, former smoker, history of mild obstructive sleep apnea syndrome, patient came into the ER yesterday, complaining of one-week history of cough wheezing shortness of breath, cough is productive but she was not able to clear any phlegm. Patient has been seen by Dr. Jara in the past for her COPD, she quit smoking back in 2007, she had history of underlying coronary artery disease and previous stents 2 were placed. Patient is not O2 dependent and not prednisone dependent, she carries a [id number] smoking history. Chest x-ray showed no evidence of infiltrate or pneumonia. Patient tested negative for acute influenza A and B and RSV she also tested negative for COVID-19 infection. CBC showed a slight leukocytosis with WBC count of 13.4, otherwise her labs were unremarkable, she had a low potassium of 2.8 The patient is seen today 09/24/2022 in follow-up on the regular medical floor. She is currently sitting up in bed. Awake and alert in no acute maintaining good O2 saturations in the 90s on room air. She's afebrile. Hemodynamically st able. Blood culture reveals no growth to date. White count 17.8. Hemoglobin 11.4. Sodium 138. Potassium 4.0. BUN 16. Creatinine 0.7. Glucose 167. She is continued on DuoNeb inhalations, Symbicort, Mucinex, IV Solu-Medrol. Empiric antibiotics in the form of Vibramycin. Oral diuretics. Heparin for DVT prophylaxis. The patient is seen today 09/25/2022 in follow-up on the regular medical floor. She is awake and alert in no acute distress. Maintaining good O2 saturations in the 90s on room air. Feeling back to her baseline. No worsening shortness of breath, cough or congestion. No IV fluids. Anxious to go home. She is continued on DuoNeb inhalations, Symbicort, IV Solu-Medrol. Empiric antibiotic the form of Vibramycin. Heparin for DVT prophylaxis. Patient is seen today on 09/26/2022 on a regular medical floor. She is awake and alert in no acute distress on room air. Patient is telling me that she is ready for discharge. Denies shortness of breath, cough, chest pain. No new labs or x-rays to review. She is maintained on DuoNeb inhalation and Symbicort inhaler already has follow-up appointment scheduled with Dr. Jara at the end of next month. Patient and vital signs all remain stable. Objective - Vital Signs Vital signs: Vital Signs Temp 97.6 F 09/26/22 07:12 Pulse 78 09/26/22 08:07 Resp 18 09/26/22 07:12 BP 120/69 09/26/22 07:12 Pulse Ox 93 L 09/26/22 07:12 FiO2 Intake & Output 09/25/22 09/26/22 09/26/22 18:59 06:59 18:59 Intake Total 1250 550 Balance 1250 550 Intake: Oral 1250 550 Other: Voiding Method Toilet Toilet # Voids 3 1 - Exam GENERAL EXAM: Alert, oriented 3, 72-year-old female, on room air, comfortable in no apparent distress. HEAD: Normocephalic. EYES: Normal reaction of pupils, equal size. NOSE: Clear with pink turbinates. THROAT: No erythema or exudates. NECK: No masses, no JVD. CHEST: No chest wall deformity. LUNGS: Equal air entry with faint bilateral end expiratory wheeze. CVS: S1 and S2 normal with no audible murmur, regular rhythm. ABDOMEN: No hepatosplenomegaly, normal bowel sounds, no guarding or rigidity. SPINE: No scoliosis or deformity SKIN: No rashes CENTRAL NERVOUS SYSTEM: No focal deficits, tone is normal in all 4 extremities. EXTREMITIES: There is no peripheral edema. No clubbing, no cyanosis. Peripheral pulses are intact - Labs CBC & Chem 7: 09/24/22 04:48 09/24/22 04:48 Labs: Abnormal Lab Results - Last 24 Hours (Table) 09/25/22 09/25/22 09/26/22 Range/Units 17:24 21:06 07:11 POC Glucose (mg/dL) 148 H 185 H 154 H (70-110) mg/dL Microbiology - Last 24 Hours (Table) 09/22/22 21:20 Blood Culture - Preliminary Blood No Growth after 72 hours Assessment and Plan Assessment: Acute exacerbation of COPD Acute tracheobronchitis no clear-cut evidence of pneumonia History of stage II COPD, FEV1 of 61% in 2018 History of obstructive sleep apnea syndrome, mild Secondary pulmonary hypertension mild to moderate History of congestive heart failure with preserved ejection fraction History of coronary artery disease and previous stent placement Former smoker, 80-[id number]-[id number] smoking history History of depression Plan: The patient was seen and evaluated Medications reviewed Stable and on room air Continue her home pulmonary medications Complete a prednisone taper May follow-up with Dr. Jara at scheduled appointment Patient will be discharged today. I have personally seen and examined the patient, performed the documentation and the assessment and plan as written. Number of minutes spent on the visit: [10 ]. Time with Patient: Less than 30
== END 2022-09-26 11:10 | disposition home or self-care (01) | DRG 191 ==
LOC: EC 21:01 → 5NMEDONC 22:21
PROVIDERS: ADMIT Family Medicine; ATTEND Family Medicine
DX: J44.1 Chronic obstructive pulmonary disease with (acute) exacerbation (principal); I50.32 Chronic diastolic (congestive) heart failure; J44.0 Chronic obstructive pulmonary disease with (acute) lower respiratory infection; J20.9 Acute bronchitis, unspecified; K21.9 Gastro-esophageal reflux disease without esophagitis; M15.9 Polyosteoarthritis, unspecified; E11.9 Type 2 diabetes mellitus without complications; E66.9 Obesity, unspecified; E78.5 Hyperlipidemia, unspecified; E83.42 Hypomagnesemia; E87.6 Hypokalemia; I11.0 Hypertensive heart disease with heart failure; G47.33 Obstructive sleep apnea (adult) (pediatric); I25.10 Atherosclerotic heart disease of native coronary artery without angina pectoris; I25.2 Old myocardial infarction; I27.29 Other secondary pulmonary hypertension; I89.0 Lymphedema, not elsewhere classified; Z68.39 Body mass index [BMI] 39.0-39.9, adult; Z79.52 Long term (current) use of systemic steroids; Z79.899 Other long term (current) drug therapy; Z95.5 Presence of coronary angioplasty implant and graft; Z96.612 Presence of left artificial shoulder joint; Z96.653 Presence of artificial knee joint, bilateral
CPT/HCPCS: 36415; 71046; 80048; 80053; 81003; 83036; 83735; 83880; 84484; 85025; 87040; 87636; 93005; 94640; 96365; 96366; 96367; 96368; 96375; 99291

== ENCOUNTER 2023-05-10 16:25 | Emergency (ER) | payer MEDICARE ==
[2023-05-10 16:40] VITALS: RESP 20; TEMP 98
--- NOTE | 2023-05-10 17:03 | ED ---
General Adult HPI - General Chief complaint: Extremity Problem,Nontraumatic Stated complaint: R ankle pain Time Seen by Provider: 05/10/23 16:38 Source: patient Mode of arrival: EMS Limitations: no limitations - History of Present Illness Initial comments: Dictation was produced using [employer] dictation software. please excuse any grammatical, word or spelling errors. Chief Complaint: 72-year-old female presents emergency department for right ankle pain History of Present Illness: 72-year-old obese female with bilateral knee replac ements presents to the emergency department for atraumatic right ankle pain. She woke up out of bed tried to stand when she all of a sudden she noticed that her ankle hurt. Denies any trauma. Yesterday. Patient denies any history of ankle injuries or she has no arthritis in the right ankle to her knowledge. Denies any fever. The ROS documented in this emergency department record has been reviewed and confirmed by me. Those systems with pertinent positive or negative responses have been documented in the HPI. All other systems are other negative and/or noncontributory. - Related Data Home Medications Medication Instructions Recorded Confirmed HYDROcodone/APAP 10-325MG [Kelford 1 tab PO QID 05/03/15 09/23/22 10-325] Omeprazole 40 mg PO BID 05/03/15 09/23/22 Atorvastatin Calcium [Lipitor] 40 mg PO HS 06/07/17 09/23/22 Furosemide [Lasix] 40 mg PO BID 09/16/17 09/23/22 Levothyroxine Sodium [Synthroid] 125 mcg PO DAILY 12/15/20 09/23/22 ARIPiprazole [Abilify] 5 mg PO DAILY 01/21/22 09/23/22 DULoxetine HCL [Cymbalta] 90 mg PO DAILY 01/21/22 09/23/22 Losartan Potassium 50 mg PO DAILY 01/21/22 09/23/22 Multivitamins, Thera [Multivitamin 1 tab PO DAILY 01/21/22 09/23/22 (formulary)] Ascorbic Acid [Vitamin C] 1,000 mg PO DAILY 09/23/22 09/23/22 Cyanocobalamin (Vitamin B-12) 1,000 mcg PO DAILY 09/23/22 09/23/22 [Vitamin B-12] Ipratropium-Albuterol Nebulize 3 ml INHALATION RT-Q8H PRN 09/23/22 09/23/22 [Duoneb 0.5 mg-3 mg/3 ml Soln] Tolterodine Tartrate [Tolterodine 4 mg PO DAILY 09/23/22 09/23/22 Tartrate ER] Zinc Gluconate [Zinc] 50 mg PO DAILY 09/23/22 09/23/22 rOPINIRole HCL [Requip] 0.5 mg PO HS 09/23/22 09/23/22 Docusate [Colace] 200 mg PO BID 09/24/22 09/24/22 polyethylene glycoL 3350 [Miralax] 17 gm PO DAILY PRN 09/24/22 09/24/22 Previous Rx's Medication Instructions Recorded Budesonide-Formot 160-4.5 Mcg 2 puff INHALATION RT-BID #1 each 09/26/22 [Symbicort 160-4.5 Mcg Inhaler] Doxycycline [Vibramycin] 100 mg PO BID #6 cap 09/26/22 predniSONE 0 mg PO DIRECTED #30 tab 09/26/22 Morphine Sulfate Ir [MSIR] 15 mg PO Q6HR PRN 3 Days #6 tab 05/10/23 Allergies Allergy/AdvReac Type Severity Reaction Status Date / Time No Known Allergies Allergy Verified 05/10/23 16:40 Review of Systems ROS Statement: Those systems with pertinent positive or pertinent negative responses have been documented in the HPI. ROS Other: All systems not noted in ROS Statement are negative. Past Medical History Past Medical History: Coronary Artery Disease (CAD), COPD, GERD/Reflux, GI Bleed, Hyperlipidemia, Hypertension, Myocardial Infarction (UT), Osteoarthritis (OA), Skin Disorder, Sleep Apnea/CPAP/BIPAP, Thyroid Disorder Additional Past Medical History / Comment(s): DDD, hx anemia. JOSE LEG SWELLING- lymphedema, previous wound on lower left leg. Has cpap Last Myocardial Infarction Date:: 2006 History of Any Multi-Drug Resistant Organisms: None Reported Past Surgical History: Back Surgery, Cholecystectomy, Heart Catheterization With Stent, Hysterectomy, Joint Replacement, Tonsillectomy Additional Past Surgical History / Comment(s): Bilateral knee replacement ALLEN FUNDLAPLASTY, LEFT shoulder replacement. 2 STENTS IN HEART Past Anesthesia/Blood Transfusion Reactions: No Reported Reaction Additional Past Anesthesia/Blood Transfusion Reaction / Comment(s): daughter had hard time waking up after anesthesia Date of Last Stent Placement:: 2006 Past Psychological History: No Psychological Hx Reported Smoking Status: Former smoker - Past Family History Brother(s) Family Medical History: Cancer Mother Family Medical History: Cancer Mother Brother(s) Family Medical History: Cancer Father Family Medical History: Cancer General Exam - General Exam Comments Initial Comments: PHYSICAL EXAM: General Impression: Alert and oriented x3, not in acute distress HEENT: Normocephalic atraumatic, extra-ocular movements intact, pupils equal and reactive to light bilaterally, mucous membranes moist. Cardiovascular: Heart regular rate and rhythm Chest: Able to complete full sentences, no retractions, no tachypnea Abdomen: abdomen soft, non-tender, non-distended, no organomegaly Musculoskeletal: Pulses present and equal in all extremities, no peripheral edema Right ankle: Bilateral malleoli tenderness, no gross deformity Motor: no focal deficits noted Neurological: CN II-XII grossly intact, no focal motor or sensory deficits noted Skin: Intact with no visualized rashes Psych: Normal affect and mood Limitations: no limitations Course Vital Signs 05/10/23 05/10/23 16:34 17:57 Temperature 98.0 F Pulse Rate 78 81 Respiratory 20 20 Rate Blood Pressure 128/93 141/65 O2 Sat by Pulse 96 99 Oximetry Medical Decision Making - Medical Decision Making Was pt. sent in by a medical professional or institution ([facility] Ortiz, [facility], urgent care, hospital, or [facility]...) When possible be specific @ -No Did you speak to anyone other than the patient for history (EMS, parent, family, police, friend...)? What history was obtained from this source @ -No Did you review nursing and triage notes (agree or disagree)? Why? @ -I reviewed and agree with nursing and triage notes Were old charts reviewed (outside hosp., previous admission, EMS record, old EKG, old radiological studies, urgent care reports/EKG's, [facility] records)? Report findings @ -No old charts were reviewed Differential Diagnosis (chest pain, altered mental status, abdominal pain women, abdominal pain men, vaginal bleeding, musculoskeletal, weakness, fever, dyspnea, syncope, headache, dizziness, GI bleed, back pain, seizure, CVA, palpatations, mental health)? @ -not applicable EKG interpreted by me (3pts min.). @ -None done X-rays interpreted by me (1pt min.). @ -Right foot right ankle x-rays are unremarkable CT interpreted by me (1pt min.). @ -None done U/S interpreted by me (1pt. min.). @ -None done What testing was considered but not performed or refused? (CT, X-rays, U/S, labs)? Why? @ -None What meds were considered but not given or refused? Why? @ -None Did you discuss the management of the patient with other professionals (merle macedo i.jake Ortiz, PA, [facility], lab, RT, psych nurse, social welfare clerk, sash clamp operator, teacher, fare enforcement officer, pillowcase turner)? Give summary @ -No Was smoking cessation discussed for >3mins.? @ -No Was critical care preformed (if so, how long)? @ -No Were there social determinants of health that impacted care today? How? (Homelessness, low income, unemployed, alcoholism, drug addiction, transportation, low edu. Level, literacy, decrease access to med. care, custodial, rehab)? @ -Morbidly obese, degenerative joint disease, history of knee replacements Was there de-escalation of care discussed even if they declined (Discuss DNR or withdrawal of care, Hospice)? DNR status @ -No What co-morbidities impacted this encounter? (DM, HTN, Smoking, COPD, CAD, Cancer, CVA, ARF, Chemo, Hep., AIDS, mental health diagnosis, sleep apnea, morbid obesity)? @ -None Was patient admitted / discharged? Hospital course, mention meds given and route, prescriptions, significant lab abnormalities, going to OR and other pertinent info. @ -72-year-old female with morbid obesity presents to the ER for atraumatic right ankle pain. Patient denies any trauma to the leg. X-rays are unre markable. Patient agreeable for discharge to follow-up with primary care doctor. Patient given by mouth analgesic prescription. No suspicion for gout given that joint is not red and swollen. Patient likely would benefit from weight loss. Undiagnosed new problem with uncertain prognosis? @ -No Drug Therapy requiring intensive monitoring for toxicity (Heparin, Nitro, Insulin, Cardizem)? @ -No Were any procedures done? @ -No Diagnosis/symptom? Acute, or Chronic, or Acute on Chronic? Uncomplicated (without systemic symptoms) or Complicated (systemic symptoms)? @ -1. Atraumatic ankle pain Side effects of treatment? @ -No Exacerbation, Progression, or Severe Exacerbation? @ -No Poses a threat to life or bodily function? How? (Chest pain, [place], [place], pneumonia, PE, COPD, DKA, ARF, appy, cholecystitis, CVA, Diverticulitis, Homicidal, Suicidal, threat to staff... and all critical care pts) @ -No Disposition Clinical Impression: Ankle pain Disposition: HOME SELF-CARE Condition: Good Instructions (If sedation given, give patient instructions): Arthralgia (ED), Weight Management (ED) Prescriptions: Morphine Sulfate Ir [MSIR] 15 mg PO Q6HR PRN 3 Days #6 tab PRN Reason: Severe Pain Is patient prescribed a controlled substance at d/c from ED?: Yes If prescribed controlled substance>3 days was MAPS reviewed?: Prescribed <3 Days Referrals: Rafaela Orourke DO [Primary Care Provider] - 1-2 days Time of Disposition: 18:56
--- NOTE | 2023-05-10 17:25 | XR ---
EXAMINATION TYPE: XR foot complete RT DATE OF EXAM: 05/10/2023 CLINICAL HISTORY: pain TECHNIQUE: Frontal, lateral and oblique images of the left foot are obtained. COMPARISON: None. FINDINGS: There is no acute fracture/dislocation evident. The joint spaces appear within normal antoine its. The overlying soft tissue appears unremarkable. IMPRESSION: There is no acute fracture or dislocation. ICD 10 NO FRACTURE, INITIAL EVALUATION
--- NOTE | 2023-05-10 17:26 | XR ---
EXAMINATION TYPE: XR ankle complete RT DATE OF EXAM: 05/10/2023 COMPARISON: NONE HISTORY: Pain TECHNIQUE: Frontal, lateral and oblique images of the right ankle are obtained. COMPARISON: None. FINDINGS: There is no acute fracture/dislocation evident. The joint spaces appear within normal antoine its. Lateral soft tissue swelling. IMPRESSION: There is no acute fracture or dislocation seen.
[2023-05-10] MEDS ORDERED: MORPHINE SULFATE 4 MG/ML SYRINGE IM STA (17:34)
[2023-05-10 19:03] VITALS: BP 143/89; PULSE 95
== END 2023-05-10 19:05 | disposition home or self-care (01) ==
LOC: EC 16:25
DX: M25.571 Pain in right ankle and joints of right foot (principal); E66.9 Obesity, unspecified; E78.5 Hyperlipidemia, unspecified; G47.30 Sleep apnea, unspecified; I10 Essential (primary) hypertension; I25.10 Atherosclerotic heart disease of native coronary artery without angina pectoris; I25.2 Old myocardial infarction; J44.9 Chronic obstructive pulmonary disease, unspecified; K21.9 Gastro-esophageal reflux disease without esophagitis; M19.90 Unspecified osteoarthritis, unspecified site; E07.9 Disorder of thyroid, unspecified; Z79.890 Hormone replacement therapy; Z79.899 Other long term (current) drug therapy; Z87.891 Personal history of nicotine dependence; Z90.49 Acquired absence of other specified parts of digestive tract; Z68.41 Body mass index [BMI] 40.0-44.9, adult
CPT/HCPCS: 73610; 73630; 99284; 96372; J2270

== ENCOUNTER → 2023-08-20 | Outpatient (CLI) | payer MEDICARE ==
--- NOTE | 2023-08-22 00:03 | MM ---
Reason for Exam: Screening (asymptomatic). Last screening mammogram was performed 12 month(s) ago. Patient History: Menarche at age 12. First Full-Term at age 22. Left ovary removed at age 33. Right ovary removed at age 33. Hysterectomy at age 33. Postmenopausal. Paternal cousin had breast cancer, age 50. Paternal aunt had breast cancer, age 60. Risk Values: Kelley 5 year model risk: 1.7%. NCI Lifetime model risk: 4.7%. Prior Study Comparison: 10/14/2017 Bilateral Screening Mammogram, [facility]. 10/27/2018 Bilateral Screening Mammogram, [facility]. 08/09/2022 Bilateral MG 3D screening mammo w/cad, [facility]. Tissue Density: There are scattered fibroglandular densities. Findings: Analyzed By CAD. There is no suspicious group of microcalcifications or new suspicious mass in either breast. Overall Assessment: Negative, BI-RAD 1 Management: Screening Mammogram of both breasts in 1 year. . Patient should continue monthly self-breast exams. A clinical breast exam by your physician is recommended on an annual basis. This exam should not preclude additional follow-up of suspicious palpable abnormalities. Note on Kelley scores and lifetime risk: 1. A Kelley score greater than 3% is considered moderate risk. If this is the case, consider specialist referral to assess eligibility for a risk reducing agent. 2. If overall lifetime risk for the development of breast cancer is 20% or higher, the patient may qualify for future screening with alternating mammogram and breast MRI. Electronically signed and approved by: Ilene Abdalla M.D. Radiologist
== END | disposition home or self-care (01) ==
LOC: RADMAMWWP 15:42
PROVIDERS: ATTEND Family Medicine
DX: Z12.31 Encounter for screening mammogram for malignant neoplasm of breast (principal); Z78.0 Asymptomatic menopausal state; Z80.3 Family history of malignant neoplasm of breast
CPT/HCPCS: 77063; 77067

== ENCOUNTER 2023-09-26 13:38 | Emergency (ER) | payer MEDICARE ==
--- NOTE | 2023-09-26 16:05 | ED ---
General Adult HPI <Robert Villavicencio - Last Filed: 09/26/23 16:05> <Jenna Leavitt - Last Filed: 09/27/23 21:07> - General Stated complaint: vomiting Time Seen by Provider: 09/26/23 16:04 - History of Present Illness Initial comments: 73-year-old female with past medical history significant for COPD presenting to the ED with a chief complaint of cough. Patient states since Nellie has had symptoms of cough, congestion, nausea, vomiting, diarrhea (Robert Villavicencio) 73-year-old female with history of COPD presenting with chief complaint of cough. Patient states that symptoms started on Nellie, she is complaining of shortness of breath, congestion, nausea, vomiting, diarrhea as well. She states that the nausea and vomiting has decreased and upon arrival to her room assignment she is asking for a sandwich. Denies chest pain, abdominal pain, palpitations, numbness, tingling, weakness. (Jenna Leavitt) - Related Data Home Medications Medication Instructions Recorded Confirmed HYDROcodone/APAP 10-325MG [[place] 1 tab PO QID 05/03/15 09/23/22 10-325] Omeprazole 40 mg PO BID 05/03/15 09/23/22 Atorvastatin Calcium [Lipitor] 40 mg PO HS 06/07/17 09/23/22 Furosemide [Lasix] 40 mg PO BID 09/16/17 09/23/22 Levothyroxine Sodium [Synthroid] 125 mcg PO DAILY 12/15/20 09/23/22 ARIPiprazole [Abilify] 5 mg PO DAILY 01/21/22 09/23/22 DULoxetine HCL [Cymbalta] 90 mg PO DAILY 01/21/22 09/23/22 Losartan Potassium 50 mg PO DAILY 01/21/22 09/23/22 Multivitamins, Thera [Multivitamin 1 tab PO DAILY 01/21/22 09/23/22 (formulary)] Ascorbic Acid [Vitamin C] 1,000 mg PO DAILY 09/23/22 09/23/22 Cyanocobalamin (Vitamin B-12) 1,000 mcg PO DAILY 09/23/22 09/23/22 [Vitamin B-12] Ipratropium-Albuterol Nebulize 3 ml INHALATION RT-Q8H PRN 09/23/22 09/23/22 [Duoneb 0.5 mg-3 mg/3 ml Soln] Tolterodine Tartrate [Tolterodine 4 mg PO DAILY 09/23/22 09/23/22 Tartrate ER] Zinc Gluconate [Zinc] 50 mg PO DAILY 09/23/22 09/23/22 rOPINIRole HCL [Requip] 0.5 mg PO HS 09/23/22 09/23/22 Docusate [Colace] 200 mg PO BID 09/24/22 09/24/22 polyethylene glycoL 3350 [Miralax] 17 gm PO DAILY PRN 09/24/22 09/24/22 Previous Rx's Medication Instructions Recorded Budesonide-Formot 160-4.5 Mcg 2 puff INHALATION RT-BID #1 each 09/26/22 [Symbicort 160-4.5 Mcg Inhaler] Doxycycline [Vibramycin] 100 mg PO BID #6 cap 09/26/22 predniSONE 0 mg PO DIRECTED #30 tab 09/26/22 Morphine Sulfate Ir [MSIR] 15 mg PO Q6HR PRN 3 Days #6 tab 05/10/23 Albuterol Sulfate [Albuterol 1 puff PO Q4-6H PRN #8.5 gm 09/26/23 Sulfate Hfa] Azithromycin [Zithromax Z Pack] 1 tab PO DIRECTED #6 tab 09/26/23 predniSONE [Deltasone] 60 mg PO DAILY 5 Days #15 tab 09/26/23 Allergies Allergy/AdvReac Type Severity Reaction Status Date / Time No Known Allergies Allergy Verified 09/26/23 16:54 Review of Systems ROS Other: All systems not noted in ROS Statement are negative. <Robert Villavicencio - Last Filed: 09/26/23 16:05> ROS Other: All systems not noted in ROS Statement are negative. <Jenna Leavitt - Last Filed: 09/27/23 21:07> ROS Statement: Those systems with pertinent positive or pertinent negative responses have been documented in the HPI. Past Medical History Past Medical History: Coronary Artery Disease (CAD), COPD, GERD/Reflux, GI Bleed, Hyperlipidemia, Hypertension, Myocardial Infarction ([place]), Osteoarthritis (OA), Skin Disorder, Sleep Apnea/CPAP/BIPAP, Thyroid Disorder Additional Past Medical History / Comment(s): DDD, hx anemia. JOSE LEG SWELLING- lymphedema, previous wound on lower left leg. Has cpap Last Myocardial Infarction Date:: 2006 History of Any Multi-Drug Resistant Organisms: None Reported Past Surgical History: Back Surgery, Cholecystectomy, Heart Catheterization With Stent, Hysterectomy, Joint Replacement, Tonsillectomy Additional Past Surgical History / Comment(s): Bilateral knee replacement ALLEN FUNDLAPLASTY, LEFT shoulder replacement. 2 STENTS IN HEART Past Anesthesia/Blood Transfusion Reactions: No Reported Reaction Additional Past Anesthesia/Blood Transfusion Reaction / Comment(s): daughter had hard time waking up after anesthesia Date of Last Stent Placement:: 2006 Past Psychological History: No Psychological Hx Reported Smoking Status: Former smoker - Past Family History Brother(s) Family Medical History: Cancer Mother Family Medical History: Cancer Mother Brother(s) Family Medical History: Cancer Father Family Medical History: Cancer <Robert Villavicencio - Last Filed: 09/26/23 16:05> General Exam <Robert Villavicencio - Last Filed: 09/26/23 16:05> Limitations: no limitations General appearance: alert, in no apparent distress Head exam: Present: atraumatic, normocephalic Eye exam: Present: normal appearance Neck exam: Present: normal inspection Respiratory exam: Present: wheezes. Absent: respiratory distress, rales, rhonchi, stridor Cardiovascular Exam: Present: regular rate, normal rhythm, normal heart sounds. Absent: systolic murmur, diastolic murmur, rubs, gallop, clicks Neurological exam: Present: alert, oriented X3 Psychiatric exam: Present: normal affect, normal mood Skin exam: Present: warm, dry <Jenna Leavitt - Last Filed: 09/27/23 21:07> - General Exam Comments Initial Comments: Visual Physical Exam Vital signs reviewed General: Well-appearing, nontoxic, no acute distress. Head: Normocephalic, atraumatic Eyes: PERRLA, EOMI ENT: Airway patent Chest: Nonlabored breathing Skin: No visual rash, normal skin tone Neuro: Alert and oriented 3 Musculoskeletal: No gross abnormalities (Robert Villavicencio) Course Vital Signs 09/26/23 09/26/23 09/26/23 16:50 22:33 22:52 Temperature 97.9 F Pulse Rate 78 73 70 Respiratory 22 Rate Blood Pressure 141/74 O2 Sat by Pulse 92 L Oximetry Medical Decision Making <Robert Villavicencio - Last Filed: 09/26/23 16:05> - Lab Data Result diagrams: 09/26/23 20:45 09/26/23 20:45 <LeavittJenna - Last Filed: 09/27/23 21:07> - Medical Decision Making Quicknote portion performed. Signed Robert Villavicencio PA-C (Robert Villavicencio) Was pt. sent in by a medical professional or institution (Dr. PA, CHEMICAL PLANT WORKER, urgent care, hospital, or usp...) When possible be specific @ -No Did you speak to anyone other than the patient for history (EMS, parent, family, police, friend...)? What history was obtained from this source @ -No Did you review nursing and triage notes (agree or disagree)? Why? @ -I reviewed and agree with nursing and triage notes Were old charts reviewed (outside hosp., previous admission, EMS record, old EKG, old radiological studies, urgent care reports/EKG's, usp records)? Report findings @ -No old charts were reviewed Differential Diagnosis (chest pain, altered mental status, abdominal pain women, abdominal pain men, vaginal bleeding, weakness, fever, dyspnea, syncope, hea dache, dizziness, GI bleed, back pain, seizure, CVA, palpatations, mental health, musculoskeletal)? @ -MDM Differential Dyspnea: Coronary syndrome, arrhythmia, tamponade, asthma, COPD, pulmonary embolism, pneumonia, pneumothorax, pulmonary effusion, anaphylaxis, diabetic ketoacidosis, flailed chest, pulmonary contusion, diaphragmatic rupture, anemia, neuromuscular this is not meant to be an all-inclusive list. EKG interpreted by me (3pts min.). @ -As above X-rays interpreted by me (1pt min.). @ -Chest x-ray shows mild cardiomegaly. Interstitial prominence. Consider bronchitis or asthma. No focal infiltrates seen. CT interpreted by me (1pt min.). @ -None done U/S interpreted by me (1pt. min.). @ -None done What testing was considered but not performed or refused? (CT, X-rays, U/S, labs)? Why? @ -None What meds were considered but not given or refused? Why? @ -None Did you discuss the management of the patient with other professionals (professionals i.e. ., PA, CHEMICAL PLANT WORKER, lab, RT, psych nurse, social problems specialist, staff forester, t eacher, diplomatic officer, spring encaser)? Give summary @ -No Was smoking cessation discussed for >3mins.? @ -No Was critical care preformed (if so, how long)? @ -No Were there social determinants of health that impacted care today? How? (Homelessness, low income, unemployed, alcoholism, drug addiction, transportation, low edu. Level, literacy, decrease access to med. care, fdc, rehab)? @ -No Was there de-escalation of care discussed even if they declined (Discuss DNR or withdrawal of care, Hospice)? DNR status @ -No What co-morbidities impacted this encounter? (DM, HTN, Smoking, COPD, CAD, Cancer, CVA, ARF, Chemo, Hep., AIDS, mental health diagnosis, sleep apnea, morbid obesity)? @ -None Was patient admitted / discharged? Hospital course, mention meds given and ro muna, prescriptions, significant lab abnormalities, going to OR and other pertinent info. @ -73-year-old female presenting with chief complaint of cough and shortness of breath. Patient was also experiencing nausea vomiting and diarrhea which she states has improved. History and physical exam were conducted. Diffuse wheezes are heard on auscultation. Patient is treated with Solu-Medrol and 2 DuoNeb. She is positive for influenza a chest x-ray is positive for atypical pneumonia. On reassessment oxygen saturation has improved to 93-95%. I offered the patient admission which she repeatedly declined. She is of sound mind and body and able to make her own decisions. She will be treated for COPD exacerbation with prednisone, albuterol, and azithromycin. Follow-up with PCP. Report back to ER with any new or worsening symptoms. Discussed return parameters and answered all questions. Patient conveyed verbal understanding and agreed to the plan. I discussed this case in detail with my attending Dr. Alatorre Undiagnosed new problem with uncertain prognosis? @ -No Drug Therapy requiring intensive monitoring for toxicity (Heparin, Nitro, Insulin, Cardizem)? @ -No Were any procedures done? @ -No Diagnosis/symptom? @ -Influenza A Acute, or Chronic, or Acute on Chronic? @ -acute Uncomplicated (without systemic symptoms) or Complicated (systemic symptoms)? @ -uncomplicated Side effects of treatment? @ -No Exacerbation, Progression, or Severe Exacerbation? @ -No Poses a threat to life or bodily function? How? (Chest pain, [place], [place], pneumonia, PE, COPD, DKA, ARF, appy, cholecystitis, CVA, Diverticulitis, Homicidal, Suicid al, threat to staff... and all critical care pts) @ -No Diagnosis/symptom? @COPD Acute, or Chronic, or Acute on Chronic? @Acute on chronic Uncomplicated (without systemic symptoms) or Complicated (systemic symptoms)? @Uncomplicated Side effects of treatment? @ none Exacerbation, Progression, or Severe Exacerbation] @Exacerbation Poses a threat to life or bodily function? @Low likelihood (Jenna Leavitt) - Lab Data Lab Results 09/26/23 09/26/23 09/26/23 Range/Units 20:45 20:45 20:45 WBC 5.2 (3.8-10.6) k/uL RBC 4.97 (3.80-5.40) m/uL Hgb 15.0 (11.4-16.0) gm/dL Hct 45.4 (34.0-46.0) % MCV 91.2 (80.0-100.0) fL MCH 30.2 (25.0-35.0) pg MCHC 33.1 (31.0-37.0) g/dL RDW 13.9 (11.5-15.5) % Plt Count 188 (150-450) k/uL MPV 7.2 Neutrophils % 53 % Lymphocytes % 30 % Monocytes % 11 % Eosinophils % 1 % Basophils % 1 % Neutrophils # 2.7 (1.3-7.7) k/uL Lymphocytes # 1.5 (1.0-4.8) k/uL Monocytes # 0.6 (0-1.0) k/uL Eosinophils # 0.1 (0-0.7) k/uL Basophils # 0.0 (0-0.2) k/uL Sodium 137 (137-145) mmol/L Potassium 3.5 (3.5-5.1) mmol/L Chloride 101 (98-107) mmol/L Carbon Dioxide 27 (22-30) mmol/L Anion Gap 9 mmol/L BUN 8 (7-17) mg/dL Creatinine 0.48 L (0.52-1.04) mg/dL Est GFR (CKD-EPI)AfAm >90 (>60 ml/min/1.73 sqM) Est GFR (CKD-EPI)NonAf >90 (>60 ml/min/1.73 sqM) Glucose 93 (74-99) mg/dL Calcium 9.1 (8.4-10.2) mg/dL Total Bilirubin 0.9 (0.2-1.3) mg/dL AST 26 (14-36) U/L ALT 15 (4-34) U/L Alkaline Phosphatase 133 H (38-126) U/L Total Protein 6.5 (6.3-8.2) g/dL Albumin 3.7 (3.5-5.0) g/dL Influenza Type A (PCR) Detected A (Not Detectd) Influenza Type B (PCR) Not Detected (Not Detectd) RSV (PCR) Not Detected (Not Detectd) SARS-CoV-2 (PCR) Not Detected (Not Detectd) Disposition <Robert Villavicencio - Last Filed: 09/26/23 16:05> Is patient prescribed a controlled substance at d/c from ED?: No Time of Disposition: 23:49 <Jenna Leavitt - Last Filed: 09/27/23 21:07> Clinical Impression: COPD with acute exacerbation, Influenza A Disposition: HOME SELF-CARE Condition: Fair Instructions (If sedation given, give patient instructions): Influenza (ED), COPD (Chronic Obstructive Pulmonary Disease) (ED) Additional Instructions: Follow-up with PCP. Report back to ER with any new or worsening symptoms. Prescriptions: Albuterol Sulfate [Albuterol Sulfate Hfa] 1 puff PO Q4-6H PRN #8.5 gm PRN Reason: Shortness Of Breath predniSONE [Deltasone] 60 mg PO DAILY 5 Days #15 tab Azithromycin [Zithromax Z Pack] 1 tab PO DIRECTED #6 tab Referrals: Rafaela Orourke DO [Primary Care Provider] - 1-2 days
[2023-09-26 16:57] VITALS: BP 141/74; RESP 22; TEMP 97.9
--- NOTE | 2023-09-26 18:53 | XR ---
EXAMINATION TYPE: XR chest 2V DATE OF EXAM: 09/26/2023 COMPARISON: 09/22/2022 HISTORY: 73-year-old female cough and fever, shortness of breath TECHNIQUE: PA and lateral views FINDINGS: Partially visualized left total shoulder arthroplasty. Heart mildly enlarged. Interstitial density an d peribronchial cuffing. No consolidation or pleural effusion. IMPRESSION: 1. Mild cardiomegaly. 2. Interstitial prominence. Consider bronchitis or asthma. No focal infiltrate seen.
[2023-09-26 20:56] LABS: Basophils % (A) 1 %; Eosinophils # (A) 0.1 k/uL (0-0.7); Eosinophils % (A) 1 %; HCT 45.4 % (34.0-46.0); Lymphocytes # (A) 1.5 k/uL (1.0-4.8); Lymphocytes % (A) 30 %; MCH 30.2 pg (25.0-35.0); MCHC 33.1 g/dL (31.0-37.0); MCV 91.2 fL (80.0-100.0); Mean Platelet Volume 7.2; Monocytes # (A) 0.6 k/uL (0-1.0); Monocytes % (A) 11 %; Neutrophils # (A) 2.7 k/uL (1.3-7.7); Neutrophils % (A) 53 %; Platelet Count 188 k/uL (150-450); RBC 4.97 m/uL (3.80-5.40); RDW 13.9 % (11.5-15.5); WBC 5.2 k/uL (3.8-10.6)
[2023-09-26 21:11] LABS: ALT 15 U/L (4-34); AST 26 U/L (14-36); African American GFR (CKD) >90 (>60 ml/min/1.73 sqM); Albumin 3.7 g/dL (3.5-5.0); Alkaline Phosphatase 133 U/L (38-126); Anion Gap 9 mmol/L; Blood Urea Nitrogen 8 mg/dL (7-17); Calcium 9.1 mg/dL (8.4-10.2); Carbon Dioxide 27 mmol/L (22-30); Chloride 101 mmol/L (98-107); Glucose 93 mg/dL (74-99); Non-African American GFR(CKD) >90 (>60 ml/min/1.73 sqM); Potassium 3.5 mmol/L (3.5-5.1); Sodium 137 mmol/L (137-145); Total Bilirubin 0.9 mg/dL (0.2-1.3); Total Protein 6.5 g/dL (6.3-8.2)
[2023-09-26] MEDS ORDERED: methylPREDNISolone SOD SUCCI 125 MG/2 ML VIAL IM ONE (21:46)
[2023-09-26] MEDS ORDERED: IPRATROPIUM-ALBUTEROL 3 ML NEB INHALATION STA ×2 (21:47)
[2023-09-26 22:55] VITALS: PULSE 70
== END 2023-09-27 00:18 | disposition home or self-care (01) ==
LOC: EC 13:38
DX: J44.1 Chronic obstructive pulmonary disease with (acute) exacerbation (principal); J10.1 Influenza due to other identified influenza virus with other respiratory manifestations; I11.9 Hypertensive heart disease without heart failure; I25.10 Atherosclerotic heart disease of native coronary artery without angina pectoris; I25.2 Old myocardial infarction; E78.5 Hyperlipidemia, unspecified; K21.9 Gastro-esophageal reflux disease without esophagitis; E07.9 Disorder of thyroid, unspecified; Z20.822 Contact with and (suspected) exposure to COVID-19; Z79.890 Hormone replacement therapy; Z79.899 Other long term (current) drug therapy; Z87.891 Personal history of nicotine dependence; Z95.5 Presence of coronary angioplasty implant and graft; Z90.49 Acquired absence of other specified parts of digestive tract
CPT/HCPCS: 36415; 94640; 80053; 85025; 87636; 71046; 99284; 96372; J2930

== ENCOUNTER → 2024-05-08 | Outpatient (CLI) | payer MEDICARE ==
--- NOTE | 2024-05-28 14:13 | MR ---
Site ID synapse default Patient January Ulrich M ID [id number] Age/Gender: 73Y, F Order # N/A Procedure MR brain wo/w con Date 05/08/2024 8:25:51 AM INDICATION: Patient age: Female; 73 year old; Reason for study: Facial droop COMPARISON: CT brain 03/01/2021, 02/03/2018. TECHNIQUE: Multi planar, multi sequence imaging was performed through the brain. The patient was then given 12 cc of Gadavist intravenously and multi planar, T1 fat-saturation images were obtained. FINDINGS: The valenzuela-white junctions, ventricular system, basal cisterns appear unremarkable. Diffusion-weighted imaging shows no evidence of restricted diffusion to suggest acute/subacute infarct. Incidental small cavum septum pellucidum. Intracranial arterial flow voids are maintained. Midline structures show no abnormality. Both foci of high T2/FLAIR signal within the periventricular and subcortical white salvador er throughout the cerebral parenchyma. Additional region identified within the goldie. There is some co nfluence of these lesions within the bilateral frontoparietal junctions. These lesions appear relativ laura symmetric. Example includes a right frontoparietal junction 1 cm lesion (series 601, image 21). G rossly 50 lesions. No corresponding enhancement. The susceptibility weighted images do not reveal any evidence for micro-hemorrhage. After administration of gadolinium, no abnormal enhancement is seen. Age-appropriate cerebral volume. The bone marrow signal is within normal limits. Bilateral aphakia. The mastoid air cells are clear. M [id number] mucosal thickening of the ethmoid and sphenoid sinuses. Minimal mucosal thickening in ferior right maxillary sinus. IMPRESSION: 1. No evidence of intracranial mass, acute/subacute infarct, or abnormal enhancement. 2. Diffuse nonspecific white matter lesions involving the cerebral parenchyma in the subcortical and periventricular locations and also the goldie. No corresponding enhancement. Etiologies include chronic small vessel ischemic disease versus demyelination versus migraines versus leukodystrophy versus oth er. 3. Paranasal sinus disease.
== END | disposition home or self-care (01) ==
LOC: RADMRIMAIN 08:36
PROVIDERS: ATTEND Family Medicine
DX: I69.392 Facial weakness following cerebral infarction (principal)
CPT/HCPCS: 70553; A9585